=== PATIENT | female | born 1935 | race Caucasian/White ===

== ENCOUNTER 2016-07-18 10:17 | Emergency (ER) | payer MEDICARE, BC ==
--- NOTE | 2016-07-18 10:42 | EDM.PDOC ---
ED HPI ENT - General Chief Complaint: ENT Problem Stated Complaint: NOSE BLEED Time Seen by Provider: 07/18/16 10:41 Source of Information: Reports: Patient - History of Present Illness INITIAL COMMENTS - FREE TEXT/NARRATIVE: Patient is here today with nose bleed. She reports this started about 2 hours ago and she cannot get this to stop. She is on coumadin for atrial fibrillation. She does get frequent epistaxis but typically episodes do not last this long. - Related Data Allergies/ADRs: Allergies Allergy/AdvReac Type Severity Reaction Status Date / Time theophylline anhydrous AdvReac altered Verified 07/18/16 10:22 [From Pan-Dur] heart rate scents Allergy Airway Uncoded 07/18/16 10:22 Tightness Home Meds: Home Meds Indapamide 1 tab PO QAM 12/05/14 [History] Potassium Chloride [Klor-Con M10] 1 tab PO DAILY 12/05/14 [History] Sertraline HCl 1 tab PO DAILY 12/05/14 [History] Verapamil HCl [Verapamil ER] 1 tab PO DAILY 12/05/14 [History] Warfarin [Coumadin] 5 mg PO MOWEFR 02/18/15 [History] Acetaminophen [Tylenol Arthritis] 2 tab PO TID PRN 10/29/15 [History] Albuterol Sulfate [Proair Respiclick] 2 inh INH ASDIRECTED PRN 10/29/15 [History ] Calcium Carbonate [Calcium] 1 tab PO DAILY 10/29/15 [History] Ergocalciferol (Vitamin D2) [Vitamin D] 1 tab PO DAILY 10/29/15 [History] Multivitamin [One Daily Multivitamin] 1 tab PO DAILY 10/29/15 [History] Acetaminophen/oxyCODONE [Percocet 325-5 MG] 1 - 2 tab PO Q4H PRN #60 tablet [Rx] Bisacodyl [Dulcolax] 5 mg PO DAILY PRN #0 tablet 11/01/15 [Rx] Docusate Sodium [Colace] 100 mg PO BID cap 11/01/15 [Rx] Famotidine [Pepcid] 20 mg PO BID tablet 11/01/15 [Rx] Magnesium Hydroxide [Milk of Magnesia] 30 ml PO BID PRN #0 cup 11/01/15 [Rx] Sennosides [Senna] 8.6 mg PO BID PRN #0 tablet 11/01/15 [Rx] diphenhydrAMINE [Benadryl] 25 mg PO Q4H PRN #0 tablet 11/01/15 [Rx] Warfarin [Coumadin] 10 mg PO ASDIRECTED 07/18/16 [History] Past Medical History HEENT History: Reports: Cataract Other HEENT History: wears glasses. 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: Other OB/BYN History: hx of cystocele with mesh repair Musculoskeletal History: Reports: Other (see below) Other Musculoskeletal History: chronic left shoulder pain Neurological History: Reports: Brain injury Other Neuro History: stroke Psychiatric History: Reports: Depression Hematologic History: Reports: Anemia Other Hematologic History: "had bleeding ulcer 11/2014" - Past Surgical History Head Surgeries/Procedures: Reports: None GI Surgical History: Reports: Cholecystectomy Musculoskeletal Surgical History: Reports: Knee replacement Social & Family History - Family History HEENT: Reports: Hearing impairment Cardiac: Reports: Heart failure, Hypertension Respiratory: Reports: Asthma GI: Reports: Cholelithiasis Musculoskeletal: Reports: Osteoarthritis, Osteoporosis Neurological: Reports: Dementia Endocrine/Metabolic: Reports: Diabetes, type I Dermatologic: Reports: Psoriasis Oncologic: Reports: Breast - Tobacco Use Smoking Status *Q: Never Smoker Used Tobacco, but Quit: No Second Hand Smoke Exposure: No - Caffeine Use Caffeine Use: Reports: Coffee - Alcohol Use Days Per Week of Alcohol Use: 0 - Recreational Drug Use Recreational Drug Use: No Drug Use in Last 12 Months: No ED ROS ENT - Review of Systems Review Of Systems: See Below Constitutional: Reports: no symptoms HEENT: Reports: Nosebleed. Denies: Rhinitis Respiratory: Reports: No Symptoms Cardiovascular: Reports: No symptoms ED EXAM, ENT - Physical Exam Exam: See Below Exam Limited By: No limitations General Appearance: alert, WD/WN, no apparent distress Nose: normal inspection, active bleeding, dried blood, other (Blood and clot in left nare. Visible arterial bleed to septum on the left. ) Mouth/Throat: Other (Initial blood in oropharynx. ) Respiratory/Chest: no respiratory distress, lungs clear Cardiovascular: irregularly irregular ED ENT PROCEDURES - Epistaxis Procedure Indication: epistaxis, uncontrolled Recent anticoagulants/antiplatlets: Yes Uncontrolled HTN: No Recent septal/nasal surgery: No Site of bleeding: left nare, anterior Clearing of clots: patient blew nose Chemical cautery: silver nitrate topical Anterior Packing: inflatable nasal tampon Complications: No Course - Vital Signs Last Recorded V/S: Last Vital Signs Temp 98.1 F 07/18/16 10:22 Pulse 90 07/18/16 10:29 Resp 14 07/18/16 10:22 BP 149/90 H 07/18/16 10:29 Pulse Ox 98 07/18/16 10:22 - Re-Assessments/Exams Free Text/Narrative Re-Assessment/Exam: Visible anterior bleed cauterized with silver nitrate but bleeding persisted. Rhino rocket inserted and bleeding was stopped. Patient to FU with PCP on Thursday morning for removal of this. She is on coumadin for atrial fibrillation and does have recurrent epistaxis, she may benefit from compounded estrogen to nares on a daily basis to prevent this. 07/18/16 11:53 Departure - Departure Time of Disposition: 11:34 Disposition: Home, Self-Care 01 Condition: good Clinical Impression: Epistaxis Instructions: Nosebleed, [id number] Referrals: Rhonda Qureshi FISCAL TECHNICIAN [Primary Care Provider] - Forms: ED Department Discharge Additional Instructions: Keep the Rhino Rocket in, see you primary provider on Thursday to have this removed. Return to ER if bleeding should return.
[2016-07-18 12:31] VITALS: BP 150/82
== END 2016-07-18 12:20 | disposition home or self-care (01) ==
LOC: JD.ED 10:17
DX: R04.0 Epistaxis (principal); I48.91 Unspecified atrial fibrillation; I11.9 Hypertensive heart disease without heart failure; I25.2 Old myocardial infarction; K21.9 Gastro-esophageal reflux disease without esophagitis; J45.909 Unspecified asthma, uncomplicated; Z88.8 Allergy status to other drugs, medicaments and biological substances; Z79.899 Other long term (current) drug therapy; Z79.01 Long term (current) use of anticoagulants; Z98.890 Other specified postprocedural states
CPT/HCPCS: 30901; 30903; 99282; 99283-25

== ENCOUNTER 2016-09-21 06:59 | Emergency (ER) | payer MEDICARE, BC ==
--- NOTE | 2016-09-21 07:35 | EDM.PDOC ---
ED HPI GENERAL MEDICAL PROBLEM - General Chief Complaint: Lower Extremity Injury/Pain Stated Complaint: LT KNEE PAIN Time Seen by Provider: 09/21/16 07:11 Source of Information: Reports: Patient, RN Notes Reviewed - History of Present Illness INITIAL COMMENTS - FREE TEXT/NARRATIVE: 81-year-old female comes in with left knee pain. She states that she has had an occasional "clunk of the knee where it seems to catch intermittently for about the past month. There will be some mild discomfort with that but that has always been very brief and then no further difficulties. She is status post left total knee replacement about 11 months ago. She is not aware of any particular injury. However she was very active doing a lot of yard work yesterday. She had onset of the much more severe knee discomfort last evening. The pain is worse with any type of motion and also quite severe with any attempt at weightbearing. She did take hydrocodone at home about 2 hours ago so that is giving some relief but still has a lot of discomfort with motion or weight-bearing. No warmth or redness. She has no leg pain. She has no chest pain or difficulty breathing. Left Knee Pain Score (Numeric/FACES): 8 - Related Data Allergies Allergy/AdvReac Type Severity Reaction Status Date / Time theophylline anhydrous AdvReac altered Verified 09/21/16 07:06 [From Pan-Dur] heart rate scents Allergy Airway Uncoded 07/18/16 10:22 Tightness Home Meds: Home Meds Indapamide 1 tab PO QAM 12/05/14 [History] Potassium Chloride [Klor-Con M10] 1 tab PO DAILY 12/05/14 [History] Sertraline HCl 1 tab PO DAILY 12/05/14 [History] Verapamil HCl [Verapamil ER] 1 tab PO DAILY 12/05/14 [History] Warfarin [Coumadin] 5 mg PO MOWEFR 02/18/15 [History] Acetaminophen [Tylenol Arthritis] 2 tab PO TID PRN 10/29/15 [History] Albuterol Sulfate [Proair Respiclick] 2 inh INH ASDIRECTED PRN 10/29/15 [History ] Calcium Carbonate [Calcium] 1 tab PO DAILY 10/29/15 [History] Ergocalciferol (Vitamin D2) [Vitamin D] 1 tab PO DAILY 10/29/15 [History] Multivitamin [One Daily Multivitamin] 1 tab PO DAILY 10/29/15 [History] Acetaminophen/oxyCODONE [Percocet 325-5 MG] 1 - 2 tab PO Q4H PRN #60 tablet [Rx] Bisacodyl [Dulcolax] 5 mg PO DAILY PRN #0 tablet 11/01/15 [Rx] Docusate Sodium [Colace] 100 mg PO BID cap 11/01/15 [Rx] Famotidine [Pepcid] 20 mg PO BID tablet 11/01/15 [Rx] Magnesium Hydroxide [Milk of Magnesia] 30 ml PO BID PRN #0 cup 11/01/15 [Rx] Sennosides [Senna] 8.6 mg PO BID PRN #0 tablet 11/01/15 [Rx] diphenhydrAMINE [Benadryl] 25 mg PO Q4H PRN #0 tablet 11/01/15 [Rx] Warfarin [Coumadin] 10 mg PO ASDIRECTED 07/18/16 [History] Hydrocodone/Acetaminophen [Sears 5-325] 1 tab PO Q6HR PRN #20 tablet 09/21/16 [ Rx] Past Medical History HEENT History: Reports: Cataract Other HEENT History: wears glasses. 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 OB/BYN History: hx of cystocele with mesh repair Musculoskeletal History: Reports: Other (See Below) Other Musculoskeletal History: chronic left shoulder pain Neurological History: Reports: Brain Injury Other Neuro History: stroke Psychiatric History: Reports: Depression Hematologic History: Reports: Anemia Other Hematologic History: "had bleeding ulcer 11/2014" - Past Surgical History Head Surgeries/Procedures: Reports: None HEENT Surgical History: Reports: Cataract Surgery, Other (See Below) GI Surgical History: Reports: Cholecystectomy Female Surgical History: Reports: Hysterectomy Musculoskeletal Surgical History: Reports: Knee Replacement Social & Family History - Family History HEENT: Reports: Hearing Impairment Cardiac: Reports: Heart Failure, Hypertension Respiratory: Reports: Asthma GI: Reports: Cholelithiasis Musculoskeletal: Reports: Osteoarthritis, Osteoporosis Neurological: Reports: Dementia Endocrine/Metabolic: Reports: Diabetes, Type I Dermatologic: Reports: Psoriasis Oncologic: Reports: Breast - Tobacco Use Smoking Status *Q: Never Smoker Used Tobacco, but Quit: No Second Hand Smoke Exposure: No - Caffeine Use Caffeine Use: Reports: Coffee - Alcohol Use Days Per Week of Alcohol Use: 0 - Recreational Drug Use Recreational Drug Use: No Drug Use in Last 12 Months: No Review of Systems - Review of Systems Review Of Systems: See Below Constitutional: Denies: Chills, Fever Mouth/Throat: Reports: No Symptoms Respiratory: Denies: Shortness of Breath, Pleuritic Chest Pain, Cough Cardiovascular: Denies: Chest Pain GI/Abdominal: Denies: Abdominal Pain, Nausea, Vomiting Musculoskeletal: Reports: Joint Pain (Left knee). Denies: Back Pain, Leg Pain Skin: Reports: No Symptoms Neurological: Denies: Numbness, Tingling, Weakness ED EXAM, GENERAL - Physical Exam Exam: See Below General Appearance: Alert, No Apparent Distress (At rest) Throat/Mouth: Normal Inspection Respiratory/Chest: No Respiratory Distress, Lungs Clear, Normal Breath Sounds Cardiovascular: Regular Rate, Rhythm Extremities: Joint Swelling (She is very mild swelling of the left knee diffusely, she is quite tender anteriorly. Nontender laterally and posteriorly at this time, fairly severe discomfort with active or passive motion.). No: Pedal Edema, Leg Pain, Increased Warmth, Redness Course - Vital Signs Last Recorded V/S: Last Vital Signs Temp 97.9 F 09/21/16 07:06 Pulse 75 09/21/16 07:06 Resp 15 09/21/16 07:06 BP 189/91 H 09/21/16 07:06 Pulse Ox 97 09/21/16 07:06 - Orders/Labs/Meds Orders: Active Orders 24 hr Category Date Time Status Knee Min 4V Lt [CR] Stat Exams 09/21/16 07:25 Taken - Re-Assessments/Exams Free Text/Narrative Re-Assessment/Exam: 09/21/16 08:14. X-rays of the knee do not show apparent abnormality Departure - Departure Time of Disposition: 08:15 Disposition: Home, Self-Care 01 Condition: fair Clinical Impression: Strain of left knee Qualifiers: Encounter type: initial encounter Qualified Code(s): S86.912A - Strain of unspecified muscle(s) and tendon(s) at lower leg level, left leg, initial encounter - Discharge Information Prescriptions: Hydrocodone/Acetaminophen [Sears 5-325] 1 tab PO Q6HR PRN #20 tablet PRN Reason: Pain Forms: ED Department Discharge Additional Instructions: Rest knee, ice packs and elevation as needed for swelling, jovita wrap or rubber sleeve for support and comfort, Tylenol every 6-8 hours as needed for mild to moderate pain or hydrocodone if needed for severe pain, do not take Tylenol and hydrocodone at the same time, see Dr. Villa this week for recheck, call tomorrow morning for appointment - My Orders Last 24 Hours: My Active Orders 09/21/16 07:25 Knee Min 4V Lt [CR] Stat - Assessment/Plan Last 24 Hours: My Active Orders 09/21/16 07:25 Knee Min 4V Lt [CR] Stat
[2016-09-21 09:01] VITALS: BP 162/89
--- NOTE | 2016-09-22 09:06 | CR ---
Left knee: Four views of the left knee were obtained. Comparison: Previous left knee study of 10/29/15. Knee prosthesis is seen. Components are aligned. Joint effusion is present. No acute fracture or other abnormality is seen. Impression: 1. Knee prosthesis and joint effusion. 2. No acute bony abnormality is identified. Diagnostic code #2
== END 2016-09-21 09:01 | disposition home or self-care (01) ==
LOC: JD.ED 06:59
DX: S86.912A Strain of unspecified muscle(s) and tendon(s) at lower leg level, left leg, initial encounter (principal); I25.2 Old myocardial infarction; I10 Essential (primary) hypertension; K21.9 Gastro-esophageal reflux disease without esophagitis; F32.9 Major depressive disorder, single episode, unspecified; Z98.49 Cataract extraction status, unspecified eye; Z90.49 Acquired absence of other specified parts of digestive tract; Z90.710 Acquired absence of both cervix and uterus; Z96.659 Presence of unspecified artificial knee joint; Z79.01 Long term (current) use of anticoagulants; Z79.899 Other long term (current) drug therapy; Z88.8 Allergy status to other drugs, medicaments and biological substances
CPT/HCPCS: 73564-26-LT; 73564-LT; 99283; 99284

== ENCOUNTER 2016-09-25 01:03 | Emergency (ER) | payer MEDICARE, BC ==
[2016-09-25 01:14] VITALS: BP 158/78
[2016-09-25] MEDS ORDERED: Albuterol 0.083% 2.5 MG/3 ML Neb Soln NEB ONE (01:26)
--- NOTE | 2016-09-25 02:23 | EDM.PDOC ---
ED HPI GENERAL MEDICAL PROBLEM - General Chief Complaint: Respiratory Problem Stated Complaint: SOB Time Seen by Provider: 09/25/16 01:15 Source of Information: Reports: Patient, RN Notes Reviewed - History of Present Illness INITIAL COMMENTS - FREE TEXT/NARRATIVE: 81-year-old lady comes in with shortness of breath, cough and wheezing. SHe states this started yesterday and became much worse this past evening. His been coughing up some clear colored phlegm. She states she does have history of asthma but has not had much difficulty with that for a long time. There has been some nasal congestion. She did have some palpitations earlier in the evening. No chest pain. No abdominal pain nausea or vomiting. Chest Pain Score (Numeric/FACES): 3 - Related Data Allergies Allergy/AdvReac Type Severity Reaction Status Date / Time theophylline anhydrous AdvReac altered Verified 09/25/16 01:14 [From Pan-Dur] heart rate scents Allergy Airway Uncoded 09/25/16 01:14 Tightness Home Meds: Home Meds Indapamide 1 tab PO QAM 12/05/14 [History] Potassium Chloride [Klor-Con M10] 1 tab PO DAILY 12/05/14 [History] Sertraline HCl 1 tab PO DAILY 12/05/14 [History] Verapamil HCl [Verapamil ER] 1 tab PO DAILY 12/05/14 [History] Warfarin [Coumadin] 5 mg PO MOWEFR 02/18/15 [History] Acetaminophen [Tylenol Arthritis] 2 tab PO TID PRN 10/29/15 [History] Albuterol Sulfate [Proair Respiclick] 2 inh INH ASDIRECTED PRN 10/29/15 [History ] Calcium Carbonate [Calcium] 1 tab PO DAILY 10/29/15 [History] Ergocalciferol (Vitamin D2) [Vitamin D] 1 tab PO DAILY 10/29/15 [History] Multivitamin [One Daily Multivitamin] 1 tab PO DAILY 10/29/15 [History] Acetaminophen/oxyCODONE [Percocet 325-5 MG] 1 - 2 tab PO Q4H PRN #60 tablet [Rx] Bisacodyl [Dulcolax] 5 mg PO DAILY PRN #0 tablet 11/01/15 [Rx] Docusate Sodium [Colace] 100 mg PO BID cap 11/01/15 [Rx] Famotidine [Pepcid] 20 mg PO BID tablet 11/01/15 [Rx] Magnesium Hydroxide [Milk of Magnesia] 30 ml PO BID PRN #0 cup 11/01/15 [Rx] Sennosides [Senna] 8.6 mg PO BID PRN #0 tablet 11/01/15 [Rx] diphenhydrAMINE [Benadryl] 25 mg PO Q4H PRN #0 tablet 11/01/15 [Rx] Warfarin [Coumadin] 10 mg PO ASDIRECTED 07/18/16 [History] Hydrocodone/Acetaminophen [[place] 5-325] 1 tab PO Q6HR PRN #20 tablet 09/21/16 [ Rx] Past Medical History HEENT History: Reports: Cataract Other HEENT History: wears glasses. 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 OB/BYN History: hx of cystocele with mesh repair Musculoskeletal History: Reports: Other (See Below) Other Musculoskeletal History: chronic left shoulder pain Neurological History: Reports: Brain Injury Other Neuro History: stroke Psychiatric History: Reports: Depression Hematologic History: Reports: Anemia Other Hematologic History: "had bleeding ulcer 11/2014" - Past Surgical History Head Surgeries/Procedures: Reports: None HEENT Surgical History: Reports: Cataract Surgery, Other (See Below) GI Surgical History: Reports: Cholecystectomy Female Surgical History: Reports: Hysterectomy Musculoskeletal Surgical History: Reports: Knee Replacement Social & Family History - Family History HEENT: Reports: Hearing Impairment Cardiac: Reports: Heart Failure, Hypertension Respiratory: Reports: Asthma GI: Reports: Cholelithiasis Musculoskeletal: Reports: Osteoarthritis, Osteoporosis Neurological: Reports: Dementia Endocrine/Metabolic: Reports: Diabetes, Type I Dermatologic: Reports: Psoriasis Oncologic: Reports: Breast - Tobacco Use Smoking Status *Q: Never Smoker Used Tobacco, but Quit: No Second Hand Smoke Exposure: No - Caffeine Use Caffeine Use: Reports: Coffee - Alcohol Use Days Per Week of Alcohol Use: 0 - Recreational Drug Use Recreational Drug Use: No Drug Use in Last 12 Months: No ED ROS GENERAL - Review of Systems Review Of Systems: See Below Constitutional: Denies: Fever, Chills HEENT: Reports: Rhinitis. Denies: Throat Pain, Throat Swelling Respiratory: Reports: Shortness of Breath, Wheezing Cardiovascular: Denies: Chest Pain GI/Abdominal: Denies: Abdominal Pain, Nausea, Vomiting Musculoskeletal: Denies: Shoulder Pain, Arm Pain, Leg Pain Skin: Reports: No Symptoms ED EXAM, GENERAL - Physical Exam Exam: See Below General Appearance: Alert, Mild Distress Eye Exam: Bilateral Eye: PERRL Throat/Mouth: Normal Inspection, Normal Oropharynx Head: No: Facial Swelling Neck: Supple, Full Range of Motion, Other (No JVD) Respiratory/Chest: Respiratory Distress (Mild tachypnea), Wheezing (Mild). No: Rales, Rhonchi Cardiovascular: Irregularly Irregular GI/Abdominal: Soft, Non-Tender Extremities: Pedal Edema (First mild bilateral) Neurological: Alert, Oriented, No Motor/Sensory Deficits Skin Exam: Warm, Dry, Normal Color EKG INTERPRETATION EKG Date: 09/25/16 Rhythm: a-fib [place]: normal QRS: normal ST-T: normal Course - Vital Signs Last Recorded V/S: Last Vital Signs Temp 98.6 F 09/25/16 01:08 Pulse 86 09/25/16 01:08 Resp 26 H 09/25/16 01:08 BP 158/78 H 09/25/16 01:08 Pulse Ox 98 09/25/16 01:37 - Orders/Labs/Meds Orders: Active Orders 24 hr Category Date Time Status EKG 12 Lead [EKG Documentation Completion] [RC] STAT Care 09/25/16 01:26 Active RT Aerosol Therapy [RC] ASDIRECTED Care 09/25/16 01:26 Active Chest 1V Frontal [CR] Stat Exams 09/25/16 01:26 Taken Meds: Medications Discontinued Medications Generic Name Dose Route Start Last Admin Trade Name Freq PRN Reason Stop Dose Admin Albuterol 2.5 mg 09/25/16 01:26 09/25/16 01:34 Proventil Neb Soln NEB 09/25/16 01:27 2.5 mg ONETIME ONE Administration - Re-Assessments/Exams Free Text/Narrative Re-Assessment/Exam: 09/25/16 02:49 Chest x-ray was good, no infiltrate, no evidence for failure. Patient did respond well to an albuterol neb treatment wheezing cleared she was breathing comfortably after the neb treatment. Discharge instructions as documented Departure - Departure Time of Disposition: 02:21 Disposition: Home, Self-Care 01 Condition: fair Clinical Impression: Bronchitis Dyspnea Qualifiers: Dyspnea type: shortness of breath Qualified Code(s): R06.02 - Shortness of breath - Discharge Information Instructions: Acute Bronchitis, [id number] Referrals: Rhonda Qureshi, BEAM DYER [Primary Care Provider] - Forms: ED Department Discharge Additional Instructions: Rest, vaporizer or steam as needed, and he'll are as needed for further wheezing or difficulty breathing, followup clinic as needed, return to ED as needed if symptoms worsening in any way - My Orders Last 24 Hours: My Active Orders 09/25/16 01:26 EKG 12 Lead [EKG Documentation Completion] [RC] STAT RT Aerosol Therapy [RC] ASDIRECTED Chest 1V Frontal [CR] Stat - Assessment/Plan Last 24 Hours: My Active Orders 09/25/16 01:26 EKG 12 Lead [EKG Documentation Completion] [RC] STAT RT Aerosol Therapy [RC] ASDIRECTED Chest 1V Frontal [CR] Stat
--- NOTE | 2016-09-25 09:24 | CR ---
Chest: Frontal view of the chest was obtained. Comparison: Previous chest x-ray of 01/10/15. Heart is enlarged. Upper mediastinum is within normal limits. Lungs are clear with no acute infiltrates. Bony structures are grossly intact. Impression: 1. Cardiomegaly. Nothing acute is appreciated on frontal chest x-ray. Diagnostic code #2
== END 2016-09-25 02:30 | disposition home or self-care (01) ==
LOC: JD.ED 01:03
DX: J40 Bronchitis, not specified as acute or chronic (principal); I10 Essential (primary) hypertension; I25.2 Old myocardial infarction; K21.9 Gastro-esophageal reflux disease without esophagitis; F32.9 Major depressive disorder, single episode, unspecified; Z88.8 Allergy status to other drugs, medicaments and biological substances; Z86.2 Personal history of diseases of the blood and blood-forming organs and certain disorders involving the immune mechanism; Z87.820 Personal history of traumatic brain injury; Z86.718 Personal history of other venous thrombosis and embolism; Z98.49 Cataract extraction status, unspecified eye; Z90.49 Acquired absence of other specified parts of digestive tract; Z90.710 Acquired absence of both cervix and uterus; Z96.659 Presence of unspecified artificial knee joint; Z79.899 Other long term (current) drug therapy
CPT/HCPCS: 71010; 71010-26; 93005; 94664; 99283; 99285-25

== ENCOUNTER 2016-09-27 08:38 | Emergency (ER) | payer MEDICARE, BC ==
[2016-09-27 08:50] VITALS: BP 158/98
[2016-09-27] MEDS ORDERED: Sodium Chloride 0.9% 10 ML Syringe FLUSH PRN (09:12)
[2016-09-27] MEDS ORDERED: Albuterol/Ipratropium 3.0-0.5 MG/3 ML Neb Soln NEB ONE (09:13)
[2016-09-27] MEDS ORDERED: guaiFENesin/Dextromethorphan 100-10 MG/5 ML Soln 5 ML Cup PO ONE (10:16)
--- NOTE | 2016-09-27 11:29 | EDM.PDOC ---
ED HPI GENERAL MEDICAL PROBLEM - General Chief Complaint: Respiratory Problem Stated Complaint: RESPIRATORY ISSUES Time Seen by Provider: 09/27/16 09:05 Source of Information: Reports: Patient, Family History Limitations: Reports: No Limitations - History of Present Illness INITIAL COMMENTS - FREE TEXT/NARRATIVE: The patient has a productive cough for about 1 week. She also has some wheezing. She denies fever and chills. She has asthma and she has been using her inhaler more. She was here a few days ago and she had no pneumonia. She has edema in her left leg but that is chronic for her. She has no chest pain, abdominal pain, nausea or vomiting. Onset: Gradual Duration: Week(s): Improves with: Reports: None Worsens with: Reports: None Associated Symptoms: Reports: Cough, cough w sputum, Fever/Chills, Shortness of Breath. Denies: Chest Pain, Nausea/Vomiting Chest Pain Score (Numeric/FACES): 8 - Related Data Allergies Allergy/AdvReac Type Severity Reaction Status Date / Time theophylline anhydrous AdvReac altered Verified 09/27/16 08:50 [From Pan-Dur] heart rate scents Allergy Airway Uncoded 09/25/16 01:14 Tightness Home Meds: Home Meds Indapamide 1 tab PO QAM 12/05/14 [History] Potassium Chloride [Klor-Con M10] 1 tab PO DAILY 12/05/14 [History] Sertraline HCl 1 tab PO DAILY 12/05/14 [History] Verapamil HCl [Verapamil ER] 1 tab PO DAILY 12/05/14 [History] Warfarin [Coumadin] 5 mg PO MOWEFR 02/18/15 [History] Acetaminophen [Tylenol Arthritis] 2 tab PO TID PRN 10/29/15 [History] Albuterol Sulfate [Proair Respiclick] 2 inh INH ASDIRECTED PRN 10/29/15 [History ] Calcium Carbonate [Calcium] 1 tab PO DAILY 10/29/15 [History] Ergocalciferol (Vitamin D2) [Vitamin D] 1 tab PO DAILY 10/29/15 [History] Multivitamin [One Daily Multivitamin] 1 tab PO DAILY 10/29/15 [History] Acetaminophen/oxyCODONE [Percocet 325-5 MG] 1 - 2 tab PO Q4H PRN #60 tablet [Rx] Bisacodyl [Dulcolax] 5 mg PO DAILY PRN #0 tablet 11/01/15 [Rx] Docusate Sodium [Colace] 100 mg PO BID cap 11/01/15 [Rx] Famotidine [Pepcid] 20 mg PO BID tablet 11/01/15 [Rx] Magnesium Hydroxide [Milk of Magnesia] 30 ml PO BID PRN #0 cup 11/01/15 [Rx] Sennosides [Senna] 8.6 mg PO BID PRN #0 tablet 11/01/15 [Rx] diphenhydrAMINE [Benadryl] 25 mg PO Q4H PRN #0 tablet 11/01/15 [Rx] Warfarin [Coumadin] 10 mg PO ASDIRECTED 07/18/16 [History] Hydrocodone/Acetaminophen [[place] 5-325] 1 tab PO Q6HR PRN #20 tablet 09/21/16 [ Rx] Azithromycin [IJD: Azithromycin] 250 mg PO DAILY #6 tab 09/27/16 [Rx] Past Medical History HEENT History: Reports: Cataract Other HEENT History: wears glasses. 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: hx of cystocele with mesh repair Musculoskeletal History: Reports: Other (See Below) Other Musculoskeletal History: chronic left shoulder pain Neurological History: Reports: Brain Injury Other Neuro History: stroke Psychiatric History: Reports: Depression Hematologic History: Reports: Anemia Other Hematologic History: "had bleeding ulcer 11/2014" - Past Surgical History Head Surgeries/Procedures: Reports: None HEENT Surgical History: Reports: Cataract Surgery, Other (See Below) GI Surgical History: Reports: Cholecystectomy Female Surgical History: Reports: Hysterectomy Musculoskeletal Surgical History: Reports: Knee Replacement Social & Family History - Family History HEENT: Reports: Hearing Impairment Cardiac: Reports: Heart Failure, Hypertension Respiratory: Reports: Asthma GI: Reports: Cholelithiasis Musculoskeletal: Reports: Osteoarthritis, Osteoporosis Neurological: Reports: Dementia Endocrine/Metabolic: Reports: Diabetes, Type I Dermatologic: Reports: Psoriasis Oncologic: Reports: Breast - Tobacco Use Smoking Status *Q: Never Smoker Used Tobacco, but Quit: No Second Hand Smoke Exposure: No - Caffeine Use Caffeine Use: Reports: Coffee - Alcohol Use Days Per Week of Alcohol Use: 0 - Recreational Drug Use Recreational Drug Use: No Drug Use in Last 12 Months: No ED ROS GENERAL - Review of Systems Review Of Systems: See Below Constitutional: Reports: Chills. Denies: Fever HEENT: Reports: No Symptoms Respiratory: Reports: Shortness of Breath, Wheezing, Cough, Sputum Cardiovascular: Reports: No Symptoms Endocrine: Reports: No Symptoms GI/Abdominal: Reports: No Symptoms : Reports: No Symptoms Musculoskeletal: Reports: No Symptoms Skin: Reports: No Symptoms ED EXAM, GENERAL - Physical Exam Exam: See Below Exam Limited By: No Limitations General Appearance: Alert, No Apparent Distress Ears: Normal External Exam Nose: Normal Inspection Head: Atraumatic, Normocephalic Neck: Normal Inspection Respiratory/Chest: No Respiratory Distress, Rhonchi, Wheezing Cardiovascular: Regular Rate, Rhythm, No Edema, No Murmur GI/Abdominal: Soft, Non-Tender, No Organomegaly, No Mass Back Exam: Normal Inspection Extremities: Normal Inspection Neurological: Alert, Oriented, No Motor/Sensory Deficits Course - Vital Signs Last Recorded V/S: Last Vital Signs Temp 98.5 F 09/27/16 08:46 Pulse 85 09/27/16 08:46 Resp 22 H 09/27/16 08:46 BP 158/98 H 09/27/16 08:46 Pulse Ox 96 09/27/16 09:52 - Orders/Labs/Meds Orders: Active Orders 24 hr Category Date Time Status Cardiac Monitoring [RC] . DIRECTED Care 09/27/16 09:12 Active Oxygen Therapy [RC] PRN Care 09/27/16 09:12 Active Peripheral IV Care [RC] . DIRECTED Care 09/27/16 09:13 Active RT Aerosol Therapy [RC] ASDIRECTED Care 09/27/16 09:13 Active Chest 2V [CR] Stat Exams 09/27/16 09:13 Taken Sodium Chloride 0.9% [Saline Flush] Med 09/27/16 09:12 Active 10 ml FLUSH ASDIRECTED PRN Peripheral IV Insertion Adult [OM.PC] Stat Oth 09/27/16 09:12 Ordered Medication Orders Sodium Chloride (Saline Flush) 10 ml FLUSH ASDIRECTED PRN PRN Reason: Keep Vein Open Last Admin: 09/27/16 10:08 Dose: 10 ml Labs: Laboratory Tests 09/27/16 09/27/16 Range/Units 10:25 10:25 WBC 6.59 (3.98-10.04) K/mm3 RBC 4.62 (3.98-5.22) M/mm3 Hgb 14.7 (11.2-15.7) gm/L Hct 44.4 (34.1-44.9) % MCV 96.1 H (79.4-94.8) fl MCH 31.8 (25.6-32.2) pg MCHC 33.1 (32.2-35.5) g/dl RDW Std Deviation 50.9 H (36.4-46.3) fL Plt Count 216 (182-369) K/mm3 MPV 9.9 (9.4-12.3) fl Neut % (Auto) 58.2 (34.0-71.1) % Lymph % (Auto) 25.5 (19.3-51.7) % [place] % (Auto) 13.7 H (4.7-12.5) % Eos % (Auto) 1.8 (0.7-5.8) Baso % (Auto) 0.6 (0.1-1.2) % Neut # (Auto) 3.84 (1.56-6.13) K/mm3 Lymph # (Auto) 1.68 (1.18-3.74) K/mm3 [place] # (Auto) 0.90 H (0.24-0.36) K/mm3 Eos # (Auto) 0.12 (0.04-0.36) K/mm3 Baso # (Auto) 0.04 (0.01-0.08) K/mm3 Sodium 140 (136-145) mEq/L Potassium 3.4 L (3.5-5.1) mEq/L Chloride 103 (98-107) mEq/L Carbon Dioxide 30 (21-32) mEq/L Anion Gap 10.4 (5-15) BUN 16 (7-18) mg/dL Creatinine 0.9 (0.55-1.02) mg/dL Est Cr Clr Drug Dosing TNP Estimated GFR (MDRD) > 60 (>60) mL/min BUN/Creatinine Ratio 17.8 (14-18) Glucose 84 (83-115) mg/dL Calcium 9.0 (8.5-10.1) mg/dL Total Bilirubin 0.5 (0.2-1.0) mg/dL AST 33 (15-37) U/L ALT 32 (14-59) U/L Alkaline Phosphatase 89 (46-116) U/L Total Protein 7.4 (6.4-8.2) g/dl Albumin 3.3 L (3.4-5.0) g/dl Globulin 4.1 gm/dL Albumin/Globulin Ratio 0.8 L (1-2) Meds: Medications Generic Name Dose Route Start Last Admin Trade Name Freq PRN Reason Stop Dose Admin Sodium Chloride 10 ml 09/27/16 09:12 09/27/16 10:08 Saline Flush FLUSH 10 ml ASDIRECTED PRN Administration Keep Vein Open Discontinued Medications Generic Name Dose Route Start Last Admin Trade Name Freq PRN Reason Stop Dose Admin Albuterol/Ipratropium 3 ml 09/27/16 09:13 09/27/16 09:52 Duoneb 3.0-0.5 Mg/3 Ml NEB 09/27/16 09:14 3 ml ONETIME ONE Administration Guaifenesin/Phenylephrine HCl 10 ml 09/27/16 10:16 09/27/16 10:58 Robitussin Dm PO 09/27/16 10:17 10 ml ONETIME ONE Administration - Re-Assessments/Exams Free Text/Narrative Re-Assessment/Exam: 09/27/16 11:27 I ordered a duoneb, CXR and labs. Her CXR shows no pneumonia. Her labs look good. I ordered her some robitussion and her cough is better. I feel she may have the start of pneumonia. I will get her on azithromycin. I was going to give her a neb for at home but she does not want that and did not want any steroids or phenergan with codeine for the cough. Departure - Departure Time of Disposition: 11:30 Disposition: Home, Self-Care 01 Condition: good Clinical Impression: Bronchitis - Discharge Information Prescriptions: Azithromycin [IJD: Azithromycin] 250 mg PO DAILY #6 tab Referrals: Rhonda Qureshi, [employer] [Primary Care Provider] - 1 Week Forms: ED Department Discharge Additional Instructions: Take the zithromax 2 pills on day 1 and 1 pill on day 2 through 5. Use your albuterol inhaler 2 puffs every 4 to 6 hours as needed. Take robitussin or a similar cough medicine for the cough. Please return if you are worse. - My Orders Last 24 Hours: My Active Orders 09/27/16 09:12 Cardiac Monitoring [RC] . DIRECTED Oxygen Therapy [RC] PRN Sodium Chloride 0.9% [Saline Flush] 10 ml FLUSH ASDIRECTED PRN Peripheral IV Insertion Adult [OM.PC] Stat 09/27/16 09:13 Peripheral IV Care [RC] . DIRECTED RT Aerosol Therapy [RC] ASDIRECTED Chest 2V [CR] Stat - Assessment/Plan Last 24 Hours: My Active Orders 09/27/16 09:12 Cardiac Monitoring [RC] . DIRECTED Oxygen Therapy [RC] PRN Sodium Chloride 0.9% [Saline Flush] 10 ml FLUSH ASDIRECTED PRN Peripheral IV Insertion Adult [OM.PC] Stat 09/27/16 09:13 Peripheral IV Care [RC] . DIRECTED RT Aerosol Therapy [RC] ASDIRECTED Chest 2V [CR] Stat
--- NOTE | 2016-09-29 11:14 | CR ---
Chest: Two views of the chest were obtained. Comparison: Previous chest x-ray of 09/25/16. Heart size at the upper limits of normal. Tortuous thoracic aorta is seen. Lung markings mildly increased which appear to be chronic. No acute infiltrates are seen. Lungs are slightly hyperinflated compatible with emphysematous change. Scattered disc space narrowing and endplate osteophytes seen within the spine. Impression: 1. Incidental findings. Nothing acute is appreciated on two-view chest x-ray. Diagnostic code #2
== END 2016-09-27 11:45 | disposition home or self-care (01) ==
LOC: JD.ED 08:38
DX: J40 Bronchitis, not specified as acute or chronic (principal); I25.2 Old myocardial infarction; I10 Essential (primary) hypertension; I48.91 Unspecified atrial fibrillation; K21.9 Gastro-esophageal reflux disease without esophagitis; F32.9 Major depressive disorder, single episode, unspecified; J45.909 Unspecified asthma, uncomplicated; Z98.49 Cataract extraction status, unspecified eye; Z90.49 Acquired absence of other specified parts of digestive tract; Z96.659 Presence of unspecified artificial knee joint; Z90.710 Acquired absence of both cervix and uterus; Z87.440 Personal history of urinary (tract) infections; Z86.2 Personal history of diseases of the blood and blood-forming organs and certain disorders involving the immune mechanism; Z86.718 Personal history of other venous thrombosis and embolism; Z79.01 Long term (current) use of anticoagulants; Z79.899 Other long term (current) drug therapy; Z88.8 Allergy status to other drugs, medicaments and biological substances
CPT/HCPCS: 36415; 71020; 80053; 85025; 94664; 99284; A9270; J7050; 94762

== ENCOUNTER 2016-12-30 06:57 | Inpatient (IN) | payer MEDICARE, BC ==
[2016-12-30] MEDS ORDERED: Sodium Chloride 0.9% 10 ML Syringe FLUSH PRN ×2 (07:13→08:35)
[2016-12-30] MEDS ORDERED: Ondansetron 4 MG/2 ML SDV IVPUSH ONE (07:14)
[2016-12-30] MEDS ORDERED: Pantoprazole 40 MG Vial IVPUSH ONE (07:14)
[2016-12-30] MEDS ORDERED: Sodium Chloride 0.9% 1,000 ML IV SCH ×2 (07:15→12:00)
[2016-12-30] MEDS ORDERED: Pantoprazole 80 MG in Sodium Chloride 0.9% 100 ML IV SCH (07:15)
[2016-12-30] MEDS ORDERED: Sodium Chloride 0.9% 500 ML IV ONE (07:16)
--- NOTE | 2016-12-30 07:22 | EDM.PDOC ---
ED HPI GENERAL MEDICAL PROBLEM - General Chief Complaint: Gastrointestinal Problem Stated Complaint: VOMITING BLOOD Time Seen by Provider: 12/30/16 07:05 Source of Information: Reports: Patient History Limitations: Reports: No Limitations - History of Present Illness INITIAL COMMENTS - FREE TEXT/NARRATIVE: The patient presents with upper abdominal pain and vomiting blood. She noticed some dark stools yesterday and this morning she vomited some dark black emesis with blood. She has some upper abdominal pain. She has a history of ulcers. She is also on coumadin for A-fib. She gets lightheaded and diaphoretic when she stands up. She denies headache, chest pain, shortness of breath, fever, chills, cough, congestion or runny nose. She said the last time she had a GI bleed she got steroids and she has not had steroids since. Onset: Gradual Duration: Day(s): (Yesterday) Location: Reports: Abdomen Quality: Reports: Ache Severity: Mild Improves with: Reports: None Worsens with: Reports: None Associated Symptoms: Reports: Diaphoresis, Nausea/Vomiting. Denies: Chest Pain , Fever/Chills, Headaches, Shortness of Breath - Related Data Allergies Allergy/AdvReac Type Severity Reaction Status Date / Time theophylline anhydrous AdvReac altered Verified 12/30/16 07:10 [From Pan-Dur] heart rate scents Allergy Airway Uncoded 09/25/16 01:14 Tightness Home Meds: Home Meds Indapamide 1 tab PO QAM 12/05/14 [History] Potassium Chloride [Klor-Con M10] 1 tab PO DAILY 12/05/14 [History] Sertraline HCl 1 tab PO DAILY 12/05/14 [History] Verapamil HCl [Verapamil ER] 1 tab PO DAILY 12/05/14 [History] Warfarin [Coumadin] 5 mg PO MOWEFR 02/18/15 [History] Acetaminophen [Tylenol Arthritis] 2 tab PO TID PRN 10/29/15 [History] Albuterol Sulfate [Proair Respiclick] 2 inh INH ASDIRECTED PRN 10/29/15 [History ] Calcium Carbonate [Calcium] 1 tab PO DAILY 10/29/15 [History] Ergocalciferol (Vitamin D2) [Vitamin D] 1 tab PO DAILY 10/29/15 [History] Multivitamin [One Daily Multivitamin] 1 tab PO DAILY 10/29/15 [History] Bisacodyl [Dulcolax] 5 mg PO DAILY PRN #0 tablet 11/01/15 [Rx] Docusate Sodium [Colace] 100 mg PO BID cap 11/01/15 [Rx] Magnesium Hydroxide [Milk of Magnesia] 30 ml PO BID PRN #0 cup 11/01/15 [Rx] Sennosides [Senna] 8.6 mg PO BID PRN #0 tablet 11/01/15 [Rx] Warfarin [Coumadin] 10 mg PO ASDIRECTED 07/18/16 [History] Hydrocodone/Acetaminophen [[place] 5-325] 1 tab PO Q6HR PRN #20 tablet 09/21/16 [ Rx] Past Medical History HEENT History: Reports: Cataract Other HEENT History: wears glasses. 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: hx of cystocele with mesh repair Musculoskeletal History: Reports: Other (See Below) Other Musculoskeletal History: chronic left shoulder pain Neurological History: Reports: Brain Injury Other Neuro History: stroke Psychiatric History: Reports: Depression Hematologic History: Reports: Anemia Other Hematologic History: "had bleeding ulcer 11/2014" - Past Surgical History Head Surgeries/Procedures: Reports: None HEENT Surgical History: Reports: Cataract Surgery, Other (See Below) GI Surgical History: Reports: Cholecystectomy Female Surgical History: Reports: Hysterectomy Musculoskeletal Surgical History: Reports: Knee Replacement Social & Family History - Family History HEENT: Reports: Hearing Impairment Cardiac: Reports: Heart Failure, Hypertension Respiratory: Reports: Asthma GI: Reports: Cholelithiasis Musculoskeletal: Reports: Osteoarthritis, Osteoporosis Neurological: Reports: Dementia Endocrine/Metabolic: Reports: Diabetes, Type I Dermatologic: Reports: Psoriasis Oncologic: Reports: Breast - Tobacco Use Smoking Status *Q: Never Smoker Used Tobacco, but Quit: No Second Hand Smoke Exposure: No - Caffeine Use Caffeine Use: Reports: Coffee - Alcohol Use Days Per Week of Alcohol Use: 0 - Recreational Drug Use Recreational Drug Use: No Drug Use in Last 12 Months: No ED ROS GENERAL - Review of Systems Review Of Systems: See Below Constitutional: Reports: No Symptoms HEENT: Reports: No Symptoms Respiratory: Reports: No Symptoms Cardiovascular: Reports: Lightheadedness. Denies: Chest Pain Endocrine: Reports: Fatigue GI/Abdominal: Reports: Abdominal Pain, Black Stool, Hematemesis, Nausea, Vomiting : Reports: No Symptoms Musculoskeletal: Reports: No Symptoms Skin: Reports: No Symptoms ED EXAM, GI/ABD - Physical Exam Exam: See Below Exam Limited By: No Limitations General Appearance: Alert, No Apparent Distress Ears: Normal External Exam Nose: Normal Inspection Head: Atraumatic, Normocephalic Neck: Normal Inspection Respiratory/Chest: No Respiratory Distress, Lungs Clear, Normal Breath Sounds Cardiovascular: Regular Rate, Rhythm, No Edema, No Murmur GI/Abdominal Exam: Soft, No Organomegaly, Tender (Mild tenderness to the upper abdomen) Rectal (Female) Exam: Black Stool, Heme + Stool Extremities: Normal Inspection Course - Vital Signs Last Recorded V/S: Last Vital Signs Temp 97.4 F 12/30/16 07:03 Pulse 87 12/30/16 07:03 Resp 13 12/30/16 07:03 BP 94/63 12/30/16 07:03 Pulse Ox 96 12/30/16 07:03 - Orders/Labs/Meds Orders: Active Orders 24 hr Category Date Time Status Cardiac Monitoring [RC] . DIRECTED Care 12/30/16 07:13 Active EKG Documentation Completion [RC] STAT Care 12/30/16 07:13 Active Peripheral IV Care [RC] . DIRECTED Care 12/30/16 07:14 Active Pantoprazole [ProTONIX IV] 80 mg Med 12/30/16 07:15 Active Sodium Chloride 0.9% [Normal Saline] 100 ml IV Q10H Sodium Chloride 0.9% [Normal Saline] 1,000 ml Med 12/30/16 07:15 Active IV ASDIRECTED Sodium Chloride 0.9% [Saline Flush] Med 12/30/16 07:13 Active 10 ml FLUSH ASDIRECTED PRN Sodium Chloride 0.9% [Saline Flush] Med 12/30/16 08:35 Active 10 ml FLUSH ONETIME PRN Peripheral IV Insertion Adult [OM.PC] Stat Oth 12/30/16 07:13 Ordered Medication Orders Pantoprazole Sodium 80 mg/ (Sodium Chloride) 100 mls @ 10 mls/hr IV Q10H ETHAN Last Admin: 12/30/16 08:06 Dose: 10 mls/hr Sodium Chloride (Normal Saline) 1,000 mls @ 125 mls/hr IV ASDIRECTED ETHAN Sodium Chloride (Saline Flush) 10 ml FLUSH ASDIRECTED PRN PRN Reason: Keep Vein Open Last Admin: 12/30/16 07:42 Dose: 10 ml Sodium Chloride (Saline Flush) 10 ml FLUSH ONETIME PRN PRN Reason: IV FLUSH Last Admin: 12/30/16 09:01 Dose: 10 ml Labs: Laboratory Tests 12/30/16 12/30/16 12/30/16 Range/Units 07:03 07:03 07:03 WBC 10.55 H (3.98-10.04) K/mm3 RBC 3.79 L (3.98-5.22) M/mm3 Hgb 12.1 (11.2-15.7) gm/L Hct 37.7 (34.1-44.9) % MCV 99.5 H (79.4-94.8) fl MCH 31.9 (25.6-32.2) pg MCHC 32.1 L (32.2-35.5) g/dl RDW Std Deviation 51.2 H (36.4-46.3) fL Plt Count 250 (182-369) K/mm3 MPV 10.7 (9.4-12.3) fl Neut % (Auto) 75.0 H (34.0-71.1) % Lymph % (Auto) 19.4 (19.3-51.7) % [place] % (Auto) 5.0 (4.7-12.5) % Eos % (Auto) 0.1 L (0.7-5.8) Baso % (Auto) 0.3 (0.1-1.2) % Neut # (Auto) 7.91 H (1.56-6.13) K/mm3 Lymph # (Auto) 2.05 (1.18-3.74) K/mm3 [place] # (Auto) 0.53 H (0.24-0.36) K/mm3 Eos # (Auto) 0.01 L (0.04-0.36) K/mm3 Baso # (Auto) 0.03 (0.01-0.08) K/mm3 PT 57.7 H* (8.0-13.0) SECONDS INR 4.79 Sodium 140 (136-145) mEq/L Potassium 4.3 (3.5-5.1) mEq/L Chloride 103 (98-107) mEq/L Carbon Dioxide 28 (21-32) mEq/L Anion Gap 13.3 (5-15) BUN 54 H (7-18) mg/dL Creatinine 1.1 H (0.55-1.02) mg/dL Est Cr Clr Drug Dosing TNP Estimated GFR (MDRD) 48 (>60) mL/min BUN/Creatinine Ratio 49.1 H (14-18) Glucose 174 H (83-115) mg/dL Calcium 8.8 (8.5-10.1) mg/dL Total Bilirubin 0.7 (0.2-1.0) mg/dL AST 25 (15-37) U/L ALT 25 (14-59) U/L Alkaline Phosphatase 63 (46-116) U/L Troponin I 0.019 (0.00-0.056) ng/mL Total Protein 6.6 (6.4-8.2) g/dl Albumin 2.9 L (3.4-5.0) g/dl Globulin 3.7 gm/dL Albumin/Globulin Ratio 0.8 L (1-2) Blood Type Gel Antibody Screen 12/30/16 Range/Units 07:03 WBC (3.98-10.04) K/mm3 RBC (3.98-5.22) M/mm3 Hgb (11.2-15.7) gm/L Hct (34.1-44.9) % MCV (79.4-94.8) fl MCH (25.6-32.2) pg MCHC (32.2-35.5) g/dl RDW Std Deviation (36.4-46.3) fL Plt Count (182-369) K/mm3 MPV (9.4-12.3) fl Neut % (Auto) (34.0-71.1) % Lymph % (Auto) (19.3-51.7) % [place] % (Auto) (4.7-12.5) % Eos % (Auto) (0.7-5.8) Baso % (Auto) (0.1-1.2) % Neut # (Auto) (1.56-6.13) K/mm3 Lymph # (Auto) (1.18-3.74) K/mm3 [place] # (Auto) (0.24-0.36) K/mm3 Eos # (Auto) (0.04-0.36) K/mm3 Baso # (Auto) (0.01-0.08) K/mm3 PT (8.0-13.0) SECONDS INR Sodium (136-145) mEq/L Potassium (3.5-5.1) mEq/L Chloride (98-107) mEq/L Carbon Dioxide (21-32) mEq/L Anion Gap (5-15) BUN (7-18) mg/dL Creatinine (0.55-1.02) mg/dL Est Cr Clr Drug Dosing Estimated GFR (MDRD) (>60) mL/min BUN/Creatinine Ratio (14-18) Glucose (83-115) mg/dL Calcium (8.5-10.1) mg/dL Total Bilirubin (0.2-1.0) mg/dL AST (15-37) U/L ALT (14-59) U/L Alkaline Phosphatase (46-116) U/L Troponin I (0.00-0.056) ng/mL Total Protein (6.4-8.2) g/dl Albumin (3.4-5.0) g/dl Globulin gm/dL Albumin/Globulin Ratio (1-2) Blood Type B POSITIVE Gel Antibody Screen Negative Meds: Medications Generic Name Dose Route Start Last Admin Trade Name Freq PRN Reason Stop Dose Admin Pantoprazole Sodium 80 mg/ 100 mls @ 10 mls/hr 12/30/16 07:15 12/30/16 08:06 Sodium Chloride IV 10 mls/hr Q10H ETHAN Administration Sodium Chloride 1,000 mls @ 125 mls/hr 12/30/16 07:15 Normal Saline IV ASDIRECTED ETHAN Sodium Chloride 10 ml 12/30/16 07:13 12/30/16 07:42 Saline Flush FLUSH 10 ml ASDIRECTED PRN Administration Keep Vein Open Sodium Chloride 10 ml 12/30/16 08:35 12/30/16 09:01 Saline Flush FLUSH 10 ml ONETIME PRN Administration IV FLUSH Discontinued Medications Generic Name Dose Route Start Last Admin Trade Name Sourav PRN Reason Stop Dose Admin Diatrizoate Meglum/Diatrizoate Sod 90 ml 12/30/16 08:35 12/30/16 09:01 Gastrografin 37% PO 12/30/16 08:36 90 ml ONETIME ONE Administration Sodium Chloride 500 mls @ 1,000 mls/hr 12/30/16 07:16 12/30/16 07:30 Normal Saline IV 12/30/16 07:45 1,000 mls/hr .BOLUS ONE Administration Phytonadione 5 mg/ Sodium 50.5 mls @ 100 mls/hr 12/30/16 07:59 12/30/16 08:29 Chloride IV 12/30/16 08:29 100 mls/hr NOW ONE Administration Iopamidol 100 ml 12/30/16 08:35 12/30/16 09:01 Isovue-300 (61%) IVPUSH 12/30/16 08:36 100 ml ONETIME ONE Administration Ondansetron HCl 4 mg 12/30/16 07:14 12/30/16 07:30 Zofran IVPUSH 12/30/16 07:15 4 mg ONETIME ONE Administration Pantoprazole Sodium 80 mg 12/30/16 07:14 12/30/16 07:33 Protonix Iv IVPUSH 12/30/16 07:15 80 mg .BOLUS ONE Administration - Re-Assessments/Exams Free Text/Narrative Re-Assessment/Exam: 12/30/16 07:21 I ordered an IV NS 500mL bolus and then 125mL/hr, zofran 4mg IV, CT, type and cross, protonix bolus and drip. 12/30/16 09:36 Her WBC was elevated at 10.55. Her Hgb was normal at 12.1 along with her platelets at 250. Her INR was elevated at 4.79. I ordered vitamin K 5mg IV. Her BUN was elevated at 54. Her creatinine was slightly elevated at 1.1. Her glucose was elevated at 174. I am waiting for the CT report. 12/30/16 10:[address] shows 2 small cysts measuring 1.9cm and 1.6cm within the left pelvis believed to be within the patient's ovary. These are felt to be incidental. Several cysts within the kidneys as well as a small cortical calcification which is felt to be incidental. Nothing acute is appreciated on CT study of the abdomen and pelvis. The patient had this happen before and she was on pradaxa at that time. Her daughter asked if just aspirin would be a possibility. I feel she needs to be admitted. I called Dr Estevez and he agreed to the admission. Departure - Departure Time of Disposition: 10:45 Disposition: Admitted As Inpatient 66 Condition: Serious Clinical Impression: Elevated international normalized ratio (INR) due to prior anticoagulant medication ingestion, Chronic atrial fibrillation, Upper GI bleed Hypotension Qualifiers: Hypotension type: unspecified hypotension type Qualified Code(s): I95.9 - Hypotension, unspecified - Discharge Information Referrals: Spike Dumont MD [Physician] - Forms: ED Department Discharge - My Orders Last 24 Hours: My Active Orders 12/30/16 07:13 Cardiac Monitoring [RC] . DIRECTED EKG Documentation Completion [RC] STAT Sodium Chloride 0.9% [Saline Flush] 10 ml FLUSH ASDIRECTED PRN Peripheral IV Insertion Adult [OM.PC] Stat 12/30/16 07:14 Peripheral IV Care [RC] . DIRECTED 12/30/16 07:15 Pantoprazole [ProTONIX IV] 80 mg Sodium Chloride 0.9% [Normal Saline] 100 ml IV Q10H Sodium Chloride 0.9% [Normal Saline] 1,000 ml IV ASDIRECTED 12/30/16 08:35 Sodium Chloride 0.9% [Saline Flush] 10 ml FLUSH ONETIME PRN - Assessment/Plan Last 24 Hours: My Active Orders 12/30/16 07:13 Cardiac Monitoring [RC] . DIRECTED EKG Documentation Completion [RC] STAT Sodium Chloride 0.9% [Saline Flush] 10 ml FLUSH ASDIRECTED PRN Peripheral IV Insertion Adult [OM.PC] Stat 12/30/16 07:14 Peripheral IV Care [RC] . DIRECTED 12/30/16 07:15 Pantoprazole [ProTONIX IV] 80 mg Sodium Chloride 0.9% [Normal Saline] 100 ml IV Q10H Sodium Chloride 0.9% [Normal Saline] 1,000 ml IV ASDIRECTED 12/30/16 08:35 Sodium Chloride 0.9% [Saline Flush] 10 ml FLUSH ONETIME PRN
[2016-12-30] MEDS ORDERED: Phytonadione 5 MG in Sodium Chloride 0.9% 50 ML IV ONE (07:59)
[2016-12-30] MEDS ORDERED: Diatrizoate Meglumine/Diatrizoate Sodium 37% 120 ML Bottle PO ONE (08:35)
[2016-12-30] MEDS ORDERED: Iopamidol 612 MG/ML 100 ML Bottle IVPUSH ONE (08:35)
--- NOTE | 2016-12-30 09:52 | CT ---
CT abdomen and pelvis Technique: Multiple axial sections were obtained from above the dome of the diaphragm inferiorly through the pubic symphysis. Intravenous and oral contrast was utilized. Delayed images were also obtained through the abdomen and pelvis. Comparison: Previous CT abdomen and pelvis exam dated 07/23/11. Findings: Visualized lung bases are clear. Liver shows no focal parenchymal abnormality. Spleen size is normal. 2 small cysts are seen within the right kidney and small cyst is noted within the left kidney. Small cortical calcification is seen inferiorly within the left kidney. Delayed images shows contrast excretion from both kidneys with ureters being seen and appear unremarkable. Contrast is seen within the bladder. Pancreas is normal. Adrenal glands show no nodule. Aorta shows mild atherosclerotic change which continues into the iliac vessels. No aneurysm is identified. No retroperitoneal adenopathy is seen. Several small cysts are seen believed to be within the patient's left ovary measuring 1.9 cm and 1.6 cm. No additional pelvic abnormality is seen. Previous cholecystectomy is noted. No free fluid or inflammatory change is seen. Impression: 1. 2 small cysts measuring 1.9 cm 1.6 cm within the left pelvis believed to be within the patient's ovary. These are felt to be incidental. 2. Several cysts within the kidneys as well as a small cortical calcification which is felt to be incidental. 3. Nothing acute is appreciated on CT study of the abdomen and pelvis. Diagnostic code #2
[2016-12-30] MEDS ORDERED: Acetaminophen/HYDROcodone 325-5 MG Tab PO PRN (13:50)
[2016-12-30] MEDS ORDERED: Albuterol/Ipratropium 3.0-0.5 MG/3 ML Neb Soln NEB PRN (13:50)
[2016-12-30] MEDS ORDERED: HYDROmorphone 0.5 MG/0.5 ML Syringe IVPUSH PRN (13:50)
[2016-12-30] MEDS ORDERED: Acetaminophen 325 MG Tab PO PRN (13:50)
[2016-12-30] MEDS ORDERED: Ondansetron 4 MG/2 ML SDV IV PRN (13:50)
[2016-12-30] MEDS ORDERED: LORazepam 2 MG/ML MDV IV PRN (13:50)
[2016-12-30] MEDS ORDERED: Metoprolol Tartrate 5 MG/5 ML SDV IVPUSH PRN (13:54)
[2016-12-30] MEDS ORDERED: hydrALAZINE 20 MG/ML SDV IVPUSH PRN (13:54)
[2016-12-30] MEDS ORDERED: Albuterol 6.7 GM Inhaler INH PRN (13:56)
[2016-12-30] MEDS ORDERED: Magnesium Hydroxide 400 MG/5 ML Susp 30 ML Cup PO PRN (13:56)
[2016-12-30] MEDS: Dextrose 5%-0.9% NaCl 1,000 ML IV SCH (15:09)
[2016-12-30] MEDS: Famotidine 20 MG/2 ML SDV IVPUSH SCH (21:15)
--- NOTE | 2016-12-30 21:44 | PCM.HP ---
H&P History of Present Illness - General Date of Service: 12/30/16 Admit Problem/Dx: Admission Diagnosis/Problem Admission Diagnosis/Problem GI bleed not requiring more than 4 units of blood in 24 hours, ICU, or surgery Source of Information: Patient, Family, Old Records, Provider, RN Notes Reviewed History Limitations: Reports: No Limitations - History of Present Illness Initial Comments - Free Text/Narative: This is an 81 yo pleasant elderly white female with past medical hx/o HTN, Hx/o ID, Asthma, AR, OA/DJD, GERD, Anemia, Hx/o Stroke, Hx/o Bladder Cysts, Hx/o Recurrent UTIs, Hx/o Cystocele with Mesh Repair, Osteoporosis, and Depression who presents to the emergency department with complaints of abdominal pain associated with hematemesis, some dark stools and diarrhea. This morning she experienced some lightheadedness and diaphoresis when she tried to get up. She denies any chest pain or shortness of breath. Patient carries a history of bleeding ulcer in 2014. She also has chronic atrial fibrillation on warfarin for stroke prophylaxis. She denies any history of diverticulosis or hemorrhoids. Her initial workup in emergency department shows a CBC remarkable for WBC of 10.55, RBC of 3.79 MCV of 99.5, MCG of 32.1 and neutrophils of 75%. Her PT is 57.7 with an INR 4.79. Her chemistry is remarkable for BUN of 54, creatinine of 1.1, glucose of 174, and albumin of 2.9. Her UA is suggestive of urinary tract infection. Her abdominal/pelvis CT scan report reads nothing acute is appreciated on CT scan of the abdomen and pelvis. Patient is being admitted for medical evaluation of acute GI bleed. She is full code. - Related Data Allergies/Adverse Reactions: Allergies Allergy/AdvReac Type Severity Reaction Status Date / Time theophylline anhydrous AdvReac altered Verified 12/30/16 13:14 [From Pan-Dur] heart rate scents Allergy Airway Uncoded 09/25/16 01:14 Tightness Home Medications: Home Meds Indapamide 1 tab PO QAM 12/05/14 [History] Potassium Chloride [Klor-Con M10] 1 tab PO DAILY 12/05/14 [History] Sertraline HCl 50 mg PO DAILY 12/05/14 [History] Verapamil HCl [Verapamil ER] 180 mg PO DAILY 12/05/14 [History] Warfarin [Coumadin] 5 mg PO MOWEFR 02/18/15 [History] Acetaminophen [Tylenol Arthritis] 2 tab PO TID PRN 10/29/15 [History] Albuterol Sulfate [Proair Respiclick] 2 inh INH ASDIRECTED PRN 10/29/15 [History ] Calcium Carbonate [Calcium] 1,200 mg PO DAILY 10/29/15 [History] Ergocalciferol (Vitamin D2) [Vitamin D] 1 tab PO DAILY 10/29/15 [History] Multivitamin [One Daily Multivitamin] 1 tab PO DAILY 10/29/15 [History] Bisacodyl [Dulcolax] 5 mg PO DAILY PRN #0 tablet 11/01/15 [Rx] Docusate Sodium [Colace] 100 mg PO BID cap 11/01/15 [Rx] Magnesium Hydroxide [Milk of Magnesia] 30 ml PO BID PRN #0 cup 11/01/15 [Rx] Sennosides [Senna] 8.6 mg PO BID PRN #0 tablet 11/01/15 [Rx] Warfarin [Coumadin] 10 mg PO ASDIRECTED 07/18/16 [History] Hydrocodone/Acetaminophen [Brighton 5-325] 1 tab PO Q6HR PRN #20 tablet 09/21/16 [ Rx] Omeprazole 20 mg PO DAILY PRN 12/30/16 [History] oxyCODONE HCl/Acetaminophen [Endocet 5-325 Tablet] 1 tab PO Q6HR PRN 12/30/16 [ History] Past Medical History HEENT History: Reports: Cataract Other HEENT History: wears glasses. Cardiovascular History: Reports: Afib, Blood Clots/VTE/DVT, Hypertension, ID Other Cardiovascular History: superficial blood clot Respiratory History: Reports: Asthma, Bronchitis, Recurrent Gastrointestinal History: Reports: GERD, GI Bleed Genitourinary History: Reports: UTI, Recurrent, Other (See Below) Other Genitourinary History: cyst on bladder [employer] History: Reports: Other OB/BYN History: hx of cystocele with mesh repair Musculoskeletal History: Reports: Other (See Below) Other Musculoskeletal History: chronic left & right shoulder pain Neurological History: Reports: Brain Injury 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 Psychiatric History: Reports: Depression Endocrine/Metabolic History: Reports: Obesity/BMI 30+ Hematologic History: Reports: Anemia Other Hematologic History: "had bleeding ulcer 11/2014" - Past Surgical History Head Surgeries/Procedures: Reports: None HEENT Surgical History: Reports: Cataract Surgery, Other (See Below) Other HEENT Surgeries/Procedures: bilateral GI Surgical History: Reports: Cholecystectomy Female Surgical History: Reports: Hysterectomy Musculoskeletal Surgical History: Reports: Knee Replacement Other Musculoskeletal Surgeries/Procedures:: bilateral Social & Family History - Family History HEENT: Reports: Hearing Impairment Cardiac: Reports: Heart Failure, Hypertension Respiratory: Reports: Asthma GI: Reports: Cholelithiasis Musculoskeletal: Reports: Osteoarthritis, Osteoporosis Neurological: Reports: Dementia Endocrine/Metabolic: Reports: Diabetes, Type I Dermatologic: Reports: Psoriasis Oncologic: Reports: Breast - Tobacco Use Smoking Status *Q: Never Smoker Used Tobacco, but Quit: No Second Hand Smoke Exposure: No - Caffeine Use Caffeine Use: Reports: Coffee Other Caffeine Use: daily, decaf or caf. - Alcohol Use Days Per Week of Alcohol Use: 0 - Recreational Drug Use Recreational Drug Use: No Drug Use in Last 12 Months: No H&P Review of Systems - Review of Systems: Review Of Systems: See Below General: Denies: Fever, Chills, Malaise HEENT: Reports: No Symptoms Pulmonary: Denies: Shortness of Breath Cardiovascular: Reports: Lightheadedness. Denies: Chest Pain, Palpitations, Dyspnea on Exertion, Syncope, Claudication Gastrointestinal: Reports: Black Stool, Diarrhea, Flatus, Hematemesis, Melena, Nausea, Vomiting. Denies: Anorexia, Bloody Stool, Constipation, Decreased Appetite, Difficulty Swallowing, Distension, Hematochezia, Mucous in Stool Genitourinary: Reports: No Symptoms Musculoskeletal: Reports: Shoulder Pain Skin: Denies: Cyanosis, Jaundice, Mottled, Pallor, Diaphoresis, Pruritis, Rash, Erythema Psychiatric: Denies: Confusion, Depression, Anxiety, Cravings, Hallucinations, Hallucinations (Visual) Neurological: Reports: Gait Disturbance. Denies: Confusion, Pre-Existing Deficit, Difficulty Walking, Weakness Hematologic/Lymphatic: Reports: Anemia, Easy Bleeding, Easy Bruising Immunologic: Reports: No Symptoms Exam - Exam Exam: See Below - Vital Signs Vital Signs: Last Vital Signs Temp 37.0 C 12/30/16 15:59 Pulse 75 12/30/16 15:59 Resp 14 12/30/16 15:59 BP 122/59 L 12/30/16 15:59 Pulse Ox 98 12/30/16 15:59 Weight: 84.822 kg - Exam General: Alert, Oriented, Cooperative. No: Mild Distress HEENT: Conjunctiva Clear, EACs Clear, EOMI, Hearing Intact, Mucosa Moist & [place] , Nares Patent, Normal Nasal Septum, Posterior Pharynx Clear, Pupils Equal, Pupils Reactive Neck: Supple, Trachea Midline, +2 Carotid Pulse wo Bruit Lungs: Clear to Auscultation, Normal Respiratory Effort Cardiovascular: Irregular Rhythm GI/Abdominal Exam: Normal Bowel Sounds, Soft, Non-Tender, No Organomegaly, No Distention, No Abnormal Bruit, No Mass (Female) Exam: Deferred Rectal (Female) Exam: Deferred Back Exam: Normal Inspection, Decreased Range of Motion Extremities: Normal Inspection, Normal Range of Motion, Non-Tender, No Pedal Edema, Normal Capillary Refill Peripheral Pulses: 2+: Posterior Tibial (L), Posterior Tibial (R), Dorsalis Pedis (L), Dorsalis Pedis (R) Skin: Warm, Dry, Intact Neuro Extensive - Mental Status: Oriented x3, Normal Cognition, Memory Intact Neuro Extensive - Motor, Sensory, Reflexes: CN II-XII Intact, Normal Gait Psychiatric: Alert, Normal Affect, Normal Mood - Patient Data Lab Results Last 24 hrs: Laboratory Results - last 24 hr 12/30/16 12/30/16 12/30/16 Range/Units 17:58 17:58 19:26 Hgb 9.8 L (11.2-15.7) gm/L Hct 30.2 L (34.1-44.9) % PT 15.4 H (8.0-13.0) SECONDS INR 1.38 Urine Color Yellow (Yellow) Urine Appearance Slt cloudy H (Clear) Urine pH 6.0 (5.0-8.0) Ur Specific [place] 1.020 (1.005-1.030) Urine Protein Negative (Negative) Urine Glucose (UA) Negative (Negative) Urine Ketones Negative (Negative) Urine Occult Blood 2+ H (Negative) Urine Nitrite Positive H (Negative) Urine Bilirubin Negative (Negative) Urine Urobilinogen 0.2 (0.2-1.0) Ur Leukocyte Esterase 3+ H (Negative) Urine RBC 5-10 H (0-5) /hpf Urine WBC 50-75 H (0-5) /hpf Ur Epithelial Cells 0-5 (0-5) /hpf Urine Bacteria Moderate H (FEW) /hpf Urine Mucus Not seen (FEW) /hpf Result Diagrams: 12/31/16 05:50 12/31/16 05:50 *Q Meaningful Use (ADM) - VTE *Q VTE Criteria *Q: - Stroke *Q Stroke Criteria *Q: - AMI *Q AMI Criteria *Q: Problem List Initiated/Reviewed/Updated: Yes Orders Last 24hrs: Active Orders 24 hr Category Date Time Status Antiembolic Devices [RC] BID Care 12/30/16 13:51 Active Cardiac Monitoring [RC] CONTINUOUS Care 12/30/16 13:51 Active Height and Weight [RC] 04 Care 12/30/16 13:50 Active Notify Provider Consults [RC] ASDIRECTED Care 12/30/16 13:53 Active Orthostatic Vital Signs [RC] ASDIRECTED Care 12/30/16 14:00 Active Oxygen Therapy [RC] PRN Care 12/30/16 13:50 Active RT Aerosol Therapy [RC] ASDIRECTED Care 12/30/16 13:53 Active Up With Assistance [RC] QSHIFT Care 12/30/16 13:50 Active VTE/DVT Education [RC] BID Care 12/30/16 13:50 Active Vital Signs [RC] Q4HR Care 12/30/16 13:50 Active Consult to Case Management [CONS] Routine Cons 12/30/16 13:50 Active Consult to Physician [CONS] Routine Cons 12/30/16 13:50 Active Consult to [place] [employer]older [CONS] Routine Cons 12/30/16 13:50 Active Consult to Spiritual Care [CONS] Routine Cons 12/30/16 13:50 Active OT Evaluation and Treatment [CONS] Routine Cons 12/30/16 13:50 Active PT Evaluation and Treatment [CONS] Routine Cons 12/30/16 13:50 Active Clear Liquid Diet [DIET] Diet 12/30/16 Lunch Active BASIC METABOLIC PANEL,BMP [CHEM] AM Lab 12/31/16 05:11 Ordered CBC WITH AUTO DIFF [HEME] AM Lab 12/31/16 05:11 Ordered CULTURE URINE [RM] Stat Lab 12/30/16 19:26 Received INR,PT,PROTHROMBIN TIME [COAG] AM Lab 12/31/16 05:11 Ordered INR,PT,PROTHROMBIN TIME [COAG] AM Lab 01/01/17 05:11 Ordered MAGNESIUM [CHEM] AM Lab 12/31/16 05:11 Ordered Acetaminophen [Tylenol] Med 12/30/16 13:50 Active 650 mg PO Q4H PRN Acetaminophen/HYDROcodone [Brighton 325-5 MG] Med 12/30/16 13:50 Active 1 tab PO Q4H PRN Albuterol [Proventil HFA] Med 12/30/16 13:56 Active 0 gm INH ASDIRECTED PRN Albuterol/Ipratropium [DuoNeb 3.0-0.5 MG/3 ML] Med 12/30/16 13:50 Active 3 ml NEB Q4H PRN Dextrose 5%-0.9% NaCl [Dextrose 5%-Normal Saline] 1,000 Med 12/30/16 14:00 Active ml IV ASDIRECTED Famotidine [Pepcid] Med 12/30/16 21:00 Active 20 mg IVPUSH BID HYDROmorphone [Dilaudid] Med 12/30/16 13:50 Active 0.25 mg IVPUSH Q3H PRN Indapamide Med 12/31/16 08:00 Active 2.5 mg PO QAM LORazepam [Ativan] Med 12/30/16 13:50 Active 0.5 mg IV Q6H PRN Magnesium Hydroxide [Milk of Magnesia] Med 12/30/16 13:56 Active 30 ml PO BID PRN Magnesium Rep Pharmacy to Dose [Pharmacy to Dose - Med 12/30/16 14:00 Active Magnesium Replacement] 1 dose .XX ASDIRECTED Metoprolol Tartrate [Lopressor] Med 12/30/16 13:54 Active 5 mg IVPUSH Q4H PRN Multivitamins,Therapeutic [Thera] Med 12/31/16 09:00 Active 1 each PO DAILY Ondansetron [Zofran] Med 12/30/16 13:50 Active 4 mg IV Q6H PRN Patient's Own Medication [Ptom] Med 12/31/16 09:00 Active 0 each PO DAILY Potassium Chloride [Klor-Con 10] Med 12/31/16 09:00 Active 10 meq PO DAILY Potassium Rep Pharmacy to Dose [Pharmacy to Dose - Med 12/30/16 14:00 Active Potassium Replacement] 1 dose .XX ASDIRECTED Sertraline [Zoloft] Med 12/31/16 09:00 Active 50 mg PO DAILY Temazepam [Restoril] Med 12/30/16 13:50 Active 7.5 mg PO BEDTIME PRN Verapamil [Calan SR] Med 12/31/16 09:00 Active 180 mg PO DAILY hydrALAZINE [Apresoline] Med 12/30/16 13:54 Active 20 mg IVPUSH Q4H PRN Precautions [COMM] Routine Oth 12/30/16 13:55 Ordered Sequential Compression Device [OM.PC] Per Unit Routine Oth 12/30/16 13:51 Ordered Resuscitation Status Routine Resus Stat 12/30/16 13:50 Ordered Medication Orders Acetaminophen (Tylenol) 650 mg PO Q4H PRN PRN Reason: Pain (Mild 1-3)/fever Last Admin: 12/30/16 21:15 Dose: 650 mg Hydrocodone Bitart/Acetaminophen (Brighton 325-5 Mg) 1 tab PO Q4H PRN PRN Reason: Pain (moderate 4-6) Albuterol (Proventil Hfa) 0 gm INH ASDIRECTED PRN PRN Reason: Wheezing Albuterol/Ipratropium (Duoneb 3.0-0.5 Mg/3 Ml) 3 ml NEB Q4H PRN PRN Reason: Shortness Of Breath/wheezing Famotidine (Pepcid) 20 mg IVPUSH BID [facility] Last Admin: 12/30/16 21:15 Dose: 20 mg Hydralazine HCl (Apresoline) 20 mg IVPUSH Q4H PRN PRN Reason: Hypertension Hydromorphone HCl (Dilaudid) 0.25 mg IVPUSH Q3H PRN PRN Reason: Pain (severe 7-10) Dextrose/Sodium Chloride (Dextrose 5%-Normal Saline) 1,000 mls @ 100 mls/hr IV ASDIRECTED [facility] Last Admin: 12/30/16 15:09 Dose: 100 mls/hr Indapamide (Indapamide) 2.5 mg PO QAM ETHAN Lorazepam (Ativan) 0.5 mg IV Q6H PRN PRN Reason: Anxiety Magnesium Hydroxide (Milk Of Magnesia) 30 ml PO BID PRN PRN Reason: Constipation Magnesium Sulfate (Pharmacy To Dose - Magnesium Replacement) 1 dose .XX ASDIRECTED [facility] Metoprolol Tartrate (Lopressor) 5 mg IVPUSH Q4H PRN PRN Reason: Tachycardia Multivitamins (Thera) 1 each PO DAILY [facility] Ondansetron HCl (Zofran) 4 mg IV Q6H PRN PRN Reason: Nausea/Vomiting Ergocalciferol ( Vitamin D2) [Vitamin D] 1 Tab 0 each PO DAILY [facility] Potassium Chloride (Pharmacy To Dose - Potassium Replacement) 1 dose .XX ASDIRECTED [facility] Potassium Chloride (Klor-Con 10) 10 meq PO DAILY ETHAN Sertraline HCl (Zoloft) 50 mg PO DAILY ETHAN Sodium Chloride (Saline Flush) 10 ml FLUSH ASDIRECTED PRN PRN Reason: Keep Vein Open Last Admin: 12/30/16 07:42 Dose: 10 ml Sodium Chloride (Saline Flush) 10 ml FLUSH ONETIME PRN PRN Reason: IV FLUSH Last Admin: 12/30/16 09:01 Dose: 10 ml Temazepam (Restoril) 7.5 mg PO BEDTIME PRN PRN Reason: Sleep Verapamil HCl (Calan Sr) 180 mg PO DAILY [facility] Assessment/Plan Comment:: Assessment/Plan: Acute: Symptomatic Anemia - Likely from slow GI Bleed - She gets dizzy when she gets up - Hgb is stable at 12.1 but hemoccult positive - Repeat H/H and INR by 1800 Hematemesis - Risk Factor: Hx/o Bleeding Ulcer, GERD and Warfarin Therapy - Admit for not being compliant with PPI - Denies taking OTC NSAIDs for chronic generalized aches or pain - Received Protonix drip in ED - Will continue with H2B IV BID - consult for further eval Melena - Likely from Upper GI Bleed - Denies any hx/o diverticulosis or hemorrhoids - She was scoped by Dr. Felix before - Hold anticoags - GS consult for further eval Supratherapeutic INR - INR 4.79 ---> followup in AM - Received 5 mg of IV Vit K in ED x 1 - Repeat INR at 1800 today - Hold Warfarin dose tonight - SCDs for now for stroke ppx Abdominal/Pelvis CT scan Findings - 2 small cysts measuring 1.9 cm x 1.6 cm within the left pelvis believed to be related to patient's ovary. These are felt to be incidental. Several cysts within the kidneys as well as a small cortical calcification which is felt to be incidental. Nothing acute is appreciated on CT scan of the abdomen and pelvis. Chronic: HTN Atrial Fibrillation, HR controlled on Warfarin Hx/o ID Asthma AR OA/DJD GERD Anemia Hx/o Stroke Hx/o GI Bleed with PUD 2014 Hx/o Bladder Cysts hx/o Recurrent UTIs Hx/o Cystocele with Mesh Repair Osteoporosis Depression Plan: Admit to Med-Surg with Tele Routine AM Labs Clear Liquid Diet Resume Home Meds except warfarin PT/OT consult GS consult for further eval SW/CM for d/c planning Additional orders as above Code status: 1 Provided Plethora info and associated scientific studies related to its use. Her family will let me know in am if they want her to be on it or stay on warfarin after endoscopy.
[2016-12-31] MEDS: Dextrose 5%-0.9% NaCl 1,000 ML IV SCH ×3 (02:06→23:19)
[2016-12-31] MEDS ORDERED: Magnesium Oxide 400 MG Tab PO ONE (08:00)
[2016-12-31] MEDS ORDERED: Potassium Chloride 20 MEQ Tab.ER PO SCH (08:00)
[2016-12-31] MEDS: cefTRIAXone 1 GM in Sodium Chloride 0.9% 100 ML IV SCH (08:43)
[2016-12-31] MEDS: Famotidine 20 MG/2 ML SDV IVPUSH SCH (08:45)
[2016-12-31] MEDS ORDERED: cefTRIAXone 1 GM Vial IM SCH (09:00)
--- NOTE | 2016-12-31 09:37 | PCM.PN ---
- General Info Date of Service: 12/31/16 Admission Dx/Problem (Free Text): Admission Diagnosis/Problem Admission Diagnosis/Problem GI bleed not requiring more than 4 units of blood in 24 hours, ICU, or surgery Subjective Update: Follow Up Functional Status: Reports: Pain Controlled, Tolerating Diet, Urinating. Denies : New Symptoms - Review of Systems General: Denies: Fever, Weakness, Fatigue, Malaise HEENT: Reports: No Symptoms Pulmonary: Denies: Shortness of Breath, Cough Cardiovascular: Reports: Lightheadedness. Denies: Chest Pain, Palpitations, Dyspnea on Exertion, Orthopnea Gastrointestinal: Reports: Abdominal Pain, Flatus, Melena. Denies: Nausea, Vomiting Genitourinary: Reports: No Symptoms Musculoskeletal: Reports: No Symptoms Skin: Denies: Cyanosis, Bruising, Pruritis, Rash Neurological: Reports: Pre-Existing Deficit, Gait Disturbance. Denies: Confusion, Difficulty Walking, Weakness Psychiatric: Denies: Depression, Anxiety, Agitation, Hallucinations Systems Review Comment:: No significant overnight or acute issues. She has an episode of small black stool this am. She still fells dizzy and unsteady when she tries to get up. her Hgb is stable at 9.3. Her BP remains fairly stable. - Patient Data Vitals - Most Recent: Last Vital Signs Temp 37.2 C 12/31/16 08:15 Pulse 56 L 12/31/16 08:59 Resp 18 12/31/16 08:15 BP 126/59 L 12/31/16 08:40 Pulse Ox 96 12/31/16 08:59 Weight - Most Recent: 83.642 kg I&O - Last 24 Hours: Intake & Output 12/30/16 12/31/16 12/31/16 22:59 06:59 14:59 Intake Total 981 1277 Output Total 300 1275 Balance 681 2 Lab Results Last 24 Hours: Laboratory Results - last 24 hr 12/30/16 12/30/16 12/30/16 Range/Units 17:58 17:58 19:26 WBC (3.98-10.04) K/mm3 RBC (3.98-5.22) M/mm3 Hgb 9.8 L (11.2-15.7) gm/L Hct 30.2 L (34.1-44.9) % MCV (79.4-94.8) fl MCH (25.6-32.2) pg MCHC (32.2-35.5) g/dl RDW Std Deviation (36.4-46.3) fL Plt Count (182-369) K/mm3 MPV (9.4-12.3) fl Neut % (Auto) (34.0-71.1) % Lymph % (Auto) (19.3-51.7) % Dare % (Auto) (4.7-12.5) % Eos % (Auto) (0.7-5.8) Baso % (Auto) (0.1-1.2) % Neut # (Auto) (1.56-6.13) K/mm3 Lymph # (Auto) (1.18-3.74) K/mm3 Dare # (Auto) (0.24-0.36) K/mm3 Eos # (Auto) (0.04-0.36) K/mm3 Baso # (Auto) (0.01-0.08) K/mm3 PT 15.4 H (8.0-13.0) SECONDS INR 1.38 Sodium (136-145) mEq/L Potassium (3.5-5.1) mEq/L Chloride (98-107) mEq/L Carbon Dioxide (21-32) mEq/L Anion Gap (5-15) BUN (7-18) mg/dL Creatinine (0.55-1.02) mg/dL Est Cr Clr Drug Dosing mL/min Estimated GFR (MDRD) (>60) mL/min BUN/Creatinine Ratio (14-18) Glucose (83-115) mg/dL Calcium (8.5-10.1) mg/dL Magnesium (1.8-2.4) mg/dl Urine Color Yellow (Yellow) Urine Appearance Slt cloudy H (Clear) Urine pH 6.0 (5.0-8.0) Ur Specific [place] 1.020 (1.005-1.030) Urine Protein Negative (Negative) Urine Glucose (UA) Negative (Negative) Urine Ketones Negative (Negative) Urine Occult Blood 2+ H (Negative) Urine Nitrite Positive H (Negative) Urine Bilirubin Negative (Negative) Urine Urobilinogen 0.2 (0.2-1.0) Ur Leukocyte Esterase 3+ H (Negative) Urine RBC 5-10 H (0-5) /hpf Urine WBC 50-75 H (0-5) /hpf Ur Epithelial Cells 0-5 (0-5) /hpf Urine Bacteria Moderate H (FEW) /hpf Urine Mucus Not seen (FEW) /hpf 12/31/16 12/31/16 12/31/16 Range/Units 05:50 05:50 05:50 WBC 5.94 (3.98-10.04) K/mm3 RBC 2.88 L (3.98-5.22) M/mm3 Hgb 9.3 L (11.2-15.7) gm/L Hct 28.6 L (34.1-44.9) % MCV 99.3 H (79.4-94.8) fl MCH 32.3 H (25.6-32.2) pg MCHC 32.5 (32.2-35.5) g/dl RDW Std Deviation 49.3 H (36.4-46.3) fL Plt Count 202 (182-369) K/mm3 MPV 10.8 (9.4-12.3) fl Neut % (Auto) 45.6 (34.0-71.1) % Lymph % (Auto) 38.0 (19.3-51.7) % Dare % (Auto) 13.6 H (4.7-12.5) % Eos % (Auto) 2.0 (0.7-5.8) Baso % (Auto) 0.5 (0.1-1.2) % Neut # (Auto) 2.70 (1.56-6.13) K/mm3 Lymph # (Auto) 2.26 (1.18-3.74) K/mm3 Dare # (Auto) 0.81 H (0.24-0.36) K/mm3 Eos # (Auto) 0.12 (0.04-0.36) K/mm3 Baso # (Auto) 0.03 (0.01-0.08) K/mm3 PT 13.8 H (8.0-13.0) SECONDS INR 1.25 Sodium 147 H (136-145) mEq/L Potassium 3.1 L (3.5-5.1) mEq/L Chloride 111 H (98-107) mEq/L Carbon Dioxide 28 (21-32) mEq/L Anion Gap 11.1 (5-15) BUN 26 H (7-18) mg/dL Creatinine 0.8 (0.55-1.02) mg/dL Est Cr Clr Drug Dosing 47.62 mL/min Estimated GFR (MDRD) > 60 (>60) mL/min BUN/Creatinine Ratio 32.5 H (14-18) Glucose 97 (83-115) mg/dL Calcium 8.0 L (8.5-10.1) mg/dL Magnesium 1.7 L (1.8-2.4) mg/dl Urine Color (Yellow) Urine Appearance (Clear) Urine pH (5.0-8.0) Ur Specific [place] (1.005-1.030) Urine Protein (Negative) Urine Glucose (UA) (Negative) Urine Ketones (Negative) Urine Occult Blood (Negative) Urine Nitrite (Negative) Urine Bilirubin (Negative) Urine Urobilinogen (0.2-1.0) Ur Leukocyte Esterase (Negative) Urine RBC (0-5) /hpf Urine WBC (0-5) /hpf Ur Epithelial Cells (0-5) /hpf Urine Bacteria (FEW) /hpf Urine Mucus (FEW) /hpf Gm Results Last 24 Hours: Microbiology 12/30/16 19:26 Urine Culture - Preliminary Urine, Clean Catch Gram Negative Rods Med Orders - Current: Current Medications Acetaminophen (Tylenol) 650 mg PO Q4H PRN PRN Reason: Pain (Mild 1-3)/fever Last Admin: 12/30/16 21:15 Dose: 650 mg Hydrocodone Bitart/Acetaminophen ([place] 325-5 Mg) 1 tab PO Q4H PRN PRN Reason: Pain (moderate 4-6) Albuterol (Proventil Hfa) 0 gm INH ASDIRECTED PRN PRN Reason: Wheezing Albuterol/Ipratropium (Duoneb 3.0-0.5 Mg/3 Ml) 3 ml NEB Q4H PRN PRN Reason: Shortness Of Breath/wheezing Famotidine (Pepcid) 20 mg IVPUSH BID ETHAN Last Admin: 12/31/16 08:45 Dose: 20 mg Hydralazine HCl (Apresoline) 20 mg IVPUSH Q4H PRN PRN Reason: Hypertension Hydromorphone HCl (Dilaudid) 0.25 mg IVPUSH Q3H PRN PRN Reason: Pain (severe 7-10) Dextrose/Sodium Chloride (Dextrose 5%-Normal Saline) 1,000 mls @ 100 mls/hr IV ASDIRECTED ETHAN Last Admin: 12/31/16 02:06 Dose: 100 mls/hr Ceftriaxone Sodium 1 gm/ (Sodium Chloride) 100 mls @ 200 mls/hr IV Q24H ETHAN Last Admin: 12/31/16 08:43 Dose: 200 mls/hr Indapamide (Indapamide) 2.5 mg PO QAM ETHAN Lorazepam (Ativan) 0.5 mg IV Q6H PRN PRN Reason: Anxiety Magnesium Hydroxide (Milk Of Magnesia) 30 ml PO BID PRN PRN Reason: Constipation Magnesium Sulfate (Pharmacy To Dose - Magnesium Replacement) 1 dose .XX ASDIRECTED [facility] Metoprolol Tartrate (Lopressor) 5 mg IVPUSH Q4H PRN PRN Reason: Tachycardia Multivitamins (Thera) 1 each PO DAILY [facility] Ondansetron HCl (Zofran) 4 mg IV Q6H PRN PRN Reason: Nausea/Vomiting Ergocalciferol ( Vitamin D2) [Vitamin D] 1 Tab 0 each PO DAILY [facility] Potassium Chloride (Pharmacy To Dose - Potassium Replacement) 1 dose .XX ASDIRECTED [facility] Potassium Chloride (Klor-Con 10) 10 meq PO DAILY [facility] Potassium Chloride (Klor-Con M20) 40 meq PO Q4H [facility] Stop: 12/31/16 16:01 Sertraline HCl (Zoloft) 50 mg PO DAILY [facility] Sodium Chloride (Saline Flush) 10 ml FLUSH ASDIRECTED PRN PRN Reason: Keep Vein Open Last Admin: 12/30/16 07:42 Dose: 10 ml Sodium Chloride (Saline Flush) 10 ml FLUSH ONETIME PRN PRN Reason: IV FLUSH Last Admin: 12/30/16 09:01 Dose: 10 ml Temazepam (Restoril) 7.5 mg PO BEDTIME PRN PRN Reason: Sleep Verapamil HCl (Calan Sr) 180 mg PO DAILY [facility] Discontinued Medications Ceftriaxone Sodium (Rocephin) 1 gm IM Q24H [facility] Diatrizoate Meglum/Diatrizoate Sod (Gastrografin 37%) 90 ml PO ONETIME ONE Stop: 12/30/16 08:36 Last Admin: 12/30/16 09:01 Dose: 90 ml Pantoprazole Sodium 80 mg/ (Sodium Chloride) 100 mls @ 10 mls/hr IV Q10H [facility] Last Admin: 12/30/16 08:06 Dose: 10 mls/hr Sodium Chloride (Normal Saline) 1,000 mls @ 125 mls/hr IV ASDIRECTED ETHAN Sodium Chloride (Normal Saline) 500 mls @ 1,000 mls/hr IV .BOLUS ONE Stop: 12/30/16 07:45 Last Admin: 12/30/16 07:30 Dose: 1,000 mls/hr Phytonadione 5 mg/ Sodium (Chloride) 50.5 mls @ 100 mls/hr IV NOW ONE Stop: 12/30/16 08:29 Last Admin: 12/30/16 08:29 Dose: 100 mls/hr Sodium Chloride (Normal Saline) 1,000 mls @ 125 mls/hr IV ASDIRECTED [facility] Last Admin: 12/30/16 11:57 Dose: 125 mls/hr Iopamidol (Isovue-300 (61%)) 100 ml IVPUSH ONETIME ONE Stop: 12/30/16 08:36 Last Admin: 12/30/16 09:01 Dose: 100 ml Magnesium Oxide (Magnesium Oxide) 800 mg PO ONETIME ONE Stop: 12/31/16 08:01 Ondansetron HCl (Zofran) 4 mg IVPUSH ONETIME ONE Stop: 12/30/16 07:15 Last Admin: 12/30/16 07:30 Dose: 4 mg Pantoprazole Sodium (Protonix Iv) 80 mg IVPUSH .BOLUS ONE Stop: 12/30/16 07:15 Last Admin: 12/30/16 07:33 Dose: 80 mg - Exam Quality Assessment: No: Supplemental Oxygen General: Alert, Oriented, Cooperative, No Acute Distress HEENT: Pupils Equal, Pupils Reactive, EOMI, Mucous Membr. Moist/Spur. No: Scleral Icterus Neck: Supple, Trachea Midline, No Thyromegaly Lungs: Clear to Auscultation, Normal Respiratory Effort Cardiovascular: Irregular Rhythm GI/Abdominal Exam: Normal Bowel Sounds, Soft, No Organomegaly, No Distention, Tender (at mid-abdomen) (Female) Exam: Deferred Back Exam: Normal Inspection, Decreased Range of Motion Extremities: Normal Inspection, Normal Range of Motion, Non-Tender, No Pedal Edema, Normal Capillary Refill Peripheral Pulses: 2+: Dorsalis Pedis (L), Dorsalis Pedis (R) Skin: Warm, Dry, Intact Neurological: No New Focal Deficit Psy/Mental Status: Alert, Normal Affect, Normal Mood - Problem List Review Problem List Initiated/Reviewed/Updated: Yes - My Orders Last 24 Hours: My Active Orders 12/30/16 13:50 Height and Weight [RC] 04 Oxygen Therapy [RC] PRN Up With Assistance [RC] QSHIFT VTE/DVT Education [RC] BID Vital Signs [RC] Q4HR Consult to Case Management [CONS] Routine Consult to Physician [CONS] Routine Consult to Financial Dealers [CONS] Routine Consult to Spiritual Care [CONS] Routine OT Evaluation and Treatment [CONS] Routine PT Evaluation and Treatment [CONS] Routine Acetaminophen [Tylenol] 650 mg PO Q4H PRN Acetaminophen/HYDROcodone [[place] 325-5 MG] 1 tab PO Q4H PRN Albuterol/Ipratropium [DuoNeb 3.0-0.5 MG/3 ML] 3 ml NEB Q4H PRN HYDROmorphone [Dilaudid] 0.25 mg IVPUSH Q3H PRN LORazepam [Ativan] 0.5 mg IV Q6H PRN Ondansetron [Zofran] 4 mg IV Q6H PRN Temazepam [Restoril] 7.5 mg PO BEDTIME PRN Resuscitation Status Routine 12/30/16 13:51 Antiembolic Devices [RC] BID Cardiac Monitoring [RC] CONTINUOUS Sequential Compression Device [OM.PC] Per Unit Routine 12/30/16 13:53 Notify Provider Consults [RC] ASDIRECTED RT Aerosol Therapy [RC] ASDIRECTED 12/30/16 13:54 Metoprolol Tartrate [Lopressor] 5 mg IVPUSH Q4H PRN hydrALAZINE [Apresoline] 20 mg IVPUSH Q4H PRN 12/30/16 13:55 Precautions [COMM] Routine 12/30/16 13:56 Albuterol [Proventil HFA] 0 gm INH ASDIRECTED PRN Magnesium Hydroxide [Milk of Magnesia] 30 ml PO BID PRN 12/30/16 14:00 Orthostatic Vital Signs [RC] ASDIRECTED Dextrose 5%-0.9% NaCl [Dextrose 5%-Normal Saline] 1,000 ml IV ASDIRECTED Magnesium Rep Pharmacy to Dose [Pharmacy to Dose - Magnesium Replacement] 1 dose .XX ASDIRECTED Potassium Rep Pharmacy to Dose [Pharmacy to Dose - Potassium Replacement] 1 dose .XX ASDIRECTED 12/30/16 19:26 CULTURE URINE [RM] Stat 12/30/16 21:00 Famotidine [Pepcid] 20 mg IVPUSH BID 12/30/16 Lunch Clear Liquid Diet [DIET] 12/31/16 08:00 Indapamide 2.5 mg PO QAM Potassium Chloride [Klor-Con M20] 40 meq PO Q4H 12/31/16 09:00 Multivitamins,Therapeutic [Thera] 1 each PO DAILY Patient's Own Medication [Ptom] 0 each PO DAILY Potassium Chloride [Klor-Con 10] 10 meq PO DAILY Sertraline [Zoloft] 50 mg PO DAILY Verapamil [Calan SR] 180 mg PO DAILY 01/01/17 05:11 INR,PT,PROTHROMBIN TIME [COAG] AM - Plan Plan:: Assessment/Plan: Acute: Symptomatic Anemia - Likely from slow GI Bleed - She still gets dizzy when she gets up - Hgb remains table at 9.3 (9.8 yesterday) - Awaiting GS consult Melena - Likely UGI Bleed - Denies any hx/o diverticulosis or hemorrhoids - She was scoped by Dr. Felix before - Hold anticoags - GS consult for further eval Subtherapeutic INR - INR 4.79 ---> now 1.2 - Received 5 mg of IV Vit K in ED x 1 - Hold Warfarin dose tonight - SCDs for now for stroke ppx Abdominal/Pelvis CT scan Findings - 2 small cysts measuring 1.9 cm x 1.6 cm within the left pelvis believed to be related to patient's ovary. These are felt to be incidental. Several cysts within the kidneys as well as a small cortical calcification which is felt to be incidental. Nothing acute is appreciated on CT scan of the abdomen and pelvis. Resolved: Hematemesis - Risk Factor: Hx/o Bleeding Ulcer, GERD and Warfarin Therapy - Admit for not being compliant with PPI - Denies taking OTC NSAIDs for chronic generalized aches or pain - Received Protnix drip in ED - Will continue with H2B IV BID - GS consult for further eval Supratherapeutic INR Chronic: HTN Atrial Fibrillation, HR controlled on Warfarin Hx/o AK Asthma AR OA/DJD GERD Anemia Hx/o Stroke Hx/o GI Bleed with PUD 2014 Hx/o Bladder Cysts hx/o Recurrent UTIs Hx/o Cystocele with Mesh Repair Osteoporosis Depression Plan: She is essentially the same as yesterday w/o worsening of her presenting symptoms Routine AM Labs Clear Liquid Diet Continue PT/OT consult Consulted Dr. Felix per family's request SW/CM for d/c planning Family okayed with eliquis, will start first dose tonight Continue to monitor H/H Additional orders pending endoscopy result Code status: 1
[2016-12-31] MEDS ORDERED: Magnesium Sulfate/Water 2 GM in Premix Bag 1 BAG IV ONE (10:20)
[2016-12-31] MEDS: Potassium Chloride 10 MEQ in Premix Bag 1 BAG IV SCH ×6 (10:44→23:16)
[2016-12-31] MEDS: Indapamide 2.5 MG Tab PO SCH (12:21)
[2016-12-31] MEDS: Verapamil 180 MG Tab.ER PO SCH (12:21)
[2016-12-31] MEDS: Multivitamins,Therapeutic Tab PO SCH (12:22)
[2016-12-31] MEDS: ERGOCALCIFEROL PO SCH (12:22)
[2016-12-31] MEDS: Potassium Chloride 10 MEQ Tab.ER PO SCH (12:22)
[2016-12-31] MEDS: Sertraline 50 MG Tab PO SCH (12:22)
--- NOTE | 2016-12-31 13:27 | PCM.CONS ---
H&P History of Present Illness - General Date of Service: 12/31/16 Admit Problem/Dx: Admission Diagnosis/Problem Admission Diagnosis/Problem GI bleed not requiring more than 4 units of blood in 24 hours, ICU, or surgery Source of Information: Patient, Family, Provider - History of Present Illness Initial Comments - Free Text/Narative: 81 year-old female presented to the emergency room with a history of hematemesis. This was also associated with melenic stools. She has a known history of peptic ulcer disease. In addition she is on Coumadin for atrial fibrillation. An INR obtained in the emergency room was 5.1. She was given vitamin K IV for emergent correction and admitted for observation to the hospitalist service. Overnight she's been hemodynamically stable and denied symptomatology. I was asked to see her in consultation for diagnostic possible therapeutic upper endoscopy. - Related Data Allergies/Adverse Reactions: Allergies Allergy/AdvReac Type Severity Reaction Status Date / Time theophylline anhydrous AdvReac altered Verified 12/30/16 13:14 [From Pan-Dur] heart rate scents Allergy Airway Uncoded 09/25/16 01:14 Tightness Home Medications: Home Meds Indapamide 1 tab PO QAM 12/05/14 [History] Potassium Chloride [Klor-Con M10] 1 tab PO DAILY 12/05/14 [History] Sertraline HCl 50 mg PO DAILY 12/05/14 [History] Verapamil HCl [Verapamil ER] 180 mg PO DAILY 12/05/14 [History] Warfarin [Coumadin] 5 mg PO MOWEFR 02/18/15 [History] Acetaminophen [Tylenol Arthritis] 2 tab PO TID PRN 10/29/15 [History] Albuterol Sulfate [Proair Respiclick] 2 inh INH ASDIRECTED PRN 10/29/15 [History ] Calcium Carbonate [Calcium] 1,200 mg PO DAILY 10/29/15 [History] Ergocalciferol (Vitamin D2) [Vitamin D] 1 tab PO DAILY 10/29/15 [History] Multivitamin [One Daily Multivitamin] 1 tab PO DAILY 10/29/15 [History] Bisacodyl [Dulcolax] 5 mg PO DAILY PRN #0 tablet 11/01/15 [Rx] Docusate Sodium [Colace] 100 mg PO BID cap 11/01/15 [Rx] Magnesium Hydroxide [Milk of Magnesia] 30 ml PO BID PRN #0 cup 11/01/15 [Rx] Sennosides [Senna] 8.6 mg PO BID PRN #0 tablet 11/01/15 [Rx] Warfarin [Coumadin] 10 mg PO ASDIRECTED 07/18/16 [History] Hydrocodone/Acetaminophen [[place] 5-325] 1 tab PO Q6HR PRN #20 tablet 09/21/16 [ Rx] Omeprazole 20 mg PO DAILY PRN 12/30/16 [History] oxyCODONE HCl/Acetaminophen [Endocet 5-325 Tablet] 1 tab PO Q6HR PRN 12/30/16 [ History] Past Medical History HEENT History: Reports: Cataract Other HEENT History: wears glasses. 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 OB/BYN History: hx of cystocele with mesh repair Musculoskeletal History: Reports: Other (See Below) Other Musculoskeletal History: chronic left & right shoulder pain Neurological History: Reports: Brain Injury 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 Psychiatric History: Reports: Depression Endocrine/Metabolic History: Reports: Obesity/BMI 30+ Hematologic History: Reports: Anemia Other Hematologic History: "had bleeding ulcer 11/2014" - Past Surgical History Head Surgeries/Procedures: Reports: None HEENT Surgical History: Reports: Cataract Surgery, Other (See Below) Other HEENT Surgeries/Procedures: bilateral GI Surgical History: Reports: Cholecystectomy Female Surgical History: Reports: Hysterectomy Musculoskeletal Surgical History: Reports: Knee Replacement Other Musculoskeletal Surgeries/Procedures:: bilateral Social & Family History - Family History HEENT: Reports: Hearing Impairment Cardiac: Reports: Heart Failure, Hypertension Respiratory: Reports: Asthma GI: Reports: Cholelithiasis Musculoskeletal: Reports: Osteoarthritis, Osteoporosis Neurological: Reports: Dementia Endocrine/Metabolic: Reports: Diabetes, Type I Dermatologic: Reports: Psoriasis Oncologic: Reports: Breast - Tobacco Use Smoking Status *Q: Never Smoker Used Tobacco, but Quit: No Second Hand Smoke Exposure: No - Caffeine Use Caffeine Use: Reports: Coffee Other Caffeine Use: daily, decaf or caf. - Alcohol Use Days Per Week of Alcohol Use: 0 - Recreational Drug Use Recreational Drug Use: No Drug Use in Last 12 Months: No H&P Review of Systems - Review of Systems: Review Of Systems: See Below Exam - Exam Exam: See Below - Vital Signs Vital Signs: Last Vital Signs Temp 36.5 C 12/31/16 12:41 Pulse 73 12/31/16 12:41 Resp 14 12/31/16 12:41 BP 128/94 H 12/31/16 12:41 Pulse Ox 88 L 12/31/16 12:41 Orthostatic Blood Pressure [ 99/61 Standing] Orthostatic Blood Pressure [ 121/52 Sitting] Orthostatic Blood Pressure [ 140/89 Supine] Weight: 83.642 kg - Exam Quality Assessment: Supplemental Oxygen General: Alert, Oriented, Cooperative Neck: Supple, Trachea Midline Lungs: Normal Respiratory Effort Cardiovascular: Regular Rate, Regular Rhythm GI/Abdominal Exam: Soft, Non-Tender (Female) Exam: Deferred Rectal (Female) Exam: Deferred Back Exam: Full Range of Motion Skin: Warm Neuro Extensive - Mental Status: Alert, Oriented x3, Normal Mood/Affect, Normal Cognition Psychiatric: Alert, Normal Affect, Normal Mood - Patient Data Lab Results Last 24 hrs: Laboratory Results - last 24 hr 12/30/16 12/30/16 12/30/16 Range/Units 17:58 17:58 19:26 WBC (3.98-10.04) K/mm3 RBC (3.98-5.22) M/mm3 Hgb 9.8 L (11.2-15.7) gm/L Hct 30.2 L (34.1-44.9) % MCV (79.4-94.8) fl MCH (25.6-32.2) pg MCHC (32.2-35.5) g/dl RDW Std Deviation (36.4-46.3) fL Plt Count (182-369) K/mm3 MPV (9.4-12.3) fl Neut % (Auto) (34.0-71.1) % Lymph % (Auto) (19.3-51.7) % [place] % (Auto) (4.7-12.5) % Eos % (Auto) (0.7-5.8) Baso % (Auto) (0.1-1.2) % Neut # (Auto) (1.56-6.13) K/mm3 Lymph # (Auto) (1.18-3.74) K/mm3 [place] # (Auto) (0.24-0.36) K/mm3 Eos # (Auto) (0.04-0.36) K/mm3 Baso # (Auto) (0.01-0.08) K/mm3 PT 15.4 H (8.0-13.0) SECONDS INR 1.38 Sodium (136-145) mEq/L Potassium (3.5-5.1) mEq/L Chloride (98-107) mEq/L Carbon Dioxide (21-32) mEq/L Anion Gap (5-15) BUN (7-18) mg/dL Creatinine (0.55-1.02) mg/dL Est Cr Clr Drug Dosing mL/min Estimated GFR (MDRD) (>60) mL/min BUN/Creatinine Ratio (14-18) Glucose (83-115) mg/dL Calcium (8.5-10.1) mg/dL Magnesium (1.8-2.4) mg/dl Urine Color Yellow (Yellow) Urine Appearance Slt cloudy H (Clear) Urine pH 6.0 (5.0-8.0) Ur Specific [place] 1.020 (1.005-1.030) Urine Protein Negative (Negative) Urine Glucose (UA) Negative (Negative) Urine Ketones Negative (Negative) Urine Occult Blood 2+ H (Negative) Urine Nitrite Positive H (Negative) Urine Bilirubin Negative (Negative) Urine Urobilinogen 0.2 (0.2-1.0) Ur Leukocyte Esterase 3+ H (Negative) Urine RBC 5-10 H (0-5) /hpf Urine WBC 50-75 H (0-5) /hpf Ur Epithelial Cells 0-5 (0-5) /hpf Urine Bacteria Moderate H (FEW) /hpf Urine Mucus Not seen (FEW) /hpf 12/31/16 12/31/16 12/31/16 Range/Units 05:50 05:50 05:50 WBC 5.94 (3.98-10.04) K/mm3 RBC 2.88 L (3.98-5.22) M/mm3 Hgb 9.3 L (11.2-15.7) gm/L Hct 28.6 L (34.1-44.9) % MCV 99.3 H (79.4-94.8) fl MCH 32.3 H (25.6-32.2) pg MCHC 32.5 (32.2-35.5) g/dl RDW Std Deviation 49.3 H (36.4-46.3) fL Plt Count 202 (182-369) K/mm3 MPV 10.8 (9.4-12.3) fl Neut % (Auto) 45.6 (34.0-71.1) % Lymph % (Auto) 38.0 (19.3-51.7) % [place] % (Auto) 13.6 H (4.7-12.5) % Eos % (Auto) 2.0 (0.7-5.8) Baso % (Auto) 0.5 (0.1-1.2) % Neut # (Auto) 2.70 (1.56-6.13) K/mm3 Lymph # (Auto) 2.26 (1.18-3.74) K/mm3 [place] # (Auto) 0.81 H (0.24-0.36) K/mm3 Eos # (Auto) 0.12 (0.04-0.36) K/mm3 Baso # (Auto) 0.03 (0.01-0.08) K/mm3 PT 13.8 H (8.0-13.0) SECONDS INR 1.25 Sodium 147 H (136-145) mEq/L Potassium 3.1 L (3.5-5.1) mEq/L Chloride 111 H (98-107) mEq/L Carbon Dioxide 28 (21-32) mEq/L Anion Gap 11.1 (5-15) BUN 26 H (7-18) mg/dL Creatinine 0.8 (0.55-1.02) mg/dL Est Cr Clr Drug Dosing 47.62 mL/min Estimated GFR (MDRD) > 60 (>60) mL/min BUN/Creatinine Ratio 32.5 H (14-18) Glucose 97 (83-115) mg/dL Calcium 8.0 L (8.5-10.1) mg/dL Magnesium 1.7 L (1.8-2.4) mg/dl Urine Color (Yellow) Urine Appearance (Clear) Urine pH (5.0-8.0) Ur Specific [place] (1.005-1.030) Urine Protein (Negative) Urine Glucose (UA) (Negative) Urine Ketones (Negative) Urine Occult Blood (Negative) Urine Nitrite (Negative) Urine Bilirubin (Negative) Urine Urobilinogen (0.2-1.0) Ur Leukocyte Esterase (Negative) Urine RBC (0-5) /hpf Urine WBC (0-5) /hpf Ur Epithelial Cells (0-5) /hpf Urine Bacteria (FEW) /hpf Urine Mucus (FEW) /hpf Result Diagrams: 12/31/16 05:50 12/31/16 05:50 Gm Results Last 24 hrs: Microbiology 12/30/16 19:26 Urine Culture - Preliminary Urine, Clean Catch Gram Negative Rods Consult PN Assessment/Plan Procedures: Procedures 3D RENDER W/INTRP POSTPROCES (11/27/14) ASSAY OF BLOOD/URIC ACID (11/27/14) ASSAY OF LIPASE (11/30/14) ASSAY OF TROPONIN QUANT (11/27/14) ASSAY THYROID STIM HORMONE (07/01/16) BLOOD TRANSFUSION SERVICE (12/05/14) BLOOD TYPING SEROLOGIC ABO (12/05/14) BLOOD TYPING SEROLOGIC RH(D) (12/05/14) BODY FLUID CELL COUNT (11/29/14) C-REACTIVE PROTEIN (11/30/14) CARDIOVASCULAR STRESS TEST (09/18/14) CHEST X-RAY 1 VIEW FRONTAL (09/25/16) CHEST X-RAY 2VW FRONTAL&LATL (09/27/16) COMP SCREEN MAMMOGRAM ADD-ON (08/22/15) COMPATIBILITY TEST ANTIGLOB (12/05/14) COMPLETE CBC AUTOMATED (07/01/16) COMPLETE CBC W/AUTO DIFF WBC (09/27/16) COMPREHEN METABOLIC PANEL (09/27/16) CONTROL OF NOSEBLEED (07/18/16) CT UPPER EXTREMITY W/O DYE (11/27/14) CULTR BACTERIA EXCEPT BLOOD (11/29/14) EGD BIOPSY SINGLE/MULTIPLE (01/24/15) ELECTROCARDIOGRAM TRACING (09/25/16) EMERGENCY DEPT VISIT (09/27/16) EMERGENCY DEPT VISIT (09/25/16) EMERGENCY DEPT VISIT (09/21/16) EMERGENCY DEPT VISIT (07/18/16) EMERGENCY DEPT VISIT (11/30/14) EMERGENCY DEPT VISIT (11/27/14) EVALUATE PT USE OF INHALER (09/27/16) EXAM SYNOVIAL FLUID CRYSTALS (11/29/14) GAIT TRAINING THERAPY (10/29/15) GLUCOSE BLOOD TEST (11/30/14) HELICOBACTER PYLORI ANTIBODY (11/19/14) HEMATOCRIT (11/30/14) HEMOGLOBIN (11/30/14) HT MUSCLE IMAGE SPECT MULT (09/18/14) MEASURE BLOOD OXYGEN LEVEL (10/29/15) MEASURE BLOOD OXYGEN LEVEL (11/30/14) METABOLIC PANEL TOTAL CA (11/27/14) MICROBE SUSCEPTIBLE GM (04/25/16) MR-STAPH DNA AMP PROBE (10/19/15) MRI JNT OF LWR EXTRE W/O DYE (11/23/13) OFFICE/OUTPATIENT VISIT EST (07/02/16) OT EVALUATION (10/29/15) PROTHROMBIN TIME (12/12/16) PT EVALUATION (10/29/15) RBC ANTIBODY SCREEN (12/05/14) RBC SED RATE AUTOMATED (11/30/14) ROUTINE VENIPUNCTURE (12/12/16) SELF CARE MNGMENT TRAINING (10/29/15) SMEAR GRAM STAIN (11/29/14) TDAP VACCINE 7 YRS/> IM (10/29/15) THER/PROPH/DIAG INJ IV PUSH (11/27/14) THER/PROPH/DIAG INJ SC/IM (02/17/15) THER/PROPH/DIAG IV INF ADDON (11/30/14) THER/PROPH/DIAG IV INF INIT (11/30/14) THERAPEUTIC ACTIVITIES (10/29/15) THERAPEUTIC EXERCISES (10/29/15) THROMBOPLASTIN TIME PARTIAL (10/29/15) TISSUE EXAM BY PATHOLOGIST (07/02/16) TX/PRO/DX INJ NEW DRUG ADDON (11/30/14) TX/PRO/DX INJ SAME DRUG COUNTERSINKER BALANCE SCREW HOLE (10/12/15) URINALYSIS AUTO W/SCOPE (04/25/16) URINE BACTERIA CULTURE (04/25/16) URINE CULTURE/COLONY COUNT (04/25/16) X-RAY EXAM KNEE 4 OR MORE (09/21/16) X-RAY EXAM OF KNEE 1 OR 2 (10/29/15) (1) Upper GI bleed SNOMED Code(s): 62274095 Code(s): K92.2 - GASTROINTESTINAL HEMORRHAGE, UNSPECIFIED Priority: High Current Visit: Yes Problem List Initiated/Reviewed/Updated: Yes My Orders Last 24 Hours: imp: Upper GI bleed of unknown etiology but most likely related to peptic change given this patient's history of peptic ulcer disease. This bleeding was no doubt exacerbated by her prolonged INR greater than 5. It is now 1.5 and falling and we can proceed with a diagnostic upper endoscopy which I recommended. plan: Esophagogastroduodenoscopy. The patient is familiar with the procedure and wants to proceed today. She has not had anything by mouth since last night.
--- NOTE | 2016-12-31 13:37 | PCM.PREANE ---
Preanesthetic Assessment - Procedure Proposed Procedure: EGD - Anesthesia/Transfusion/Family Hx Anesthesia History: Prior Anesthesia Without Reaction Family History of Anesthesia Reaction: No Transfusion History: Prior Transfusion Without Reaction Intubation History: Unknown - Review of Systems General: No Symptoms Pulmonary: No Symptoms (Asthma), Cough, Sputum Cardiovascular: No Symptoms (HTN; history of [place].), Palpitations Gastrointestinal: No Symptoms (GERD) Neurological: No Symptoms Other: Reports: None - Physical Assessment NPO Status Date: 12/31/16 (No solids for two days; last clear liquid today) NPO Status Time: 08:00 Pulse: 73 O2 Sat by Pulse Oximetry: 88 Respiratory Rate: 14 Blood Pressure: 128/94 Temperature: 36.5 C Vital Signs: Last Vital Signs Temp 36.5 C 12/31/16 12:41 Pulse 73 12/31/16 12:41 Resp 14 12/31/16 12:41 BP 128/94 H 12/31/16 12:41 Pulse Ox 88 L 12/31/16 12:41 Orthostatic Blood Pressure [ 99/61 Standing] Orthostatic Blood Pressure [ 121/52 Sitting] Orthostatic Blood Pressure [ 140/89 Supine] Height: 1.63 m Weight: 83.642 kg ASA Class: 2 Mental Status: Alert & Oriented x3 Airway Class: Mallampati = 1 Dentition: Reports: Normal Dentition, Caries Thyro-Mental Finger Breadths: 3 Mouth Opening Finger Breadths: 3 ROM/Head Extension: Limited/Partial (Limited extension and movement side to side due to arthritis) Lungs: Decreased Breath Sounds Cardiovascular: Regular Rate, Regular Rhythm - Lab Values: Laboratory Last Values WBC 5.94 K/mm3 (3.98-10.04) 12/31/16 05:50 RBC 2.88 M/mm3 (3.98-5.22) L 12/31/16 05:50 Hgb 9.3 gm/L (11.2-15.7) L 12/31/16 05:50 Hct 28.6 % (34.1-44.9) L 12/31/16 05:50 MCV 99.3 fl (79.4-94.8) H 12/31/16 05:50 MCH 32.3 pg (25.6-32.2) H 12/31/16 05:50 MCHC 32.5 g/dl (32.2-35.5) 12/31/16 05:50 RDW Std Deviation 49.3 fL (36.4-46.3) H 12/31/16 05:50 Plt Count 202 K/mm3 (182-369) 12/31/16 05:50 MPV 10.8 fl (9.4-12.3) 12/31/16 05:50 Neut % (Auto) 45.6 % (34.0-71.1) 12/31/16 05:50 Lymph % (Auto) 38.0 % (19.3-51.7) 12/31/16 05:50 [place] % (Auto) 13.6 % (4.7-12.5) H 12/31/16 05:50 Eos % (Auto) 2.0 (0.7-5.8) 12/31/16 05:50 Baso % (Auto) 0.5 % (0.1-1.2) 12/31/16 05:50 Neut # (Auto) 2.70 K/mm3 (1.56-6.13) 12/31/16 05:50 Lymph # (Auto) 2.26 K/mm3 (1.18-3.74) 12/31/16 05:50 [place] # (Auto) 0.81 K/mm3 (0.24-0.36) H 12/31/16 05:50 Eos # (Auto) 0.12 K/mm3 (0.04-0.36) 12/31/16 05:50 Baso # (Auto) 0.03 K/mm3 (0.01-0.08) 12/31/16 05:50 PT 13.8 SECONDS (8.0-13.0) H 12/31/16 05:50 INR 1.25 12/31/16 05:50 Sodium 147 mEq/L (136-145) H 12/31/16 05:50 Potassium 3.1 mEq/L (3.5-5.1) L 12/31/16 05:50 Chloride 111 mEq/L (98-107) H 12/31/16 05:50 Carbon Dioxide 28 mEq/L (21-32) 12/31/16 05:50 Anion Gap 11.1 (5-15) 12/31/16 05:50 BUN 26 mg/dL (7-18) H 12/31/16 05:50 Creatinine 0.8 mg/dL (0.55-1.02) 12/31/16 05:50 Est Cr Clr Drug Dosing 47.62 mL/min 12/31/16 05:50 Estimated GFR (MDRD) > 60 mL/min (>60) 12/31/16 05:50 BUN/Creatinine Ratio 32.5 (14-18) H 12/31/16 05:50 Glucose 97 mg/dL (83-115) 12/31/16 05:50 Calcium 8.0 mg/dL (8.5-10.1) L 12/31/16 05:50 Magnesium 1.7 mg/dl (1.8-2.4) L 12/31/16 05:50 Total Bilirubin 0.7 mg/dL (0.2-1.0) 12/30/16 07:03 AST 25 U/L (15-37) 12/30/16 07:03 ALT 25 U/L (14-59) 12/30/16 07:03 Alkaline Phosphatase 63 U/L (46-116) 12/30/16 07:03 Troponin I 0.019 ng/mL (0.00-0.056) 12/30/16 07:03 Total Protein 6.6 g/dl (6.4-8.2) 12/30/16 07:03 Albumin 2.9 g/dl (3.4-5.0) L 12/30/16 07:03 Globulin 3.7 gm/dL 12/30/16 07:03 Albumin/Globulin Ratio 0.8 (1-2) L 12/30/16 07:03 Urine Color Yellow (Yellow) 12/30/16 19:26 Urine Appearance Slt cloudy (Clear) H 12/30/16 19:26 Urine pH 6.0 (5.0-8.0) 12/30/16 19:26 Ur Specific [place] 1.020 (1.005-1.030) 12/30/16 19:26 Urine Protein Negative (Negative) 12/30/16 19:26 Urine Glucose (UA) Negative (Negative) 12/30/16 19:26 Urine Ketones Negative (Negative) 12/30/16 19:26 Urine Occult Blood 2+ (Negative) H 12/30/16 19:26 Urine Nitrite Positive (Negative) H 12/30/16 19:26 Urine Bilirubin Negative (Negative) 12/30/16 19:26 Urine Urobilinogen 0.2 (0.2-1.0) 12/30/16 19:26 Ur Leukocyte Esterase 3+ (Negative) H 12/30/16 19:26 Urine RBC 5-10 /hpf (0-5) H 12/30/16 19:26 Urine WBC 50-75 /hpf (0-5) H 12/30/16 19:26 Ur Epithelial Cells 0-5 /hpf (0-5) 12/30/16 19:26 Urine Bacteria Moderate /hpf (FEW) H 12/30/16 19:26 Urine Mucus Not seen /hpf (FEW) 12/30/16 19:26 Blood Type B POSITIVE 12/30/16 07:03 Gel Antibody Screen Negative 12/30/16 07:03 - Allergies Allergies/Adverse Reactions: Allergies Allergy/AdvReac Type Severity Reaction Status Date / Time theophylline anhydrous AdvReac altered Verified 12/30/16 13:14 [From Pan-Dur] heart rate scents Allergy Airway Uncoded 09/25/16 01:14 Tightness - Anesthesia Plan Pre-Op Medication Ordered: None - Acknowledgements Anesthesia Type Planned: MAC Pt an Appropriate Candidate for the Planned Anesthesia: Yes Alternatives and Risks of Anesthesia Discussed w Pt/Guardian: Yes Pt/Guardian Understands and Agrees with Anesthesia Plan: Yes PreAnesthesia Questionnaire HEENT History: Reports: Cataract Other HEENT History: wears glasses. 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 OB/BYN History: hx of cystocele with mesh repair Musculoskeletal History: Reports: Other (See Below) Other Musculoskeletal History: chronic left & right shoulder pain Neurological History: Reports: Brain Injury 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 Psychiatric History: Reports: Depression Endocrine/Metabolic History: Reports: Obesity/BMI 30+ Hematologic History: Reports: Anemia Other Hematologic History: "had bleeding ulcer 11/2014" - Past Surgical History Head Surgeries/Procedures: Reports: None HEENT Surgical History: Reports: Cataract Surgery, Other (See Below) Other HEENT Surgeries/Procedures: bilateral GI Surgical History: Reports: Cholecystectomy Female Surgical History: Reports: Hysterectomy Musculoskeletal Surgical History: Reports: Knee Replacement Other Musculoskeletal Surgeries/Procedures:: bilateral - SUBSTANCE USE Smoking Status *Q: Never Smoker Tobacco Use Within Last Twelve Months: No Second Hand Smoke Exposure: No Days Per Week of Alcohol Use: 0 Recreational Drug Use History: No - HOME MEDS Home Medications: Home Meds Indapamide 1 tab PO QAM 12/05/14 [History] Potassium Chloride [Klor-Con M10] 1 tab PO DAILY 12/05/14 [History] Sertraline HCl 50 mg PO DAILY 12/05/14 [History] Verapamil HCl [Verapamil ER] 180 mg PO DAILY 12/05/14 [History] Warfarin [Coumadin] 5 mg PO MOWEFR 02/18/15 [History] Acetaminophen [Tylenol Arthritis] 2 tab PO TID PRN 10/29/15 [History] Albuterol Sulfate [Proair Respiclick] 2 inh INH ASDIRECTED PRN 10/29/15 [History ] Calcium Carbonate [Calcium] 1,200 mg PO DAILY 10/29/15 [History] Ergocalciferol (Vitamin D2) [Vitamin D] 1 tab PO DAILY 10/29/15 [History] Multivitamin [One Daily Multivitamin] 1 tab PO DAILY 10/29/15 [History] Bisacodyl [Dulcolax] 5 mg PO DAILY PRN #0 tablet 11/01/15 [Rx] Docusate Sodium [Colace] 100 mg PO BID cap 11/01/15 [Rx] Magnesium Hydroxide [Milk of Magnesia] 30 ml PO BID PRN #0 cup 11/01/15 [Rx] Sennosides [Senna] 8.6 mg PO BID PRN #0 tablet 11/01/15 [Rx] Warfarin [Coumadin] 10 mg PO ASDIRECTED 07/18/16 [History] Hydrocodone/Acetaminophen [[place] 5-325] 1 tab PO Q6HR PRN #20 tablet 09/21/16 [ Rx] Omeprazole 20 mg PO DAILY PRN 12/30/16 [History] oxyCODONE HCl/Acetaminophen [Endocet 5-325 Tablet] 1 tab PO Q6HR PRN 12/30/16 [ History] - CURRENT (IN HOUSE) MEDS Current Meds: Current Medications Acetaminophen (Tylenol) 650 mg PO Q4H PRN PRN Reason: Pain (Mild 1-3)/fever Last Admin: 12/30/16 21:15 Dose: 650 mg Hydrocodone Bitart/Acetaminophen ([place] 325-5 Mg) 1 tab PO Q4H PRN PRN Reason: Pain (moderate 4-6) Albuterol (Proventil Hfa) 0 gm INH ASDIRECTED PRN PRN Reason: Wheezing Albuterol/Ipratropium (Duoneb 3.0-0.5 Mg/3 Ml) 3 ml NEB Q4H PRN PRN Reason: Shortness Of Breath/wheezing Famotidine (Pepcid) 20 mg IVPUSH BID [facility] Last Admin: 12/31/16 08:45 Dose: 20 mg Hydralazine HCl (Apresoline) 20 mg IVPUSH Q4H PRN PRN Reason: Hypertension Hydromorphone HCl (Dilaudid) 0.25 mg IVPUSH Q3H PRN PRN Reason: Pain (severe 7-10) Dextrose/Sodium Chloride (Dextrose 5%-Normal Saline) 1,000 mls @ 100 mls/hr IV ASDIRECTED [facility] Last Admin: 12/31/16 11:48 Dose: 100 mls/hr Ceftriaxone Sodium 1 gm/ (Sodium Chloride) 100 mls @ 200 mls/hr IV Q24H [facility] Last Admin: 12/31/16 08:43 Dose: 200 mls/hr Potassium Chloride 10 meq/ (Premix) 100 mls @ 100 mls/hr IV Q1H [facility] Stop: 12/31/16 14:39 Last Admin: 12/31/16 12:52 Dose: 100 mls/hr Indapamide (Indapamide) 2.5 mg PO QAM [facility] Last Admin: 12/31/16 12:21 Dose: Not Given Lorazepam (Ativan) 0.5 mg IV Q6H PRN PRN Reason: Anxiety Magnesium Hydroxide (Milk Of Magnesia) 30 ml PO BID PRN PRN Reason: Constipation Magnesium Sulfate (Pharmacy To Dose - Magnesium Replacement) 1 dose .XX ASDIRECTED [facility] Metoprolol Tartrate (Lopressor) 5 mg IVPUSH Q4H PRN PRN Reason: Tachycardia Multivitamins (Thera) 1 each PO DAILY [facility] Last Admin: 12/31/16 12:22 Dose: Not Given Ondansetron HCl (Zofran) 4 mg IV Q6H PRN PRN Reason: Nausea/Vomiting Ergocalciferol ( Vitamin D2) [Vitamin D] 1 Tab 0 each PO DAILY [facility] Last Admin: 12/31/16 12:22 Dose: Not Given Potassium Chloride (Pharmacy To Dose - Potassium Replacement) 1 dose .XX ASDIRECTED [facility] Potassium Chloride (Klor-Con 10) 10 meq PO DAILY [facility] Last Admin: 12/31/16 12:22 Dose: Not Given Potassium Chloride (Klor-Con M20) 40 meq PO Q4H [facility] Stop: 12/31/16 16:01 Last Admin: 12/31/16 10:31 Dose: Not Given Sertraline HCl (Zoloft) 50 mg PO DAILY [facility] Last Admin: 12/31/16 12:22 Dose: Not Given Sodium Chloride (Saline Flush) 10 ml FLUSH ASDIRECTED PRN PRN Reason: Keep Vein Open Last Admin: 12/30/16 07:42 Dose: 10 ml Sodium Chloride (Saline Flush) 10 ml FLUSH ONETIME PRN PRN Reason: IV FLUSH Last Admin: 12/30/16 09:01 Dose: 10 ml Temazepam (Restoril) 7.5 mg PO BEDTIME PRN PRN Reason: Sleep Verapamil HCl (Calan Sr) 180 mg PO DAILY [facility] Last Admin: 12/31/16 12:21 Dose: Not Given Discontinued Medications Ceftriaxone Sodium (Rocephin) 1 gm IM Q24H [facility] Diatrizoate Meglum/Diatrizoate Sod (Gastrografin 37%) 90 ml PO ONETIME ONE Stop: 12/30/16 08:36 Last Admin: 12/30/16 09:01 Dose: 90 ml Pantoprazole Sodium 80 mg/ (Sodium Chloride) 100 mls @ 10 mls/hr IV Q10H [facility] Last Admin: 12/30/16 08:06 Dose: 10 mls/hr Sodium Chloride (Normal Saline) 1,000 mls @ 125 mls/hr IV ASDIRECTED [facility] Sodium Chloride (Normal Saline) 500 mls @ 1,000 mls/hr IV .BOLUS ONE Stop: 12/30/16 07:45 Last Admin: 12/30/16 07:30 Dose: 1,000 mls/hr Phytonadione 5 mg/ Sodium (Chloride) 50.5 mls @ 100 mls/hr IV NOW ONE Stop: 12/30/16 08:29 Last Admin: 12/30/16 08:29 Dose: 100 mls/hr Sodium Chloride (Normal Saline) 1,000 mls @ 125 mls/hr IV ASDIRECTED [facility] Last Admin: 12/30/16 11:57 Dose: 125 mls/hr Magnesium Sulfate 2 gm/ Premix 50 mls @ 25 mls/hr IV ONETIME ONE Stop: 12/31/16 12:19 Last Admin: 12/31/16 10:44 Dose: 25 mls/hr Lidocaine HCl (Xylocaine-Mpf 1%) Confirm Administered Dose 4 mls @ as directed .ROUTE .STK-MED ONE Stop: 12/31/16 13:48 Iopamidol (Isovue-300 (61%)) 100 ml IVPUSH ONETIME ONE Stop: 12/30/16 08:36 Last Admin: 12/30/16 09:01 Dose: 100 ml Magnesium Oxide (Magnesium Oxide) 800 mg PO ONETIME ONE Stop: 12/31/16 08:01 Ondansetron HCl (Zofran) 4 mg IVPUSH ONETIME ONE Stop: 12/30/16 07:15 Last Admin: 12/30/16 07:30 Dose: 4 mg Pantoprazole Sodium (Protonix Iv) 80 mg IVPUSH .BOLUS ONE Stop: 12/30/16 07:15 Last Admin: 12/30/16 07:33 Dose: 80 mg Propofol (Diprivan 20 Ml) Confirm Administered Dose 200 mg .ROUTE .STK-MED ONE Stop: 12/31/16 13:48
[2016-12-31] MEDS ORDERED: Propofol 200 MG/20 ML SDV ONE (13:47)
[2016-12-31] MEDS ORDERED: Lidocaine 1% 4 ML ONE (13:47)
[2016-12-31] MEDS ORDERED: Lactated Ringers 1,000 ML ONE (14:07)
--- NOTE | 2016-12-31 14:30 | PCM.OPNOTE ---
- General Post-Op/Procedure Note Date of Surgery/Procedure: 12/31/16 Operative Procedure(s): Diagnostic esophagogastroduodenoscopy Findings: Multiple prepyloric erosions with antritis. Small type I hiatal hernia. No luminal blood within the esophagus, stomach, or duodenum. No esophageal varices , and no Samantha-Dawn tears. No fundic or body of the stomach abnormalities noted except for a few glandular polyps. No duodenal ulcer. Pre Op Diagnosis: Upper GI bleed in the setting of an INR of 5.1 Post-Op Diagnosis: 1. Prepyloric antritis and erosions. 2. Multiple small glandular type stomach polyps. 3. Small type I hiatal hernia Anesthesia Technique: MAC, Moderate Sedation Primary Surgeon: Hossein Felix Pathology: None EBL in mLs: 0 Complications: None Condition: Good Free Text/Narrative:: Intake & Output 12/30/16 12/31/16 12/31/16 22:59 06:59 14:59 Intake Total 981 1277 Output Total 300 1275 Balance 681 2 After adequate IV sedation and analgesia was obtained the patient was placed on her left side. Through a bite-block a lubricated upper endoscope was easily inserted into the esophagus and advanced under direct vision to the stomach. A few small glandular polyps were seen. Additional air was given here. The scope was then advanced towards the prepyloric area where multiple erosions and redundant mucosal folds were present. I introduced the scope into the duodenum to its second part. The second and first parts were endoscopically normal with no mass lesions or inflammatory changes seen. On reinspection the prepyloric area had mild antritis and some erosions with some larger than the other. No ahmet ulcer craters were seen. The incisura was normal. In the retroflexed view the fundus and body of the stomach were remarkable for the glandular polyps as mentioned above. There was no other pathology seen. The GE junction was sharp. There was no endoscopic esophagitis. The body of the esophagus was within normal limits. The vocal cords were briefly visualized on extubation. These structures were grossly normal. Photographs were taken for the patient and for the record. There were no complications.
--- NOTE | 2016-12-31 14:30 | PCM48HPAN ---
Post Anesthesia Note - EVALUATION WITHIN 48HRS OF ANESTHETIC Vital Signs in Normal Range: Yes Patient Participated in Evaluation: Yes Respiratory Function Stable: Yes Airway Patent: Yes Cardiovascular Function Stable: Yes Hydration Status Stable: Yes Pain Control Satisfactory: Yes Nausea and Vomiting Control Satisfactory: Yes Mental Status Recovered: Yes
[2016-12-31] MEDS: Sucralfate 1 GM Tab PO SCH ×3 (15:35→21:20)
[2016-12-31] MEDS: Apixaban 5 MG Tab PO SCH (21:20)
[2016-12-31] MEDS: Pantoprazole 40 MG Tab.CR PO SCH (21:20)
[2016-12-31] MEDS: Temazepam 7.5 MG Cap PO PRN (23:25)
[2017-01-01] MEDS: Potassium Chloride 10 MEQ in Premix Bag 1 BAG IV SCH ×2 (01:25→02:49)
[2017-01-01] MEDS: Sucralfate 1 GM Tab PO SCH ×5 (06:24→21:50)
[2017-01-01] MEDS: cefTRIAXone 1 GM in Sodium Chloride 0.9% 100 ML IV SCH (08:26)
[2017-01-01] MEDS: Potassium Chloride 10 MEQ Tab.ER PO SCH (08:30)
[2017-01-01] MEDS: Indapamide 2.5 MG Tab PO SCH (08:30)
[2017-01-01] MEDS: Sertraline 50 MG Tab PO SCH (08:30)
[2017-01-01] MEDS: Pantoprazole 40 MG Tab.CR PO SCH ×2 (08:30→21:50)
[2017-01-01] MEDS: Verapamil 180 MG Tab.ER PO SCH (08:30)
[2017-01-01] MEDS: Multivitamins,Therapeutic Tab PO SCH (08:30)
[2017-01-01] MEDS: Apixaban 5 MG Tab PO SCH (08:30)
[2017-01-01] MEDS: ERGOCALCIFEROL PO SCH (08:33)
[2017-01-01] MEDS ORDERED: Iron Polysaccharides Complex 150 MG Cap PO ONE ×2 (10:00→21:00)
[2017-01-01] MEDS ORDERED: Ascorbic Acid 500 MG Tab PO ONE ×2 (10:01→21:00)
--- NOTE | 2017-01-01 12:03 | PCM.PN ---
- General Info Date of Service: 01/01/17 Admission Dx/Problem (Free Text): Admission Diagnosis/Problem Admission Diagnosis/Problem GI bleed not requiring more than 4 units of blood in 24 hours, ICU, or surgery Subjective Update: Follow Up Functional Status: Reports: Pain Controlled, Tolerating Diet, Ambulating, Urinating, New Symptoms (generalized weakness) - Review of Systems General: Reports: Weakness. Denies: Fever, Fatigue, Malaise, Chills HEENT: Reports: No Symptoms Pulmonary: Denies: Shortness of Breath Cardiovascular: Denies: Chest Pain, Palpitations, Dyspnea on Exertion, Lightheadedness Gastrointestinal: Reports: Flatus. Denies: Abdominal Pain, Hematochezia, Melena , Nausea, Vomiting Genitourinary: Reports: No Symptoms Skin: Reports: Dryness Neurological: Reports: Gait Disturbance. Denies: Confusion, Difficulty Walking , Weakness Psychiatric: Denies: Depression, Anxiety, Agitation, Hallucinations - Patient Data Vitals - Most Recent: Last Vital Signs Temp 36.7 C 01/01/17 07:43 Pulse 73 01/01/17 07:43 Resp 13 01/01/17 07:43 BP 144/58 H 01/01/17 07:43 Pulse Ox 98 01/01/17 07:43 Orthostatic Blood Pressure [ 99/61 Standing] Orthostatic Blood Pressure [ 121/52 Sitting] Orthostatic Blood Pressure [ 140/89 Supine] Weight - Most Recent: 83.96 kg I&O - Last 24 Hours: Intake & Output 12/31/16 01/01/17 01/01/17 22:59 06:59 14:59 Intake Total 3435 2252 120 Output Total 800 800 Balance 2635 1452 120 Lab Results Last 24 Hours: Laboratory Results - last 24 hr 12/31/16 12/31/16 01/01/17 Range/Units 18:05 18:05 06:00 WBC (3.98-10.04) K/mm3 RBC (3.98-5.22) M/mm3 Hgb 9.2 L (11.2-15.7) gm/L Hct 29.1 L (34.1-44.9) % MCV (79.4-94.8) fl MCH (25.6-32.2) pg MCHC (32.2-35.5) g/dl RDW Std Deviation (36.4-46.3) fL Plt Count (182-369) K/mm3 MPV (9.4-12.3) fl Neut % (Auto) (34.0-71.1) % Lymph % (Auto) (19.3-51.7) % Mcpherson % (Auto) (4.7-12.5) % Eos % (Auto) (0.7-5.8) Baso % (Auto) (0.1-1.2) % Neut # (Auto) (1.56-6.13) K/mm3 Lymph # (Auto) (1.18-3.74) K/mm3 Mcpherson # (Auto) (0.24-0.36) K/mm3 Eos # (Auto) (0.04-0.36) K/mm3 Baso # (Auto) (0.01-0.08) K/mm3 PT 12.4 (8.0-13.0) SECONDS INR 1.13 Sodium (136-145) mEq/L Potassium 3.3 L (3.5-5.1) mEq/L Chloride (98-107) mEq/L Carbon Dioxide (21-32) mEq/L Anion Gap (5-15) BUN (7-18) mg/dL Creatinine (0.55-1.02) mg/dL Est Cr Clr Drug Dosing mL/min Estimated GFR (MDRD) (>60) mL/min BUN/Creatinine Ratio (14-18) Glucose (83-115) mg/dL Calcium (8.5-10.1) mg/dL Magnesium 2.0 (1.8-2.4) mg/dl 01/01/17 01/01/17 Range/Units 06:00 06:00 WBC 5.83 (3.98-10.04) K/mm3 RBC 2.77 L (3.98-5.22) M/mm3 Hgb 8.8 L (11.2-15.7) gm/L Hct 27.7 L (34.1-44.9) % MCV 100.0 H (79.4-94.8) fl MCH 31.8 (25.6-32.2) pg MCHC 31.8 L (32.2-35.5) g/dl RDW Std Deviation 50.7 H (36.4-46.3) fL Plt Count 200 (182-369) K/mm3 MPV 10.7 (9.4-12.3) fl Neut % (Auto) 53.2 (34.0-71.1) % Lymph % (Auto) 31.6 (19.3-51.7) % Mcpherson % (Auto) 9.3 (4.7-12.5) % Eos % (Auto) 5.0 (0.7-5.8) Baso % (Auto) 0.7 (0.1-1.2) % Neut # (Auto) 3.11 (1.56-6.13) K/mm3 Lymph # (Auto) 1.84 (1.18-3.74) K/mm3 Mcpherson # (Auto) 0.54 H (0.24-0.36) K/mm3 Eos # (Auto) 0.29 (0.04-0.36) K/mm3 Baso # (Auto) 0.04 (0.01-0.08) K/mm3 PT (8.0-13.0) SECONDS INR Sodium 144 (136-145) mEq/L Potassium 3.9 (3.5-5.1) mEq/L Chloride 110 H (98-107) mEq/L Carbon Dioxide 29 (21-32) mEq/L Anion Gap 8.9 (5-15) BUN 12 (7-18) mg/dL Creatinine 0.7 (0.55-1.02) mg/dL Est Cr Clr Drug Dosing 54.43 mL/min Estimated GFR (MDRD) > 60 (>60) mL/min BUN/Creatinine Ratio 17.1 (14-18) Glucose 102 (83-115) mg/dL Calcium 8.2 L (8.5-10.1) mg/dL Magnesium 1.9 (1.8-2.4) mg/dl Gm Results Last 24 Hours: Microbiology 12/30/16 19:26 Urine Culture - Preliminary Urine, Clean Catch Escherichia Coli Gram Negative Rods Med Orders - Current: Current Medications Acetaminophen (Tylenol) 650 mg PO Q4H PRN PRN Reason: Pain (Mild 1-3)/fever Last Admin: 12/30/16 21:15 Dose: 650 mg Hydrocodone Bitart/Acetaminophen (Donnellson 325-5 Mg) 1 tab PO Q4H PRN PRN Reason: Pain (moderate 4-6) Albuterol (Proventil Hfa) 0 gm INH ASDIRECTED PRN PRN Reason: Wheezing Albuterol/Ipratropium (Duoneb 3.0-0.5 Mg/3 Ml) 3 ml NEB Q4H PRN PRN Reason: Shortness Of Breath/wheezing Apixaban (Eliquis) 5 mg PO BID [facility] Last Admin: 01/01/17 08:30 Dose: 5 mg Hydralazine HCl (Apresoline) 20 mg IVPUSH Q4H PRN PRN Reason: Hypertension Hydromorphone HCl (Dilaudid) 0.25 mg IVPUSH Q3H PRN PRN Reason: Pain (severe 7-10) Ceftriaxone Sodium 1 gm/ (Sodium Chloride) 100 mls @ 200 mls/hr IV Q24H [facility] Last Admin: 01/01/17 08:26 Dose: 200 mls/hr Indapamide (Indapamide) 2.5 mg PO QAM [facility] Last Admin: 01/01/17 08:30 Dose: 2.5 mg Lorazepam (Ativan) 0.5 mg IV Q6H PRN PRN Reason: Anxiety Magnesium Hydroxide (Milk Of Magnesia) 30 ml PO BID PRN PRN Reason: Constipation Magnesium Sulfate (Pharmacy To Dose - Magnesium Replacement) 1 dose .XX ASDIRECTED [facility] Metoprolol Tartrate (Lopressor) 5 mg IVPUSH Q4H PRN PRN Reason: Tachycardia Multivitamins (Thera) 1 each PO DAILY [facility] Last Admin: 01/01/17 08:30 Dose: 1 each Ondansetron HCl (Zofran) 4 mg IV Q6H PRN PRN Reason: Nausea/Vomiting Pantoprazole Sodium (Protonix) 40 mg PO BID [facility] Last Admin: 01/01/17 08:30 Dose: 40 mg Ergocalciferol ( Vitamin D2) [Vitamin D] 1 Tab 0 each PO DAILY [facility] Last Admin: 01/01/17 08:33 Dose: Not Given Potassium Chloride (Pharmacy To Dose - Potassium Replacement) 1 dose .XX ASDIRECTED [facility] Potassium Chloride (Klor-Con 10) 10 meq PO DAILY [facility] Last Admin: 01/01/17 08:30 Dose: 10 meq Sertraline HCl (Zoloft) 50 mg PO DAILY [facility] Last Admin: 01/01/17 08:30 Dose: 50 mg Sodium Chloride (Saline Flush) 10 ml FLUSH ASDIRECTED PRN PRN Reason: Keep Vein Open Last Admin: 12/30/16 07:42 Dose: 10 ml Sodium Chloride (Saline Flush) 10 ml FLUSH ONETIME PRN PRN Reason: IV FLUSH Last Admin: 12/30/16 09:01 Dose: 10 ml Sucralfate (Carafate) 1 gm PO QIDACANDBED [facility] Last Admin: 01/01/17 10:47 Dose: 1 gm Temazepam (Restoril) 7.5 mg PO BEDTIME PRN PRN Reason: Sleep Last Admin: 12/31/16 23:25 Dose: 7.5 mg Verapamil HCl (Calan Sr) 180 mg PO DAILY [facility] Last Admin: 01/01/17 08:30 Dose: 180 mg Discontinued Medications Ascorbic Acid (Vitamin C) 500 mg PO ONETIME ONE Stop: 01/01/17 10:02 Last Admin: 01/01/17 10:47 Dose: 500 mg Ceftriaxone Sodium (Rocephin) 1 gm IM Q24H [facility] Diatrizoate Meglum/Diatrizoate Sod (Gastrografin 37%) 90 ml PO ONETIME ONE Stop: 12/30/16 08:36 Last Admin: 12/30/16 09:01 Dose: 90 ml Famotidine (Pepcid) 20 mg IVPUSH BID [facility] Last Admin: 12/31/16 08:45 Dose: 20 mg Pantoprazole Sodium 80 mg/ (Sodium Chloride) 100 mls @ 10 mls/hr IV Q10H [facility] Last Admin: 12/30/16 08:06 Dose: 10 mls/hr Sodium Chloride (Normal Saline) 1,000 mls @ 125 mls/hr IV ASDIRECTED [facility] Sodium Chloride (Normal Saline) 500 mls @ 1,000 mls/hr IV .BOLUS ONE Stop: 12/30/16 07:45 Last Admin: 12/30/16 07:30 Dose: 1,000 mls/hr Phytonadione 5 mg/ Sodium (Chloride) 50.5 mls @ 100 mls/hr IV NOW ONE Stop: 12/30/16 08:29 Last Admin: 12/30/16 08:29 Dose: 100 mls/hr Sodium Chloride (Normal Saline) 1,000 mls @ 125 mls/hr IV ASDIRECTED [facility] Last Admin: 12/30/16 11:57 Dose: 125 mls/hr Dextrose/Sodium Chloride (Dextrose 5%-Normal Saline) 1,000 mls @ 100 mls/hr IV ASDIRECTED [facility] Last Admin: 12/31/16 23:19 Dose: 100 mls/hr Magnesium Sulfate 2 gm/ Premix 50 mls @ 25 mls/hr IV ONETIME ONE Stop: 12/31/16 12:19 Last Admin: 12/31/16 10:44 Dose: 25 mls/hr Potassium Chloride 10 meq/ (Premix) 100 mls @ 100 mls/hr IV Q1H [facility] Stop: 12/31/16 14:39 Last Admin: 12/31/16 15:29 Dose: 100 mls/hr Lidocaine HCl (Xylocaine-Mpf 1%) Confirm Administered Dose 4 mls @ as directed .ROUTE .STK-MED ONE Stop: 12/31/16 13:48 Lactated Ringer's (Ringers, Lactated) Confirm Administered Dose 1,000 mls @ as directed .ROUTE .STK-MED ONE Stop: 12/31/16 14:08 Potassium Chloride 10 meq/ (Premix) 100 mls @ 100 mls/hr IV Q1H [facility] Stop: 12/31/16 23:14 Last Admin: 01/01/17 02:49 Dose: 100 mls/hr Iopamidol (Isovue-300 (61%)) 100 ml IVPUSH ONETIME ONE Stop: 12/30/16 08:36 Last Admin: 12/30/16 09:01 Dose: 100 ml Magnesium Oxide (Magnesium Oxide) 800 mg PO ONETIME ONE Stop: 12/31/16 08:01 Last Admin: 12/31/16 15:20 Dose: Not Given Ondansetron HCl (Zofran) 4 mg IVPUSH ONETIME ONE Stop: 12/30/16 07:15 Last Admin: 12/30/16 07:30 Dose: 4 mg Pantoprazole Sodium (Protonix Iv) 80 mg IVPUSH .BOLUS ONE Stop: 12/30/16 07:15 Last Admin: 12/30/16 07:33 Dose: 80 mg Polysaccharide Iron Complex (Ferrex 150) 300 mg PO ONETIME ONE Stop: 01/01/17 10:01 Last Admin: 01/01/17 10:48 Dose: 300 mg Potassium Chloride (Klor-Con M20) 40 meq PO Q4H [facility] Stop: 12/31/16 16:01 Last Admin: 12/31/16 10:31 Dose: Not Given Propofol (Diprivan 20 Ml) Confirm Administered Dose 200 mg .ROUTE .STK-MED ONE Stop: 12/31/16 13:48 - Exam General: Alert, Oriented, Cooperative, No Acute Distress HEENT: Pupils Equal, Pupils Reactive, EOMI, Mucous Membr. Moist/[place] Neck: Supple, Trachea Midline, No JVD, No Thyromegaly Lungs: Clear to Auscultation, Normal Respiratory Effort, Decreased Breath Sounds Cardiovascular: Irregular Rhythm GI/Abdominal Exam: Normal Bowel Sounds, Soft, Non-Tender, No Organomegaly, No Distention, No Abnormal Bruit (Female) Exam: Deferred Back Exam: Normal Inspection, Decreased Range of Motion Extremities: Normal Inspection, Normal Range of Motion, Non-Tender, No Pedal Edema, Normal Capillary Refill Peripheral Pulses: 2+: Dorsalis Pedis (L), Dorsalis Pedis (R) Skin: Warm, Dry, Intact Neurological: No New Focal Deficit Psy/Mental Status: Alert, Normal Affect, Normal Mood - Problem List Review Problem List Initiated/Reviewed/Updated: Yes - My Orders Last 24 Hours: My Active Orders 12/31/16 15:30 Sucralfate [Carafate] 1 gm PO QIDACANDBED 12/31/16 21:00 Apixaban [Eliquis] 5 mg PO BID Pantoprazole [ProTONIX] 40 mg PO BID 01/01/17 16:00 HEMOGLOBIN/HEMATOCRIT,HH [HEME] Routine IRON,FE [CHEM] Routine - Plan Plan:: Assessment/Plan: Acute: Acute Anemia 2/2 GI Bleed - S/p Upper Endoscopy with the following findings: prepyloric antritis, gastric polyps and small hiatal hernia - No episode of melena - On PPI and Carafate - Hgb level is slowly trending down: 9.2--> 8.8--> will repeat level this afternoon - Still does not meet criteria for transfusion - Will do an iron challenge - Spoke to daughter Shannan, informed her to get with her other sisters and decide if they all wants their mom to be on eliquis or note Anticoagulation Therapy - Her [id number] Score is 4: moderate high risk of stroke/TIA/systemic embolism w/o anticoagulation - She has fall risks but has NOT had frequent falls - Therefore I recommend for patient to be on anticoags - Her family will let me know in AM about their decision Abdominal/Pelvis CT scan Findings - 2 small cysts measuring 1.9 cm x 1.6 cm within the left pelvis believed to be related to patient's ovary. These are felt to be incidental. Several cysts within the kidneys as well as a small cortical calcification which is felt to be incidental. Nothing acute is appreciated on CT scan of the abdomen and pelvis. Resolved: Hematemesis - Risk Factor: Hx/o Bleeding Ulcer, GERD and Warfarin Therapy - Admit for not being compliant with PPI - Denies taking OTC NSAIDs for chronic generalized aches or pain - Received Protnix drip in ED - Will continue with H2B IV BID - GS consult for further eval Symptomatic Anemia - Likely from slow GI Bleed - She still gets dizzy when she gets up - Hgb remains table at 9.3 (9.8 yesterday) - Awaiting GS consult Melena - Likely UGI Bleed - Denies any hx/o diverticulosis or hemorrhoids - She was scoped by Dr. Felix before - Hold anticoags - GS consult for further eval Subtherapeutic INR - INR 4.79 ---> now 1.2 - Received 5 mg of IV Vit K in ED x 1 - Hold Warfarin dose tonight - SCDs for now for stroke ppx Supratherapeutic INR Chronic: HTN Atrial Fibrillation, HR controlled on Warfarin Hx/o MT Asthma AR OA/DJD GERD Anemia Hx/o Stroke Hx/o GI Bleed with PUD 2014 Hx/o Bladder Cysts hx/o Recurrent UTIs Hx/o Cystocele with Mesh Repair Osteoporosis Depression Plan: She is much better clinically this morning then yesterday Routine AM Labs Hold eliquis dose tonight and switched her to SCDs Iron level in am Dr. Felix following SW/CM for d/c planning Continue to monitor H/H Code status: 1 Possible d/c in am
[2017-01-01] MEDS: Temazepam 7.5 MG Cap PO PRN (21:51)
[2017-01-02] MEDS: Sucralfate 1 GM Tab PO SCH ×2 (06:20→11:39)
[2017-01-02] MEDS: Potassium Chloride 10 MEQ Tab.ER PO SCH (08:08)
[2017-01-02] MEDS: Multivitamins,Therapeutic Tab PO SCH (08:08)
[2017-01-02] MEDS: Verapamil 180 MG Tab.ER PO SCH (08:08)
[2017-01-02] MEDS: Pantoprazole 40 MG Tab.CR PO SCH (08:09)
[2017-01-02] MEDS: Indapamide 2.5 MG Tab PO SCH (08:09)
[2017-01-02] MEDS: Sertraline 50 MG Tab PO SCH (08:09)
[2017-01-02] MEDS: cefTRIAXone 1 GM in Sodium Chloride 0.9% 100 ML IV SCH (08:09)
[2017-01-02] MEDS: ERGOCALCIFEROL PO SCH (08:10)
--- NOTE | 2017-01-02 11:32 | PCM.SN ---
- Free Text/Narrative Note: Reached out to Dr. Felix about patient's current Hgb status. He offered eval from Hematology and possibly additional GI work i.e. pill cam vs double balloon enteroscopy. He agreed with continuing of her anti-coags given her moderately high [id number] score. Additionally, I spoke to her daughter Shannan, she is okay for mom to go home today. However she wants to hold off on patient's eliquis and do CBC in AM. If patient's Hgb is better, she will follow up with Dr. Riddle. If not, Shannan or any of her family members will plan on taking her to [place] for further eval. I did however strongly suggest that patient be continued on eliquis given her high stroke risk.
--- NOTE | 2017-01-02 12:02 | PCM.DCSUM1 ---
Discharge Summary - Hospital Course Brief History: This is an 81 yo pleasant elderly white female with past medical hx/o HTN, Hx/o OR, Asthma, AR, OA/DJD, GERD, Anemia, Hx/o Stroke, Hx/o Bladder Cysts, Hx/o Recurrent UTIs, Hx/o Cystocele with Mesh Repair, Osteoporosis, and Depression who presents to the emergency department with complaints of abdominal pain associated with hematemesis, some dark stools and diarrhea. She was admitted for medical management of GI Bleed. - Discharge Data Discharge Date: 01/02/17 Discharge Disposition: Home, Self-Care 01 Condition: Good - Discharge Diagnosis/Problem(s) (1) Anemia SNOMED Code(s): 381155491 ICD Code: D64.9 - ANEMIA, UNSPECIFIED Status: Acute Qualifiers: Anemia type: iron deficiency Iron deficiency anemia type: chronic blood loss Qualified Code(s): D50.0 - Iron deficiency anemia secondary to blood loss (chronic) (2) Supratherapeutic INR SNOMED Code(s): 709716391, 255068435 ICD Code: R79.1 - ABNORMAL COAGULATION PROFILE Status: Resolved (3) Anticoagulant causing adverse effect in therapeutic use SNOMED Code(s): 016088679, 779222994 ICD Code: T45.515A - ADVERSE EFFECT OF ANTICOAGULANTS, INITIAL ENCOUNTER Status: Resolved (4) Upper GI bleed SNOMED Code(s): 56744565 ICD Code: K92.2 - GASTROINTESTINAL HEMORRHAGE, UNSPECIFIED Status: Resolved Priority: High - Patient Summary/Data Operative Procedure(s) Performed: Diagnostic esophagogastroduodenoscopy Complications: None Consults: Consultations 12/30/16 13:50 Consult to Case Management [CONS] Routine Consult to Rubber Insulator [CONS] Routine Consult to Spiritual Care [CONS] Routine OT Evaluation and Treatment [CONS] Routine PT Evaluation and Treatment [CONS] Routine 12/31/16 10:58 Consult to Physician [CONS] Routine Labs Pending at D/C: None Recommended Follow-up Testing/Procedures: CBC in AM, if lower than her most recent level or if she develops recurrent GI bleed, family will take her to [place] for further eval. Hospital Course: The patient was primarily admitted for medical workup of melena which we felt related to upper GI bleed. She carried a history of bleeding ulcer in the past while on anticoagulation. She was at some point was on Pradaxa for stroke prophylaxis but intolerant to its side effects. Patient has been switched to warfarin however she had experience hematemesis along with black tarry stools. Patient was therefore admitted for medical workup. She received no blood transfusions but appropriate fluids to improve her volume status. General surgery was consulted for further evaluation and she underwent upper endoscopy. The patient tolerated the procedure well without any complications. She was found to have prepyloric antritis, gastric polyps and small type 1 hiatal hernia. The patient was put on PPI and Carafate for medical management. However despite being off on anticoagulation. Her hemoglobin continued to slowly trend down. Her hospital course was uncomplicated but the rest of her chronic medical illness remained stable during this admission. Her family elected for her to go on eliquis instead of warfarin. Her [id number] score was moderately high but her daughter Shannan preferred she starts tomorrow after she her repeat blood work. After talking to Dr. Felix for further input regarding her possible chronic slow GI bleed. He recommended patient be continued on anticoagulation and to see hematology along with GI specialist for further workup in [facility]. This plan was relayed to patient's daughter, Shannan who works in our OR. Shannan was in agreeable to discharge her home with repeat CBC in am. Patient is now stable for discharge. Again, the plan is for family to take her to [place] if repeat hemoglobin level in am is lower than her level today or if she experiences recurrent GI symptoms. If stable and or better, patient is to continue her eliquis along with her iron pills and follow up with Dr. Riddle in 1 week. - Patient Instructions Diet: Heart Healthy Diet, Usual Diet as Tolerated Activity: As Tolerated Driving: Do Not Drive Showering/Bathing: May Shower Notify Provider of: Fever, Increased Pain, Swelling and Redness, Nausea and/or Vomiting Other/Special Instructions: - Please take all medications as directed. - CBC with auto diff in AM x 1 for Anemia. - You are high risk for stroke due to your underlying Chronic Atrial Fibrillation. - Call or follow up with your family doctor for any questions or concerns after discharge. - Come back of seek immediately care should your symtoms persist or get worse. - Discharge Plan Prescriptions/Med Rec: Apixaban [Eliquis] 5 mg PO BID #60 tablet Ascorbic Acid 250 mg PO BID #30 tablet Famotidine 40 mg PO BID #60 tablet Iron Polysaccharide Complex [Iferex 150] 150 mg PO BID #30 capsule Sucralfate [Carafate] 1 gm PO QIDACANDBED #60 tablet Home Medications: Home Meds Indapamide 1 tab PO QAM 12/05/14 [History] Potassium Chloride [Klor-Con M10] 1 tab PO DAILY 12/05/14 [History] Sertraline HCl 50 mg PO DAILY 12/05/14 [History] Verapamil HCl [Verapamil ER] 180 mg PO DAILY 12/05/14 [History] Acetaminophen [Tylenol Arthritis] 2 tab PO TID PRN 10/29/15 [History] Albuterol Sulfate [Proair Respiclick] 2 inh INH ASDIRECTED PRN 10/29/15 [History ] Calcium Carbonate [Calcium] 1,200 mg PO DAILY 10/29/15 [History] Ergocalciferol (Vitamin D2) [Vitamin D] 1 tab PO DAILY 10/29/15 [History] Multivitamin [One Daily Multivitamin] 1 tab PO DAILY 10/29/15 [History] Bisacodyl [Dulcolax] 5 mg PO DAILY PRN #0 tablet 11/01/15 [Rx] Docusate Sodium [Colace] 100 mg PO BID cap 11/01/15 [Rx] Magnesium Hydroxide [Milk of Magnesia] 30 ml PO BID PRN #0 cup 11/01/15 [Rx] Sennosides [Senna] 8.6 mg PO BID PRN #0 tablet 11/01/15 [Rx] Hydrocodone/Acetaminophen [[place] 5-325] 1 tab PO Q6HR PRN #20 tablet 09/21/16 [ Rx] Omeprazole 20 mg PO DAILY PRN 12/30/16 [History] oxyCODONE HCl/Acetaminophen [Endocet 5-325 Tablet] 1 tab PO Q6HR PRN 12/30/16 [ History] Apixaban [Eliquis] 5 mg PO BID #60 tablet 01/02/17 [Rx] Ascorbic Acid 250 mg PO BID #30 tablet 01/02/17 [Rx] Famotidine 40 mg PO BID #60 tablet 01/02/17 [Rx] Iron Polysaccharide Complex [Iferex 150] 150 mg PO BID #30 capsule 01/02/17 [Rx] Sucralfate [Carafate] 1 gm PO QIDACANDBED #60 tablet 01/02/17 [Rx] Patient Handouts: Urinary Tract Infection, Adult, [id number], Gastrointestinal Bleeding, [id number] - Discharge Summary/Plan Comment DC Time >30 min.: Yes (45 mins) Discharge Summary/Plan Comment: Discharge to Home - General Info Date of Service: 01/02/17 Admission Dx/Problem (Free Text: Admission Diagnosis/Problem Admission Diagnosis/Problem GI bleed not requiring more than 4 units of blood in 24 hours, ICU, or surgery Subjective Update: Follow Up Functional Status: Reports: Pain Controlled, Tolerating Diet, Ambulating, Urinating. Denies: New Symptoms - Review of Systems General: Denies: Fever, Weakness, Fatigue, Malaise, Chills HEENT: Denies: No Symptoms Pulmonary: Denies: Shortness of Breath Cardiovascular: Denies: Chest Pain, Palpitations, Dyspnea on Exertion, Lightheadedness Gastrointestinal: Reports: Flatus. Denies: Abdominal Pain, Constipation, Difficulty Swallowing, Hematochezia, Melena, Nausea, Vomiting Genitourinary: Reports: No Symptoms Musculoskeletal: Reports: No Symptoms Skin: Denies: Cyanosis, Jaundice, Mottled, Pallor, Diaphoresis, Bruising, Rash Neurological: Denies: Confusion, Difficulty Walking, Weakness, Gait Disturbance Psychiatric: Denies: Confusion, Depression, Anxiety, Agitation, Hallucinations Systems Review Comment: No overnight or acute issues. She is relatively well. She has feel good and has no complaints. Her Hb is slightly dropped to 8.6 - Patient Data Vitals - Most Recent: Last Vital Signs Temp 36.6 C 01/02/17 07:50 Pulse 70 01/02/17 07:50 Resp 16 01/02/17 07:50 BP 149/64 H 01/02/17 07:50 Pulse Ox 94 L 01/02/17 07:50 Orthostatic Blood Pressure [ 99/61 Standing] Orthostatic Blood Pressure [ 121/52 Sitting] Orthostatic Blood Pressure [ 140/89 Supine] Weight - Most Recent: 86.092 kg I&O - Last 24 hours: Intake & Output 01/01/17 01/02/17 01/02/17 22:59 06:59 14:59 Intake Total 1380 400 300 Output Total 500 2050 Balance 880 -1650 300 Lab Results - Last 24 hrs: Laboratory Results - last 24 hr 01/01/17 01/01/17 01/02/17 Range/Units 16:16 16:16 05:45 WBC 5.22 (3.98-10.04) K/mm3 RBC 2.65 L (3.98-5.22) M/mm3 Hgb 8.7 L 8.6 L (11.2-15.7) gm/L Hct 27.4 L 26.5 L (34.1-44.9) % MCV 100.0 H (79.4-94.8) fl MCH 32.5 H (25.6-32.2) pg MCHC 32.5 (32.2-35.5) g/dl RDW Std Deviation 49.3 H (36.4-46.3) fL Plt Count 186 (182-369) K/mm3 MPV 10.4 (9.4-12.3) fl Neut % (Auto) 56.8 (34.0-71.1) % Lymph % (Auto) 25.7 (19.3-51.7) % Reynolds % (Auto) 11.7 (4.7-12.5) % Eos % (Auto) 4.8 (0.7-5.8) Baso % (Auto) 0.8 (0.1-1.2) % Neut # (Auto) 2.97 (1.56-6.13) K/mm3 Lymph # (Auto) 1.34 (1.18-3.74) K/mm3 Reynolds # (Auto) 0.61 H (0.24-0.36) K/mm3 Eos # (Auto) 0.25 (0.04-0.36) K/mm3 Baso # (Auto) 0.04 (0.01-0.08) K/mm3 Iron 38 L (50-170) ug/dL 01/02/17 Range/Units 05:45 WBC (3.98-10.04) K/mm3 RBC (3.98-5.22) M/mm3 Hgb (11.2-15.7) gm/L Hct (34.1-44.9) % MCV (79.4-94.8) fl MCH (25.6-32.2) pg MCHC (32.2-35.5) g/dl RDW Std Deviation (36.4-46.3) fL Plt Count (182-369) K/mm3 MPV (9.4-12.3) fl Neut % (Auto) (34.0-71.1) % Lymph % (Auto) (19.3-51.7) % Reynolds % (Auto) (4.7-12.5) % Eos % (Auto) (0.7-5.8) Baso % (Auto) (0.1-1.2) % Neut # (Auto) (1.56-6.13) K/mm3 Lymph # (Auto) (1.18-3.74) K/mm3 Reynolds # (Auto) (0.24-0.36) K/mm3 Eos # (Auto) (0.04-0.36) K/mm3 Baso # (Auto) (0.01-0.08) K/mm3 Iron 61 (50-170) ug/dL NORIS Results - Last 24 hrs: Microbiology 12/30/16 19:26 Urine Culture - Final Urine, Clean Catch Escherichia Coli Escherichia Coli#2 Med Orders - Current: Current Medications Acetaminophen (Tylenol) 650 mg PO Q4H PRN PRN Reason: Pain (Mild 1-3)/fever Last Admin: 12/30/16 21:15 Dose: 650 mg Hydrocodone Bitart/Acetaminophen ([place] 325-5 Mg) 1 tab PO Q4H PRN PRN Reason: Pain (moderate 4-6) Albuterol (Proventil Hfa) 0 gm INH ASDIRECTED PRN PRN Reason: Wheezing Albuterol/Ipratropium (Duoneb 3.0-0.5 Mg/3 Ml) 3 ml NEB Q4H PRN PRN Reason: Shortness Of Breath/wheezing Apixaban (Eliquis) 5 mg PO BID [facility] Last Admin: 01/01/17 08:30 Dose: 5 mg Hydralazine HCl (Apresoline) 20 mg IVPUSH Q4H PRN PRN Reason: Hypertension Hydromorphone HCl (Dilaudid) 0.25 mg IVPUSH Q3H PRN PRN Reason: Pain (severe 7-10) Ceftriaxone Sodium 1 gm/ (Sodium Chloride) 100 mls @ 200 mls/hr IV Q24H [facility] Last Admin: 01/02/17 08:09 Dose: 200 mls/hr Indapamide (Indapamide) 2.5 mg PO QAM [facility] Last Admin: 01/02/17 08:09 Dose: 2.5 mg Lorazepam (Ativan) 0.5 mg IV Q6H PRN PRN Reason: Anxiety Magnesium Hydroxide (Milk Of Magnesia) 30 ml PO BID PRN PRN Reason: Constipation Magnesium Sulfate (Pharmacy To Dose - Magnesium Replacement) 1 dose .XX ASDIRECTED [facility] Metoprolol Tartrate (Lopressor) 5 mg IVPUSH Q4H PRN PRN Reason: Tachycardia Multivitamins (Thera) 1 each PO DAILY [facility] Last Admin: 01/02/17 08:08 Dose: 1 each Ondansetron HCl (Zofran) 4 mg IV Q6H PRN PRN Reason: Nausea/Vomiting Pantoprazole Sodium (Protonix) 40 mg PO BID [facility] Last Admin: 01/02/17 08:09 Dose: 40 mg Ergocalciferol ( Vitamin D2) [Vitamin D] 1 Tab 0 each PO DAILY [facility] Last Admin: 01/02/17 08:10 Dose: Not Given Potassium Chloride (Pharmacy To Dose - Potassium Replacement) 1 dose .XX ASDIRECTED [facility] Potassium Chloride (Klor-Con 10) 10 meq PO DAILY [facility] Last Admin: 01/02/17 08:08 Dose: 10 meq Sertraline HCl (Zoloft) 50 mg PO DAILY [facility] Last Admin: 01/02/17 08:09 Dose: 50 mg Sodium Chloride (Saline Flush) 10 ml FLUSH ASDIRECTED PRN PRN Reason: Keep Vein Open Last Admin: 12/30/16 07:42 Dose: 10 ml Sodium Chloride (Saline Flush) 10 ml FLUSH ONETIME PRN PRN Reason: IV FLUSH Last Admin: 12/30/16 09:01 Dose: 10 ml Sucralfate (Carafate) 1 gm PO QIDACANDBED [facility] Last Admin: 01/02/17 11:39 Dose: 1 gm Temazepam (Restoril) 7.5 mg PO BEDTIME PRN PRN Reason: Sleep Last Admin: 01/01/17 21:51 Dose: 7.5 mg Verapamil HCl (Calan Sr) 180 mg PO DAILY [facility] Last Admin: 01/02/17 08:08 Dose: 180 mg Discontinued Medications Ascorbic Acid (Vitamin C) 500 mg PO ONETIME ONE Stop: 01/01/17 10:02 Last Admin: 01/01/17 10:47 Dose: 500 mg Ascorbic Acid (Vitamin C) 500 mg PO ONETIME ONE Stop: 01/01/17 21:01 Last Admin: 01/01/17 21:50 Dose: 500 mg Ceftriaxone Sodium (Rocephin) 1 gm IM Q24H [facility] Diatrizoate Meglum/Diatrizoate Sod (Gastrografin 37%) 90 ml PO ONETIME ONE Stop: 12/30/16 08:36 Last Admin: 12/30/16 09:01 Dose: 90 ml Famotidine (Pepcid) 20 mg IVPUSH BID [facility] Last Admin: 12/31/16 08:45 Dose: 20 mg Pantoprazole Sodium 80 mg/ (Sodium Chloride) 100 mls @ 10 mls/hr IV Q10H [facility] Last Admin: 12/30/16 08:06 Dose: 10 mls/hr Sodium Chloride (Normal Saline) 1,000 mls @ 125 mls/hr IV ASDIRECTED [facility] Sodium Chloride (Normal Saline) 500 mls @ 1,000 mls/hr IV .BOLUS ONE Stop: 12/30/16 07:45 Last Admin: 12/30/16 07:30 Dose: 1,000 mls/hr Phytonadione 5 mg/ Sodium (Chloride) 50.5 mls @ 100 mls/hr IV NOW ONE Stop: 12/30/16 08:29 Last Admin: 12/30/16 08:29 Dose: 100 mls/hr Sodium Chloride (Normal Saline) 1,000 mls @ 125 mls/hr IV ASDIRECTED [facility] Last Admin: 12/30/16 11:57 Dose: 125 mls/hr Dextrose/Sodium Chloride (Dextrose 5%-Normal Saline) 1,000 mls @ 100 mls/hr IV ASDIRECTED [facility] Last Admin: 12/31/16 23:19 Dose: 100 mls/hr Magnesium Sulfate 2 gm/ Premix 50 mls @ 25 mls/hr IV ONETIME ONE Stop: 12/31/16 12:19 Last Admin: 12/31/16 10:44 Dose: 25 mls/hr Potassium Chloride 10 meq/ (Premix) 100 mls @ 100 mls/hr IV Q1H [facility] Stop: 12/31/16 14:39 Last Admin: 12/31/16 15:29 Dose: 100 mls/hr Lidocaine HCl (Xylocaine-Mpf 1%) Confirm Administered Dose 4 mls @ as directed .ROUTE .STK-MED ONE Stop: 12/31/16 13:48 Lactated Ringer's (Ringers, Lactated) Confirm Administered Dose 1,000 mls @ as directed .ROUTE .STK-MED ONE Stop: 12/31/16 14:08 Potassium Chloride 10 meq/ (Premix) 100 mls @ 100 mls/hr IV Q1H [facility] Stop: 12/31/16 23:14 Last Admin: 01/01/17 02:49 Dose: 100 mls/hr Iopamidol (Isovue-300 (61%)) 100 ml IVPUSH ONETIME ONE Stop: 12/30/16 08:36 Last Admin: 12/30/16 09:01 Dose: 100 ml Magnesium Oxide (Magnesium Oxide) 800 mg PO ONETIME ONE Stop: 12/31/16 08:01 Last Admin: 12/31/16 15:20 Dose: Not Given Ondansetron HCl (Zofran) 4 mg IVPUSH ONETIME ONE Stop: 12/30/16 07:15 Last Admin: 12/30/16 07:30 Dose: 4 mg Pantoprazole Sodium (Protonix Iv) 80 mg IVPUSH .BOLUS ONE Stop: 12/30/16 07:15 Last Admin: 12/30/16 07:33 Dose: 80 mg Polysaccharide Iron Complex (Ferrex 150) 300 mg PO ONETIME ONE Stop: 01/01/17 10:01 Last Admin: 01/01/17 10:48 Dose: 300 mg Polysaccharide Iron Complex (Ferrex 150) 300 mg PO ONETIME ONE Stop: 01/01/17 21:01 Last Admin: 01/01/17 21:50 Dose: 300 mg Potassium Chloride (Klor-Con M20) 40 meq PO Q4H [facility] Stop: 12/31/16 16:01 Last Admin: 12/31/16 10:31 Dose: Not Given Propofol (Diprivan 20 Ml) Confirm Administered Dose 200 mg .ROUTE .STK-MED ONE Stop: 12/31/16 13:48 - Exam General: Reports: Alert, Oriented, Cooperative, No Acute Distress HEENT: Reports: Pupils Equal, Pupils Reactive, EOMI, Mucous Membr. Moist/[place] Neck: Reports: Supple, Trachea Midline, No JVD, No Thyromegaly Lungs: Reports: Normal Respiratory Effort, Decreased Breath Sounds Cardiovascular: Reports: Irregular Rhythm GI/Abdominal Exam: Normal Bowel Sounds, Soft, Non-Tender, No Organomegaly, No Distention, No Abnormal Bruit, No Mass (Female) Exam: Deferred Rectal (Female) Exam: Deferred Back Exam: Reports: Normal Inspection, Decreased Range of Motion Extremities: Normal Inspection, Normal Range of Motion, Non-Tender, No Pedal Edema, Normal Capillary Refill Skin: Reports: Warm, Dry, Intact Neurological: Reports: No New Focal Deficit Psy/Mental Status: Reports: Alert, Normal Affect, Normal Mood *Q Meaningful Use (DIS) - VTE *Q VTE Criteria *Q: - Stroke *Q Stroke Criteria *Q: - AMI *Q AMI Criteria *Q:
[2017-01-02 12:14] VITALS: BP 100/71
--- NOTE | 2017-01-03 10:38 | PCM.SN ---
- Free Text/Narrative Note: Follow up lab Hgb this am is 9.6. Called daughter and informed her about patient 's Hgb level. Advised to start her eliquis dose and follow up with her PCP.
== END 2017-01-02 15:30 | disposition home or self-care (01) | DRG 812 ==
LOC: JD.ED 06:57 → JD.MS 12:11 → UNDOADMIN 12:11 → JD.MS 12:28
PROVIDERS: ADMIT Internal Medicine Cardiovascular Disease; ATTEND Internal Medicine
PROC: 0DJ08ZZ Inspection of Upper Intestinal Tract, Via Natural or Artificial Opening Endoscopic (ICD-10-PCS; principal; 2016-12-31)
DX: D50.0 Iron deficiency anemia secondary to blood loss (chronic) (principal); I95.9 Hypotension, unspecified; K92.0 Hematemesis; K92.1 Melena; N39.0 Urinary tract infection, site not specified; R79.1 Abnormal coagulation profile; T45.515A Adverse effect of anticoagulants, initial encounter; E10.9 Type 1 diabetes mellitus without complications; B96.20 Unspecified Escherichia coli [E. coli] as the cause of diseases classified elsewhere; J32.0 Chronic maxillary sinusitis; K31.7 Polyp of stomach and duodenum; K21.9 Gastro-esophageal reflux disease without esophagitis; K44.9 Diaphragmatic hernia without obstruction or gangrene; I48.2 Chronic atrial fibrillation; Z79.01 Long term (current) use of anticoagulants; I11.0 Hypertensive heart disease with heart failure; I50.9 Heart failure, unspecified; E10.8 Type 1 diabetes mellitus with unspecified complications; F32.9 Major depressive disorder, single episode, unspecified; Z86.73 Personal history of transient ischemic attack (TIA), and cerebral infarction without residual deficits; J45.909 Unspecified asthma, uncomplicated; M19.90 Unspecified osteoarthritis, unspecified site; M81.0 Age-related osteoporosis without current pathological fracture; H91.90 Unspecified hearing loss, unspecified ear; L40.9 Psoriasis, unspecified; Z88.8 Allergy status to other drugs, medicaments and biological substances; Z91.09 Other allergy status, other than to drugs and biological substances; Z79.899 Other long term (current) drug therapy
CPT/HCPCS: 36415; 74177; 80053; 84484; 85025; 85610; 86850; 86900; 86901; 93005; 96361; 96365; 96366; 96368; 96375; 96376; 99285; C9113 ×2; J2405; J3430; J7030; J7040 ×2; J7050 ×3; Q9963; Q9967; 00740; 80048; 81001; 83540; 83735; 84132; 85014; 85018; 87086; 87088; 87186; 97110-GP; 97116-GP; 97162-GP; 97530-GP; 97535-GO; A9270-GY; J0696; J2704; J3475; J3480; J7042; J7120

== ENCOUNTER 2017-07-07 04:08 | Emergency (ER) | payer MEDICARE, BC ==
[2017-07-07] MEDS ORDERED: Aspirin 81 MG Tab.Chew PO ONE (04:22)
[2017-07-07] MEDS ORDERED: Nitroglycerin/D5W 25 MG/250 ML BOTTLE IV SCH (04:30)
[2017-07-07] MEDS ORDERED: Morphine 4 MG/ML Syringe IVPUSH PRN (04:30)
[2017-07-07] MEDS ORDERED: Heparin Sodium 5,000 Units/ML Vial IVPUSH ONE (04:31)
[2017-07-07] MEDS ORDERED: Aspirin 81 MG Tab.Chew ONE (04:32)
[2017-07-07] MEDS: Nitroglycerin 0.4 MG Tab.SL SL PRN ×2 (04:32→04:39)
[2017-07-07] MEDS ORDERED: Nitroglycerin 0.4 MG Tab.SL ONE (04:37)
[2017-07-07] MEDS ORDERED: Heparin Sodium/D5W 25,000 UNITS/500 ML BAG IV SCH (04:45)
[2017-07-07 04:50] VITALS: BP 115/68
--- NOTE | 2017-07-07 05:04 | EDM.PDOC ---
ED HPI GENERAL MEDICAL PROBLEM - General Chief Complaint: Chest Pain Stated Complaint: chest pain and back pain Time Seen by Provider: 07/07/17 04:20 Source of Information: Reports: Patient History Limitations: Reports: No Limitations - History of Present Illness INITIAL COMMENTS - FREE TEXT/NARRATIVE: 81 y/o F with hx a-fib and HTN presents by private vehicle with sudden onset chest pain. Started around 3:30. She'd woken up to go to the bathroom when she noticed severe substernal CP radiating to her back. +associated SOB. No hx similar symptoms previously. CP has been constant since then. No clear exacerbating or relieving factors. Recent bronchitis/cough but improved. No pleuritic pain. No nausea/vomiting. No abd pain. No lower extremity pain/ swelling. Middle Chest Pain Score (Numeric/FACES): 8 - Related Data Allergies Allergy/AdvReac Type Severity Reaction Status Date / Time theophylline anhydrous AdvReac altered Verified 07/07/17 04:18 [From Pan-Dur] heart rate scents Allergy Airway Uncoded 07/07/17 04:18 Tightness Home Meds: Home Meds Indapamide 1 tab PO QAM 12/05/14 [History] Potassium Chloride [Klor-Con M10] 1 tab PO BID 12/05/14 [History] Sertraline HCl 50 mg PO DAILY 12/05/14 [History] Verapamil HCl [Verapamil ER] 180 mg PO DAILY 12/05/14 [History] Acetaminophen [Tylenol Arthritis] 2 tab PO TID PRN 10/29/15 [History] Albuterol Sulfate [Proair Respiclick] 2 inh INH ASDIRECTED PRN 10/29/15 [History ] Calcium Carbonate [Calcium] 1,200 mg PO DAILY 10/29/15 [History] Ergocalciferol (Vitamin D2) [Vitamin D] 1 tab PO DAILY 10/29/15 [History] Bisacodyl [Dulcolax] 5 mg PO DAILY PRN #0 tablet 11/01/15 [Rx] Docusate Sodium [Colace] 100 mg PO BID cap 11/01/15 [Rx] Ascorbic Acid 250 mg PO BID #30 tablet 01/02/17 [Rx] Iron Polysaccharide Complex [Iferex 150] 150 mg PO BID #30 capsule 01/02/17 [Rx] Sucralfate [Carafate] 1 gm PO QIDACANDBED #60 tablet 01/02/17 [Rx] Aspirin 325 mg PO DAILY 07/07/17 [History] Past Medical History HEENT History: Reports: Cataract Other HEENT History: wears glasses. Cardiovascular History: Reports: Afib, Blood Clots/VTE/DVT, Hypertension, GA Other Cardiovascular History: superficial blood clot Respiratory History: Reports: Asthma, Bronchitis, Recurrent Gastrointestinal History: Reports: GERD, GI Bleed Genitourinary History: Reports: UTI, Recurrent, Other (See Below) Other Genitourinary History: cyst on bladder [employer] History: Reports: Other OB/BYN History: hx of cystocele with mesh repair Musculoskeletal History: Reports: Other (See Below) Other Musculoskeletal History: chronic left & right shoulder pain Neurological History: Reports: Brain Injury 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 Psychiatric History: Reports: Depression Endocrine/Metabolic History: Reports: Obesity/BMI 30+ Hematologic History: Reports: Anemia Other Hematologic History: "had bleeding ulcer 11/2014" - Past Surgical History Head Surgeries/Procedures: Reports: None HEENT Surgical History: Reports: Cataract Surgery, Other (See Below) Other HEENT Surgeries/Procedures: bilateral GI Surgical History: Reports: Cholecystectomy Female Surgical History: Reports: Hysterectomy Musculoskeletal Surgical History: Reports: Knee Replacement Other Musculoskeletal Surgeries/Procedures:: bilateral Social & Family History - Family History HEENT: Reports: Hearing Impairment Cardiac: Reports: Heart Failure, Hypertension Respiratory: Reports: Asthma GI: Reports: Cholelithiasis Musculoskeletal: Reports: Osteoarthritis, Osteoporosis Neurological: Reports: Dementia Endocrine/Metabolic: Reports: Diabetes, Type I Dermatologic: Reports: Psoriasis Oncologic: Reports: Breast - Tobacco Use Smoking Status *Q: Never Smoker Used Tobacco, but Quit: No Second Hand Smoke Exposure: No - Caffeine Use Caffeine Use: Reports: Coffee Other Caffeine Use: daily, decaf or caf. - Alcohol Use Days Per Week of Alcohol Use: 0 - Recreational Drug Use Recreational Drug Use: No Drug Use in Last 12 Months: No ED ROS GENERAL - Review of Systems Review Of Systems: See Below Constitutional: Denies: Fever HEENT: Reports: No Symptoms Respiratory: Reports: Shortness of Breath Cardiovascular: Reports: Chest Pain Endocrine: Reports: No Symptoms GI/Abdominal: Reports: No Symptoms : Reports: No Symptoms Musculoskeletal: Reports: No Symptoms Skin: Reports: No Symptoms Neurological: Reports: No Symptoms Psychiatric: Reports: No Symptoms ED EXAM, GENERAL - Physical Exam Exam: See Below Exam Limited By: No Limitations General Appearance: Alert, WD/WN, Mild Distress Eye Exam: Bilateral Eye: Normal Inspection Ears: Normal External Exam Nose: Normal Inspection Throat/Mouth: Normal Inspection, Normal Oropharynx, Normal Voice Head: Atraumatic, Normocephalic Neck: Normal Inspection, Supple, Non-Tender, Full Range of Motion Respiratory/Chest: No Respiratory Distress, Lungs Clear, Normal Breath Sounds, No Accessory Muscle Use, Chest Non-Tender Cardiovascular: Normal Peripheral Pulses, No Edema, No Murmur, Irregularly Irregular, Other (rate in the 60's ) Peripheral Pulses: 2+: Radial (R) GI/Abdominal: Soft, Non-Tender, No Distention. No: Rebound Back Exam: Normal Inspection Extremities: Normal Inspection Neurological: Alert, Oriented, Normal Cognition, No Motor/Sensory Deficits Psychiatric: Normal Affect, Normal Mood Skin Exam: Warm, Dry, Intact, Normal Color, No Rash Course - Vital Signs Last Recorded V/S: Last Vital Signs Temp 35.6 C 07/07/17 04:13 Pulse 72 07/07/17 04:13 Resp 21 H 07/07/17 04:13 BP 115/68 07/07/17 04:49 Pulse Ox 98 07/07/17 04:13 - Orders/Labs/Meds Labs: Laboratory Tests 07/07/17 07/07/17 07/07/17 Range/Units 04:19 04:19 04:19 WBC 6.98 (3.98-10.04) K/mm3 RBC 4.05 (3.98-5.22) M/mm3 Hgb 11.9 (11.2-15.7) gm/L Hct 37.9 (34.1-44.9) % MCV 93.6 (79.4-94.8) fl MCH 29.4 (25.6-32.2) pg MCHC 31.4 L (32.2-35.5) g/dl RDW Std Deviation 49.7 H (36.4-46.3) fL Plt Count 283 (182-369) K/mm3 MPV 10.0 (9.4-12.3) fl Neut % (Auto) 41.5 (34.0-71.1) % Lymph % (Auto) 36.1 (19.3-51.7) % [place] % (Auto) 15.8 H (4.7-12.5) % Eos % (Auto) 5.9 H (0.7-5.8) Baso % (Auto) 0.6 (0.1-1.2) % Neut # (Auto) 2.90 (1.56-6.13) K/mm3 Lymph # (Auto) 2.52 (1.18-3.74) K/mm3 [place] # (Auto) 1.10 H (0.24-0.36) K/mm3 Eos # (Auto) 0.41 H (0.04-0.36) K/mm3 Baso # (Auto) 0.04 (0.01-0.08) K/mm3 Manual Slide Review Normal smear PT 10.4 (8.0-13.0) SECONDS INR 0.97 APTT (22-36) SECONDS Sodium 141 (136-145) mEq/L Potassium 3.4 L (3.5-5.1) mEq/L Chloride 101 (98-107) mEq/L Carbon Dioxide 31 (21-32) mEq/L Anion Gap 12.4 (5-15) BUN 18 (7-18) mg/dL Creatinine 1.1 H (0.55-1.02) mg/dL Est Cr Clr Drug Dosing 34.64 mL/min Estimated GFR (MDRD) 48 (>60) mL/min BUN/Creatinine Ratio 16.4 (14-18) Glucose 104 (83-115) mg/dL Calcium 9.2 (8.5-10.1) mg/dL Total Bilirubin 0.3 (0.2-1.0) mg/dL AST 25 (15-37) U/L ALT 23 (14-59) U/L Alkaline Phosphatase 100 (46-116) U/L Troponin I < 0.017 (0.00-0.056) ng/mL Total Protein 7.3 (6.4-8.2) g/dl Albumin 3.3 L (3.4-5.0) g/dl Globulin 4.0 gm/dL Albumin/Globulin Ratio 0.8 L (1-2) 18 Range/Units 04:19 WBC (3.98-10.04) K/mm3 RBC (3.98-5.22) M/mm3 Hgb (11.2-15.7) gm/L Hct (34.1-44.9) % MCV (79.4-94.8) fl MCH (25.6-32.2) pg MCHC (32.2-35.5) g/dl RDW Std Deviation (36.4-46.3) fL Plt Count (182-369) K/mm3 MPV (9.4-12.3) fl Neut % (Auto) (34.0-71.1) % Lymph % (Auto) (19.3-51.7) % [place] % (Auto) (4.7-12.5) % Eos % (Auto) (0.7-5.8) Baso % (Auto) (0.1-1.2) % Neut # (Auto) (1.56-6.13) K/mm3 Lymph # (Auto) (1.18-3.74) K/mm3 [place] # (Auto) (0.24-0.36) K/mm3 Eos # (Auto) (0.04-0.36) K/mm3 Baso # (Auto) (0.01-0.08) K/mm3 Manual Slide Review PT (8.0-13.0) SECONDS INR APTT 26 (22-36) SECONDS Sodium (136-145) mEq/L Potassium (3.5-5.1) mEq/L Chloride (98-107) mEq/L Carbon Dioxide (21-32) mEq/L Anion Gap (5-15) BUN (7-18) mg/dL Creatinine (0.55-1.02) mg/dL Est Cr Clr Drug Dosing mL/min Estimated GFR (MDRD) (>60) mL/min BUN/Creatinine Ratio (14-18) Glucose (83-115) mg/dL Calcium (8.5-10.1) mg/dL Total Bilirubin (0.2-1.0) mg/dL AST (15-37) U/L ALT (14-59) U/L Alkaline Phosphatase (46-116) U/L Troponin I (0.00-0.056) ng/mL Total Protein (6.4-8.2) g/dl Albumin (3.4-5.0) g/dl Globulin gm/dL Albumin/Globulin Ratio (1-2) Meds: Medications Discontinued Medications Generic Name Dose Route Start Last Admin Trade Name Freq PRN Reason Stop Dose Admin Aspirin 324 mg 07/07/17 04:22 07/07/17 04:33 Aspirin PO 07/07/17 04:23 324 mg ONETIME ONE Administration Aspirin Confirm 07/07/17 04:32 07/07/17 04:49 Aspirin Administered 07/07/17 04:33 Not Given Dose 324 mg .ROUTE .STK-MED ONE Fentanyl 25 mcg 07/07/17 05:07 07/07/17 05:12 Sublimaze IVPUSH 07/07/17 05:08 25 mcg ONETIME ONE Administration Heparin Sodium (Porcine) 5,000 units 07/07/17 04:31 07/07/17 04:40 Heparin Sodium IVPUSH 07/07/17 04:32 5,000 units ONETIME ONE Administration Nitroglycerin/Dextrose 25 mg in 250 mls @ 3 mls/hr 07/07/17 04:30 07/07/17 04 :35 Nitroglycerin 25 Mg/D5w 250 Ml IV 5 mcg/min TITRATE ETHAN 3 mls/hr Protocol Administration 5 MCG/MIN Heparin Sodium/Dextrose 25,000 units in 500 mls @ 19.051 mls/hr 07/07/17 04: 45 07/07/17 04:40 Heparin 25,000 Units In D5w 500 Ml IV 19.051 mls/hr TITRATE ETHAN Administration Protocol 12 UNITS/KG/HR Morphine Sulfate 4 mg 07/07/17 04:30 07/07/17 04:34 Morphine IVPUSH 4 mg Q2H PRN Administration Pain Nitroglycerin Confirm 07/07/17 04:37 07/07/17 04:49 Nitrostat Administered 07/07/17 04:38 Not Given Dose 0.4 mg .ROUTE .STK-MED ONE Nitroglycerin 0.4 mg 07/07/17 04:33 07/07/17 04:39 Nitrostat SL 0.4 mg Q5M PRN Administration Chest Pain - Re-Assessments/Exams Free Text/Narrative Re-Assessment/Exam: 07/07/17 04:57 No prior hx of CAD. Review of EKG shows a-fib, rate in 60's, + approx [address] elevation in leads II/II/aVF, new T wave inversion in lead avL, and ST depression of the precordial leads (approx 1 mm) concerning for acute STEMI. Patient was given nitro x 2 with improvement of pain and reduction in SBP from 170's to 130's. No further nitro given due to concern for possible posterior GA. Heparin bolus/gtt ordered. She was also given 324mg aspirin. Given acute coronary syndrome in otherwise reasonably healthy 81 y/o who lives independently and has normal cognition, I think she would benefit from primary PCI. Discussed with Dr. Zuñiga at [facility] in [place] (ED) who accepts the patient for transfer. Helicopter en route to the ED for transfer. She had a recent GI bleed due to bleeding ulcer approx 1 month ago (at that time her elaquis was discontinued). Given active ulcer/recent bleeding will not give TPA. CXR shows normal cardiac silhouette, no PTX, no infiltrate, normal mediastinum and aortic knob, no acute abnormality. 07/07/17 05:07 Helicopter crew is at the bedside. Current vitals are BP 137/76, HR 59, RR 15, SpO2 99. First troponin negative. Repeat EKG is similar with slightly greater ST elevation in inferior leads. Continues to have pain. Will give fentayl 25 mcg. 07/07/17 05:11 Departure - Departure Time of Disposition: 05:08 Disposition: DC/Tfer to Acute Hospital 02 Reason for Transfer *Q: Primary PCI Indicated Clinical Impression: Acute coronary syndrome Acute myocardial infarction Qualifiers: Myocardial infarction type: ST elevation myocardial infarction Involved coronary artery: right coronary artery Qualified Code(s): I21.11 - ST elevation (STEMI) myocardial infarction involving right coronary artery Referrals: Rhonda Qureshi NP [Primary Care Provider] - Forms: ED Department Discharge Critical Care Note - Critical Care Note Total Time (mins): 40
[2017-07-07] MEDS ORDERED: fentaNYL 100 MCG/2 ML SDV IVPUSH ONE (05:07)
--- NOTE | 2017-07-07 06:19 | CR ---
Chest: Portable view of the chest was obtained. Comparison: Prior chest x-ray of 02/11/17. Heart size is somewhat prominent but accentuated due to portable technique. Lung markings are mildly increased also felt to be accentuated from portable technique. Lungs are hyperinflated compatible with emphysematous change. Bony structures are osteopenic. Impression: 1. Findings as noted above felt to be accentuated from portable technique. 2. Emphysematous change. 3. Nothing acute is definitely appreciated. Diagnostic code #2
== END 2017-07-07 05:40 ==
LOC: JD.ED 04:08
DX: I21.11 ST elevation (STEMI) myocardial infarction involving right coronary artery (principal); I24.9 Acute ischemic heart disease, unspecified; Z88.8 Allergy status to other drugs, medicaments and biological substances; Z79.899 Other long term (current) drug therapy; Z79.82 Long term (current) use of aspirin
CPT/HCPCS: 36415; 71045; 80053; 84484; 85025; 85610; 85730; 96365; 96374; 96375; 99285; A9270; J1644; J2270; J3010; 93010; 99291

== ENCOUNTER 2017-07-23 10:21 | Emergency (ER) | payer MEDICARE, BC ==
[2017-07-23] MEDS ORDERED: Sodium Chloride 0.9% 10 ML Syringe FLUSH PRN (10:48)
[2017-07-23] MEDS ORDERED: Sodium Chloride 0.9% 1,000 ML IV SCH (11:00)
[2017-07-23 11:01] VITALS: BP 164/102
--- NOTE | 2017-07-23 12:04 | CT ---
Head CT Technique: Multiple axial sections through the brain were obtained. Intravenous contrast was not utilized. Comparison: No prior head CT exam, previous MRI brain dated 04/06/12. Findings: Ventricles along with basal cisterns and sulci over the convexities are mildly prominent. Old infarct is noted within the posterior right cerebellum. Mild diminished density is noted within portions of the periventricular and subcortical white matter as well as within portions of the luca which is felt compatible with small vessel ischemic demyelination. Several old lacunar infarcts are noted within the left basal ganglia. No other abnormal parenchymal densities are seen. No evidence of intracranial hemorrhage. No midline shift or mass effect is seen. Mild mucosal thickening seen within the sphenoid sinus. No acute calvarial abnormality is seen. Impression: 1. Old right cerebellar infarct. 2. Small vessel ischemic demyelination change as noted above. 3. Several old lacunar infarcts within left basal ganglia. 4. Nothing acute is definitely appreciated. Diagnostic code #3 MTDD
--- NOTE | 2017-07-23 18:08 | EDM.PDOC ---
ED HPI GENERAL MEDICAL PROBLEM - General Chief Complaint: Neuro Symptoms/Deficits Stated Complaint: [facility] Time Seen by Provider: 07/23/17 10:33 Source of Information: Reports: EMS, Family, RN Notes Reviewed - History of Present Illness INITIAL COMMENTS - FREE TEXT/NARRATIVE: 81-year-old female has been brought in by EMS with acute signs and symptoms of stroke. A son found her on the kitchen floor with severe speech deficit, left- sided paralysis very short time ago. Upon EMS arrival she was lying on the kitchen floor her walker nearby in the process what appeared to be making breakfast. The son had come home from work 3 AM and at that point in time her walker was not in the kitchen. Therefore it is felt that this likely happened around 2-1/2 hours ago but last definitely known time of wellness was last evening around 14-1/2 hours ago. Upon EMS arrival she continued to show very severe speech deficit. According to their report she had no strength or movement of the left upper or lower extremities. This was called as a stroke alert upon patient arrival. We did send her immediately to CT to get CT of head and then back to the trauma bay for full evaluation. No further history available at time of dictation arrival. A short time later a a daughter arrived to is a nurse at this hospital. She relays that her mother does have history of chronic atrial fibrillation. He had been on eliquis for that, had a major GI bleed about 6 weeks ago, blood thinner therapy downsized to a baby aspirin daily. She then did suffer an IA about 10 days ago treated at [facility]. She did have angiogram but they were unable to do any stenting, decision made to treat medically. Daughter states that she was finally getting her full strength and energy back the last couple of days and "had a very good day yesterday". - Related Data Allergies Allergy/AdvReac Type Severity Reaction Status Date / Time theophylline anhydrous AdvReac altered Verified 07/23/17 10:53 [From Pan-Joann] heart rate scents Allergy Airway Uncoded 07/07/17 04:18 Tightness Home Meds: Home Meds Potassium Chloride [Klor-Con M10] 1 tab PO BID 12/05/14 [History] Sertraline HCl 50 mg PO DAILY 12/05/14 [History] Acetaminophen [Tylenol Arthritis] 2 tab PO TID PRN 10/29/15 [History] Albuterol Sulfate [Proair Respiclick] 2 inh INH ASDIRECTED PRN 10/29/15 [History ] Calcium Carbonate [Calcium] 1,200 mg PO DAILY 10/29/15 [History] Ergocalciferol (Vitamin D2) [Vitamin D] 1 tab PO DAILY 10/29/15 [History] Bisacodyl [Dulcolax] 5 mg PO DAILY PRN #0 tablet 11/01/15 [Rx] Docusate Sodium [Colace] 100 mg PO BID cap 11/01/15 [Rx] Ascorbic Acid 250 mg PO BID #30 tablet 01/02/17 [Rx] Sucralfate [Carafate] 1 gm PO QIDACANDBED #60 tablet 01/02/17 [Rx] Aspirin 325 mg PO DAILY 07/07/17 [History] Furosemide [Lasix] 40 mg PO DAILY 07/23/17 [History] Past Medical History HEENT History: Reports: Cataract Other HEENT History: wears glasses. 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: Reports: Other OB/BYN History: hx of cystocele with mesh repair Musculoskeletal History: Reports: Other (See Below) Other Musculoskeletal History: chronic left & right shoulder pain Neurological History: Reports: Brain Injury 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 Psychiatric History: Reports: Depression Endocrine/Metabolic History: Reports: Obesity/BMI 30+ Hematologic History: Reports: Anemia Other Hematologic History: "had bleeding ulcer 11/2014" - Past Surgical History Head Surgeries/Procedures: Reports: None HEENT Surgical History: Reports: Cataract Surgery, Other (See Below) Other HEENT Surgeries/Procedures: bilateral GI Surgical History: Reports: Cholecystectomy Female Surgical History: Reports: Hysterectomy Musculoskeletal Surgical History: Reports: Knee Replacement Other Musculoskeletal Surgeries/Procedures:: bilateral Social & Family History - Family History HEENT: Reports: Hearing Impairment Cardiac: Reports: Heart Failure, Hypertension Respiratory: Reports: Asthma GI: Reports: Cholelithiasis Musculoskeletal: Reports: Osteoarthritis, Osteoporosis Neurological: Reports: Dementia Endocrine/Metabolic: Reports: Diabetes, Type I Dermatologic: Reports: Psoriasis Oncologic: Reports: Breast - Tobacco Use Smoking Status *Q: Never Smoker Used Tobacco, but Quit: No Second Hand Smoke Exposure: No - Caffeine Use Caffeine Use: Reports: Coffee Other Caffeine Use: daily, decaf or caf. - Alcohol Use Days Per Week of Alcohol Use: 0 - Recreational Drug Use Recreational Drug Use: No Drug Use in Last 12 Months: No ED ROS GENERAL - Review of Systems Review Of Systems: Unable To Obtain ED EXAM, NEURO - Physical Exam Exam: See Below General Appearance: Anxious, Other (Patient is awake on arrival, eyes open, unable to verbalize) Eye Exam: Right Eye: PERRL (Pupils are equal, reactive deviating to the right) Ears: Normal External Exam Nose: Normal Inspection Throat/Mouth: Normal Inspection, Normal Oropharynx, Other (No blood, no intraoral injury) Head Exam: Atraumatic. No: Facial Swelling Neck: Supple Respiratory/Chest: No Respiratory Distress, Lungs Clear, Normal Breath Sounds Cardiovascular: Irregularly Irregular GI/Abdominal: Soft, Non-Tender Neurological: Other (Patient is awake, she does attempt to follow commands, no after CT she does have slight grasp on the left and does have slight lifting ability of the left hand and arm off the cot but unable to hold it off the cot, likewise she has slight flexion ability of the left knee but unable to raise left leg off the cot, when asked questions she does attempt to reply but her speech is unintelligible gibberish, no facial droop visible at time of initial exam) Back Exam: No: CVA Tenderness (L), CVA Tenderness (R) Extremities: Normal Inspection. No: Leg Pain, Increased Warmth, Redness Skin Exam: Warm, Dry, Normal Color Course - Vital Signs Last Recorded V/S: Last Vital Signs Temp 98.7 F 07/23/17 10:59 Pulse 86 07/23/17 10:59 Resp 16 07/23/17 10:59 BP 164/102 H 07/23/17 10:59 Pulse Ox 97 07/23/17 10:59 - Orders/Labs/Meds Orders: Active Orders 24 hr Category Date Time Status EKG 12 Lead [EKG Documentation Completion] [RC] STAT Care 07/23/17 10:47 Active [place]ley Catheter Insertion [Insert Urinary Catheter] [OM. Care 07/23/17 12:00 Ordered PC] Q24H Peripheral IV Care [RC] . DIRECTED Care 07/23/17 10:48 Active Urinary Catheter Assessment [RC] ASDIRECTED Care 07/23/17 11:50 Active Peripheral IV Insertion Adult [OM.PC] Stat Oth 07/23/17 10:48 Ordered Labs: Laboratory Tests 07/23/17 07/23/17 07/23/17 Range/Units 10:35 10:35 10:35 WBC 5.90 (3.98-10.04) K/mm3 RBC 4.28 (3.98-5.22) M/mm3 Hgb 12.5 (11.2-15.7) gm/L Hct 40.1 (34.1-44.9) % MCV 93.7 (79.4-94.8) fl MCH 29.2 (25.6-32.2) pg MCHC 31.2 L (32.2-35.5) g/dl RDW Std Deviation 50.7 H (36.4-46.3) fL Plt Count 296 (182-369) K/mm3 MPV 10.4 (9.4-12.3) fl Neut % (Auto) 62.9 (34.0-71.1) % Lymph % (Auto) 21.0 (19.3-51.7) % [place] % (Auto) 10.7 (4.7-12.5) % Eos % (Auto) 4.6 (0.7-5.8) Baso % (Auto) 0.8 (0.1-1.2) % Neut # (Auto) 3.71 (1.56-6.13) K/mm3 Lymph # (Auto) 1.24 (1.18-3.74) K/mm3 [place] # (Auto) 0.63 H (0.24-0.36) K/mm3 Eos # (Auto) 0.27 (0.04-0.36) K/mm3 Baso # (Auto) 0.05 (0.01-0.08) K/mm3 PT 10.9 (8.0-13.0) SECONDS INR 1.02 APTT 29 (22-36) SECONDS Sodium 146 H (136-145) mEq/L Potassium 4.3 (3.5-5.1) mEq/L Chloride 105 (98-107) mEq/L Carbon Dioxide 31 (21-32) mEq/L Anion Gap 14.3 (5-15) BUN 21 H (7-18) mg/dL Creatinine 0.9 (0.55-1.02) mg/dL Est Cr Clr Drug Dosing TNP Estimated GFR (MDRD) > 60 (>60) mL/min BUN/Creatinine Ratio 23.3 H (14-18) Glucose 106 (83-115) mg/dL Calcium 9.7 (8.5-10.1) mg/dL Total Bilirubin 0.5 (0.2-1.0) mg/dL AST 31 (15-37) U/L ALT 22 (14-59) U/L Alkaline Phosphatase 105 (46-116) U/L Troponin I 0.053 (0.00-0.056) ng/mL Total Protein 7.9 (6.4-8.2) g/dl Albumin 3.5 (3.4-5.0) g/dl Globulin 4.4 gm/dL Albumin/Globulin Ratio 0.8 L (1-2) Meds: Medications Discontinued Medications Generic Name Dose Route Start Last Admin Trade Name Freq PRN Reason Stop Dose Admin Sodium Chloride 1,000 mls @ 75 mls/hr 07/23/17 11:00 Normal Saline IV ASDIRECTED ETHAN Sodium Chloride 10 ml 07/23/17 10:48 Saline Flush FLUSH ASDIRECTED PRN Keep Vein Open - Re-Assessments/Exams Free Text/Narrative Re-Assessment/Exam: 07/23/17 18:12 As noted this was called as a stroke alert upon patient arrival. Get the CT immediately and then proceeded with complete evaluation. Appropriate labs were obtained and returned as documented. T of head did not show bleed. Therefore we knew that we would be transferring her out. Family agrees to have her transferred to [facility] who does have the ability to offer the highest level of stroke treatment available in the state. I have discussed this with Dr Loaiza, Neurologist vocational rehabilitation supervisor who does not recomend Thrombolytics based on over at least 2 1/2 hr time window of likely onset and 14 1/2 hr time of last known wellness. Also the hx of serious GI bleed 6 weeks ago is very concerning. We are sending her to [facility] [place] [facility]. 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 from time of arrival. Critical Care time 70 minutes including but not limited to time to evaluate patient, moniter cardiac rythm, vitals, evaluate labs, CT, EKG, discuss transfer options with family, arrange for transfer, obtain hx from family, frequent reevaluation of patient and documentation of all of the above. Departure - Departure Time of Disposition: 11:05 Disposition: DC/Tfer to [facility] 02 Condition: Serious Clinical Impression: CVA (cerebral vascular accident) Qualifiers: CVA mechanism: embolism Precerebral and cerebral artery: middle cerebral artery Laterality of affected vessel: right Qualified Code(s): I63.411 - Cerebral infarction due to embolism of right middle cerebral artery - Discharge Information Referrals: Rhonda Qureshi, COMMERCIAL OCEAN CLAMMER [Primary Care Provider] - - My Orders Last 24 Hours: My Active Orders 07/23/17 10:47 EKG 12 Lead [EKG Documentation Completion] [RC] STAT 07/23/17 10:48 Peripheral IV Care [RC] . DIRECTED Peripheral IV Insertion Adult [OM.PC] Stat 07/23/17 11:50 Urinary Catheter Assessment [RC] ASDIRECTED 07/23/17 12:00 Hadley Catheter Insertion [Insert Urinary Catheter] [OM.PC] Q24H - Assessment/Plan Last 24 Hours: My Active Orders 07/23/17 10:47 EKG 12 Lead [EKG Documentation Completion] [RC] STAT 07/23/17 10:48 Peripheral IV Care [RC] . DIRECTED Peripheral IV Insertion Adult [OM.PC] Stat 07/23/17 11:50 Urinary Catheter Assessment [RC] ASDIRECTED 07/23/17 12:00 Hadley Catheter Insertion [Insert Urinary Catheter] [OM.PC] Q24H
== END 2017-07-23 11:20 ==
LOC: JD.ED 10:21
DX: I63.411 Cerebral infarction due to embolism of right middle cerebral artery (principal); I10 Essential (primary) hypertension; I25.2 Old myocardial infarction; Z88.8 Allergy status to other drugs, medicaments and biological substances; Z79.899 Other long term (current) drug therapy; Z79.82 Long term (current) use of aspirin
CPT/HCPCS: 36415; 51702; 70450; 70450-26; 80053; 84484; 85025; 85610; 85730; 93005; 93010; 99285; 99291

== ENCOUNTER 2017-09-28 09:02 | Emergency (ER) | payer MEDICARE, BC ==
[2017-09-28] MEDS ORDERED: Sodium Chloride 0.9% 10 ML Syringe FLUSH PRN (09:39)
[2017-09-28] MEDS ORDERED: Sodium Chloride 0.9% 500 ML IV ONE (10:43)
--- NOTE | 2017-09-28 11:10 | EDM.PDOC ---
ED HPI GENERAL MEDICAL PROBLEM - General Chief Complaint: General Stated Complaint: LOW HEART RATE Time Seen by Provider: 09/28/17 09:14 Source of Information: Reports: Patient, Family (son), RN Notes Reviewed - History of Present Illness INITIAL COMMENTS - FREE TEXT/NARRATIVE: 82-year-old female has been brought in by son for evaluation of nonspecific dizziness. This has been going on for about a week. She just feels very lightheaded, dizzy mostly when standing or walking. States "I feel okay when I lay down". She has had some occasional mild chest heaviness. No nausea vomiting or difficulty breathing. No vertigo. She is on medication for hypertension, coronary artery disease. She did have a quite major stroke about 2 months ago from which she has had a very good recovery. She is on half dose eliquis for her chronic atrial fib. She does have history of prior GI bleed as well. - Related Data Allergies Allergy/AdvReac Type Severity Reaction Status Date / Time theophylline anhydrous AdvReac altered Verified 09/28/17 09:16 [From Pan-Dur] heart rate scents Allergy Airway Uncoded 09/18/17 11:07 Tightness Home Meds: Home Meds Potassium Chloride [Klor-Con M10] 99 mcg PO DAILY 12/05/14 [History] Sertraline HCl 25 mg PO DAILY 12/05/14 [History] Acetaminophen [Tylenol Arthritis] 2 tab PO TID PRN 10/29/15 [History] Albuterol Sulfate [Proair Respiclick] 2 inh INH ASDIRECTED PRN 10/29/15 [History ] Calcium Carbonate [Calcium] 1,200 mg PO DAILY 10/29/15 [History] Ergocalciferol (Vitamin D2) [Vitamin D] 1 tab PO DAILY 10/29/15 [History] Ascorbic Acid 250 mg PO BID #30 tablet 01/02/17 [Rx] Furosemide [Lasix] 40 mg PO DAILY 07/23/17 [History] Apixaban [Eliquis] 2.5 mg PO DAILY 09/18/17 [History] Estrogens, Conjugated [Premarin Vaginal Crm] 1 applic VAG DAILY 09/18/17 [ History] Famotidine [Pepcid AC] 20 mg PO DAILY 09/18/17 [History] Lisinopril 5 mg PO DAILY 09/18/17 [History] Loratadine [Claritin] 10 mg PO DAILY 09/18/17 [History] Multivitamin [Multivitamins] 1 each PO DAILY 09/18/17 [History] atorvaSTATin [Lipitor] 10 mg PO BEDTIME 09/18/17 [History] traMADol HCl [Tramadol HCl] 1 - 2 tab PO Q6HR PRN 09/18/17 [History] Past Medical History HEENT History: Reports: Cataract Other HEENT History: wears glasses. 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 OB/BYN History: hx of cystocele with mesh repair Musculoskeletal History: Reports: Other (See Below) Other Musculoskeletal History: chronic left & right shoulder pain Neurological History: Reports: Brain Injury, CVA 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 Psychiatric History: Reports: Depression Endocrine/Metabolic History: Reports: Obesity/BMI 30+ Hematologic History: Reports: Anemia Other Hematologic History: "had bleeding ulcer 11/2014" - Past Surgical History Head Surgeries/Procedures: Reports: None HEENT Surgical History: Reports: Cataract Surgery, Other (See Below) Other HEENT Surgeries/Procedures: bilateral GI Surgical History: Reports: Cholecystectomy Female Surgical History: Reports: Hysterectomy Musculoskeletal Surgical History: Reports: Knee Replacement Other Musculoskeletal Surgeries/Procedures:: bilateral Social & Family History - Family History HEENT: Reports: Hearing Impairment Cardiac: Reports: Heart Failure, Hypertension Respiratory: Reports: Asthma GI: Reports: Cholelithiasis Musculoskeletal: Reports: Osteoarthritis, Osteoporosis Neurological: Reports: Dementia Endocrine/Metabolic: Reports: Diabetes, Type I Dermatologic: Reports: Psoriasis Oncologic: Reports: Breast - Tobacco Use Smoking Status *Q: Never Smoker - Caffeine Use Caffeine Use: Reports: None Other Caffeine Use: daily, decaf or caf. - Recreational Drug Use Recreational Drug Use: No ED ROS GENERAL - Review of Systems Review Of Systems: See Below Constitutional: Denies: Fever, Chills, Diaphoresis HEENT: Denies: Throat Pain, Vertigo, Vision Change Respiratory: Denies: Shortness of Breath, Pleuritic Chest Pain Cardiovascular: Denies: Chest Pain GI/Abdominal: Denies: Abdominal Pain, Diarrhea, Hematochezia, Nausea, Vomiting Musculoskeletal: Reports: No Symptoms Skin: Reports: No Symptoms Neurological: Reports: Dizziness, Weakness (generalized). Denies: Numbness, Syncope, Tingling, Trouble Speaking, Difficulty Walking ED EXAM, GENERAL - Physical Exam Exam: See Below General Appearance: Alert, No Apparent Distress Eye Exam: Bilateral Eye: PERRL Throat/Mouth: Normal Inspection, Normal Oropharynx Head: Atraumatic. No: Facial Swelling Neck: Supple, Full Range of Motion Respiratory/Chest: No Respiratory Distress, Lungs Clear, Normal Breath Sounds Cardiovascular: Regular Rate, Rhythm GI/Abdominal: Soft, Non-Tender. No: Guarding Back Exam: No: CVA Tenderness (L), CVA Tenderness (R) Extremities: Normal Inspection, Pedal Edema (mild L lower leg, chronic) Neurological: Alert, Oriented, No Motor/Sensory Deficits Skin Exam: Warm, Dry, Normal Color EKG INTERPRETATION Rhythm: A-Fib Rate (Beats/Min): 67 [place]: Normal ST-T: Other (t wave inv. inf. leads) Course - Vital Signs Last Recorded V/S: Last Vital Signs Temp 97.4 F 09/28/17 09:12 Pulse 73 09/28/17 09:12 Resp 13 09/28/17 09:12 BP 119/75 09/28/17 09:12 Pulse Ox 96 09/28/17 09:12 Orthostatic Blood Pressure [ 122/67 Standing] Orthostatic Blood Pressure [ 135/78 Sitting] Orthostatic Blood Pressure [ 133/69 Supine] - Orders/Labs/Meds Orders: Active Orders 24 hr Category Date Time Status EKG Documentation Completion [RC] ASDIRECTED Care 09/28/17 09:21 Active Orthostatic Vital Signs [RC] ASDIRECTED Care 09/28/17 09:27 Active Peripheral IV Care [RC] . DIRECTED Care 09/28/17 09:40 Active Chest 1V Frontal [CR] Stat Exams 09/28/17 09:40 Taken Sodium Chloride 0.9% [Saline Flush] Med 09/28/17 09:39 Active 10 ml FLUSH ASDIRECTED PRN Peripheral IV Insertion Adult [OM.PC] Stat Oth 09/28/17 09:40 Ordered EKG 12 Lead [EK] Stat Ther 09/28/17 09:21 Ordered Medication Orders Sodium Chloride (Saline Flush) 10 ml FLUSH ASDIRECTED PRN PRN Reason: Keep Vein Open Last Admin: 09/28/17 09:53 Dose: 10 ml Labs: Laboratory Tests 09/28/17 09/28/17 09/28/17 Range/Units 09:45 09:45 09:45 WBC 5.26 (3.98-10.04) K/mm3 RBC 4.93 (3.98-5.22) M/mm3 Hgb 14.3 (11.2-15.7) gm/L Hct 43.9 (34.1-44.9) % MCV 89.0 (79.4-94.8) fl MCH 29.0 (25.6-32.2) pg MCHC 32.6 (32.2-35.5) g/dl RDW Std Deviation 55.3 H (36.4-46.3) fL Plt Count 231 (182-369) K/mm3 MPV 10.8 (9.4-12.3) fl Neut % (Auto) 63.8 (34.0-71.1) % Lymph % (Auto) 23.2 (19.3-51.7) % [place] % (Auto) 9.9 (4.7-12.5) % Eos % (Auto) 2.3 (0.7-5.8) Baso % (Auto) 0.6 (0.1-1.2) % Neut # (Auto) 3.36 (1.56-6.13) K/mm3 Lymph # (Auto) 1.22 (1.18-3.74) K/mm3 [place] # (Auto) 0.52 H (0.24-0.36) K/mm3 Eos # (Auto) 0.12 (0.04-0.36) K/mm3 Baso # (Auto) 0.03 (0.01-0.08) K/mm3 Sodium 143 (136-145) mEq/L Potassium 3.7 (3.5-5.1) mEq/L Chloride 106 (98-107) mEq/L Carbon Dioxide 28 (21-32) mEq/L Anion Gap 12.7 (5-15) BUN 21 H (7-18) mg/dL Creatinine 1.1 H (0.55-1.02) mg/dL Est Cr Clr Drug Dosing 34.05 mL/min Estimated GFR (MDRD) 48 (>60) mL/min BUN/Creatinine Ratio 19.1 H (14-18) Glucose 173 H (83-115) mg/dL Calcium 9.0 (8.5-10.1) mg/dL Total Bilirubin 0.5 (0.2-1.0) mg/dL AST 28 (15-37) U/L ALT 25 (14-59) U/L Alkaline Phosphatase 99 (46-116) U/L Troponin I < 0.017 (0.00-0.056) ng/mL NT-Pro-B Natriuret Pep 1349 H (0-450) pg/mL Total Protein 7.7 (6.4-8.2) g/dl Albumin 3.3 L (3.4-5.0) g/dl Globulin 4.4 gm/dL Albumin/Globulin Ratio 0.8 L (1-2) Meds: Medications Generic Name Dose Route Start Last Admin Trade Name Freq PRN Reason Stop Dose Admin Sodium Chloride 10 ml 09/28/17 09:39 09/28/17 09:53 Saline Flush FLUSH 10 ml ASDIRECTED PRN Administration Keep Vein Open Discontinued Medications Generic Name Dose Route Start Last Admin Trade Name Freq PRN Reason Stop Dose Admin Sodium Chloride 500 mls @ 999 mls/hr 09/28/17 10:43 09/28/17 10:54 Normal Saline IV 09/28/17 11:13 999 mls/hr .BOLUS ONE Administration - Re-Assessments/Exams Free Text/Narrative Re-Assessment/Exam: 09/28/17 12:17. We have given a 500 mL bolus normal saline. Standing blood pressure increased to 122 systolic from the 98 systolic we had about an hour ago before the IV fluid. She feels better. At this time we are going to need to reduce her medication. Her daughters are wondering if the lisinopril could just be stopped. At this point that does seem quite reasonable we'll have her stop the lisinopril for now, check blood pressures once or twice daily to monitor how she does with that. Discharge instructions as documented. Departure - Departure Time of Disposition: 11:58 Disposition: Home, Self-Care 01 Condition: Fair Clinical Impression: Orthostatic hypotension - Discharge Information Instructions: Orthostatic Hypotension Referrals: Rhonda Qureshi, SUPERVISOR [employer] [Primary Care Provider] - Forms: ED Department Discharge Additional Instructions: Your heart and lungs checked out well today, your hemoglobin today was 14.3, you 're not anemic. Your chemistries all looked good. However your blood pressure dropped to about 98 systolic standing. That is why you are weak, dizzy when standing and walking with no energy. Let's stop the lisinopril for now. Check your blood pressure once or twice daily and keep a record of that. If your blood pressure does start going to high than that may need to be restarted at a lower dose. Continue furosemide 40 mg daily for now and other meds as previously prescribed. Follow up clinic as needed, return to ED as needed. - My Orders Last 24 Hours: My Active Orders 09/28/17 09:21 EKG Documentation Completion [RC] ASDIRECTED EKG 12 Lead [EK] Stat 09/28/17 09:27 Orthostatic Vital Signs [RC] ASDIRECTED 09/28/17 09:39 Sodium Chloride 0.9% [Saline Flush] 10 ml FLUSH ASDIRECTED PRN 09/28/17 09:40 Peripheral IV Care [RC] . DIRECTED Chest 1V Frontal [CR] Stat Peripheral IV Insertion Adult [OM.PC] Stat - Assessment/Plan Last 24 Hours: My Active Orders 09/28/17 09:21 EKG Documentation Completion [RC] ASDIRECTED EKG 12 Lead [EK] Stat 09/28/17 09:27 Orthostatic Vital Signs [RC] ASDIRECTED 09/28/17 09:39 Sodium Chloride 0.9% [Saline Flush] 10 ml FLUSH ASDIRECTED PRN 09/28/17 09:40 Peripheral IV Care [RC] . DIRECTED Chest 1V Frontal [CR] Stat Peripheral IV Insertion Adult [OM.PC] Stat
[2017-09-28 12:17] VITALS: BP 112/56
--- NOTE | 2017-09-28 14:51 | CR ---
Chest: Portable view of the chest was obtained. Comparison: Prior chest x-ray of 07/13/17. Heart is enlarged. Upper mediastinum is within normal limits. Lungs are clear with no acute parenchymal densities. Lungs are hyperinflated compatible with emphysematous change. Bony structures are grossly intact. Impression: 1. Cardiomegaly. Emphysematous change. 2. Nothing acute is appreciated. Diagnostic code #2
== END 2017-09-28 12:14 | disposition home or self-care (01) ==
LOC: JD.ED 09:02
DX: I95.1 Orthostatic hypotension (principal); I48.91 Unspecified atrial fibrillation; J45.909 Unspecified asthma, uncomplicated; Z88.8 Allergy status to other drugs, medicaments and biological substances; Z79.899 Other long term (current) drug therapy
CPT/HCPCS: 36415; 71045; 80053; 83880; 84484; 85025; 93005; 96360; 99285; J7040; J7050; 93010; 99284-25

== ENCOUNTER 2018-08-09 10:42 | Emergency (ER) | payer MEDICARE, BC ==
[2018-08-09 11:09] VITALS: BP 195/112
--- NOTE | 2018-08-09 11:30 | EDM.PDOC ---
ED HPI GENERAL MEDICAL PROBLEM - General Chief Complaint: ENT Problem Stated Complaint: NOSEBLEED Time Seen by Provider: 08/09/18 11:10 Source of Information: Reports: Patient History Limitations: Reports: No Limitations - History of Present Illness INITIAL COMMENTS - FREE TEXT/NARRATIVE: 83-year-old female presents the ED with an acute right-sided nasal hemorrhage with blood coming out both sides were naris as well as swelling a good deal of blood and producing clots. She platelets are about is 0845 hrs. this morning. She is on Eliquis because of chronic atrial fibrillation. No nasal trauma. Her pressure is elevated at the initial assessment. Onset: Today Onset Date: 08/09/18 Onset Time: 08:30 Duration: Hour(s): Location: Reports: Face (Nasal hemorrhage. Bleeding from both sides.) Quality: Reports: Other Severity: Moderate (No pain) Improves with: Reports: None Worsens with: Reports: None Context: Denies: Activity, Exercise, Lifting, Sick Contact, Trauma, Other Associated Symptoms: Reports: No Other Symptoms, Confusion, Chest Pain, Cough, Malaise. 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: Other (see below) - Related Data Allergies Allergy/AdvReac Type Severity Reaction Status Date / Time theophylline anhydrous AdvReac altered Verified 08/09/18 11:17 [From Pan-Dur] heart rate scents Allergy Airway Uncoded 08/09/18 11:17 Tightness Home Meds: Home Meds Sertraline HCl 25 mg PO DAILY 12/05/14 [History] Acetaminophen [Tylenol Arthritis] 650 mg PO TID PRN 10/29/15 [History] Albuterol Sulfate [Proair Respiclick] 2 inh INH Q4H PRN 10/29/15 [History] Furosemide [Lasix] 40 mg PO DAILY 07/23/17 [History] Apixaban [Eliquis] 2.5 mg PO BID 09/18/17 [History] atorvaSTATin [Lipitor] 10 mg PO BEDTIME 09/18/17 [History] Pantoprazole [ProTONIX] 40 mg PO BID 03/20/18 [History] Acetaminophen/HYDROcodone [[place] 325-5 MG] 1 tab PO Q4H #20 tablet 12/04/18 [Rx] Bisacodyl [Dulcolax] 10 mg RC BID PRN #2 supp 03/23/18 [Rx] Polyethylene Glycol 3350 [Miralax] 17 gm PO BID PRN #4 powd.pack 03/23/18 [Rx] Sennosides/Docusate Sodium [Senokot-S Tablet] 1 each PO BID #60 tablet 03/23/18 [Rx] fentaNYL [Duragesic] 12 mcg TD Q72H #5 patch 03/23/18 [Rx] Gabapentin [Neurontin] 300 mg PO BID 04/05/18 [History] Lutein/Minerals/Vit A,C & E [Ocuvite] 1 tab PO DAILY 04/05/18 [History] tiZANidine HCl [Zanaflex] 2 mg PO DAILY PRN 04/05/18 [History] tiZANidine HCl [Zanaflex] 2 mg PO TID PRN 04/05/18 [History] Bacitracin/Polymyxin B Sulfate [Polysporin Ointment] 28.3 gm TP ASDIRECTED #1 tube 08/09/18 [Rx] Past Medical History HEENT History: Reports: Cataract, Epistaxis Other HEENT History: wears glasses, epistaxis everyday for 3 weeks Cardiovascular History: Reports: Afib, Blood Clots/VTE/DVT, Hypertension, [place] Other Cardiovascular History: superficial blood clot Respiratory History: Reports: Asthma, Bronchitis, Recurrent, Other (See Below) Other Respiratory History: "sinus problems" Gastrointestinal History: Reports: GERD, GI Bleed Genitourinary History: Reports: UTI, Recurrent, Other (See Below) Other Genitourinary History: cyst on bladder, dribbles 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 Psychiatric History: Reports: Depression Endocrine/Metabolic History: Reports: Obesity/BMI 30+ Hematologic History: Reports: Anemia Other Hematologic History: "had bleeding ulcer 11/2014" Immunologic History: Reports: None Oncologic (Cancer) History: Reports: None Dermatologic History: Reports: None - Infectious Disease History Infectious Disease History: Reports: Measles - Past Surgical History Head Surgeries/Procedures: Reports: None Cardiovascular Surgical History: Reports: None Other Cardiovascular Surgeries/Procedures: hx of vein stripping Respiratory Surgical History: Reports: None Female Surgical History: Reports: Hysterectomy, Other (See Below) Other Female Surgeries/Procedures: hernia mesh r/t prolapsed bladder Neurological Surgical History: Reports: None Oncologic Surgical History: Reports: None Dermatological Surgical History: Reports: None Social & Family History - Family History Family Medical History: Noncontributory HEENT: Reports: Hearing Impairment Cardiac: Reports: Heart Failure, Hypertension Respiratory: Reports: Asthma GI: Reports: Cholelithiasis Musculoskeletal: Reports: Osteoarthritis, Osteoporosis Neurological: Reports: Dementia Endocrine/Metabolic: Reports: Diabetes, Type I Dermatologic: Reports: Psoriasis Oncologic: Reports: Breast - Tobacco Use Smoking Status *Q: Never Smoker Second Hand Smoke Exposure: No - Caffeine Use Caffeine Use: Reports: Coffee Other Caffeine Use: daily, decaf or caf. - Recreational Drug Use Recreational Drug Use: No - Living Situation & Occupation Living situation: Reports: Occupation: Retired ED ROS ENT - Review of Systems Review Of Systems: See Below Constitutional: Reports: Malaise, Weakness, Fatigue, Decreased Appetite. Denies : Fever, Chills, Weight Loss HEENT: Reports: Glasses, Hearing Loss, Nosebleed Respiratory: Reports: Shortness of Breath (Start on the right side but his blood is coming from both sides of the naris.), Cough. Denies: Wheezing, Pleuritic Chest Pain Cardiovascular: Reports: Blood Pressure Problem. Denies: Chest Pain, Claudication, Edema, Lightheadedness, Orthopnea, Palpitations Endocrine: Reports: Fatigue GI/Abdominal: Reports: Nausea : Reports: Frequency, Incontinence (Full stress and urge components) Musculoskeletal: Reports: No Symptoms Skin: Reports: No Symptoms Neurological: Reports: No Symptoms Psychiatric: Reports: No Symptoms Hematologic/Lymphatic: Reports: No Symptoms Immunologic: Reports: No Symptoms ED EXAM, ENT - Physical Exam Exam: See Below Exam Limited By: No Limitations General Appearance: Alert, WD/WN, No Apparent Distress Eye Exam: Bilateral Eye: Normal Inspection Nose: Active Bleeding (Active bleeding primarily from the right naris. There is blood filling the left naris but it does not show me any active signs of bleeding.) Mouth/Throat: Other Head: Atraumatic, Normocephalic (Clots were expectorated from behind the soft palate.) Neck: Normal Inspection, Supple, Non-Tender, Full Range of Motion. No: Lymphadenopathy (L), Lymphadenopathy (R) Respiratory/Chest: No Respiratory Distress, Lungs Clear, Normal Breath Sounds, No Accessory Muscle Use ED ENT PROCEDURES - Epistaxis Procedure Indication: Epistaxis, Uncontrolled Recent anticoagulants/antiplatlets: Yes (Is on aliquots chronically) Uncontrolled HTN: No Recent septal/nasal surgery: No Site of bleeding: Right Nare, Anterior Clearing of clots: Patient Blew Nose Ice pack to area: No Chemical cautery: Silver Nitrate Topical (On 3 different occasions.) Course - Vital Signs Last Recorded V/S: Last Vital Signs Temp 36.2 C 08/09/18 11:06 Pulse 73 08/09/18 11:06 Resp 16 08/09/18 11:06 BP 195/112 H 08/09/18 11:06 Pulse Ox 95 08/09/18 11:06 - Radiology Interpretation Free Text/Narrative:: 83-year-old female presents to the ED with a nosebleed. She states it seemed to start in the right side but is coming out of both nares. It's also expectorated good deal of large blood clots. Of note the patient is on Eliquis because of manic atrial fibrillation. On inspection I can see bleeding from the anterior right nasal septum. This area was cauterized with silver nitrate. On the left side could see no active bleeding. I cleansed the naris with Q-tips it appears that the blood in the left nares is coming from the right posterior naris. - Re-Assessments/Exams Free Text/Narrative Re-Assessment/Exam: 08/09/18 11:45: On recheck there is been no active bleeding from the nose. She still bring up some clots. Again on reinspection can see no bleeding from the left naris. There is still some very minimal pinpoint bleeding from the right anterior nasal septum. These areas were once again cauterized with silver nitrate. 08/09/18 12:04 on recheck she is still bleeding mildly from the right side from 3 or 4 areas of pinpoint hemorrhage. These areas were recauterized with silver nitrate. Again I do not see any bleeding from the left side. She is still bring up some clots from the posterior oropharynx. 08/09/18 12:35: Once again on recheck there 2 areas of pinpoint hemorrhage that underwent cauterization with silver nitrate. Pressure silver nitrate. 08/09/18 13:20: On recheck there is no further bleeding. She will therefore be discharged to home. Advise Polysporin ointment each side of the naris applied by Q-tip at nighttime for the next week. Return to the ED if any further bleeding occurs. Departure - Departure Time of Disposition: 12:32 Disposition: Home, Self-Care 01 Condition: Fair Clinical Impression: Epistaxis - Discharge Information *PRESCRIPTION DRUG MONITORING PROGRAM REVIEWED*: Not Applicable *COPY OF PRESCRIPTION DRUG MONITORING REPORT IN PATIENT SERGEY: Not Applicable Prescriptions: Bacitracin/Polymyxin B Sulfate [Polysporin Ointment] 28.3 gm TP ASDIRECTED #1 tube Instructions: Nosebleed, [id number] Referrals: Rhonda Qureshi, SUPPLY CHAIN BUYER [Primary Care Provider] - Forms: ED Department Discharge Additional Instructions: Evaluation in the emergency room today in regards to sudden onset of bleeding from the right side of your nose this morning about 845. Bleeding persisted most likely because of being on aliquots of blood thinner. The area was cauterized with silver nitrate on 3 separate occasions to bring the bleeding under control and the anterior nasal septum. Hemoglobin was blood coming out of the left naris no signs of bleeding from that side was identified. Was to rest and not blow the nose or Or irritate the area for the next 2-3 days. Suggest use of Polysporin ointment up into each side of the nares with aid of a Q-tip at bedtime for the next week. Of course return to the ED if any furtherbleeding occurs.
== END 2018-08-09 12:30 | disposition home or self-care (01) ==
LOC: JD.ED 10:42
DX: R04.0 Epistaxis (principal); I48.91 Unspecified atrial fibrillation; I10 Essential (primary) hypertension; I25.2 Old myocardial infarction; F32.9 Major depressive disorder, single episode, unspecified; Z79.01 Long term (current) use of anticoagulants; Z88.8 Allergy status to other drugs, medicaments and biological substances
CPT/HCPCS: 30901; 99283

== ENCOUNTER 2019-01-07 13:12 | Emergency (ER) | payer MEDICARE, BC ==
[2019-01-07 13:21] VITALS: BP 152/88; PULSE 73
[2019-01-07] MEDS ORDERED: Albuterol/Ipratropium 3.0-0.5 MG/3 ML Neb Soln NEB ONE (14:05)
[2019-01-07] MEDS ORDERED: Levalbuterol HCl 1.25 MG/3 ML Neb NEB ONE (14:23)
--- NOTE | 2019-01-07 15:40 | EDM.PDOC ---
ED HPI GENERAL MEDICAL PROBLEM - General Chief Complaint: Respiratory Problem Stated Complaint: BAD COLD Time Seen by Provider: 01/07/19 13:55 Source of Information: Reports: Patient History Limitations: Reports: No Limitations - History of Present Illness INITIAL COMMENTS - FREE TEXT/NARRATIVE: 83-year-old female presents for evaluation and treatment of cold symptoms. Patient reports that she has been ill with cold symptoms for last 5 days. Current symptoms include a productive cough, wheezing, headache and ear pain. Reports that she has been coughing up some sputum, she has appreciated some blood-streak in the sputum. She has some throat pain but attributes this to coughing. She denies any fevers, chills, vomiting or any chest pain. Primary care provider is Rhonda Qureshi. She is on Elquis for A.fib - Related Data Allergies Allergy/AdvReac Type Severity Reaction Status Date / Time theophylline anhydrous AdvReac altered Verified 01/07/19 13:21 [From Pan-Dur] heart rate scents Allergy Airway Uncoded 08/09/18 11:17 Tightness Home Meds: Home Meds Sertraline HCl 25 mg PO DAILY 12/05/14 [History] Albuterol Sulfate [Proair Respiclick] 2 inh INH Q4H PRN 10/29/15 [History] Furosemide [Lasix] 40 mg PO DAILY 07/23/17 [History] Apixaban [Eliquis] 2.5 mg PO BID 09/18/17 [History] atorvaSTATin [Lipitor] 10 mg PO BEDTIME 09/18/17 [History] Pantoprazole [ProTONIX] 40 mg PO DAILY 03/20/18 [History] Acetaminophen/HYDROcodone [[place] 325-5 MG] 1 tab PO Q4H #20 tablet 03/23/18 [Rx] Bisacodyl [Dulcolax] 10 mg RC BID PRN #2 supp 03/23/18 [Rx] Polyethylene Glycol 3350 [Miralax] 17 gm PO BID PRN #4 powd.pack 03/23/18 [Rx] Sennosides/Docusate Sodium [Senokot-S Tablet] 1 each PO BID #60 tablet 03/23/18 [Rx] fentaNYL [Duragesic] 12 mcg TD Q72H #5 patch 03/23/18 [Rx] Gabapentin [Neurontin] 300 mg PO BID 04/05/18 [History] Lutein/Minerals/Vit A,C & E [Ocuvite] 1 tab PO DAILY 04/05/18 [History] tiZANidine HCl [Zanaflex] 2 mg PO TID PRN 04/05/18 [History] Bacitracin/Polymyxin B Sulfate [Polysporin Ointment] 28.3 gm TP ASDIRECTED #1 tube 08/09/18 [Rx] Benzonatate [Tessalon Perle] 100 mg PO TID PRN #15 capsule 01/07/19 [Rx] Past Medical History HEENT History: Reports: Cataract, Epistaxis Other HEENT History: wears glasses, epistaxis everyday for 3 weeks Cardiovascular History: Reports: Afib, Blood Clots/VTE/DVT, Hypertension, [place] Other Cardiovascular History: superficial blood clot Respiratory History: Reports: Asthma, Bronchitis, Recurrent, Other (See Below) Other Respiratory History: "sinus problems" Gastrointestinal History: Reports: GERD, GI Bleed Genitourinary History: Reports: UTI, Recurrent, Other (See Below) Other Genitourinary History: cyst on bladder, dribbles 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 Psychiatric History: Reports: Depression Endocrine/Metabolic History: Reports: Obesity/BMI 30+ Hematologic History: Reports: Anemia Other Hematologic History: "had bleeding ulcer 11/2014" Immunologic History: Reports: None Oncologic (Cancer) History: Reports: None Dermatologic History: Reports: None - Infectious Disease History Infectious Disease History: Reports: Measles - Past Surgical History Head Surgeries/Procedures: Reports: None Cardiovascular Surgical History: Reports: None Other Cardiovascular Surgeries/Procedures: hx of vein stripping Respiratory Surgical History: Reports: None Female Surgical History: Reports: Hysterectomy, Other (See Below) Other Female Surgeries/Procedures: hernia mesh r/t prolapsed bladder Neurological Surgical History: Reports: None Oncologic Surgical History: Reports: None Dermatological Surgical History: Reports: None Social & Family History - Family History Family Medical History: Noncontributory HEENT: Reports: Hearing Impairment Cardiac: Reports: Heart Failure, Hypertension Respiratory: Reports: Asthma GI: Reports: Cholelithiasis Musculoskeletal: Reports: Osteoarthritis, Osteoporosis Neurological: Reports: Dementia Endocrine/Metabolic: Reports: Diabetes, Type I Dermatologic: Reports: Psoriasis Oncologic: Reports: Breast - Tobacco Use Smoking Status *Q: Never Smoker Second Hand Smoke Exposure: No - Caffeine Use Caffeine Use: Reports: Coffee Other Caffeine Use: daily, decaf or caf. - Recreational Drug Use Recreational Drug Use: No - Living Situation & Occupation Living situation: Reports: Occupation: Retired ED ROS GENERAL - Review of Systems Review Of Systems: See Below Constitutional: Denies: Fever, Chills HEENT: Reports: Ear Pain, Throat Pain Respiratory: Reports: Wheezing, Cough, Sputum, Hemoptysis Cardiovascular: Denies: Chest Pain GI/Abdominal: Denies: Vomiting Neurological: Reports: Headache ED EXAM, GENERAL - Physical Exam Exam: See Below Exam Limited By: No Limitations General Appearance: Alert, WD/WN, No Apparent Distress Eye Exam: Bilateral Eye: Normal Inspection Ears: Normal External Exam, Normal Canal, Hearing Grossly Normal, Normal TMs Nose: Normal Inspection Throat/Mouth: Normal Inspection, Normal Lips, Normal Oropharynx, Normal Voice, No Airway Compromise Neck: Normal Inspection Respiratory/Chest: No Respiratory Distress, Lungs Clear, Wheezing. No: Rhonchi Cardiovascular: Normal Peripheral Pulses, Regular Rate, Rhythm, No Murmur GI/Abdominal: Normal Bowel Sounds, Soft, Non-Tender Neurological: Alert, Oriented, Normal Cognition Psychiatric: Normal Affect, Normal Mood Skin Exam: Warm, Dry, Normal Color Course - Vital Signs Last Recorded V/S: Last Vital Signs Temp 98.5 F 01/07/19 13:20 Pulse 73 01/07/19 13:20 Resp 20 01/07/19 13:20 BP 152/88 H 01/07/19 13:20 Pulse Ox 96 01/07/19 14:24 - Orders/Labs/Meds Labs: Laboratory Tests 01/07/19 01/07/19 Range/Units 13:30 13:30 WBC 6.97 (3.98-10.04) K/mm3 RBC 4.57 (3.98-5.22) M/mm3 Hgb 14.0 (11.2-15.7) gm/dl Hct 43.5 (34.1-44.9) % MCV 95.2 H (79.4-94.8) fl MCH 30.6 (25.6-32.2) pg MCHC 32.2 (32.2-35.5) g/dl RDW Std Deviation 49.2 H (36.4-46.3) fL Plt Count 192 D (182-369) K/mm3 MPV 10.9 (9.4-12.3) fl Neutrophils % (Manual) 75 H (40-60) % Band Neutrophils % 0 (0-10) % Lymphocytes % (Manual) 20 (20-40) % Atypical Lymphs % 0 % Monocytes % (Manual) 4 (2-10) % Eosinophils % (Manual) 1 (0.7-5.8) % Basophils % (Manual) 0 L (0.1-1.2) Platelet Estimate Adequate RBC Morph Comment Normal Sodium 141 (136-145) mEq/L Potassium 4.4 (3.5-5.1) mEq/L Chloride 103 (98-107) mEq/L Carbon Dioxide 31 (21-32) mEq/L Anion Gap 11.4 (5-15) BUN 15 (7-18) mg/dL Creatinine 0.9 (0.55-1.02) mg/dL Est Cr Clr Drug Dosing 40.90 mL/min Estimated GFR (MDRD) 60 (>60) mL/min BUN/Creatinine Ratio 16.7 (14-18) Glucose 83 (83-115) mg/dL Calcium 9.3 (8.5-10.1) mg/dL Total Bilirubin 0.8 (0.2-1.0) mg/dL AST 23 (15-37) U/L ALT 21 (14-59) U/L Alkaline Phosphatase 112 (46-116) U/L C-Reactive Protein 3.8 H* (<1.0) mg/dL Total Protein 7.4 (6.4-8.2) g/dl Albumin 3.1 L (3.4-5.0) g/dl Globulin 4.3 gm/dL Albumin/Globulin Ratio 0.7 L (1-2) Mycoplasma pneumon IgM Negative (NEGATIVE) Meds: Medications Discontinued Medications Generic Name Dose Route Start Last Admin Trade Name Freq PRN Reason Stop Dose Admin Albuterol/Ipratropium 3 ml 01/07/19 14:05 01/07/19 14:30 Duoneb 3.0-0.5 Mg/3 Ml NEB 01/07/19 14:06 Not Given ONETIME ONE Levalbuterol HCl 1.25 mg 01/07/19 14:23 01/07/19 14:30 Xopenex NEB 01/07/19 14:24 1.25 mg ONETIME ONE Administration - Radiology Interpretation Free Text/Narrative:: Chest x-ray shows no acute thoracic process. Formal radiology read pending. - Re-Assessments/Exams Free Text/Narrative Re-Assessment/Exam: 01/07/19 15:36 I reviewed the labs and chest xray with the patient. Wheezing improved after neb treatment. Recommend symptomatic care for viral URI. Follow-up in clinic for a recheck. Discharge instructions as documented. Departure - Departure Time of Disposition: 15:50 Disposition: Home, Self-Care 01 Condition: Good Clinical Impression: Viral URI - Discharge Information *PRESCRIPTION DRUG MONITORING PROGRAM REVIEWED*: No *COPY OF PRESCRIPTION DRUG MONITORING REPORT IN PATIENT SERGEY: No Prescriptions: Benzonatate [Tessalon Perle] 100 mg PO TID PRN #15 capsule PRN Reason: Cough Referrals: Rhonda Qureshi, ASSISTANT COUNSEL [Primary Care Provider] - Forms: ED Department Discharge Additional Instructions: Use your albuterol inhaler every 4-6 1-2 puffs every 4-6 hours. take the tessalon perles 1-2 caps PO tid as needed for cough. recommend a decongestant, these are availebl OTC. Ask your pharmacist for assistance with selecting a decongestant. make sure you are drinking plenty of fluids. Follow-up with your PCP next week for a recheck of your symptoms. Please return to the ER should your symptoms change or worsen.
--- NOTE | 2019-01-10 06:46 | CR ---
Chest: Two views of the chest are obtained. Comparison: Prior chest x-ray of 02/08/18. Heart is enlarged. Lung markings are mildly increased which appear chronic. No acute parenchymal change is seen. Lungs are hyperinflated compatible with emphysematous change. Compression deformities are noted within the mid to lower thoracic spine which show evidence of vertebroplasty. Impression: 1. Cardiomegaly and emphysematous change. 2. Nothing acute is otherwise seen. Other findings believed to be incidental. Diagnostic code #2
== END 2019-01-07 15:48 | disposition home or self-care (01) ==
LOC: JD.ED 13:12
DX: J06.9 Acute upper respiratory infection, unspecified (principal); I10 Essential (primary) hypertension; I25.2 Old myocardial infarction; E66.9 Obesity, unspecified; K21.9 Gastro-esophageal reflux disease without esophagitis; Z86.73 Personal history of transient ischemic attack (TIA), and cerebral infarction without residual deficits; Z90.710 Acquired absence of both cervix and uterus; Z68.30 Body mass index [BMI] 30.0-30.9, adult; Z79.899 Other long term (current) drug therapy
CPT/HCPCS: 36415; 71046; 80053; 85007; 85027; 86140; 86738; 87804; 94640; 99284; J7612

== ENCOUNTER 2019-04-21 17:11 | Emergency (ER) | payer MEDICARE, BC ==
[2019-04-21 17:24] VITALS: BP 158/91; PULSE 72
[2019-04-21] MEDS ORDERED: Albuterol/Ipratropium 3.0-0.5 MG/3 ML Neb Soln NEB ONE ×2 (17:36→18:45)
--- NOTE | 2019-04-21 18:17 | EDM.PDOC ---
ED HPI GENERAL MEDICAL PROBLEM - General Chief Complaint: Respiratory Problem Stated Complaint: SOB Time Seen by Provider: 04/21/19 17:29 Source of Information: Reports: Patient History Limitations: Reports: No Limitations - History of Present Illness INITIAL COMMENTS - FREE TEXT/NARRATIVE: Is an 83-year-old female who presents with complaints of shortness of breath, productive paroxysmal cough, and wheezing for the last couple days. She states she developed an upper respiratory infection around [place]. Symptoms started in her sinuses progressively moved down into her lungs. She states this is typical course for her. She does have a history of chronic bronchitis as well as asthma. She denies any fever or chills, nausea, or vomiting. She does have an albuterol inhaler at home which she states she has been using quite frequently. This does provide her brief symptomatic relief, however the symptoms rapidly returned. She states symptoms are worse at night. - Related Data Allergies Allergy/AdvReac Type Severity Reaction Status Date / Time theophylline anhydrous AdvReac altered Verified 04/21/19 17:25 [From Pan-Dur] heart rate scents Allergy Airway Uncoded 04/21/19 17:25 Tightness Home Meds: Home Meds Sertraline HCl 25 mg PO DAILY 12/05/14 [History] Albuterol Sulfate [Proair Respiclick] 2 inh INH Q4H PRN 10/29/15 [History] Furosemide [Lasix] 40 mg PO DAILY 07/23/17 [History] Apixaban [Eliquis] 2.5 mg PO BID 09/18/17 [History] atorvaSTATin [Lipitor] 10 mg PO BEDTIME 09/18/17 [History] Pantoprazole [ProTONIX] 40 mg PO DAILY 03/20/18 [History] Acetaminophen/HYDROcodone [Springer 325-5 MG] 1 tab PO Q4H #20 tablet 03/23/18 [Rx] Polyethylene Glycol 3350 [Miralax] 17 gm PO BID PRN #4 powd.pack 03/23/18 [Rx] Sennosides/Docusate Sodium [Senokot-S Tablet] 1 each PO BID #60 tablet 03/23/18 [Rx] bisacodyL [Dulcolax] 10 mg RC BID PRN #2 supp 03/23/18 [Rx] fentaNYL [Duragesic] 12 mcg TD Q72H #5 patch 03/23/18 [Rx] Gabapentin [Neurontin] 300 mg PO BID 04/05/18 [History] Lutein/Minerals/Vit A,C & E [Ocuvite] 1 tab PO DAILY 04/05/18 [History] tiZANidine HCl [Zanaflex] 2 mg PO TID PRN 04/05/18 [History] Bacitracin/Polymyxin B Sulfate [Polysporin Ointment] 28.3 gm TP ASDIRECTED #1 tube 08/09/18 [Rx] Benzonatate [Tessalon Perle] 100 mg PO TID PRN #15 capsule 01/07/19 [Rx] Albuterol/Ipratropium [DuoNeb 3.0-0.5 MG/3 ML] 3 ml .XX Q4H PRN #30 neb [Rx] Fluticasone Propionate [Flovent] 100 mcg IH DAILY #1 disk.w.dev 04/21/19 [Rx] levoFLOXacin [Levaquin] 500 mg PO DAILY 7 Days #6 tab 04/21/19 [Rx] Past Medical History HEENT History: Reports: Cataract, Epistaxis Other HEENT History: wears glasses, epistaxis everyday for 3 weeks Cardiovascular History: Reports: Afib, Blood Clots/VTE/DVT, Hypertension, ID Other Cardiovascular History: superficial blood clot Respiratory History: Reports: Asthma, Bronchitis, Recurrent, Other (See Below) Other Respiratory History: "sinus problems", Pneumonia once in the past Gastrointestinal History: Reports: GERD, GI Bleed Genitourinary History: Reports: UTI, Recurrent, Other (See Below) Other Genitourinary History: cyst on bladder, dribbles PRESSURE TESTER History: Reports: Other PRESSURE TESTER History: hx of cystocele with mesh repair Musculoskeletal History: Reports: Arthritis, Fracture, Other (See Below) Other Musculoskeletal History: chronic left & right shoulder pain. 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 Psychiatric History: Reports: Depression Endocrine/Metabolic History: Reports: Obesity/BMI 30+ Hematologic History: Reports: Anemia Other Hematologic History: "had bleeding ulcer 11/2014" Immunologic History: Reports: None Oncologic (Cancer) History: Reports: None Dermatologic History: Reports: None - Infectious Disease History Infectious Disease History: Reports: Measles - Past Surgical History Head Surgeries/Procedures: Reports: None Cardiovascular Surgical History: Reports: None Other Cardiovascular Surgeries/Procedures: hx of vein stripping Respiratory Surgical History: Reports: None Female Surgical History: Reports: Hysterectomy, Other (See Below) Other Female Surgeries/Procedures: hernia mesh r/t prolapsed bladder Neurological Surgical History: Reports: None Oncologic Surgical History: Reports: None Dermatological Surgical History: Reports: None Social & Family History - Family History Family Medical History: Noncontributory HEENT: Reports: Hearing Impairment Cardiac: Reports: Heart Failure, Hypertension Respiratory: Reports: Asthma GI: Reports: Cholelithiasis Musculoskeletal: Reports: Osteoarthritis, Osteoporosis Neurological: Reports: Dementia Endocrine/Metabolic: Reports: Diabetes, Type I Dermatologic: Reports: Psoriasis Oncologic: Reports: Breast - Tobacco Use Smoking Status *Q: Never Smoker - Caffeine Use Caffeine Use: Reports: Coffee Other Caffeine Use: daily, decaf or caf. - Recreational Drug Use Recreational Drug Use: No - Living Situation & Occupation Living situation: Reports: Occupation: Retired ED ROS GENERAL - Review of Systems Review Of Systems: See Below Constitutional: Reports: No Symptoms. Denies: Fever, Chills HEENT: Reports: No Symptoms Respiratory: Reports: Shortness of Breath, Wheezing, Cough, Sputum Cardiovascular: Reports: No Symptoms Endocrine: Reports: No Symptoms GI/Abdominal: Reports: No Symptoms : Reports: No Symptoms Musculoskeletal: Reports: Hand Pain Skin: Reports: No Symptoms Neurological: Reports: No Symptoms Psychiatric: Reports: No Symptoms Hematologic/Lymphatic: Reports: No Symptoms Immunologic: Reports: No Symptoms ED EXAM, GENERAL - Physical Exam Exam: See Below Exam Limited By: No Limitations General Appearance: Alert, WD/WN, No Apparent Distress Throat/Mouth: Normal Inspection, Normal Oropharynx, Normal Voice, No Airway Compromise Head: Atraumatic, Normocephalic Respiratory/Chest: No Respiratory Distress, Chest Non-Tender, Rhonchi ( scattered throughout), Wheezing (expiratory throughout) Cardiovascular: Normal Peripheral Pulses, Regular Rate, Rhythm, No Murmur Neurological: Alert, Oriented, Normal Cognition, No Motor/Sensory Deficits Psychiatric: Normal Affect, Normal Mood Skin Exam: Warm, Dry, Intact, Normal Color, No Rash Course - Vital Signs Last Recorded V/S: Last Vital Signs Temp 97.6 F 04/21/19 17:19 Pulse 72 04/21/19 17:19 Resp 20 04/21/19 17:19 BP 158/91 H 04/21/19 17:19 Pulse Ox 94 L 04/21/19 17:37 - Orders/Labs/Meds Orders: Active Orders 24 hr Category Date Time Status RT Aerosol Therapy [RC] ASDIRECTED Care 04/21/19 17:37 Active RT Aerosol Therapy [RC] ASDIRECTED Care 04/21/19 18:45 Active Chest 2V [CR] Stat Exams 04/21/19 17:37 Taken Labs: Laboratory Tests 04/21/19 04/21/19 Range/Units 17:45 17:45 WBC 6.01 (3.98-10.04) K/mm3 RBC 4.55 (3.98-5.22) M/mm3 Hgb 13.9 (11.2-15.7) gm/dl Hct 43.2 (34.1-44.9) % MCV 94.9 H (79.4-94.8) fl MCH 30.5 (25.6-32.2) pg MCHC 32.2 (32.2-35.5) g/dl RDW Std Deviation 47.0 H (36.4-46.3) fL Plt Count 197 (182-369) K/mm3 MPV 10.2 (9.4-12.3) fl Neut % (Auto) 62.0 (34.0-71.1) % Lymph % (Auto) 21.3 (19.3-51.7) % Stewart % (Auto) 13.5 H (4.7-12.5) % Eos % (Auto) 2.7 (0.7-5.8) Baso % (Auto) 0.3 (0.1-1.2) % Neut # (Auto) 3.73 (1.56-6.13) K/mm3 Lymph # (Auto) 1.28 (1.18-3.74) K/mm3 Stewart # (Auto) 0.81 H (0.24-0.36) K/mm3 Eos # (Auto) 0.16 (0.04-0.36) K/mm3 Baso # (Auto) 0.02 (0.01-0.08) K/mm3 Sodium 140 (136-145) mEq/L Potassium 3.6 (3.5-5.1) mEq/L Chloride 104 (98-107) mEq/L Carbon Dioxide 29 (21-32) mEq/L Anion Gap 10.6 (5-15) BUN 16 (7-18) mg/dL Creatinine 0.8 (0.55-1.02) mg/dL Est Cr Clr Drug Dosing 46.01 mL/min Estimated GFR (MDRD) > 60 (>60) mL/min BUN/Creatinine Ratio 20.0 H (14-18) Glucose 131 H (83-115) mg/dL Calcium 8.8 (8.5-10.1) mg/dL Total Bilirubin 0.5 (0.2-1.0) mg/dL AST 25 (15-37) U/L ALT 27 (14-59) U/L Alkaline Phosphatase 109 (46-116) U/L Total Protein 7.1 (6.4-8.2) g/dl Albumin 3.1 L (3.4-5.0) g/dl Globulin 4.0 gm/dL Albumin/Globulin Ratio 0.8 L (1-2) Meds: Medications Discontinued Medications Generic Name Dose Route Start Last Admin Trade Name Freq PRN Reason Stop Dose Admin Albuterol/Ipratropium 3 ml 04/21/19 17:36 04/21/19 18:20 Duoneb 3.0-0.5 Mg/3 Ml NEB 04/21/19 17:37 3 ml ONETIME ONE Administration Albuterol/Ipratropium 6 ml 04/21/19 18:45 Duoneb 3.0-0.5 Mg/3 Ml NEB 04/21/19 18:46 ONETIME ONE Levofloxacin 500 mg 04/21/19 18:44 04/21/19 18:53 Levaquin PO 04/21/19 18:45 500 mg ONETIME ONE Administration - Re-Assessments/Exams Free Text/Narrative Re-Assessment/Exam: ordered a CBC, CMP, 2 view chest x-ray to rule out pneumonia as well as a DuoNeb breathing treatment. 04/21/19 1845 Patient's hematology was grossly unremarkable. Chest x-ray was negative for any infiltrates. She did have some improvement after the DuoNeb treatment. We will treat her for acute bronchitis. With her history of chronic bronchitis I feel it would be beneficial for her to be treated with an antibiotic. She is unable to take oral steroids due to her history of GI bleeds and being on blood thinners. They state that she she has alternatively used in inhaled steroid in the past. They would also like her to have DuoNeb treatments at home. I will start her on Levaquin 500 mg daily 7 days, DuoNeb every 4 hours as needed, and inhaled fluticasone daily until symptoms resolve. We will send to DuoNeb treatments home with her as well as a nebulizer machine. Discharge instructions as noted. Departure - Departure Time of Disposition: 18:39 Disposition: Home, Self-Care 01 Condition: Fair Clinical Impression: Bronchitis - Discharge Information *PRESCRIPTION DRUG MONITORING PROGRAM REVIEWED*: No *COPY OF PRESCRIPTION DRUG MONITORING REPORT IN PATIENT SERGEY: No Prescriptions: Albuterol/Ipratropium [DuoNeb 3.0-0.5 MG/3 ML] 3 ml .XX Q4H PRN #30 neb PRN Reason: Shortness Of Breath Fluticasone Propionate [Flovent] 100 mcg IH DAILY #1 disk.w.dev levoFLOXacin [Levaquin] 500 mg PO DAILY 7 Days #6 tab Instructions: Acute Bronchitis, Adult Referrals: Rhonda Qureshi, WELFARE SUPERVISOR [Primary Care Provider] - Forms: ED Department Discharge Additional Instructions: You were seen in the emergency department tonight for complaints of cough and shortness of breath. Your chest x-ray did not show any signs of pneumonia. We are going to treat you for acute bronchitis. A [facility] has been [facility] to [facility] for Levaquin which is an antibiotic, DuoNeb treatments for the nebulizer machine, as well as fluticasone inhaler. Use his medications as prescribed. If you experience any new or worsening symptoms, please not hesitate to return to the emergency department. I do recommend that you call to schedule an appointment sometime next week for a follow-up with your primary care provider. Sepsis Event Note - Evaluation Sepsis Screening Result: No Definite Risk - Focused Exam Vital Signs: Vital Signs Temp Pulse Resp BP Pulse Ox Pulse Ox 04/21/19 17:37 94 L 04/21/19 17:19 97.6 F 72 20 158/91 H 94 L Date Exam was Performed: 04/21/19 Time Exam was Performed: 19:00 - My Orders Last 24 Hours: My Active Orders 01/02/20 17:37 RT Aerosol Therapy [RC] ASDIRECTED Chest 2V [CR] Stat 04/21/19 18:45 RT Aerosol Therapy [RC] ASDIRECTED - Assessment/Plan Last 24 Hours: My Active Orders 04/21/19 17:37 RT Aerosol Therapy [RC] ASDIRECTED Chest 2V [CR] Stat 04/21/19 18:45 RT Aerosol Therapy [RC] ASDIRECTED
[2019-04-21] MEDS ORDERED: Levofloxacin 500 MG Tab PO ONE (18:44)
--- NOTE | 2019-04-22 07:15 | CR ---
Chest: Two views of the chest were obtained. Comparison: Prior chest x-ray of 01/07/19. Heart is enlarged. Lungs are clear with no acute parenchymal change. Compression deformity is seen within the thoracic spine which show evidence of vertebroplasty cement. Scattered disc space narrowing and endplate spurring is noted within the spine. Impression: 1. Findings as noted above. Nothing acute is seen. Diagnostic code #2 This report was dictated in [place] Standard Time
== END 2019-04-21 19:00 | disposition home or self-care (01) ==
LOC: JD.ED 17:11
DX: J40 Bronchitis, not specified as acute or chronic (principal); I10 Essential (primary) hypertension; I25.2 Old myocardial infarction; Z79.899 Other long term (current) drug therapy; Z88.8 Allergy status to other drugs, medicaments and biological substances
CPT/HCPCS: 36415; 71046; 80053; 85025; 94640; 99285; A9270; 99283; J7620-GY

== ENCOUNTER 2019-08-23 14:19 | Emergency (ER) | payer MEDICARE, BC ==
[2019-08-23] MEDS ORDERED: Sodium Chloride 0.9% 10 ML Syringe FLUSH PRN (14:23)
--- NOTE | 2019-08-23 14:55 | CT ---
Head CT Technique: Multiple axial sections through the brain were obtained. Intravenous contrast was not utilized. Comparison: Prior head CT study of 07/23/17. Findings: Old infarct is noted within the right posterior cerebellar hemisphere. Old infarct noted within the right posterior frontal and parietal regions. This represents an interval change from previous study. Diminished density is noted within the periventricular and subcortical white matter compatible with small vessel ischemic demyelination change. No evidence of intracranial hemorrhage. No midline shift or mass-effect is seen. Bone window settings were reviewed. No acute calvarial finding is seen. Mucosal thickening is seen within a portion of the left mastoid sinus. Other mastoid sinuses are clear. No acute paranasal sinus findings are seen. Mild atherosclerotic calcification within the carotid siphon. Impression: 1. Old appearing infarcts within the right frontal and parietal regions as well as within the posterior right cerebellar hemisphere. 2. Other senescent change as noted above. 3. Mucosal thickening within the left mastoid sinus. This is an interval change from prior CT exam, please rule out any symptoms of mastoiditis. Diagnostic code #3 This report was dictated in MDT
--- NOTE | 2019-08-23 15:23 | EDM.PDOC ---
ED HPI GENERAL MEDICAL PROBLEM - General Chief Complaint: Neuro Symptoms/Deficits Stated Complaint: SLURRED SPEECH Time Seen by Provider: 08/23/19 14:23 Source of Information: Reports: Patient, Family History Limitations: Reports: No Limitations - History of Present Illness INITIAL COMMENTS - FREE TEXT/NARRATIVE: The patient was brought in by her daughter for right sided facial droop and trouble speaking. The last time know well is not clear. Yesterday at 5pm her son came to visit and he noticed she had some trouble speaking. She is not sure when before that she had trouble. She did not want to go to the hospital. She has no numbness or weakness in her arms or legs. She has no fever, chills , cough, congestion, runny nose, chest pain, headache, shortness of breath, abdominal pain, nausea or vomiting. 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 She is on eliquis. Onset: Gradual Duration: Day(s): Severity: Mild Improves with: Reports: None Worsens with: Reports: None Associated Symptoms: Reports: No Other Symptoms - Related Data Allergies Allergy/AdvReac Type Severity Reaction Status Date / Time theophylline anhydrous AdvReac Severe altered Verified 08/23/19 14:54 [From Pan-Dur] heart rate scents Allergy Severe Airway Uncoded 08/23/19 14:54 Tightness Home Meds: Home Meds Sertraline HCl 25 mg PO DAILY 12/05/14 [History] Albuterol Sulfate [Proair Respiclick] 2 inh INH Q4H PRN 10/29/15 [History] Furosemide [Lasix] 40 mg PO DAILY 07/23/17 [History] Apixaban [Eliquis] 2.5 mg PO BID 09/18/17 [History] atorvaSTATin [Lipitor] 10 mg PO BEDTIME 09/18/17 [History] Pantoprazole [ProTONIX] 40 mg PO DAILY 03/20/18 [History] Acetaminophen/HYDROcodone [Buckeye 325-5 MG] 1 tab PO Q4H #20 tablet 03/23/18 [Rx] Sennosides/Docusate Sodium [Senokot-S Tablet] 1 each PO BID #60 tablet 03/23/18 [Rx] bisacodyL [Dulcolax] 10 mg RC BID PRN #2 supp 03/23/18 [Rx] polyethylene glycoL 3350 [Miralax] 17 gm PO BID PRN #4 powd.pack 03/23/18 [Rx] Gabapentin [Neurontin] 300 mg PO BID 04/05/18 [History] Lutein/Minerals/Vit A,C & E [Ocuvite] 1 tab PO DAILY 04/05/18 [History] Bacitracin Zinc/Polymyxin B [Polysporin Ointment] 28.3 gm TP ASDIRECTED #1 tube 08/09/18 [Rx] Benzonatate [Tessalon Perle] 100 mg PO TID PRN #15 capsule 01/07/19 [Rx] Albuterol/Ipratropium [DuoNeb 3.0-0.5 MG/3 ML] 3 ml .XX Q4H PRN #30 neb [Rx] Fluticasone Propionate [Flovent] 100 mcg IH DAILY #1 disk.w.dev 04/21/19 [Rx] levoFLOXacin [Levaquin] 500 mg PO DAILY 7 Days #6 tab 04/21/19 [Rx] traMADol [Ultram] 50 mg PO Q6HR PRN 04/21/19 [History] Past Medical History HEENT History: Reports: Cataract, Epistaxis Other HEENT History: wears glasses, epistaxis everyday for 3 weeks Cardiovascular History: Reports: Afib, Blood Clots/VTE/DVT, Hypertension, [place] Other Cardiovascular History: superficial blood clot Respiratory History: Reports: Asthma, Bronchitis, Recurrent, Other (See Below) Other Respiratory History: "sinus problems", Pneumonia once in the past Gastrointestinal History: Reports: GERD, GI Bleed Genitourinary History: Reports: UTI, Recurrent, Other (See Below) Other Genitourinary History: cyst on bladder, dribbles WELDING ENGINEER History: Reports: Other WELDING ENGINEER History: hx of cystocele with mesh repair Musculoskeletal History: Reports: Arthritis, Fracture, Other (See Below) Other Musculoskeletal History: chronic left & right shoulder pain. 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 Psychiatric History: Reports: Depression Endocrine/Metabolic History: Reports: Obesity/BMI 30+ Hematologic History: Reports: Anemia Other Hematologic History: "had bleeding ulcer 11/2014" Immunologic History: Reports: None Oncologic (Cancer) History: Reports: None Dermatologic History: Reports: None - Infectious Disease History Infectious Disease History: Reports: Measles - Past Surgical History Head Surgeries/Procedures: Reports: None Cardiovascular Surgical History: Reports: None Other Cardiovascular Surgeries/Procedures: hx of vein stripping Respiratory Surgical History: Reports: None Female Surgical History: Reports: Hysterectomy, Other (See Below) Other Female Surgeries/Procedures: hernia mesh r/t prolapsed bladder Neurological Surgical History: Reports: None Oncologic Surgical History: Reports: None Dermatological Surgical History: Reports: None Social & Family History - Family History Family Medical History: Noncontributory HEENT: Reports: Hearing Impairment Cardiac: Reports: Heart Failure, Hypertension Respiratory: Reports: Asthma GI: Reports: Cholelithiasis Musculoskeletal: Reports: Osteoarthritis, Osteoporosis Neurological: Reports: Dementia Endocrine/Metabolic: Reports: Diabetes, Type I Dermatologic: Reports: Psoriasis Oncologic: Reports: Breast - Caffeine Use Caffeine Use: Reports: Coffee Other Caffeine Use: daily, decaf or caf. - Living Situation & Occupation Living situation: Reports: Occupation: Retired ED ROS GENERAL - Review of Systems Review Of Systems: See Below Constitutional: Reports: No Symptoms HEENT: Reports: No Symptoms Respiratory: Reports: No Symptoms Cardiovascular: Reports: No Symptoms Endocrine: Reports: No Symptoms GI/Abdominal: Reports: No Symptoms : Reports: No Symptoms Musculoskeletal: Reports: No Symptoms Neurological: Reports: Other (facial droop and trouble speaking) ED EXAM, NEURO - Physical Exam Exam: See Below Exam Limited By: No Limitations General Appearance: Alert, No Apparent Distress Ears: Normal External Exam Nose: Normal Inspection Head Exam: Atraumatic, Normocephalic Neck: Normal Inspection Respiratory/Chest: No Respiratory Distress, Lungs Clear, Normal Breath Sounds Cardiovascular: Regular Rate, Rhythm, No Edema, No Murmur GI/Abdominal: Soft, Non-Tender, No Organomegaly, No Mass Neurological: Alert, Other (Mild right sided facial droop and some slurred speech. Very mild weakness with finger to nose to the right hand.) EKG INTERPRETATION EKG Date: 08/23/19 Time: 14:49 Rhythm: A-Fib Rate (Beats/Min): 65 [place]: Normal QRS: Normal ST-T: Normal QT: Normal Course - Vital Signs Last Recorded V/S: Last Vital Signs Temp 97.2 F 08/23/19 14:20 Pulse 63 08/23/19 14:20 Resp 16 08/23/19 14:20 BP 173/95 H 08/23/19 14:20 Pulse Ox 98 08/23/19 14:20 - Orders/Labs/Meds Orders: Active Orders 24 hr Category Date Time Status Cardiac Monitoring [RC] . DIRECTED Care 08/23/19 14:24 Active EKG Documentation Completion [RC] STAT Care 08/23/19 14:24 Active Peripheral IV Care [RC] . DIRECTED Care 08/23/19 14:24 Active Brain wo Cont [MR] Stat Exams 08/23/19 15:24 Taken Sodium Chloride 0.9% [Saline Flush] Med 08/23/19 14:23 Active 10 ml FLUSH ASDIRECTED PRN Peripheral IV Insertion Adult [OM.PC] Stat Oth 08/23/19 14:23 Ordered Medication Orders Sodium Chloride (Saline Flush) 10 ml FLUSH ASDIRECTED PRN PRN Reason: Keep Vein Open Last Admin: 08/23/19 14:43 Dose: 10 ml Labs: Laboratory Tests 08/23/19 08/23/19 08/23/19 Range/Units 14:43 14:43 14:43 WBC 6.53 (3.98-10.04) K/mm3 RBC 4.97 (3.98-5.22) M/mm3 Hgb 15.6 D (11.2-15.7) gm/dl Hct 48.5 H (34.1-44.9) % MCV 97.6 H (79.4-94.8) fl MCH 31.4 (25.6-32.2) pg MCHC 32.2 (32.2-35.5) g/dl RDW Std Deviation 49.3 H (36.4-46.3) fL Plt Count 230 (182-369) K/mm3 MPV 10.8 (9.4-12.3) fl Neut % (Auto) 63.7 (34.0-71.1) % Lymph % (Auto) 20.2 (19.3-51.7) % [place] % (Auto) 13.9 H (4.7-12.5) % Eos % (Auto) 1.4 (0.7-5.8) Baso % (Auto) 0.8 (0.1-1.2) % Neut # (Auto) 4.16 (1.56-6.13) K/mm3 Lymph # (Auto) 1.32 (1.18-3.74) K/mm3 [place] # (Auto) 0.91 H (0.24-0.36) K/mm3 Eos # (Auto) 0.09 (0.04-0.36) K/mm3 Baso # (Auto) 0.05 (0.01-0.08) K/mm3 PT 11.1 (9.7-12.0) SECONDS INR 1.02 APTT 28 (22-31) SECONDS Sodium 141 (136-145) mEq/L Potassium 4.3 (3.5-5.1) mEq/L Chloride 103 (98-107) mEq/L Carbon Dioxide 31 (21-32) mEq/L Anion Gap 11.3 (5-15) BUN 18 (7-18) mg/dL Creatinine 1.0 (0.55-1.02) mg/dL Est Cr Clr Drug Dosing TNP Estimated GFR (MDRD) 53 (>60) mL/min BUN/Creatinine Ratio 18.0 (14-18) Glucose 82 L (83-115) mg/dL POC Glucose (83-110) mg/dL Calcium 9.3 (8.5-10.1) mg/dL Total Bilirubin 0.8 (0.2-1.0) mg/dL AST 24 (15-37) U/L ALT 25 (14-59) U/L Alkaline Phosphatase 93 (46-116) U/L Troponin I < 0.017 (0.00-0.056) ng/mL Total Protein 7.5 (6.4-8.2) g/dl Albumin 3.5 (3.4-5.0) g/dl Globulin 4.0 gm/dL Albumin/Globulin Ratio 0.9 L (1-2) 08/23/19 Range/Units 14:44 WBC (3.98-10.04) K/mm3 RBC (3.98-5.22) M/mm3 Hgb (11.2-15.7) gm/dl Hct (34.1-44.9) % MCV (79.4-94.8) fl MCH (25.6-32.2) pg MCHC (32.2-35.5) g/dl RDW Std Deviation (36.4-46.3) fL Plt Count (182-369) K/mm3 MPV (9.4-12.3) fl Neut % (Auto) (34.0-71.1) % Lymph % (Auto) (19.3-51.7) % [place] % (Auto) (4.7-12.5) % Eos % (Auto) (0.7-5.8) Baso % (Auto) (0.1-1.2) % Neut # (Auto) (1.56-6.13) K/mm3 Lymph # (Auto) (1.18-3.74) K/mm3 [place] # (Auto) (0.24-0.36) K/mm3 Eos # (Auto) (0.04-0.36) K/mm3 Baso # (Auto) (0.01-0.08) K/mm3 PT (9.7-12.0) SECONDS INR APTT (22-31) SECONDS Sodium (136-145) mEq/L Potassium (3.5-5.1) mEq/L Chloride (98-107) mEq/L Carbon Dioxide (21-32) mEq/L Anion Gap (5-15) BUN (7-18) mg/dL Creatinine (0.55-1.02) mg/dL Est Cr Clr Drug Dosing Estimated GFR (MDRD) (>60) mL/min BUN/Creatinine Ratio (14-18) Glucose (83-115) mg/dL POC Glucose 80 L (83-110) mg/dL Calcium (8.5-10.1) mg/dL Total Bilirubin (0.2-1.0) mg/dL AST (15-37) U/L ALT (14-59) U/L Alkaline Phosphatase (46-116) U/L Troponin I (0.00-0.056) ng/mL Total Protein (6.4-8.2) g/dl Albumin (3.4-5.0) g/dl Globulin gm/dL Albumin/Globulin Ratio (1-2) Meds: Medications Generic Name Dose Route Start Last Admin Trade Name Freq PRN Reason Stop Dose Admin Sodium Chloride 10 ml 08/23/19 14:23 08/23/19 14:43 Saline Flush FLUSH 10 ml ASDIRECTED PRN Administration Keep Vein Open - Re-Assessments/Exams Free Text/Narrative Re-Assessment/Exam: 08/23/19 15:26 A stroke alert was called. Last time known well was not known. Her sone visited her last night at 5pm and noticed she was slurring her words. I ordered a CT of her head, EKG and labs. Her EKG shows atrial fibrillation with no acute changes. Her CT shows old appearing infarcts within the right frontal and parietal regions as well as within the posterior right cerebellar hemisphere. Other senescent change as noted above. Mucosal thickening within the left mastoid sinus. This is an interval change from prior CT exam, please rule out any symptoms of mastoiditis. MRI had a slot available. I put an order for an MRI of her brain. 08/23/19 16:32 Her CBC looks good. Her PT and PTT look good. Her CMP is normal. Her troponin is negative. 08/23/19 16:54 Her MRI shows several left frontal/frontal temporal acute lacunar infarcts. These by themselves do not cause much problems but they are acute and in the right spot. I let her know and her daughter the results. The patient did not want to go to [place] or [place] and she did not want to be admitted here. She is on blood thinners already. I will discharge her home. Departure - Departure Time of Disposition: 17:00 Disposition: Home, Self-Care 01 Condition: Good Clinical Impression: CVA (cerebral vascular accident) Qualifiers: CVA mechanism: embolism Precerebral and cerebral artery: middle cerebral artery Laterality of affected vessel: right Qualified Code(s): I63.411 - Cerebral infarction due to embolism of right middle cerebral artery - Discharge Information *PRESCRIPTION DRUG MONITORING PROGRAM REVIEWED*: Not Applicable *COPY OF PRESCRIPTION DRUG MONITORING REPORT IN PATIENT SERGEY: Not Applicable Referrals: Rhonda Qureshi, RELATIONSHIP SPECIALIST [Primary Care Provider] - 1 Week Forms: ED Department Discharge Additional Instructions: Continue taking your medications. Follow up with your doctor within a week. Follow up with PT/OT. Please return if you are worse. Sepsis Event Note - Evaluation Sepsis Screening Result: No Definite Risk - Focused Exam Vital Signs: Vital Signs Temp Pulse Resp BP Pulse Ox 08/23/19 14:20 97.2 F 63 16 173/95 H 98 Date Exam was Performed: 08/23/19 Time Exam was Performed: 16:54 - My Orders Last 24 Hours: My Active Orders 08/23/19 14:23 Sodium Chloride 0.9% [Saline Flush] 10 ml FLUSH ASDIRECTED PRN Peripheral IV Insertion Adult [OM.PC] Stat 08/23/19 14:24 Cardiac Monitoring [RC] . DIRECTED EKG Documentation Completion [RC] STAT Peripheral IV Care [RC] . DIRECTED 08/23/19 15:24 Brain wo Cont [MR] Stat - Assessment/Plan Last 24 Hours: My Active Orders 08/23/19 14:23 Sodium Chloride 0.9% [Saline Flush] 10 ml FLUSH ASDIRECTED PRN Peripheral IV Insertion Adult [OM.PC] Stat 08/23/19 14:24 Cardiac Monitoring [RC] . DIRECTED EKG Documentation Completion [RC] STAT Peripheral IV Care [RC] . DIRECTED 08/23/19 15:24 Brain wo Cont [MR] Stat
[2019-08-23 17:40] VITALS: BP 184/106; PULSE 76
--- NOTE | 2019-08-24 08:30 | MR ---
MRI brain Technique: T1 sagittal; T2, T2 FLAIR, T1 and diffusion axial; T1 FLAIR coronal images were obtained. Comparison: Prior head CT study performed earlier on the same day (2:26 PM). Findings: Old infarct is noted within the posterior right cerebellar hemisphere. Old infarct is noted within the posterior right frontal region as well as small old infarct within the right parietal region. Multiple old lacunar infarcts are noted within the basal ganglia. Diffuse increased signal is noted within the periventricular white matter compatible with small vessel ischemic demyelination change. Similar findings are seen within the luca. 3 small acute diffusion abnormalities are noted within the left parietal region and subcortical region. No midline shift or mass-effect is seen. Mucosal thickening seen with left mastoid sinus. Visualized paranasal sinuses are clear. Ventricles along with basal cisterns and sulci over the convexities are stable. Normal signal void is seen within the major cerebral arteries within the skull base. Impression: 1. Old infarcts and other senescent change which is stable. 2. 3 small acute infarcts within the left parietal cortex and subcortical regions. 3. Mucosal thickening within the left mastoid sinus. Diagnostic code #3 This report was dictated in MDT I agree with preliminary report from [facility], finalized on 08/23/19, 5:36 PM Central Daylight Time
== END 2019-08-23 17:15 | disposition home or self-care (01) ==
LOC: JD.ED 14:19
DX: I63.411 Cerebral infarction due to embolism of right middle cerebral artery (principal); I48.91 Unspecified atrial fibrillation; I10 Essential (primary) hypertension; I25.2 Old myocardial infarction; J45.909 Unspecified asthma, uncomplicated; K21.9 Gastro-esophageal reflux disease without esophagitis; M19.90 Unspecified osteoarthritis, unspecified site; F32.9 Major depressive disorder, single episode, unspecified; E66.9 Obesity, unspecified; Z91.048 Other nonmedicinal substance allergy status; Z88.8 Allergy status to other drugs, medicaments and biological substances; Z79.01 Long term (current) use of anticoagulants; Z79.899 Other long term (current) drug therapy
CPT/HCPCS: 36415; 70450; 70450-26; 70551; 70551-26; 80053; 82962; 84484; 85025; 85610; 85730; 93005; 93010; 99284; 99284-25

== ENCOUNTER 2020-12-13 09:42 | Inpatient (IN) | payer MEDICARE, OTHER ==
[2020-12-13] MEDS ORDERED: Pantoprazole 40 MG Vial IVPUSH ONE (10:14)
--- NOTE | 2020-12-13 10:14 | EDM.PDOC ---
ED HPI GENERAL MEDICAL PROBLEM - General Chief Complaint: Gastrointestinal Problem Stated Complaint: [facility] Time Seen by Provider: 12/13/20 10:05 Source of Information: Reports: Patient History Limitations: Reports: No Limitations - History of Present Illness INITIAL COMMENTS - FREE TEXT/NARRATIVE: 85-year-old female presents to the ED per [facility]. Her daughter is also with her. She was with her at the time that she passed out at home this morning. Patient complained of nausea this morning. Developed diaphoresis and decreased level of consciousness after getting off the toilet. Her daughter appreciated the stool was dark black in color and tarry. No bright red blood was appreciated. After she attempted to get up from the stool she got very lightheaded and actually passed out for a good 4 to 5 minutes. Her daughter eased her down to the floor and therefore she did not fall or become injured. Her daughter raised both of her feet it was and within 45 minutes she stared to regain consciousness. She was a then able to get her out of the bathroom and into the hallway. Patient has had a previous GI bleed approximately 4 years ago while being on Eliquis for atrial fibrillation. She was taken off Eliquis for a period of time and unfortunately suffered a major CVA. It is unclear how long it was before [facility] was [facility]. She last took a tablet of Eliquis about 2100 hrs. last evening. She no longer feels nauseated. She denies chest pain or shortness of breath at rest. Daughter reports that blood pressure when she checked her was down as low as 63 systolic. Of note patient has been taking Pepto-Bismol and had Clotilde soup night before last which was confusing to her as to whether her stools were dark in color due to the above or from upper GI bleeding. Onset: Today, Sudden Onset Date: 12/13/20 Onset Time: 09:00 Duration: Minutes:, Improving Location: Reports: Other (Syncopal event after passing dark black tarry stool while seated on the toilet. Unresponsive for about 4 to 5 minutes.) Quality: Reports: Other (Loss of consciousness) Severity: Severe Improves with: Reports: Other (Improved with raising her feet and she started to come around about 45 minutes after passing out.) Worsens with: Reports: Other Context: Reports: Other (Suspect upper GI bleed with dark black tarry stools). Denies: Activity (She is considered to be very orthostatic.), Exercise, Lifting, Sick Contact, Trauma Associated Symptoms: Reports: Malaise, Nausea/Vomiting (Nausea this morning without vomiting), Shortness of Breath (On minimal exertion.), Syncope (Syncopal event lasting 45 minutes as witnessed by her daughter whom is a nurse.), Weakness (Neurolysed weakness). 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 (see below) (She did not take any Eliquis this morning.) - Related Data Allergies Allergy/AdvReac Type Severity Reaction Status Date / Time perfume Allergy Severe Airway Verified 12/13/20 10:40 Tightness theophylline anhydrous AdvReac Intermediate altered Verified 12/13/20 10:40 [From Pan-Dur] heart rate Home Meds: Home Meds Sertraline HCl 25 mg PO DAILY 12/05/14 [History] Albuterol Sulfate [Proair Respiclick] 2 inh INH Q4H PRN 10/29/15 [History] Furosemide [Lasix] 40 mg PO DAILY 07/23/17 [History] Apixaban [Eliquis] 2.5 mg PO BID 09/18/17 [History] atorvaSTATin [Lipitor] 10 mg PO BEDTIME 09/18/17 [History] Pantoprazole [ProTONIX] 40 mg PO DAILY 03/20/18 [History] Sennosides/Docusate Sodium [Senokot-S Tablet] 1 each PO BID #60 tablet 03/23/18 [Rx] bisacodyL [Dulcolax] 10 mg RC BID PRN #2 supp 03/23/18 [Rx] polyethylene glycoL 3350 [Miralax] 17 gm PO BID PRN #4 powd.pack 03/23/18 [Rx] Lutein/Minerals/Vit A,C & E [Ocuvite] 1 tab PO DAILY 04/05/18 [History] traMADol [Ultram] 50 mg PO Q6HR PRN 04/21/19 [History] Past Medical History HEENT History: Reports: Cataract, Epistaxis Other HEENT History: wears glasses, epistaxis everyday month Cardiovascular History: Reports: Afib, Blood Clots/VTE/DVT, Hypertension, [place] Other Cardiovascular History: superficial blood clot Respiratory History: Reports: Asthma, Bronchitis, Recurrent, Other (See Below) Other Respiratory History: "sinus problems", Pneumonia once in the past Gastrointestinal History: Reports: GERD, GI Bleed Genitourinary History: Reports: UTI, Recurrent, Other (See Below) Other Genitourinary History: cyst on bladder, dribbles 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 Psychiatric History: Reports: Depression Endocrine/Metabolic History: Reports: Obesity/BMI 30+ Hematologic History: Reports: Anemia Other Hematologic History: "had bleeding ulcer 11/2014" Immunologic History: Reports: None Oncologic (Cancer) History: Reports: None Dermatologic History: Reports: None - Infectious Disease History Infectious Disease History: Reports: Measles - Past Surgical History Head Surgeries/Procedures: Reports: None HEENT Surgical History: Reports: Cataract Surgery, Other (See Below) Other HEENT Surgeries/Procedures: bilateral Cardiovascular Surgical History: Reports: None Other Cardiovascular Surgeries/Procedures: hx of vein stripping Respiratory Surgical History: Reports: None GI Surgical History: Reports: Cholecystectomy Female Surgical History: Reports: Hysterectomy, Other (See Below) Other Female Surgeries/Procedures: hernia mesh r/t prolapsed bladder Endocrine Surgical History: Reports: None Neurological Surgical History: Reports: None Musculoskeletal Surgical History: Reports: Knee Replacement Other Musculoskeletal Surgeries/Procedures:: bilateral Oncologic Surgical History: Reports: None Dermatological Surgical History: Reports: None Social & Family History - Family History Family Medical History: No Pertinent Family History HEENT: Reports: Hearing Impairment Cardiac: Reports: Heart Failure, Hypertension Respiratory: Reports: Asthma GI: Reports: Cholelithiasis Musculoskeletal: Reports: Osteoarthritis, Osteoporosis Neurological: Reports: Dementia Endocrine/Metabolic: Reports: Diabetes, Type I Dermatologic: Reports: Psoriasis Oncologic: Reports: Breast - Caffeine Use Caffeine Use: Reports: Coffee Other Caffeine Use: daily, decaf or caf. - Recreational Drug Use Recreational Drug Use: No - Living Situation & Occupation Living situation: Reports: Occupation: Retired ED ROS GENERAL - Review of Systems Review Of Systems: See Below Constitutional: Reports: Malaise, Weakness, Fatigue, Decreased Appetite. Denies: Fever, Chills HEENT: Reports: Glasses (Previous cataract extraction and intraocular lens implants.) Respiratory: Reports: Shortness of Breath, Wheezing, Cough. Denies: Pleuritic Chest Pain (Occasional wheezing), Sputum (Occasional nonproductive cough), Hemoptysis Cardiovascular: Reports: Blood Pressure Problem, Dyspnea on Exertion, Edema (Beer this morning chronic mild edema left lower extremity), Lightheadedness, Palpitations (Sometimes aware of palpitations due to atrial fibrillation.). Denies: Chest Pain, Claudication (Hypertension.), Orthopnea Endocrine: Reports: Fatigue GI/Abdominal: Reports: Constipation (History mainly of constipation.), Melena (Black tarry stool identified this morning.). Denies: Abdominal Pain : Reports: Frequency, Incontinence, Urgency Musculoskeletal: Reports: Neck Pain, Shoulder Pain, Back Pain, Joint Pain (Both hips at times.), Other (Bilateral total knee replacements. 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 Denies: Confusion, Headache, Numbness, Tingling Psychiatric: Reports: No Symptoms Hematologic/Lymphatic: Reports: Easy Bleeding Immunologic: Reports: No Symptoms ED EXAM, GI/ABD - Physical Exam Exam: See Below Exam Limited By: No Limitations General Appearance: Alert, WD/WN, No Apparent Distress, Other (Temperature is 35.7 degrees and she feels slightly cool and clammy to touch. Heart rate was 70. Respiratory is 18 with O2 sats of 95% room air. BP 148/51.) Eyes: Bilateral: Normal Appearance (Mild blepharal pallor. No scleral icterus.), Pale Conjunctiva (Mild bilaterally.) Throat/Mouth: Normal Inspection, Normal Oropharynx, Other. No: Normal Teeth (Tongue is mildly dry and coated.) Head: Atraumatic, Normocephalic Neck: Normal Inspection, Limited Range of Motion (Loss of 10 degrees lateral flexion and extension and flexion.). No: Carotid Bruit, Lymphadenopathy (L), Lymphadenopathy (R) Respiratory/Chest: No Respiratory Distress, Decreased Breath Sounds (Decreased air entry to), Wheezing (Mild wheezing lung bases on forced expiration.). No: L ungs Clear, Normal Breath Sounds, Rales (Both posterior lung sanches by about 25%.), Rhonchi Cardiovascular: No Gallop, No Murmur, No Rub, Irregularly Irregular (Monitor shows atrial fibrillation controlled rate between 68 and 98/min.), Other. No: Normal Peripheral Pulses, Regular Rate, Rhythm, No Edema GI/Abdominal Exam: Tender (Bowel sounds are hyperactive in all 4 quadrants.), Abnormal Bowel Sounds, Other (Surgical scars from total abdominal hysterectomy right oophorectomy and cholecystectomy.). No: Guarding, Rigid, Rebound Rectal (Female) Exam: Black Stool (Vamshi melena stool on the anus.), Heme + Stool Back Exam: Other. No: CVA Tenderness (L) (Increased lordotic curvature lumbar spine.), CVA Tenderness (R) Extremities: Other (Scarring anterior aspect of distal right tib-fib. Mild edema left leg. Has had bilateral total knee replacements.) Neurological: Alert, Oriented, CN II-XII Intact, Normal Cognition. No: Normal Gait (Not assessed due to being orthostatic.) Psychiatric: Normal Affect, Normal Mood Skin Exam: Warm, Dry, Intact, No Rash, Pallor (Slight pallor.) #1 Interpretation EKG Date: 12/13/20 Time: 10:57 Rhythm: A-Fib (With rate of 68 to 98 bpm) Rate (Beats/Min): 85 [place]: Normal P-Wave: Absent QRS: Other (New Q waves in V1 and V2 consider old anteroseptal myocardial infarction. There are miniature Q waves in leads II, III and aVF with T wave inversion noted in leads III and aVF consider old inferior wall myocardial infarction borderline criteria for left ventricular hypertrophy pattern.) ST-T: Other (T wave noted to be inverted in V6. There is a diffuse repolarization abnormality) QT: Normal EKG Interpretation Comments: Abnormal ECG Course - Vital Signs Last Recorded V/S: Last Vital Signs Temp 35.7 C L 12/13/20 09:44 Pulse 69 12/13/20 09:44 Resp 18 12/13/20 09:44 BP 148/51 H 12/13/20 09:44 Pulse Ox 95 12/13/20 09:44 - Orders/Labs/Meds Orders: Active Orders 24 hr Category Date Time Status Admission Status [Patient Status] [ADT] Routine ADT 12/13/20 13:06 Active Antiembolic Devices [RC] PER UNIT ROUTINE Care 12/13/20 13:10 Active Cardiac Monitoring [RC] . DIRECTED Care 12/13/20 13:06 Active Height and Weight [RC] DAILY Care 12/13/20 13:08 Active Intake and Output [RC] DAILY Care 12/13/20 13:08 Active Notify Provider Consults [RC] ASDIRECTED Care 12/13/20 13:11 Active Oxygen Therapy [RC] ASDIRECTED Care 12/13/20 13:08 Active Pulse Oximetry [RC] PRN Care 12/13/20 13:08 Active RT Aerosol Therapy [RC] ASDIRECTED Care 12/13/20 13:11 Active Up With Assistance [RC] ASDIRECTED Care 12/13/20 13:08 Active Vital Signs [RC] Q6H Care 12/13/20 13:08 Active Consult to Physician [CONS] Routine Cons 12/13/20 13:08 Active Consult to Spiritual Care [CONS] Routine Cons 12/13/20 13:08 Active OT Evaluation and Treatment [CONS] Routine Cons 12/13/20 13:11 Active PT Evaluation and Treatment [CONS] Routine Cons 12/13/20 13:11 Active Nothing per Oral Now Diet [DIET] Diet 12/13/20 Lunch Active C-REACTIVE PROTEIN [CHEM] Stat Lab 12/13/20 10:00 Received CBC WITH AUTO DIFF [HEME] AM Lab 12/14/20 05:11 Ordered CBC WITH AUTO DIFF [HEME] AM Lab 12/15/20 05:11 Ordered CBC WITH AUTO DIFF [HEME] AM Lab 12/16/20 05:11 Ordered CBC WITH AUTO DIFF [HEME] AM Lab 12/17/20 05:11 Ordered COMPREHENSIVE METABOLIC PN,CMP [CHEM] AM Lab 12/14/20 05:11 Ordered COMPREHENSIVE METABOLIC PN,CMP [CHEM] AM Lab 12/15/20 05:11 Ordered COMPREHENSIVE METABOLIC PN,CMP [CHEM] AM Lab 12/16/20 05:11 Ordered COMPREHENSIVE METABOLIC PN,CMP [CHEM] AM Lab 12/17/20 05:11 Ordered LIPASE [CHEM] Stat Lab 12/13/20 10:00 Received MAGNESIUM [CHEM] Stat Lab 12/13/20 10:00 Received PRO B-TYPE NATRIUR PEPT,BNPPRO [CHEM] Stat Lab 12/13/20 10:00 Received URINALYSIS W/MICROSCOPIC [UA W/MICROSCOPIC] [URIN] Stat Lab 12/13/20 13:11 Received Acetaminophen [TylenoL] Med 12/13/20 13:08 Active 650 mg PO Q4H PRN Albuterol/Ipratropium [DuoNeb 3.0-0.5 MG/3 ML] Med 12/13/20 13:08 Active 3 ml NEB QIDRT PRN Ondansetron [Zofran] Med 12/13/20 13:08 Active 4 mg IV Q6H PRN Pantoprazole [ProTONIX IV] 80 mg Med 12/13/20 10:15 Active Sodium Chloride 0.9% [Normal Saline] 100 ml IV Q10H Sodium Chloride 0.9% [Normal Saline] 1,000 ml Med 12/13/20 10:15 Active IV ASDIRECTED Sequential Compression Device [OM.PC] Per Unit Routine Oth 12/13/20 13:09 Ordered VTE Pharmacological Contraindications [AST] Per Unit Oth 12/13/20 13:08 Ordered Routine Code Status [Resuscitation Status] Stat Resus Stat 12/13/20 13:08 Ordered EKG 12 Lead [EK] Stat Ther 12/13/20 09:52 Ordered Medication Orders Acetaminophen (Acetaminophen 325 Mg Tab) 650 mg PO Q4H PRN PRN Reason: Pain (Mild 1-3)/fever Albuterol/Ipratropium (Albuterol/Ipratropium 3.0-0.5 Mg/3 Ml Neb Soln) 3 ml NEB QIDRT PRN PRN Reason: Shortness Of Breath/wheezing Sodium Chloride (Normal Saline) 1,000 mls @ 500 mls/hr IV ASDIRECTED ETHAN Last Admin: 12/13/20 10:41 Dose: 500 mls/hr Documented by: YAKELIN Pantoprazole Sodium 80 mg/ (Sodium Chloride) 100 mls @ 10 mls/hr IV Q10H [facility] Last Admin: 12/13/20 10:55 Dose: 10 mls/hr Documented by: YAKELIN Ondansetron HCl (Ondansetron 4 Mg/2 Ml Sdv) 4 mg IV Q6H PRN PRN Reason: Nausea/Vomiting Labs: Laboratory Tests 12/13/20 12/13/20 12/13/20 Range/Units 09:52 10:00 10:00 WBC 6.55 (3.98-10.04) K/mm3 RBC 3.84 L (3.98-5.22) M/mm3 Hgb 12.2 D (11.2-15.7) gm/dl Hct 38.6 (34.1-44.9) % MCV 100.5 H (79.4-94.8) fl MCH 31.8 (25.6-32.2) pg MCHC 31.6 L (32.2-35.5) g/dl RDW Std Deviation 53.9 H (36.4-46.3) fL Plt Count 202 (182-369) K/mm3 MPV 10.4 (9.4-12.3) fl Neut % (Auto) 75.9 H (34.0-71.1) % Lymph % (Auto) 12.5 L (19.3-51.7) % [place] % (Auto) 10.4 (4.7-12.5) % Eos % (Auto) 0.5 L (0.7-5.8) Baso % (Auto) 0.5 (0.1-1.2) % Neut # (Auto) 4.98 (1.56-6.13) K/mm3 Lymph # (Auto) 0.82 L (1.18-3.74) K/mm3 [place] # (Auto) 0.68 H (0.24-0.36) K/mm3 Eos # (Auto) 0.03 L (0.04-0.36) K/mm3 Baso # (Auto) 0.03 (0.01-0.08) K/mm3 Sodium 145 (136-145) mEq/L Potassium 4.3 (3.5-5.1) mEq/L Chloride 109 H (98-107) mEq/L Carbon Dioxide 30 (21-32) mEq/L Anion Gap 10.3 (5-15) BUN 51 H D (7-18) mg/dL Creatinine 0.8 (0.55-1.02) mg/dL Est Cr Clr Drug Dosing 1.93 mL/min Estimated GFR (MDRD) > 60 (>60) mL/min BUN/Creatinine Ratio 63.8 H (14-18) Glucose 109 H (70-99) mg/dL Calcium 7.9 L (8.5-10.1) mg/dL Total Bilirubin 0.9 (0.2-1.0) mg/dL AST 22 (15-37) U/L ALT 20 (14-59) U/L Alkaline Phosphatase 68 (46-116) U/L Total Protein 5.9 L (6.4-8.2) g/dl Albumin 2.7 L (3.4-5.0) g/dl Globulin 3.2 gm/dL Albumin/Globulin Ratio 0.8 L (1-2) SARS-CoV-2 RNA (KARLI) (NEGATIVE) Blood Type B POSITIVE Gel Antibody Screen Negative 12/13/20 Range/Units 10:27 WBC (3.98-10.04) K/mm3 RBC (3.98-5.22) M/mm3 Hgb (11.2-15.7) gm/dl Hct (34.1-44.9) % MCV (79.4-94.8) fl MCH (25.6-32.2) pg MCHC (32.2-35.5) g/dl RDW Std Deviation (36.4-46.3) fL Plt Count (182-369) K/mm3 MPV (9.4-12.3) fl Neut % (Auto) (34.0-71.1) % Lymph % (Auto) (19.3-51.7) % [place] % (Auto) (4.7-12.5) % Eos % (Auto) (0.7-5.8) Baso % (Auto) (0.1-1.2) % Neut # (Auto) (1.56-6.13) K/mm3 Lymph # (Auto) (1.18-3.74) K/mm3 [place] # (Auto) (0.24-0.36) K/mm3 Eos # (Auto) (0.04-0.36) K/mm3 Baso # (Auto) (0.01-0.08) K/mm3 Sodium (136-145) mEq/L Potassium (3.5-5.1) mEq/L Chloride (98-107) mEq/L Carbon Dioxide (21-32) mEq/L Anion Gap (5-15) BUN (7-18) mg/dL Creatinine (0.55-1.02) mg/dL Est Cr Clr Drug Dosing mL/min Estimated GFR (MDRD) (>60) mL/min BUN/Creatinine Ratio (14-18) Glucose (70-99) mg/dL Calcium (8.5-10.1) mg/dL Total Bilirubin (0.2-1.0) mg/dL AST (15-37) U/L ALT (14-59) U/L Alkaline Phosphatase (46-116) U/L Total Protein (6.4-8.2) g/dl Albumin (3.4-5.0) g/dl Globulin gm/dL Albumin/Globulin Ratio (1-2) SARS-CoV-2 RNA (KARLI) Negative (NEGATIVE) Blood Type Gel Antibody Screen Meds: Medications Generic Name Dose Route Start Last Admin Trade Name Freq PRN Reason Stop Dose Admin Acetaminophen 650 mg 12/13/20 13:08 Acetaminophen 325 Mg Tab PO Q4H PRN Pain (Mild 1-3)/fever Albuterol/Ipratropium 3 ml 12/13/20 13:08 Albuterol/Ipratropium 3.0-0.5 Mg/3 Ml Neb Soln NEB QIDRT PRN Shortness Of Breath/wheezing Sodium Chloride 1,000 mls @ 500 mls/hr 12/13/20 10:15 12/13/20 10:41 Normal Saline IV 500 mls/hr ASDIRECTED ETHAN Administration Pantoprazole Sodium 80 mg/ 100 mls @ 10 mls/hr 12/13/20 10:15 12/13/20 10:55 Sodium Chloride IV 10 mls/hr Q10H ETHAN Administration Ondansetron HCl 4 mg 12/13/20 13:08 Ondansetron 4 Mg/2 Ml Sdv IV Q6H PRN Nausea/Vomiting Discontinued Medications Generic Name Dose Route Start Last Admin Trade Name Freq PRN Reason Stop Dose Admin Pantoprazole Sodium 40 mg 12/13/20 10:14 12/13/20 10:41 Pantoprazole 40 Mg Vial IVPUSH 12/13/20 10:15 40 mg ONETIME ONE Administration Pantoprazole Sodium Confirm 12/13/20 10:35 12/13/20 10:55 Pantoprazole 40 Mg Vial Administered 12/13/20 10:36 Not Given Dose 80 mg .ROUTE .[facility] - Radiology Interpretation Free Text/Narrative:: 85-year-old female presents to the ED per [facility] in the company of her daughter who is a nurse. She was with her with this morning when she was complaining of nausea and feeling unwell. She had had a bowel movement which was dark black in color and required assistance off of the toilet. It was after this that attempt to standing caused her to have a syncopal event and daughter eased her to the floor. She was unresponsive for a good 4 to 5 minutes. She was treated by leg lifting which seemed to restore her blood pressure. Her daughter did check her blood pressure and was as low as 63 systolic. Patient was deemed to be severely orthostatic. She is on Eliquis 2.5 mg twice daily due to chronic atrial fibrillation. She has had a CVA while off of the Eliquis involving her brain stem from which she recovered from about 4 years ago. She did require several units of blood after her last upper GI bleed 4 years ago. Plan she will have IV crystalloid normal saline at 500 mils an hour since she does have a history of heart failure. She will be given Protonix 40 mg IV bolus and then started a drip at 10 mils per hour. If she has further active bleeding she is willing to accept a blood transfusion. Routine labs to be collected including type and screen. Her vital signs are stable at this time and she will now for not receive Tranexamic acid. - Re-Assessments/Exams Free Text/Narrative Re-Assessment/Exam: 12/13/20 11:43 chest x-ray done portable reveals moderate cardiomegaly. Lungs are clear with no acute parenchymal changes. Prior vertebral plasties are seen within the thoracic spine. Scattered degenerative spurring is also noted within the thoracic spine. 12/13/20 11:45 Labs reveal a white count of 6.55. The auto differential shows 76% neutrophils. Hemoglobin is 12.2 with hematocrit of 38.6. MCV is 100.5. Platelet count 202,000. Sodium 145 with a potassium of 4.3. Chloride is 109 with a bicarb of 30. Anion gap is 10.3. BUN is elevated at 51 compatible with upper GI bleed. Creatinine is 0.8 with a GFR greater than 60. Glucose is 109 calcium is 7.9. Total bilirubin is 0.9 liver function otherwise normal total protein low at 5.9 with an albumin fraction of 2.7. 12/13/20 12:28: I have discussed the lab results with the patient and her daughter. She has been up to the commode with no further bleeding per rectum but notes that melena stool is present at the rectum. COVID-19 screen returned as negative. Patient will be admitted to the hospital tentatively to the [facility] floor. I have spoke with Dr. Davian Kennedy on-call hospitalist in this regard. It is my suggestion that she likely should have a H. pylori breath test since she seems to be very prone to developing peptic ulcer disease with upper GI bleeding worsened by of course being on Eliquis. She has chronic atrial f ibrillation. Departure - Departure Time of Disposition: 13:30 Disposition: Admitted As Inpatient 66 Condition: Fair Clinical Impression: Upper gastrointestinal bleed, Chronic atrial fibrillation, Osteoarthritis involving multiple joints on both sides of body - Discharge Information Sepsis Event Note (ED) - Focused Exam Vital Signs: Vital Signs Temp Pulse Resp BP Pulse Ox 12/13/20 09:44 35.7 C L 69 18 148/51 H 95 - My Orders Last 24 Hours: My Active Orders 12/13/20 09:52 EKG 12 Lead [EK] Stat 12/13/20 10:00 C-REACTIVE PROTEIN [CHEM] Stat LIPASE [CHEM] Stat MAGNESIUM [CHEM] Stat PRO B-TYPE NATRIUR PEPT,BNPPRO [CHEM] Stat 12/13/20 10:15 Pantoprazole [ProTONIX IV] 80 mg Sodium Chloride 0.9% [Normal Saline] 100 ml IV Q10H Sodium Chloride 0.9% [Normal Saline] 1,000 ml IV ASDIRECTED 12/13/20 13:11 URINALYSIS W/MICROSCOPIC [UA W/MICROSCOPIC] [URIN] Stat - Assessment/Plan Last 24 Hours: My Active Orders 12/13/20 09:52 EKG 12 Lead [EK] Stat 12/13/20 10:00 C-REACTIVE PROTEIN [CHEM] Stat LIPASE [CHEM] Stat MAGNESIUM [CHEM] Stat PRO B-TYPE NATRIUR PEPT,BNPPRO [CHEM] Stat 12/13/20 10:15 Pantoprazole [ProTONIX IV] 80 mg Sodium Chloride 0.9% [Normal Saline] 100 ml IV Q10H Sodium Chloride 0.9% [Normal Saline] 1,000 ml IV ASDIRECTED 12/13/20 13:11 URINALYSIS W/MICROSCOPIC [UA W/MICROSCOPIC] [URIN] Stat
[2020-12-13] MEDS ORDERED: Sodium Chloride 0.9% 1,000 ML IV SCH (10:15)
[2020-12-13] MEDS ORDERED: Pantoprazole 40 MG Vial ONE (10:35)
[2020-12-13] MEDS: Pantoprazole 80 MG in Sodium Chloride 0.9% 100 ML IV SCH ×2 (10:55→20:30)
--- NOTE | 2020-12-13 11:20 | CR ---
Chest: Portable view of the chest was obtained. Comparison: Prior chest x-ray of 04/21/19. Heart is enlarged. Lungs are clear with no acute parenchymal change. Prior vertebroplasties are seen within the thoracic spine. Scattered degenerative spurring is also noted within the spine. Impression: 1. Cardiomegaly and other findings as noted above. 2. Nothing acute is seen when compared to prior chest x-ray. Diagnostic code #2
--- NOTE | 2020-12-13 12:18 | PCM.HP.2 ---
<Aniceto Covarrubias - Last Filed: 12/13/20 14:36> H&P History of Present Illness - General Date of Service: 12/13/20 Admit Problem/Dx: Upper GI bleed Source of Information: Patient, Old Records, Provider, RN, RN Notes Reviewed History Limitations: Reports: No Limitations - History of Present Illness Initial Comments - Free Text/Narative: This is an 85-year-old female who presents to ED on 12/13/2020 via [facility] after a syncopal episode. Her daughter is with who is an RN. Patient reportedly was complaining of nausea and went to utilize the bathroom. When she sat on the toilet she was noted to have diaphoresis and a decreased level of consciousness. While getting up she had a syncopal episode and was lowered to the ground by her daughter. She reportedly was unconscious for 4 to 5 minutes. Her daughter did raise her legs up and she regained consciousness slowly. Stool was noted to be very melanic and tarry. Patient reportedly had a prior GI bleed approximately 4 years ago. She has been on warfarin and Eliquis in the past. 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 She was restarted on low-dose Eliquis. Last dose of Eliquis was around 2100 yesterday evening. She does have chronic A. fib. She denies any nausea at this time. Denies any shortness of breath or chest pain. Of note she was taking Pepto-Bismol and ate some borscht soup (beets) recently as well. Per the daughter during syncopal episode blood pressure was checked and was as low as 63 systolic. In the ED twelve-lead EKG is obtained showing A. fib with a rate of 60 to 98 bpm. There are new Q waves noted in V1 and V2 and small Q waves in inferior leads. T wave inversion is noted in leads III and aVF. There is borderline LVH pattern. Diffuse repolarization abnormalities also noted. Temp is 35.6 Celsius. Pulse 69. Respirations 18. Blood pressure 148/51. Labs are obtained with a WBC of 6.55. Hemoglobin 12.2. Hematocrit 38.6. She is macrocytic. Platelet 202,000. Neutrophils are elevated 75.9%. Sodium 145. Potassium 4.3. Chloride 109. Carbon dioxide 30. Anion gap 10.3. BUN is 51. Creatinine 0.8. GFR greater than 60. Glucose is 109. Calcium 7.9. Total bilirubin 0.9. AST is 22, ALT 20, alkaline phosphatase 68. Protein is 5.9. Albumin 2.7. Type and screen is performed and she is B+. CRP, magnesium, and proBNP are all pending. Chest x-ray is obtained showing cardiomegaly and other chronic findings but nothing acute. She is given IV push Protonix and started on saline. Blood transfusion was discussed and patient is in agreement if warranted. She carries a history of A. fib, VTE, hypertension, OH, asthma, recurrent bronchitis, constipation, GERD, GI bleed, recurrent UTI, CVA, depression, obesity, anemia. She is not a smoker. She is subsequently admitted to the medical floor for management and monitoring of her GI bleed. Her PCP is Rhonda Qureshi NP and she also sees Dr. Herndon. She is DNR/DNI. - Related Data Allergies/Adverse Reactions: Allergies Allergy/AdvReac Type Severity Reaction Status Date / Time perfume Allergy Severe Airway Verified 12/13/20 15:01 Tightness theophylline anhydrous AdvReac Intermediate altered Verified 12/13/20 15:01 [From Pan-Dur] heart rate Home Medications: Home Meds Sertraline HCl 25 mg PO DAILY 12/05/14 [History] Albuterol Sulfate [Proair Respiclick] 2 inh INH Q4H PRN 10/29/15 [History] Furosemide [Lasix] 40 mg PO DAILY 07/23/17 [History] Apixaban [Eliquis] 2.5 mg PO BID 09/18/17 [History] atorvaSTATin [Lipitor] 10 mg PO BEDTIME 09/18/17 [History] Pantoprazole [ProTONIX] 40 mg PO DAILY 03/20/18 [History] bisacodyL [Dulcolax] 10 mg RC BID PRN #2 supp 03/23/18 [Rx] polyethylene glycoL 3350 [Miralax] 17 gm PO BID PRN #4 powd.pack 03/23/18 [Rx] Lutein/Minerals/Vit A,C & E [Ocuvite] 1 tab PO DAILY 04/05/18 [History] traMADol [Ultram] 50 mg PO Q6HR PRN 04/21/19 [History] Calcium Carbonate [Calcium] 1 tab PO DAILY 12/13/20 [History] Past Medical History HEENT History: Reports: Cataract, Epistaxis Other HEENT History: wears glasses, epistaxis everyday month Cardiovascular History: Reports: Afib, Blood Clots/VTE/DVT, Hypertension, OH Other Cardiovascular History: superficial blood clot Respiratory History: Reports: Asthma, Bronchitis, Recurrent, Other (See Below) Other Respiratory History: "sinus problems", Pneumonia once in the past Gastrointestinal History: Reports: GERD, GI Bleed Genitourinary History: Reports: UTI, Recurrent, Other (See Below) Other Genitourinary History: cyst on bladder, dribbles FAMILY PSYCHOLOGIST History: Reports: Other OB/BYN History: hx of cystocele with mesh repair Musculoskeletal History: Reports: Arthritis, Fracture, Other (See Below) Other Musculoskeletal History: chronic left & right shoulder pain. 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 Psychiatric History: Reports: Depression Endocrine/Metabolic History: Reports: Obesity/BMI 30+ Hematologic History: Reports: Anemia Other Hematologic History: "had bleeding ulcer 11/2014" Immunologic History: Reports: None Oncologic (Cancer) History: Reports: None Dermatologic History: Reports: None - Infectious Disease History Infectious Disease History: Reports: Measles - Past Surgical History Head Surgeries/Procedures: Reports: None HEENT Surgical History: Reports: Cataract Surgery, Other (See Below) Other HEENT Surgeries/Procedures: bilateral Cardiovascular Surgical History: Reports: None Other Cardiovascular Surgeries/Procedures: hx of vein stripping Respiratory Surgical History: Reports: None GI Surgical History: Reports: Cholecystectomy Female Surgical History: Reports: Hysterectomy, Other (See Below) Other Female Surgeries/Procedures: hernia mesh r/t prolapsed bladder Endocrine Surgical History: Reports: None Neurological Surgical History: Reports: None Musculoskeletal Surgical History: Reports: Knee Replacement Other Musculoskeletal Surgeries/Procedures:: bilateral Oncologic Surgical History: Reports: None Dermatological Surgical History: Reports: None Social & Family History - Family History Family Medical History: No Pertinent Family History HEENT: Reports: Hearing Impairment Cardiac: Reports: Heart Failure, Hypertension Respiratory: Reports: Asthma GI: Reports: Cholelithiasis Musculoskeletal: Reports: Osteoarthritis, Osteoporosis Neurological: Reports: Dementia Endocrine/Metabolic: Reports: Diabetes, Type I Dermatologic: Reports: Psoriasis Oncologic: Reports: Breast - Caffeine Use Caffeine Use: Reports: Coffee Other Caffeine Use: daily, decaf or caf. - Recreational Drug Use Recreational Drug Use: No - Living Situation & Occupation Living situation: Reports: Occupation: Retired H&P Review of Systems - Review of Systems: Review Of Systems: See Below General: Reports: Malaise, Weakness, Fatigue, Decreased Appetite. Denies: Fever, Chills HEENT: Reports: Post Nasal Drip (chronic), Sinus Congestion (chronic ). Denies: Headaches Pulmonary: Reports: Wheezing (upper airway ), Cough. Denies: Shortness of Breath, Pleuritic Chest Pain, Sputum, Hemoptysis Cardiovascular: Reports: Edema (chronic L>R), Blood Pressure Problem. Denies: Chest Pain, Palpitations, Dyspnea on Exertion, Orthopnea Gastrointestinal: Reports: Abdominal Pain (LUQ), Melena. Denies: Constipation (does report a history of constipation), Diarrhea, Hematemesis, Hematochezia, Nausea, Vomiting Genitourinary: Reports: Frequency, Urgency, Incontinence. Denies: Dysuria, Burning, Pain Musculoskeletal: Reports: Neck Pain (chronic ), Shoulder Pain (chornic ), Back Pain (chronic ), Joint Pain (bilateral hips ) Skin: Reports: No Symptoms. Denies: Cyanosis Psychiatric: Reports: No Symptoms. Denies: Confusion Neurological: Reports: Syncope (this AM ), Difficulty Walking, Gait Disturbance. Denies: Confusion, Dizziness, Numbness, Paresthesia, Pre-Existing Deficit, Seizure, Tingling, Tremors, Trouble Speaking, Change in Speech Hematologic/Lymphatic: Reports: Easy Bleeding, Easy Bruising. Denies: Anemia Immunologic: Reports: No Symptoms Exam - Exam Exam: See Below - Vital Signs Vital Signs: Last Vital Signs Temp 96.2 F L 12/13/20 09:44 Pulse 69 12/13/20 09:44 Resp 18 12/13/20 09:44 BP 148/51 H 12/13/20 09:44 Pulse Ox 95 12/13/20 09:44 Weight: 2.381 kg - Exam Quality Assessment: DVT Prophylaxis (SCDs). No: Supplemental Oxygen, Urinary Catheter General: Alert, Oriented, Cooperative. No: Mild Distress HEENT: Conjunctiva Clear, EACs Clear, Posterior Pharynx Clear. No: Mucosa Moist & [place] (mildly dry) Neck: Supple, Trachea Midline Lungs: Normal Respiratory Effort, Decreased Breath Sounds, Wheezing (mild upper airway ) Cardiovascular: Regular Rate, Irregular Rhythm (A-fib) GI/Abdominal Exam: Soft, No Distention, Tender (Pinpoint tenderness in LUQ), Abnormal Bowel Sounds (hyperactive ). No: Guarding, Rigid, Rebound (Female) Exam: Deferred Rectal (Female) Exam: Deferred, Heme + Stool (noted in ED ) Back Exam: Normal Inspection, Full Range of Motion Extremities: Normal Inspection, Normal Range of Motion, Non-Tender, Normal Capillary Refill, Pedal Edema (L>>R) Skin: Dry, Intact, Cool (somewhat cool and pale ) Neurological: Cranial Nerves Intact (Grossly ) Neuro Extensive - Mental Status: Alert, Oriented x3, Normal Mood/Affect - Patient Data Lab Results Last 24 hrs: Laboratory Results - last 24 hr 12/13/20 12/13/20 12/13/20 Range/Units 09:52 10:00 10:00 WBC 6.55 (3.98-10.04) K/mm3 RBC 3.84 L (3.98-5.22) M/mm3 Hgb 12.2 D (11.2-15.7) gm/dl Hct 38.6 (34.1-44.9) % MCV 100.5 H (79.4-94.8) fl MCH 31.8 (25.6-32.2) pg MCHC 31.6 L (32.2-35.5) g/dl RDW Std Deviation 53.9 H (36.4-46.3) fL Plt Count 202 (182-369) K/mm3 MPV 10.4 (9.4-12.3) fl Neut % (Auto) 75.9 H (34.0-71.1) % Lymph % (Auto) 12.5 L (19.3-51.7) % Hodgeman % (Auto) 10.4 (4.7-12.5) % Eos % (Auto) 0.5 L (0.7-5.8) Baso % (Auto) 0.5 (0.1-1.2) % Neut # (Auto) 4.98 (1.56-6.13) K/mm3 Lymph # (Auto) 0.82 L (1.18-3.74) K/mm3 Hodgeman # (Auto) 0.68 H (0.24-0.36) K/mm3 Eos # (Auto) 0.03 L (0.04-0.36) K/mm3 Baso # (Auto) 0.03 (0.01-0.08) K/mm3 Sodium 145 (136-145) mEq/L Potassium 4.3 (3.5-5.1) mEq/L Chloride 109 H (98-107) mEq/L Carbon Dioxide 30 (21-32) mEq/L Anion Gap 10.3 (5-15) BUN 51 H D (7-18) mg/dL Creatinine 0.8 (0.55-1.02) mg/dL Est Cr Clr Drug Dosing 1.93 mL/min Estimated GFR (MDRD) > 60 (>60) mL/min BUN/Creatinine Ratio 63.8 H (14-18) Glucose 109 H (70-99) mg/dL Calcium 7.9 L (8.5-10.1) mg/dL Total Bilirubin 0.9 (0.2-1.0) mg/dL AST 22 (15-37) U/L ALT 20 (14-59) U/L Alkaline Phosphatase 68 (46-116) U/L Total Protein 5.9 L (6.4-8.2) g/dl Albumin 2.7 L (3.4-5.0) g/dl Globulin 3.2 gm/dL Albumin/Globulin Ratio 0.8 L (1-2) SARS-CoV-2 RNA (KARLI) (NEGATIVE) Blood Type B POSITIVE Gel Antibody Screen Negative 12/13/20 Range/Units 10:27 WBC (3.98-10.04) K/mm3 RBC (3.98-5.22) M/mm3 Hgb (11.2-15.7) gm/dl Hct (34.1-44.9) % MCV (79.4-94.8) fl MCH (25.6-32.2) pg MCHC (32.2-35.5) g/dl RDW Std Deviation (36.4-46.3) fL Plt Count (182-369) K/mm3 MPV (9.4-12.3) fl Neut % (Auto) (34.0-71.1) % Lymph % (Auto) (19.3-51.7) % Hodgeman % (Auto) (4.7-12.5) % Eos % (Auto) (0.7-5.8) Baso % (Auto) (0.1-1.2) % Neut # (Auto) (1.56-6.13) K/mm3 Lymph # (Auto) (1.18-3.74) K/mm3 Hodgeman # (Auto) (0.24-0.36) K/mm3 Eos # (Auto) (0.04-0.36) K/mm3 Baso # (Auto) (0.01-0.08) K/mm3 Sodium (136-145) mEq/L Potassium (3.5-5.1) mEq/L Chloride (98-107) mEq/L Carbon Dioxide (21-32) mEq/L Anion Gap (5-15) BUN (7-18) mg/dL Creatinine (0.55-1.02) mg/dL Est Cr Clr Drug Dosing mL/min Estimated GFR (MDRD) (>60) mL/min BUN/Creatinine Ratio (14-18) Glucose (70-99) mg/dL Calcium (8.5-10.1) mg/dL Total Bilirubin (0.2-1.0) mg/dL AST (15-37) U/L ALT (14-59) U/L Alkaline Phosphatase (46-116) U/L Total Protein (6.4-8.2) g/dl Albumin (3.4-5.0) g/dl Globulin gm/dL Albumin/Globulin Ratio (1-2) SARS-CoV-2 RNA (KARLI) Negative (NEGATIVE) Blood Type Gel Antibody Screen Result Diagrams: 12/13/20 09:52 12/13/20 10:00 Sepsis Event Note - Focused Exam Vital Signs: Vital Signs Temp Pulse Resp BP Pulse Ox 12/13/20 09:44 96.2 F L 69 18 148/51 H 95 - Problem List (1) Chronic anticoagulation SNOMED Code(s): 119192336 ICD Code: Z79.01 - MCC (CURRENT) USE OF ANTICOAGULANTS Status: Chronic Priority: High Current Visit: Yes (2) History of GI bleed SNOMED Code(s): 596979328 ICD Code: Z87.19 - PERSONAL HISTORY OF OTHER DISEASES OF THE DIGESTIVE SYSTEM Status: Chronic Priority: High Current Visit: Yes (3) History of venous thromboembolism SNOMED Code(s): 673930806 ICD Code: Z86.718 - PERSONAL HISTORY OF OTHER VENOUS THROMBOSIS AND EMBOLISM Status: Chronic Priority: High Current Visit: Yes (4) History of CVA (cerebrovascular accident) SNOMED Code(s): 166734077 ICD Code: Z86.73 - PRSNL HX OF TIA (TIA), AND CEREB INFRC W/O RESID DEFICITS Status: Chronic Priority: Medium Current Visit: Yes (5) History of OH (myocardial infarction) SNOMED Code(s): 981871224 ICD Code: I25.2 - OLD MYOCARDIAL INFARCTION Status: Chronic Priority: Medium Current Visit: Yes (6) HTN (hypertension) SNOMED Code(s): 26048315 ICD Code: I10 - ESSENTIAL (PRIMARY) HYPERTENSION Status: Chronic Priority: Medium Current Visit: Yes Qualifiers: Hypertension type: unspecified Qualified Code(s): I10 - Essential (primary) hypertension (7) Asthma SNOMED Code(s): 562093806 ICD Code: J45.909 - UNSPECIFIED ASTHMA, UNCOMPLICATED Status: Chronic Priority: Medium Current Visit: Yes Qualifiers: Asthma severity: unspecified severity Asthma persistence: unspecified Asthma complication type: uncomplicated Qualified Code(s): J45.909 - Unspecified asthma, uncomplicated (8) GERD (gastroesophageal reflux disease) SNOMED Code(s): 563007471 ICD Code: K21.9 - GASTRO-ESOPHAGEAL REFLUX DISEASE WITHOUT ESOPHAGITIS Status: Chronic Priority: Medium Current Visit: No Qualifiers: Esophagitis presence: esophagitis presence not specified Qualified Code(s): K21.9 - Gastro-esophageal reflux disease without esophagitis (9) Recurrent UTI SNOMED Code(s): 239806276 ICD Code: N39.0 - URINARY TRACT INFECTION, SITE NOT SPECIFIED Status: Chronic Priority: Low Current Visit: No (10) Arthritis SNOMED Code(s): 1442385 ICD Code: M19.90 - UNSPECIFIED OSTEOARTHRITIS, UNSPECIFIED SITE Status: Chronic Priority: Low Current Visit: No (11) Depression SNOMED Code(s): 08091608 ICD Code: F32.9 - MAJOR DEPRESSIVE DISORDER, SINGLE EPISODE, UNSPECIFIED S tatus: Chronic Priority: Low Current Visit: No Qualifiers: Depression Type: other depression Qualified Code(s): F32.89 - Other specified depressive episodes (12) Obesity SNOMED Code(s): 570115067, 595739759 ICD Code: E66.9 - OBESITY, UNSPECIFIED Status: Chronic Priority: Low Current Visit: No Qualifiers: Obesity type: unspecified obesity type Obesity classification: unspecified obesity classification Serious obesity comorbidity presence: without serious comorbidity Qualified Code(s): E66.9 - Obesity, unspecified (13) History of anemia SNOMED Code(s): 066493210 ICD Code: Z86.2 - PRSNL HISTORY OF DIS OF THE BLD/BLD-FORM ORG/IMMUN MECHNSM Status: Chronic Priority: Medium Current Visit: Yes (14) History of bleeding peptic ulcer SNOMED Code(s): 703536489, 032885660 ICD Code: Z87.11 - PERSONAL HISTORY OF PEPTIC ULCER DISEASE Status: Chronic Priority: High Current Visit: Yes (15) Chronic atrial fibrillation SNOMED Code(s): 320122897 ICD Code: I48.2 - CHRONIC ATRIAL FIBRILLATION * DO NOT USE * Status: Chr onic Priority: High Current Visit: Yes (16) Gastrointestinal bleeding SNOMED Code(s): 39149932 ICD Code: K92.2 - GASTROINTESTINAL HEMORRHAGE, UNSPECIFIED Status: Acute Priority: High Current Visit: Yes Qualifiers: GI bleed type/associated pathology: melena Qualified Code(s): K92.1 - Melena (17) Chronic constipation SNOMED Code(s): 538328824 ICD Code: K59.09 - OTHER CONSTIPATION Status: Chronic Priority: Medium Current Visit: No Problem List Initiated/Reviewed/Updated: Yes Orders Last 24hrs: Active Orders 24 hr Category Date Time Status C-REACTIVE PROTEIN [CHEM] Stat Lab 12/13/20 10:00 Received LIPASE [CHEM] Stat Lab 12/13/20 10:00 Received MAGNESIUM [CHEM] Stat Lab 12/13/20 10:00 Received PRO B-TYPE NATRIUR PEPT,BNPPRO [CHEM] Stat Lab 12/13/20 10:00 Received URINALYSIS W/MICROSCOPIC [UA W/MICROSCOPIC] [URIN] Stat Lab 12/13/20 10:16 Ordered Pantoprazole [ProTONIX IV] 80 mg Med 12/13/20 10:15 Active Sodium Chloride 0.9% [Normal Saline] 100 ml IV Q10H Sodium Chloride 0.9% [Normal Saline] 1,000 ml Med 12/13/20 10:15 Active IV ASDIRECTED EKG 12 Lead [EK] Stat Ther 12/13/20 09:52 Ordered Medication Orders Sodium Chloride (Normal Saline) 1,000 mls @ 500 mls/hr IV ASDIRECTED [facility] Last Admin: 12/13/20 10:41 Dose: 500 mls/hr Documented by: [id number] Pantoprazole Sodium 80 mg/ (Sodium Chloride) 100 mls @ 10 mls/hr IV Q10H [facility] Last Admin: 12/13/20 10:55 Dose: 10 mls/hr Documented by: [id number] Assessment/Plan Comment:: Assessment - day of admission 12/13/2020 * 85-year-old female who presents to ED via [facility] after a syncopal episode * History of A. fib, VTE, hypertension, OH, asthma, recurrent bronchitis, con stipation, GERD, GI bleed, recurrent UTI, CVA, depression, obesity, anemia * Reportedly was complaining of nausea and went to utilize the bathroom * Sat on the toilet she was noted to have diaphoresis and a decreased level of consciousness * While getting up she had a syncopal episode and was lowered to the ground by her daughter * Unconscious for 4 to 5 minutes. Her daughter did raise her legs up and she regained consciousness slowly. * Stool was noted to be very melanic and tarry. * Patient reportedly had a prior GI bleed approximately 4 years ago * Has been on warfarin and Eliquis in the past. 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 * Restarted on low-dose Eliquis. Last dose of Eliquis was around 2100 yesterday evening. * Denies any nausea at this time. Denies any shortness of breath or chest pain. * Of note she was taking Pepto-Bismol and borscht soup (beets). * Per the daughter during syncopal episode blood pressure was checked and was as low as 63 systolic. * In the ED twelve-lead EKG is obtained showing A. fib with a rate of 60 to 98 bpm. There are new Q waves noted in V1 and V2 and small Q waves in inferior leads. T wave inversion is noted in leads III and aVF. There is borderline LVH pattern. Diffuse repolarization abnormalities also noted. * Labs are obtained: * WBC of 6.55. * Hemoglobin 12.2. * Hematocrit 38.6. * She is macrocytic. * Platelet 202,000. * Neutrophils are elevated 75.9%. * Sodium 145. * Potassium 4.3. * Chloride 109. * Carbon dioxide 30. * Anion gap 10.3. * BUN is 51. Creatinine 0.8. GFR greater than 60. * Glucose is 109. * Calcium 7.9. * Total bilirubin 0.9. * AST is 22, ALT 20, alkaline phosphatase 68. * Protein is 5.9. * Albumin 2.7. * Type and screen is performed and she is B+. * CRP, magnesium, and proBNP are all pending. * Chest x-ray is obtained showing cardiomegaly and other chronic findings but nothing acute. * She is given IV push Protonix and started on saline. * Blood transfusion was discussed and patient is in agreement if warranted. PLAN Gastrointestinal bleeding Chronic anticoagulation History of anemia History of bleeding peptic ulcer Chronic atrial fibrillation History of GI bleed History of venous thromboembolism History of CVA (cerebrovascular accident) History of OH (myocardial infarction) GERD (gastroesophageal reflux disease) Chronic constipation * NPO for now * IV fluids as ordered * Re-check H/H every 6 hrs * Monitor stools * Check H. Pylori * Daily labs * Consult general surgery - Dr. Mckeon * Hold home eliquis * SCDs for VTE prophylaxis as pharmacological intervention is contraindicated due to bleeding * Continue Protonix drip for now then switch to 40mg BID Protonix * Hold home stool softeners/laxatives HTN (hypertension) * No acute concerns * Monitor vital signs * Home medications as ordered Asthma * No acute concerns * Continue home respiratory meds * PRN duonebs Recurrent UTI * Patient reports incontinence, urgency and increased frequency * Check UA Arthritis * No acute concerns * Pain medications as ordered * PT/OT Depression * Continue home sertraline * No acute concerns Obesity * No acute concerns Code status: DNR/DNI PCP: Rhonda Qureshi NP/Dr. Herndon DVT prophylaxis: SCDs (pharmacological intervention contraindicated due to bleeding) Social: Patient resides in her own home but has frequent visits from multiple family members. Disposition: Patient admitted to the medical floor on telemetry for management and further monitoring of her GI bleed. Anticipate length of stay 2 to 3 days. - Mortality Measure Prognosis:: Good <Davian Kennedy - Last Filed: 12/13/20 17:11> H&P History of Present Illness - General Admit Problem/Dx: Admission Diagnosis/Problem Admission Diagnosis/Problem GI bleed not requiring more than 4 units of blood in 24 hours, ICU, or surgery Exam - Vital Signs Vital Signs: Last Vital Signs Temp 36.5 C 12/13/20 14:44 Pulse 78 12/13/20 14:44 Resp 24 H 12/13/20 16:00 BP 147/67 H 12/13/20 14:44 Pulse Ox 98 12/13/20 14:44 - Patient Data Lab Results Last 24 hrs: Laboratory Results - last 24 hr 12/13/20 12/13/20 12/13/20 Range/Units 09:52 10:00 10:00 WBC 6.55 (3.98-10.04) K/mm3 RBC 3.84 L (3.98-5.22) M/mm3 Hgb 12.2 D (11.2-15.7) gm/dl Hct 38.6 (34.1-44.9) % MCV 100.5 H (79.4-94.8) fl MCH 31.8 (25.6-32.2) pg MCHC 31.6 L (32.2-35.5) g/dl RDW Std Deviation 53.9 H (36.4-46.3) fL Plt Count 202 (182-369) K/mm3 MPV 10.4 (9.4-12.3) fl Neut % (Auto) 75.9 H (34.0-71.1) % Lymph % (Auto) 12.5 L (19.3-51.7) % Hodgeman % (Auto) 10.4 (4.7-12.5) % Eos % (Auto) 0.5 L (0.7-5.8) Baso % (Auto) 0.5 (0.1-1.2) % Neut # (Auto) 4.98 (1.56-6.13) K/mm3 Lymph # (Auto) 0.82 L (1.18-3.74) K/mm3 Hodgeman # (Auto) 0.68 H (0.24-0.36) K/mm3 Eos # (Auto) 0.03 L (0.04-0.36) K/mm3 Baso # (Auto) 0.03 (0.01-0.08) K/mm3 Sodium 145 (136-145) mEq/L Potassium 4.3 (3.5-5.1) mEq/L Chloride 109 H (98-107) mEq/L Carbon Dioxide 30 (21-32) mEq/L Anion Gap 10.3 (5-15) BUN 51 H D (7-18) mg/dL Creatinine 0.8 (0.55-1.02) mg/dL Est Cr Clr Drug Dosing 1.93 mL/min Estimated GFR (MDRD) > 60 (>60) mL/min BUN/Creatinine Ratio 63.8 H (14-18) Glucose 109 H (70-99) mg/dL Calcium 7.9 L (8.5-10.1) mg/dL Magnesium 2.0 (1.8-2.4) mg/dL Total Bilirubin 0.9 (0.2-1.0) mg/dL AST 22 (15-37) U/L ALT 20 (14-59) U/L Alkaline Phosphatase 68 (46-116) U/L C-Reactive Protein <0.2 (<1.0) mg/dL Total Protein 5.9 L (6.4-8.2) g/dl Albumin 2.7 L (3.4-5.0) g/dl Globulin 3.2 gm/dL Albumin/Globulin Ratio 0.8 L (1-2) Lipase 125 (73-393) U/L Urine Color (Yellow) Urine Appearance (Clear) Urine pH (5.0-8.0) Ur Specific Wesley (1.005-1.030) Urine Protein (Negative) Urine Glucose (UA) (Negative) Urine Ketones (Negative) Urine Occult Blood (Negative) Urine Nitrite (Negative) Urine Bilirubin (Negative) Urine Urobilinogen (0.2-1.0) Ur Leukocyte Esterase (Negative) Urine RBC (0-5) /hpf Urine WBC (0-5) /hpf Ur Squamous Epith Cells (0-5) /hpf Urine Bacteria (FEW) /hpf Urine Mucus (FEW) /hpf SARS-CoV-2 RNA (KARLI) (NEGATIVE) Blood Type Gel Antibody Screen 12/13/20 12/13/20 12/13/20 Range/Units 10:00 10:27 13:11 WBC (3.98-10.04) K/mm3 RBC (3.98-5.22) M/mm3 Hgb (11.2-15.7) gm/dl Hct (34.1-44.9) % MCV (79.4-94.8) fl MCH (25.6-32.2) pg MCHC (32.2-35.5) g/dl RDW Std Deviation (36.4-46.3) fL Plt Count (182-369) K/mm3 MPV (9.4-12.3) fl Neut % (Auto) (34.0-71.1) % Lymph % (Auto) (19.3-51.7) % Hodgeman % (Auto) (4.7-12.5) % Eos % (Auto) (0.7-5.8) Baso % (Auto) (0.1-1.2) % Neut # (Auto) (1.56-6.13) K/mm3 Lymph # (Auto) (1.18-3.74) K/mm3 Hodgeman # (Auto) (0.24-0.36) K/mm3 Eos # (Auto) (0.04-0.36) K/mm3 Baso # (Auto) (0.01-0.08) K/mm3 Sodium (136-145) mEq/L Potassium (3.5-5.1) mEq/L Chloride (98-107) mEq/L Carbon Dioxide (21-32) mEq/L Anion Gap (5-15) BUN (7-18) mg/dL Creatinine (0.55-1.02) mg/dL Est Cr Clr Drug Dosing mL/min Estimated GFR (MDRD) (>60) mL/min BUN/Creatinine Ratio (14-18) Glucose (70-99) mg/dL Calcium (8.5-10.1) mg/dL Magnesium (1.8-2.4) mg/dL Total Bilirubin (0.2-1.0) mg/dL AST (15-37) U/L ALT (14-59) U/L Alkaline Phosphatase (46-116) U/L C-Reactive Protein (<1.0) mg/dL Total Protein (6.4-8.2) g/dl Albumin (3.4-5.0) g/dl Globulin gm/dL Albumin/Globulin Ratio (1-2) Lipase (73-393) U/L Urine Color Yellow (Yellow) Urine Appearance Clear (Clear) Urine pH 6.0 (5.0-8.0) Ur Specific [place] 1.020 (1.005-1.030) Urine Protein Negative (Negative) Urine Glucose (UA) Negative (Negative) Urine Ketones 1+ H (Negative) Urine Occult Blood 1+ H (Negative) Urine Nitrite Negative (Negative) Urine Bilirubin Negative (Negative) Urine Urobilinogen 0.2 (0.2-1.0) Ur Leukocyte Esterase Negative (Negative) Urine RBC 0-5 (0-5) /hpf Urine WBC 0-5 (0-5) /hpf Ur Squamous Epith Cells 0-5 (0-5) /hpf Urine Bacteria Moderate H (FEW) /hpf Urine Mucus Few (FEW) /hpf SARS-CoV-2 RNA (KARLI) Negative (NEGATIVE) Blood Type B POSITIVE Gel Antibody Screen Negative 12/13/20 Range/Units 15:34 WBC (3.98-10.04) K/mm3 RBC (3.98-5.22) M/mm3 Hgb 11.2 (11.2-15.7) gm/dl Hct 35.7 (34.1-44.9) % MCV (79.4-94.8) fl MCH (25.6-32.2) pg MCHC (32.2-35.5) g/dl RDW Std Deviation (36.4-46.3) fL Plt Count (182-369) K/mm3 MPV (9.4-12.3) fl Neut % (Auto) (34.0-71.1) % Lymph % (Auto) (19.3-51.7) % [place] % (Auto) (4.7-12.5) % Eos % (Auto) (0.7-5.8) Baso % (Auto) (0.1-1.2) % Neut # (Auto) (1.56-6.13) K/mm3 Lymph # (Auto) (1.18-3.74) K/mm3 [place] # (Auto) (0.24-0.36) K/mm3 Eos # (Auto) (0.04-0.36) K/mm3 Baso # (Auto) (0.01-0.08) K/mm3 Sodium (136-145) mEq/L Potassium (3.5-5.1) mEq/L Chloride (98-107) mEq/L Carbon Dioxide (21-32) mEq/L Anion Gap (5-15) BUN (7-18) mg/dL Creatinine (0.55-1.02) mg/dL Est Cr Clr Drug Dosing mL/min Estimated GFR (MDRD) (>60) mL/min BUN/Creatinine Ratio (14-18) Glucose (70-99) mg/dL Calcium (8.5-10.1) mg/dL Magnesium (1.8-2.4) mg/dL Total Bilirubin (0.2-1.0) mg/dL AST (15-37) U/L ALT (14-59) U/L Alkaline Phosphatase (46-116) U/L C-Reactive Protein (<1.0) mg/dL Total Protein (6.4-8.2) g/dl Albumin (3.4-5.0) g/dl Globulin gm/dL Albumin/Globulin Ratio (1-2) Lipase (73-393) U/L Urine Color (Yellow) Urine Appearance (Clear) Urine pH (5.0-8.0) Ur Specific [place] (1.005-1.030) Urine Protein (Negative) Urine Glucose (UA) (Negative) Urine Ketones (Negative) Urine Occult Blood (Negative) Urine Nitrite (Negative) Urine Bilirubin (Negative) Urine Urobilinogen (0.2-1.0) Ur Leukocyte Esterase (Negative) Urine RBC (0-5) /hpf Urine WBC (0-5) /hpf Ur Squamous Epith Cells (0-5) /hpf Urine Bacteria (FEW) /hpf Urine Mucus (FEW) /hpf SARS-CoV-2 RNA (KARLI) (NEGATIVE) Blood Type Gel Antibody Screen Result Diagrams: 12/13/20 15:34 12/13/20 10:00 Sepsis Event Note - Focused Exam Vital Signs: Vital Signs Temp Temp Pulse Pulse Resp BP BP 12/13/20 16:00 24 H 12/13/20 15:49 19 12/13/20 14:44 36.5 C 78 20 147/67 H 12/13/20 09:44 35.7 C L 69 18 148/51 H Pulse Ox 12/13/20 16:00 12/13/20 15:49 12/13/20 14:44 98 12/13/20 09:44 95 Orders Last 24hrs: Active Orders 24 hr Category Date Time Status Admission Status [Patient Status] [ADT] Routine ADT 12/13/20 13:06 Active Antiembolic Devices [RC] PER UNIT ROUTINE Care 12/13/20 13:10 Active Cardiac Monitoring [RC] . DIRECTED Care 12/13/20 13:06 Active Height and Weight [RC] 06 Care 12/13/20 13:08 Active Intake and Output [RC] 04,16 Care 12/13/20 13:08 Active Notify Provider Consults [RC] ASDIRECTED Care 12/13/20 13:11 Active Oxygen Therapy [RC] ASDIRECTED Care 12/13/20 13:08 Active Pulse Oximetry [RC] PRN Care 12/13/20 13:08 Active RT Aerosol Therapy [RC] ASDIRECTED Care 12/13/20 13:11 Active Up With Assistance [RC] ASDIRECTED Care 12/13/20 13:08 Active Vital Signs [RC] 03,09,15,21 Care 12/13/20 13:08 Active Consult to Case Management/Manager Salt [CONS] Cons 12/13/20 13:58 Active Routine Consult to Physician [CONS] Routine Cons 12/13/20 13:08 Active Consult to Spiritual Care [CONS] Routine Cons 12/13/20 13:08 Active OT Evaluation and Treatment [CONS] Routine Cons 12/13/20 13:11 Active PT Evaluation and Treatment [CONS] Routine Cons 12/13/20 13:11 Active Nothing per Oral Now Diet [DIET] Diet 12/13/20 Lunch Active CBC WITH AUTO DIFF [HEME] AM Lab 12/14/20 05:11 Ordered CBC WITH AUTO DIFF [HEME] AM Lab 12/15/20 05:11 Ordered CBC WITH AUTO DIFF [HEME] AM Lab 12/16/20 05:11 Ordered CBC WITH AUTO DIFF [HEME] AM Lab 12/17/20 05:11 Ordered COMPREHENSIVE METABOLIC PN,CMP [CHEM] AM Lab 12/14/20 05:11 Ordered COMPREHENSIVE METABOLIC PN,CMP [CHEM] AM Lab 12/15/20 05:11 Ordered COMPREHENSIVE METABOLIC PN,CMP [CHEM] AM Lab 12/16/20 05:11 Ordered COMPREHENSIVE METABOLIC PN,CMP [CHEM] AM Lab 12/17/20 05:11 Ordered H PYLORI STOOL ANTIGEN [MREF] Stat Lab 12/13/20 13:14 Ordered HEMOGLOBIN/HEMATOCRIT,HH [HEME] Q6H Lab 12/13/20 20:00 Ordered HEMOGLOBIN/HEMATOCRIT,HH [HEME] Q6H Lab 12/14/20 02:00 Ordered PRO B-TYPE NATRIUR PEPT,BNPPRO [CHEM] Stat Lab 12/13/20 10:00 Received Acetaminophen [TylenoL] Med 12/13/20 13:08 Active 650 mg PO Q4H PRN Albuterol [Proventil HFA] Med 12/13/20 14:07 Active 0 gm INH Q4H PRN Albuterol/Ipratropium [DuoNeb 3.0-0.5 MG/3 ML] Med 12/13/20 13:08 Active 3 ml NEB QIDRT PRN Furosemide [Lasix] Med 12/14/20 09:00 Active 40 mg PO DAILY Ondansetron [Zofran] Med 12/13/20 13:08 Active 4 mg IV Q6H PRN Pantoprazole [ProTONIX IV] Med 12/14/20 09:00 Active 40 mg IV Q12HR Pantoprazole [ProTONIX IV] 80 mg Med 12/13/20 10:15 Active Sodium Chloride 0.9% [Normal Saline] 100 ml IV Q10H Sertraline [Zoloft] Med 12/14/20 09:00 Active 25 mg PO DAILY Sodium Chloride 0.9% [Normal Saline] 1,000 ml Med 12/13/20 10:15 Active IV ASDIRECTED traMADol [Ultram] Med 12/13/20 14:01 Active 50 mg PO Q6H PRN Sequential Compression Device [OM.PC] Per Unit Routine Oth 12/13/20 13:09 Or dered VTE Pharmacological Contraindications [AST] Per Unit Oth 12/13/20 13:08 Ordered Routine Code Status [Resuscitation Status] Stat Resus Stat 12/13/20 13:08 Ordered EKG 12 Lead [EK] Stat Ther 12/13/20 09:52 Ordered Medication Orders Acetaminophen (Acetaminophen 325 Mg Tab) 650 mg PO Q4H PRN PRN Reason: Pain (Mild 1-3)/fever Albuterol (Albuterol 6.7 Gm Inhaler) 0 gm INH Q4H PRN PRN Reason: Wheezing Albuterol/Ipratropium (Albuterol/Ipratropium 3.0-0.5 Mg/3 Ml Neb Soln) 3 ml NEB QIDRT PRN PRN Reason: Shortness Of Breath/wheezing Furosemide (Furosemide 40 Mg Tab) 40 mg PO DAILY ETHAN Sodium Chloride (Normal Saline) 1,000 mls @ 500 mls/hr IV ASDIRECTED ETHAN Last Admin: 12/13/20 10:41 Dose: 500 mls/hr Documented by: [id number] Pantoprazole Sodium 80 mg/ (Sodium Chloride) 100 mls @ 10 mls/hr IV Q10H ETHAN Stop: 12/13/20 21:00 Last Admin: 12/13/20 10:55 Dose: 10 mls/hr Documented by: [id number] Ondansetron HCl (Ondansetron 4 Mg/2 Ml Sdv) 4 mg IV Q6H PRN PRN Reason: Nausea/Vomiting Pantoprazole Sodium (Pantoprazole 40 Mg Vial) 40 mg IV Q12HR ETHAN Sertraline HCl (Sertraline 25 Mg Tab) 25 mg PO DAILY ETHAN Tramadol HCl (Tramadol 50 Mg Tab) 50 mg PO Q6H PRN PRN Reason: Pain Assessment/Plan Comment:: I have seen and examined the patient independently of Aniceto Covarrubias PA-C and have discussed the case with him. I have reviewed and agree with the orders and plan of care outlined by him. Please see orders.
[2020-12-13] MEDS ORDERED: Albuterol/Ipratropium 3.0-0.5 MG/3 ML Neb Soln NEB PRN (13:08)
[2020-12-13] MEDS ORDERED: Acetaminophen 325 MG Tab PO PRN (13:08)
[2020-12-13] MEDS ORDERED: Ondansetron 4 MG/2 ML SDV IV PRN (13:08)
[2020-12-13] MEDS ORDERED: traMADol 50 MG Tab PO PRN (14:01)
[2020-12-13] MEDS ORDERED: Albuterol 6.7 GM Inhaler INH PRN (14:07)
--- NOTE | 2020-12-13 20:00 | PCM.CONS ---
H&P History of Present Illness - General Date of Service: 12/13/20 Admit Problem/Dx: Admission Diagnosis/Problem Admission Diagnosis/Problem GI bleed not requiring more than 4 units of blood in 24 hours, ICU, or surgery Source of Information: Patient History Limitations: Reports: No Limitations - History of Present Illness Initial Comments - Free Text/Narative: Patient is on Eliquis for Afib. She started passing bloody stools today. At some point she became lightheaded and lost consciousness. Her daughter who is an RN helped her and she regained consciousness. Brought to the ER. Hgb was 12 but recheck it was 11. I was asked to see the patient. She had an episode of bleeding in the past, about 4 yrs ago. Eliquis was stopped but the patient sustained a CVA and ELiquis was restated. No cardiopulmonary issues. Has mild lower abdominal pain. Onset of Symptoms: Reports: Sudden Duration of Symptoms: Reports: Day(s): (1) Location: Reports: Abdomen Severity: Mild Improves with: Reports: None Worsens with: Reports: None - Related Data Allergies/Adverse Reactions: Allergies Allergy/AdvReac Type Severity Reaction Status Date / Time perfume Allergy Severe Airway Verified 12/13/20 15:01 Tightness theophylline anhydrous AdvReac Intermediate altered Verified 12/13/20 15:01 [From Pan-Dur] heart rate Home Medications: Home Meds Sertraline HCl 25 mg PO DAILY 12/05/14 [History] Albuterol Sulfate [Proair Respiclick] 2 inh INH Q4H PRN 10/29/15 [History] Furosemide [Lasix] 40 mg PO DAILY 07/23/17 [History] Apixaban [Eliquis] 2.5 mg PO BID 09/18/17 [History] atorvaSTATin [Lipitor] 10 mg PO BEDTIME 09/18/17 [History] Pantoprazole [ProTONIX] 40 mg PO DAILY 03/20/18 [History] bisacodyL [Dulcolax] 10 mg RC BID PRN #2 supp 03/23/18 [Rx] polyethylene glycoL 3350 [Miralax] 17 gm PO BID PRN #4 powd.pack 03/23/18 [Rx] Lutein/Minerals/Vit A,C & E [Ocuvite] 1 tab PO DAILY 04/05/18 [History] traMADol [Ultram] 50 mg PO Q6HR PRN 04/21/19 [History] Calcium Carbonate [Calcium] 1 tab PO DAILY 12/13/20 [History] Past Medical History HEENT History: Reports: Cataract, Epistaxis, Hard of Hearing, Other (See Below) Other HEENT History: wears glasses; macular puckering Cardiovascular History: Reports: Afib, Blood Clots/VTE/DVT, High Cholesterol, Hypertension, VA, Other (See Below) Other Cardiovascular History: superficial blood clot Respiratory History: Reports: Asthma, Bronchitis, Recurrent, Other (See Below) Other Respiratory History: "sinus problems", Pneumonia once in the past Gastrointestinal History: Reports: GERD, GI Bleed Genitourinary History: Reports: UTI, Recurrent, Other (See Below) Other Genitourinary History: cyst on bladder, dribbles [employer]PER[employer] History: Reports: Other OB/BYN History: hx of cystocele with mesh repair Musculoskeletal History: Reports: Arthritis, Fracture, Other (See Below) Other Musculoskeletal History: chronic left & right shoulder pain. 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 Psychiatric History: Reports: Depression Endocrine/Metabolic History: Reports: Obesity/BMI 30+ Hematologic History: Reports: Anemia Other Hematologic History: "had bleeding ulcer 11/2014" Immunologic History: Reports: None Oncologic (Cancer) History: Reports: None Dermatologic History: Reports: None - Infectious Disease History Infectious Disease History: Reports: Measles - Past Surgical History Head Surgeries/Procedures: Reports: None HEENT Surgical History: Reports: Cataract Surgery, Other (See Below) Other HEENT Surgeries/Procedures: bilateral cataract surgery Cardiovascular Surgical History: Reports: Other (See Below) Other Cardiovascular Surgeries/Procedures: hx of vein stripping Respiratory Surgical History: Reports: None GI Surgical History: Reports: Cholecystectomy Female Surgical History: Reports: Hysterectomy, Other (See Below) Other Female Surgeries/Procedures: hernia mesh r/t prolapsed bladder Endocrine Surgical History: Reports: None Neurological Surgical History: Reports: None Musculoskeletal Surgical History: Reports: Knee Replacement Other Musculoskeletal Surgeries/Procedures:: bilateral Oncologic Surgical History: Reports: None Dermatological Surgical History: Reports: None Social & Family History - Family History Family Medical History: No Pertinent Family History HEENT: Reports: Hearing Impairment Cardiac: Reports: Heart Failure, Hypertension Respiratory: Reports: Asthma GI: Reports: Cholelithiasis Musculoskeletal: Reports: Osteoarthritis, Osteoporosis Neurological: Reports: Dementia Endocrine/Metabolic: Reports: Diabetes, Type I Dermatologic: Reports: Psoriasis Oncologic: Reports: Breast - Tobacco Use Tobacco Use Status *Q: Never Tobacco User - Caffeine Use Caffeine Use: Reports: Coffee Other Caffeine Use: daily, decaf or caf. Caffeine Use Comment: occasional coffee when visiting with friends - Recreational Drug Use Recreational Drug Use: No - Living Situation & Occupation Living situation: Reports: Occupation: Retired H&P Review of Systems - Review of Systems: Review Of Systems: See Below General: Reports: No Symptoms HEENT: Reports: No Symptoms Pulmonary: Reports: No Symptoms Cardiovascular: Reports: No Symptoms Gastrointestinal: Reports: Melena Genitourinary: Reports: No Symptoms Musculoskeletal: Reports: No Symptoms Skin: Reports: No Symptoms Psychiatric: Reports: No Symptoms Exam - Exam Exam: See Below - Vital Signs Vital Signs: Last Vital Signs Temp 97.7 F 12/13/20 14:44 Pulse 78 12/13/20 14:44 Resp 24 H 12/13/20 16:00 BP 147/67 H 12/13/20 14:44 Pulse Ox 98 12/13/20 14:44 Weight: 81.284 kg - Exam General: Alert, Oriented Lungs: Clear to Auscultation, Normal Respiratory Effort Cardiovascular: Normal S1, Normal S2, Irregular Rhythm GI/Abdominal Exam: Soft, Non-Tender, No Organomegaly, No Distention - Patient Data Lab Results Last 24 hrs: Laboratory Results - last 24 hr 12/13/20 12/13/20 12/13/20 Range/Units 09:52 10:00 10:00 WBC 6.55 (3.98-10.04) K/mm3 RBC 3.84 L (3.98-5.22) M/mm3 Hgb 12.2 D (11.2-15.7) gm/dl Hct 38.6 (34.1-44.9) % MCV 100.5 H (79.4-94.8) fl MCH 31.8 (25.6-32.2) pg MCHC 31.6 L (32.2-35.5) g/dl RDW Std Deviation 53.9 H (36.4-46.3) fL Plt Count 202 (182-369) K/mm3 MPV 10.4 (9.4-12.3) fl Neut % (Auto) 75.9 H (34.0-71.1) % Lymph % (Auto) 12.5 L (19.3-51.7) % [place] % (Auto) 10.4 (4.7-12.5) % Eos % (Auto) 0.5 L (0.7-5.8) Baso % (Auto) 0.5 (0.1-1.2) % Neut # (Auto) 4.98 (1.56-6.13) K/mm3 Lymph # (Auto) 0.82 L (1.18-3.74) K/mm3 [place] # (Auto) 0.68 H (0.24-0.36) K/mm3 Eos # (Auto) 0.03 L (0.04-0.36) K/mm3 Baso # (Auto) 0.03 (0.01-0.08) K/mm3 Sodium 145 (136-145) mEq/L Potassium 4.3 (3.5-5.1) mEq/L Chloride 109 H (98-107) mEq/L Carbon Dioxide 30 (21-32) mEq/L Anion Gap 10.3 (5-15) BUN 51 H D (7-18) mg/dL Creatinine 0.8 (0.55-1.02) mg/dL Est Cr Clr Drug Dosing 1.93 mL/min Estimated GFR (MDRD) > 60 (>60) mL/min BUN/Creatinine Ratio 63.8 H (14-18) Glucose 109 H (70-99) mg/dL Calcium 7.9 L (8.5-10.1) mg/dL Magnesium 2.0 (1.8-2.4) mg/dL Total Bilirubin 0.9 (0.2-1.0) mg/dL AST 22 (15-37) U/L ALT 20 (14-59) U/L Alkaline Phosphatase 68 (46-116) U/L C-Reactive Protein <0.2 (<1.0) mg/dL Total Protein 5.9 L (6.4-8.2) g/dl Albumin 2.7 L (3.4-5.0) g/dl Globulin 3.2 gm/dL Albumin/Globulin Ratio 0.8 L (1-2) Lipase 125 (73-393) U/L Urine Color (Yellow) Urine Appearance (Clear) Urine pH (5.0-8.0) Ur Specific [place] (1.005-1.030) Urine Protein (Negative) Urine Glucose (UA) (Negative) Urine Ketones (Negative) Urine Occult Blood (Negative) Urine Nitrite (Negative) Urine Bilirubin (Negative) Urine Urobilinogen (0.2-1.0) Ur Leukocyte Esterase (Negative) Urine RBC (0-5) /hpf Urine WBC (0-5) /hpf Ur Squamous Epith Cells (0-5) /hpf Urine Bacteria (FEW) /hpf Urine Mucus (FEW) /hpf SARS-CoV-2 RNA (KARLI) (NEGATIVE) Blood Type Gel Antibody Screen 12/13/20 12/13/20 12/13/20 Range/Units 10:00 10:27 13:11 WBC (3.98-10.04) K/mm3 RBC (3.98-5.22) M/mm3 Hgb (11.2-15.7) gm/dl Hct (34.1-44.9) % MCV (79.4-94.8) fl MCH (25.6-32.2) pg MCHC (32.2-35.5) g/dl RDW Std Deviation (36.4-46.3) fL Plt Count (182-369) K/mm3 MPV (9.4-12.3) fl Neut % (Auto) (34.0-71.1) % Lymph % (Auto) (19.3-51.7) % [place] % (Auto) (4.7-12.5) % Eos % (Auto) (0.7-5.8) Baso % (Auto) (0.1-1.2) % Neut # (Auto) (1.56-6.13) K/mm3 Lymph # (Auto) (1.18-3.74) K/mm3 [place] # (Auto) (0.24-0.36) K/mm3 Eos # (Auto) (0.04-0.36) K/mm3 Baso # (Auto) (0.01-0.08) K/mm3 Sodium (136-145) mEq/L Potassium (3.5-5.1) mEq/L Chloride (98-107) mEq/L Carbon Dioxide (21-32) mEq/L Anion Gap (5-15) BUN (7-18) mg/dL Creatinine (0.55-1.02) mg/dL Est Cr Clr Drug Dosing mL/min Estimated GFR (MDRD) (>60) mL/min BUN/Creatinine Ratio (14-18) Glucose (70-99) mg/dL Calcium (8.5-10.1) mg/dL Magnesium (1.8-2.4) mg/dL Total Bilirubin (0.2-1.0) mg/dL AST (15-37) U/L ALT (14-59) U/L Alkaline Phosphatase (46-116) U/L C-Reactive Protein (<1.0) mg/dL Total Protein (6.4-8.2) g/dl Albumin (3.4-5.0) g/dl Globulin gm/dL Albumin/Globulin Ratio (1-2) Lipase (73-393) U/L Urine Color Yellow (Yellow) Urine Appearance Clear (Clear) Urine pH 6.0 (5.0-8.0) Ur Specific [place] 1.020 (1.005-1.030) Urine Protein Negative (Negative) Urine Glucose (UA) Negative (Negative) Urine Ketones 1+ H (Negative) Urine Occult Blood 1+ H (Negative) Urine Nitrite Negative (Negative) Urine Bilirubin Negative (Negative) Urine Urobilinogen 0.2 (0.2-1.0) Ur Leukocyte Esterase Negative (Negative) Urine RBC 0-5 (0-5) /hpf Urine WBC 0-5 (0-5) /hpf Ur Squamous Epith Cells 0-5 (0-5) /hpf Urine Bacteria Moderate H (FEW) /hpf Urine Mucus Few (FEW) /hpf SARS-CoV-2 RNA (KARLI) Negative (NEGATIVE) Blood Type B POSITIVE Gel Antibody Screen Negative 12/13/20 Range/Units 15:34 WBC (3.98-10.04) K/mm3 RBC (3.98-5.22) M/mm3 Hgb 11.2 (11.2-15.7) gm/dl Hct 35.7 (34.1-44.9) % MCV (79.4-94.8) fl MCH (25.6-32.2) pg MCHC (32.2-35.5) g/dl RDW Std Deviation (36.4-46.3) fL Plt Count (182-369) K/mm3 MPV (9.4-12.3) fl Neut % (Auto) (34.0-71.1) % Lymph % (Auto) (19.3-51.7) % [place] % (Auto) (4.7-12.5) % Eos % (Auto) (0.7-5.8) Baso % (Auto) (0.1-1.2) % Neut # (Auto) (1.56-6.13) K/mm3 Lymph # (Auto) (1.18-3.74) K/mm3 [place] # (Auto) (0.24-0.36) K/mm3 Eos # (Auto) (0.04-0.36) K/mm3 Baso # (Auto) (0.01-0.08) K/mm3 Sodium (136-145) mEq/L Potassium (3.5-5.1) mEq/L Chloride (98-107) mEq/L Carbon Dioxide (21-32) mEq/L Anion Gap (5-15) BUN (7-18) mg/dL Creatinine (0.55-1.02) mg/dL Est Cr Clr Drug Dosing mL/min Estimated GFR (MDRD) (>60) mL/min BUN/Creatinine Ratio (14-18) Glucose (70-99) mg/dL Calcium (8.5-10.1) mg/dL Magnesium (1.8-2.4) mg/dL Total Bilirubin (0.2-1.0) mg/dL AST (15-37) U/L ALT (14-59) U/L Alkaline Phosphatase (46-116) U/L C-Reactive Protein (<1.0) mg/dL Total Protein (6.4-8.2) g/dl Albumin (3.4-5.0) g/dl Globulin gm/dL Albumin/Globulin Ratio (1-2) Lipase (73-393) U/L Urine Color (Yellow) Urine Appearance (Clear) Urine pH (5.0-8.0) Ur Specific [place] (1.005-1.030) Urine Protein (Negative) Urine Glucose (UA) (Negative) Urine Ketones (Negative) Urine Occult Blood (Negative) Urine Nitrite (Negative) Urine Bilirubin (Negative) Urine Urobilinogen (0.2-1.0) Ur Leukocyte Esterase (Negative) Urine RBC (0-5) /hpf Urine WBC (0-5) /hpf Ur Squamous Epith Cells (0-5) /hpf Urine Bacteria (FEW) /hpf Urine Mucus (FEW) /hpf SARS-CoV-2 RNA (KARLI) (NEGATIVE) Blood Type Gel Antibody Screen Result Diagrams: 12/13/20 15:34 12/13/20 10:00 Sepsis Event Note - Focused Exam Vital Signs: Vital Signs Temp Temp Pulse Pulse Resp BP BP 12/13/20 16:00 24 H 12/13/20 15:49 19 12/13/20 14:44 97.7 F 78 20 147/67 H 12/13/20 09:44 96.2 F L 69 18 148/51 H Pulse Ox 12/13/20 16:00 12/13/20 15:49 12/13/20 14:44 98 12/13/20 09:44 95 *Q Meaningful Use (ADM) - VTE *Q VTE Pharmacological Contraindications *Q: Active Hemorrhage Consult PN Assessment/Plan Procedures: Procedures 3D RENDER W/INTRP POSTPROCES (11/27/14) AIRWAY INHALATION TREATMENT (04/21/19) ASSAY OF BLOOD/URIC ACID (11/27/14) ASSAY OF IRON (02/11/17) ASSAY OF LIPASE (11/30/14) ASSAY OF MAGNESIUM (03/20/18) ASSAY OF NATRIURETIC PEPTIDE (09/28/17) ASSAY OF SERUM POTASSIUM (12/30/16) ASSAY OF TROPONIN QUANT (08/23/19) ASSAY THYROID STIM HORMONE (04/21/17) BL SMEAR W/DIFF WBC COUNT (01/07/19) BLOOD TRANSFUSION SERVICE (12/05/14) BLOOD TYPING SEROLOGIC ABO (12/30/16) BLOOD TYPING SEROLOGIC RH(D) (12/30/16) BODY FLUID CELL COUNT (11/29/14) BREAST TOMOSYNTHESIS BI (01/21/18) C-REACTIVE PROTEIN (01/07/19) CARDIAC REHAB/MONITOR (11/09/17) CARDIOVASCULAR STRESS TEST (09/18/14) CHEST X-RAY 1 VIEW FRONTAL (09/25/16) CHEST X-RAY 2VW FRONTAL&LATL (02/11/17) COMP SCREEN MAMMOGRAM ADD-ON (08/22/15) COMPATIBILITY TEST ANTIGLOB (12/05/14) COMPLETE CBC AUTOMATED (01/07/19) COMPLETE CBC W/AUTO DIFF WBC (08/23/19) COMPREHEN METABOLIC PANEL (08/23/19) CONTROL OF NOSEBLEED (08/09/18) CONTROL OF NOSEBLEED (03/20/18) CONTROL OF NOSEBLEED (07/18/16) CRITICAL CARE FIRST HOUR (07/23/17) CT ABD & PELV W/CONTRAST (12/30/16) CT HEAD/BRAIN W/O DYE (08/23/19) CT THORAX DX C- (07/15/17) CT UPPER EXTREMITY W/O DYE (11/27/14) CULTR BACTERIA EXCEPT BLOOD (11/29/14) DRAIN/INJ JOINT/BURSA W/O US (09/18/20) EGD BIOPSY SINGLE/MULTIPLE (01/24/15) ELECTROCARDIOGRAM TRACING (08/23/19) EMERGENCY DEPT VISIT (08/23/19) EMERGENCY DEPT VISIT (04/21/19) EMERGENCY DEPT VISIT (01/07/19) EMERGENCY DEPT VISIT (08/09/18) EMERGENCY DEPT VISIT (03/20/18) EMERGENCY DEPT VISIT (02/10/18) EMERGENCY DEPT VISIT (09/28/17) EMERGENCY DEPT VISIT (09/27/16) EMERGENCY DEPT VISIT (09/25/16) EMERGENCY DEPT VISIT (09/21/16) EMERGENCY DEPT VISIT (07/18/16) EMERGENCY DEPT VISIT (11/30/14) EMERGENCY DEPT VISIT (11/27/14) EVALUATE PT USE OF INHALER (09/27/16) EXAM SYNOVIAL FLUID CRYSTALS (11/29/14) GAIT TRAINING THERAPY (03/20/18) GLUCOSE BLOOD TEST (08/23/19) HELICOBACTER PYLORI ANTIBODY (11/19/14) HEMATOCRIT (12/30/16) HEMOGLOBIN (12/30/16) HT MUSCLE IMAGE SPECT MULT (09/18/14) HYDRATE IV INFUSION ADD-ON (12/30/16) HYDRATION IV INFUSION INIT (09/28/17) IIV NO PRSV INCREASED AG IM (02/12/18) INFLUENZA ASSAY W/OPTIC (01/07/19) INSERT TEMP BLADDER CATH (07/23/17) LIPID PANEL (04/21/17) MEASURE BLOOD OXYGEN LEVEL (04/06/18) MEASURE BLOOD OXYGEN LEVEL (03/20/18) MEASURE BLOOD OXYGEN LEVEL (03/20/18) MEASURE BLOOD OXYGEN LEVEL (10/29/15) MEASURE BLOOD OXYGEN LEVEL (11/30/14) METABOLIC PANEL TOTAL CA (03/20/18) MICROBE SUSCEPTIBLE NORIS (12/30/16) MOTION FLUOROSCOPY/SWALLOW (02/17/18) MR-STAPH DNA AMP PROBE (04/01/18) MRI BRAIN STEM W/O DYE (08/23/19) MRI CHEST SPINE W/O DYE (03/20/18) MRI JNT OF LWR EXTRE W/O DYE (11/23/13) MRI LUMBAR SPINE W/O DYE (03/20/18) MYCOPLASMA ANTIBODY (01/07/19) NEUROMUSCULAR REEDUCATION (09/09/17) OFFICE O/P EST LOW 20-29 MIN (04/02/18) OFFICE O/P EST MOD 30-39 MIN (02/12/18) OT EVAL LOW COMPLEX 30 MIN (03/20/18) OT EVALUATION (10/29/15) PERQ VERTEBRAL AUGMENTATION (04/06/18) PERQ VERTEBRAL AUGMENTATION (04/06/18) POLYSOM 6/>YRS CPAP 4/> PARM (11/03/17) PROTHROMBIN TIME (08/23/19) PT EVAL MOD COMPLEX 30 MIN (03/20/18) PT EVALUATION (10/29/15) RBC ANTIBODY SCREEN (12/30/16) RBC SED RATE AUTOMATED (11/30/14) ROUTINE VENIPUNCTURE (08/23/19) SCR MAMMO BI INCL CAD (01/21/18) SELF CARE MNGMENT TRAINING (03/20/18) SMEAR GRAM STAIN (11/29/14) TDAP VACCINE 7 YRS/> IM (10/29/15) THER/DIAG CONCURRENT INF (12/30/16) THER/PROPH/DIAG INJ IV PUSH (03/20/18) THER/PROPH/DIAG INJ SC/IM (02/17/15) THER/PROPH/DIAG IV INF ADDON (12/30/16) THER/PROPH/DIAG IV INF INIT (07/07/17) THERAPEUTIC ACTIVITIES (03/20/18) THERAPEUTIC EXERCISES (09/09/17) THROMBOPLASTIN TIME PARTIAL (08/23/19) TISSUE EXAM BY PATHOLOGIST (04/06/18) TTE W/DOPPLER COMPLETE (02/13/17) TX/PRO/DX INJ NEW DRUG ADDON (07/07/17) TX/PRO/DX INJ SAME DRUG STITCH BONDING MACHINE OPERATOR (12/30/16) URINALYSIS AUTO W/SCOPE (08/25/17) URINE BACTERIA CULTURE (12/30/16) URINE CULTURE/COLONY COUNT (12/30/16) US EXAM OF HEAD AND NECK (08/19/17) X-RAY EXAM ABDOMEN 2 VIEWS (09/01/17) X-RAY EXAM CHEST 1 VIEW (09/28/17) X-RAY EXAM CHEST 2 VIEWS (04/21/19) X-RAY EXAM KNEE 4 OR MORE (09/21/16) X-RAY EXAM L-S SPINE 2/3 VWS (03/18/18) X-RAY EXAM OF KNEE 1 OR 2 (10/29/15) X-RAY EXAM THORAC SPINE 2VWS (05/24/18) X-RAY XM SWLNG FUNCJ C+ (02/17/18) Problem List Initiated/Reviewed/Updated: No Plan: Patient has a GI bleed in the context of a blood thinner. Plan - hold blood thinner - Q8h H/H - Protonix - Plan for an EGD/Colonoscopy tomorrow afternoon around 4pm. Prep tomorrow am 5- 9. I discussed with the patient plan for EGD/Colonoscopy. We discussed risks, benefits and alternatives. Risks discussed include but unlimited to bleeding and perforation. Questions were answered and informed consent was signed.
--- NOTE | 2020-12-13 20:07 | PCM.CONS ---
H&P History of Present Illness - General Date of Service: 12/13/20 Admit Problem/Dx: Admission Diagnosis/Problem Admission Diagnosis/Problem GI bleed not requiring more than 4 units of blood in 24 hours, ICU, or surgery - Related Data Allergies/Adverse Reactions: Allergies Allergy/AdvReac Type Severity Reaction Status Date / Time perfume Allergy Severe Airway Verified 12/13/20 15:01 Tightness theophylline anhydrous AdvReac Intermediate altered Verified 12/13/20 15:01 [From Pan-Dur] heart rate Home Medications: Home Meds Sertraline HCl 25 mg PO DAILY 12/05/14 [History] Albuterol Sulfate [Proair Respiclick] 2 inh INH Q4H PRN 10/29/15 [History] Furosemide [Lasix] 40 mg PO DAILY 07/23/17 [History] Apixaban [Eliquis] 2.5 mg PO BID 09/18/17 [History] atorvaSTATin [Lipitor] 10 mg PO BEDTIME 09/18/17 [History] Pantoprazole [ProTONIX] 40 mg PO DAILY 03/20/18 [History] bisacodyL [Dulcolax] 10 mg RC BID PRN #2 supp 03/23/18 [Rx] polyethylene glycoL 3350 [Miralax] 17 gm PO BID PRN #4 powd.pack 03/23/18 [Rx] Lutein/Minerals/Vit A,C & E [Ocuvite] 1 tab PO DAILY 04/05/18 [History] traMADol [Ultram] 50 mg PO Q6HR PRN 04/21/19 [History] Calcium Carbonate [Calcium] 1 tab PO DAILY 12/13/20 [History] Past Medical History HEENT History: Reports: Cataract, Epistaxis, Hard of Hearing, Other (See Below) Other HEENT History: wears glasses; macular puckering Cardiovascular History: Reports: Afib, Blood Clots/VTE/DVT, High Cholesterol, Hypertension, [place], Other (See Below) Other Cardiovascular History: superficial blood clot Respiratory History: Reports: Asthma, Bronchitis, Recurrent, Other (See Below) Other Respiratory History: "sinus problems", Pneumonia once in the past Gastrointestinal History: Reports: GERD, GI Bleed Genitourinary History: Reports: UTI, Recurrent, Other (See Below) Other Genitourinary History: cyst on bladder, dribbles 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 Psychiatric History: Reports: Depression Endocrine/Metabolic History: Reports: Obesity/BMI 30+ Hematologic History: Reports: Anemia Other Hematologic History: "had bleeding ulcer 11/2014" Immunologic History: Reports: None Oncologic (Cancer) History: Reports: None Dermatologic History: Reports: None - Infectious Disease History Infectious Disease History: Reports: Measles - Past Surgical History Head Surgeries/Procedures: Reports: None HEENT Surgical History: Reports: Cataract Surgery, Other (See Below) Other HEENT Surgeries/Procedures: bilateral cataract surgery Cardiovascular Surgical History: Reports: Other (See Below) Other Cardiovascular Surgeries/Procedures: hx of vein stripping Respiratory Surgical History: Reports: None GI Surgical History: Reports: Cholecystectomy Female Surgical History: Reports: Hysterectomy, Other (See Below) Other Female Surgeries/Procedures: hernia mesh r/t prolapsed bladder Endocrine Surgical History: Reports: None Neurological Surgical History: Reports: None Musculoskeletal Surgical History: Reports: Knee Replacement Other Musculoskeletal Surgeries/Procedures:: bilateral Oncologic Surgical History: Reports: None Dermatological Surgical History: Reports: None Social & Family History - Family History Family Medical History: No Pertinent Family History HEENT: Reports: Hearing Impairment Cardiac: Reports: Heart Failure, Hypertension Respiratory: Reports: Asthma GI: Reports: Cholelithiasis Musculoskeletal: Reports: Osteoarthritis, Osteoporosis Neurological: Reports: Dementia Endocrine/Metabolic: Reports: Diabetes, Type I Dermatologic: Reports: Psoriasis Oncologic: Reports: Breast - Tobacco Use Tobacco Use Status *Q: Never Tobacco User - Caffeine Use Caffeine Use: Reports: Coffee Other Caffeine Use: daily, decaf or caf. Caffeine Use Comment: occasional coffee when visiting with friends - Recreational Drug Use Recreational Drug Use: No - Living Situation & Occupation Living situation: Reports: Occupation: Retired H&P Review of Systems - Review of Systems: Review Of Systems: See Below Exam - Exam Exam: See Below - Vital Signs Vital Signs: Last Vital Signs Temp 97.7 F 12/13/20 14:44 Pulse 78 12/13/20 14:44 Resp 24 H 12/13/20 16:00 BP 147/67 H 12/13/20 14:44 Pulse Ox 98 12/13/20 14:44 Weight: 81.284 kg - Patient Data Lab Results Last 24 hrs: Laboratory Results - last 24 hr 12/13/20 12/13/20 12/13/20 Range/Units 09:52 10:00 10:00 WBC 6.55 (3.98-10.04) K/mm3 RBC 3.84 L (3.98-5.22) M/mm3 Hgb 12.2 D (11.2-15.7) gm/dl Hct 38.6 (34.1-44.9) % MCV 100.5 H (79.4-94.8) fl MCH 31.8 (25.6-32.2) pg MCHC 31.6 L (32.2-35.5) g/dl RDW Std Deviation 53.9 H (36.4-46.3) fL Plt Count 202 (182-369) K/mm3 MPV 10.4 (9.4-12.3) fl Neut % (Auto) 75.9 H (34.0-71.1) % Lymph % (Auto) 12.5 L (19.3-51.7) % [place] % (Auto) 10.4 (4.7-12.5) % Eos % (Auto) 0.5 L (0.7-5.8) Baso % (Auto) 0.5 (0.1-1.2) % Neut # (Auto) 4.98 (1.56-6.13) K/mm3 Lymph # (Auto) 0.82 L (1.18-3.74) K/mm3 [place] # (Auto) 0.68 H (0.24-0.36) K/mm3 Eos # (Auto) 0.03 L (0.04-0.36) K/mm3 Baso # (Auto) 0.03 (0.01-0.08) K/mm3 Sodium 145 (136-145) mEq/L Potassium 4.3 (3.5-5.1) mEq/L Chloride 109 H (98-107) mEq/L Carbon Dioxide 30 (21-32) mEq/L Anion Gap 10.3 (5-15) BUN 51 H D (7-18) mg/dL Creatinine 0.8 (0.55-1.02) mg/dL Est Cr Clr Drug Dosing 1.93 mL/min Estimated GFR (MDRD) > 60 (>60) mL/min BUN/Creatinine Ratio 63.8 H (14-18) Glucose 109 H (70-99) mg/dL Calcium 7.9 L (8.5-10.1) mg/dL Magnesium 2.0 (1.8-2.4) mg/dL Total Bilirubin 0.9 (0.2-1.0) mg/dL AST 22 (15-37) U/L ALT 20 (14-59) U/L Alkaline Phosphatase 68 (46-116) U/L C-Reactive Protein <0.2 (<1.0) mg/dL Total Protein 5.9 L (6.4-8.2) g/dl Albumin 2.7 L (3.4-5.0) g/dl Globulin 3.2 gm/dL Albumin/Globulin Ratio 0.8 L (1-2) Lipase 125 (73-393) U/L Urine Color (Yellow) Urine Appearance (Clear) Urine pH (5.0-8.0) Ur Specific Burns (1.005-1.030) Urine Protein (Negative) Urine Glucose (UA) (Negative) Urine Ketones (Negative) Urine Occult Blood (Negative) Urine Nitrite (Negative) Urine Bilirubin (Negative) Urine Urobilinogen (0.2-1.0) Ur Leukocyte Esterase (Negative) Urine RBC (0-5) /hpf Urine WBC (0-5) /hpf Ur Squamous Epith Cells (0-5) /hpf Urine Bacteria (FEW) /hpf Urine Mucus (FEW) /hpf SARS-CoV-2 RNA (KARLI) (NEGATIVE) Blood Type Gel Antibody Screen 12/13/20 12/13/20 12/13/20 Range/Units 10:00 10:27 13:11 WBC (3.98-10.04) K/mm3 RBC (3.98-5.22) M/mm3 Hgb (11.2-15.7) gm/dl Hct (34.1-44.9) % MCV (79.4-94.8) fl MCH (25.6-32.2) pg MCHC (32.2-35.5) g/dl RDW Std Deviation (36.4-46.3) fL Plt Count (182-369) K/mm3 MPV (9.4-12.3) fl Neut % (Auto) (34.0-71.1) % Lymph % (Auto) (19.3-51.7) % [place] % (Auto) (4.7-12.5) % Eos % (Auto) (0.7-5.8) Baso % (Auto) (0.1-1.2) % Neut # (Auto) (1.56-6.13) K/mm3 Lymph # (Auto) (1.18-3.74) K/mm3 [place] # (Auto) (0.24-0.36) K/mm3 Eos # (Auto) (0.04-0.36) K/mm3 Baso # (Auto) (0.01-0.08) K/mm3 Sodium (136-145) mEq/L Potassium (3.5-5.1) mEq/L Chloride (98-107) mEq/L Carbon Dioxide (21-32) mEq/L Anion Gap (5-15) BUN (7-18) mg/dL Creatinine (0.55-1.02) mg/dL Est Cr Clr Drug Dosing mL/min Estimated GFR (MDRD) (>60) mL/min BUN/Creatinine Ratio (14-18) Glucose (70-99) mg/dL Calcium (8.5-10.1) mg/dL Magnesium (1.8-2.4) mg/dL Total Bilirubin (0.2-1.0) mg/dL AST (15-37) U/L ALT (14-59) U/L Alkaline Phosphatase (46-116) U/L C-Reactive Protein (<1.0) mg/dL Total Protein (6.4-8.2) g/dl Albumin (3.4-5.0) g/dl Globulin gm/dL Albumin/Globulin Ratio (1-2) Lipase (73-393) U/L Urine Color Yellow (Yellow) Urine Appearance Clear (Clear) Urine pH 6.0 (5.0-8.0) Ur Specific Burns 1.020 (1.005-1.030) Urine Protein Negative (Negative) Urine Glucose (UA) Negative (Negative) Urine Ketones 1+ H (Negative) Urine Occult Blood 1+ H (Negative) Urine Nitrite Negative (Negative) Urine Bilirubin Negative (Negative) Urine Urobilinogen 0.2 (0.2-1.0) Ur Leukocyte Esterase Negative (Negative) Urine RBC 0-5 (0-5) /hpf Urine WBC 0-5 (0-5) /hpf Ur Squamous Epith Cells 0-5 (0-5) /hpf Urine Bacteria Moderate H (FEW) /hpf Urine Mucus Few (FEW) /hpf SARS-CoV-2 RNA (KARLI) Negative (NEGATIVE) Blood Type B POSITIVE Gel Antibody Screen Negative 12/13/20 Range/Units 15:34 WBC (3.98-10.04) K/mm3 RBC (3.98-5.22) M/mm3 Hgb 11.2 (11.2-15.7) gm/dl Hct 35.7 (34.1-44.9) % MCV (79.4-94.8) fl MCH (25.6-32.2) pg MCHC (32.2-35.5) g/dl RDW Std Deviation (36.4-46.3) fL Plt Count (182-369) K/mm3 MPV (9.4-12.3) fl Neut % (Auto) (34.0-71.1) % Lymph % (Auto) (19.3-51.7) % [place] % (Auto) (4.7-12.5) % Eos % (Auto) (0.7-5.8) Baso % (Auto) (0.1-1.2) % Neut # (Auto) (1.56-6.13) K/mm3 Lymph # (Auto) (1.18-3.74) K/mm3 [place] # (Auto) (0.24-0.36) K/mm3 Eos # (Auto) (0.04-0.36) K/mm3 Baso # (Auto) (0.01-0.08) K/mm3 Sodium (136-145) mEq/L Potassium (3.5-5.1) mEq/L Chloride (98-107) mEq/L Carbon Dioxide (21-32) mEq/L Anion Gap (5-15) BUN (7-18) mg/dL Creatinine (0.55-1.02) mg/dL Est Cr Clr Drug Dosing mL/min Estimated GFR (MDRD) (>60) mL/min BUN/Creatinine Ratio (14-18) Glucose (70-99) mg/dL Calcium (8.5-10.1) mg/dL Magnesium (1.8-2.4) mg/dL Total Bilirubin (0.2-1.0) mg/dL AST (15-37) U/L ALT (14-59) U/L Alkaline Phosphatase (46-116) U/L C-Reactive Protein (<1.0) mg/dL Total Protein (6.4-8.2) g/dl Albumin (3.4-5.0) g/dl Globulin gm/dL Albumin/Globulin Ratio (1-2) Lipase (73-393) U/L Urine Color (Yellow) Urine Appearance (Clear) Urine pH (5.0-8.0) Ur Specific Burns (1.005-1.030) Urine Protein (Negative) Urine Glucose (UA) (Negative) Urine Ketones (Negative) Urine Occult Blood (Negative) Urine Nitrite (Negative) Urine Bilirubin (Negative) Urine Urobilinogen (0.2-1.0) Ur Leukocyte Esterase (Negative) Urine RBC (0-5) /hpf Urine WBC (0-5) /hpf Ur Squamous Epith Cells (0-5) /hpf Urine Bacteria (FEW) /hpf Urine Mucus (FEW) /hpf SARS-CoV-2 RNA (KARLI) (NEGATIVE) Blood Type Gel Antibody Screen Result Diagrams: 12/17/20 05:40 12/17/20 05:40 Sepsis Event Note - Focused Exam Vital Signs: Vital Signs Temp Temp Pulse Pulse Resp BP BP 12/13/20 16:00 24 H 12/13/20 15:49 19 12/13/20 14:44 97.7 F 78 20 147/67 H 12/13/20 09:44 96.2 F L 69 18 148/51 H Pulse Ox 12/13/20 16:00 12/13/20 15:49 12/13/20 14:44 98 12/13/20 09:44 95 *Q Meaningful Use (ADM) - VTE *Q VTE Pharmacological Contraindications *Q: Active Hemorrhage Consult PN Assessment/Plan Procedures: Procedures 3D RENDER W/INTRP POSTPROCES (11/27/14) AIRWAY INHALATION TREATMENT (04/21/19) ASSAY OF BLOOD/URIC ACID (11/27/14) ASSAY OF IRON (02/11/17) ASSAY OF LIPASE (11/30/14) ASSAY OF MAGNESIUM (03/20/18) ASSAY OF NATRIURETIC PEPTIDE (09/28/17) ASSAY OF SERUM POTASSIUM (12/30/16) ASSAY OF TROPONIN QUANT (08/23/19) ASSAY THYROID STIM HORMONE (04/21/17) BL SMEAR W/DIFF WBC COUNT (01/07/19) BLOOD TRANSFUSION SERVICE (12/05/14) BLOOD TYPING SEROLOGIC ABO (12/30/16) BLOOD TYPING SEROLOGIC RH(D) (12/30/16) BODY FLUID CELL COUNT (11/29/14) BREAST TOMOSYNTHESIS BI (01/21/18) C-REACTIVE PROTEIN (01/07/19) CARDIAC REHAB/MONITOR (11/09/17) CARDIOVASCULAR STRESS TEST (09/18/14) CHEST X-RAY 1 VIEW FRONTAL (09/25/16) CHEST X-RAY 2VW FRONTAL&LATL (02/11/17) COMP SCREEN MAMMOGRAM ADD-ON (08/22/15) COMPATIBILITY TEST ANTIGLOB (12/05/14) COMPLETE CBC AUTOMATED (01/07/19) COMPLETE CBC W/AUTO DIFF WBC (08/23/19) COMPREHEN METABOLIC PANEL (08/23/19) CONTROL OF NOSEBLEED (08/09/18) CONTROL OF NOSEBLEED (03/20/18) CONTROL OF NOSEBLEED (07/18/16) CRITICAL CARE FIRST HOUR (07/23/17) CT ABD & PELV W/CONTRAST (12/30/16) CT HEAD/BRAIN W/O DYE (08/23/19) CT THORAX DX C- (07/15/17) CT UPPER EXTREMITY W/O DYE (11/27/14) CULTR BACTERIA EXCEPT BLOOD (11/29/14) DRAIN/INJ JOINT/BURSA W/O US (09/18/20) EGD BIOPSY SINGLE/MULTIPLE (01/24/15) ELECTROCARDIOGRAM TRACING (08/23/19) EMERGENCY DEPT VISIT (08/23/19) EMERGENCY DEPT VISIT (04/21/19) EMERGENCY DEPT VISIT (01/07/19) EMERGENCY DEPT VISIT (08/09/18) EMERGENCY DEPT VISIT (03/20/18) EMERGENCY DEPT VISIT (02/10/18) EMERGENCY DEPT VISIT (09/28/17) EMERGENCY DEPT VISIT (09/27/16) EMERGENCY DEPT VISIT (09/25/16) EMERGENCY DEPT VISIT (09/21/16) EMERGENCY DEPT VISIT (07/18/16) EMERGENCY DEPT VISIT (11/30/14) EMERGENCY DEPT VISIT (11/27/14) EVALUATE PT USE OF INHALER (09/27/16) EXAM SYNOVIAL FLUID CRYSTALS (11/29/14) GAIT TRAINING THERAPY (03/20/18) GLUCOSE BLOOD TEST (08/23/19) HELICOBACTER PYLORI ANTIBODY (11/19/14) HEMATOCRIT (12/30/16) HEMOGLOBIN (12/30/16) HT MUSCLE IMAGE SPECT MULT (09/18/14) HYDRATE IV INFUSION ADD-ON (12/30/16) HYDRATION IV INFUSION INIT (09/28/17) IIV NO PRSV INCREASED AG IM (02/12/18) INFLUENZA ASSAY W/OPTIC (01/07/19) INSERT TEMP BLADDER CATH (07/23/17) LIPID PANEL (04/21/17) MEASURE BLOOD OXYGEN LEVEL (04/06/18) MEASURE BLOOD OXYGEN LEVEL (03/20/18) MEASURE BLOOD OXYGEN LEVEL (03/20/18) MEASURE BLOOD OXYGEN LEVEL (10/29/15) MEASURE BLOOD OXYGEN LEVEL (11/30/14) METABOLIC PANEL TOTAL CA (03/20/18) MICROBE SUSCEPTIBLE NORIS (12/30/16) MOTION FLUOROSCOPY/SWALLOW (02/17/18) MR-STAPH DNA AMP PROBE (04/01/18) MRI BRAIN STEM W/O DYE (08/23/19) MRI CHEST SPINE W/O DYE (03/20/18) MRI JNT OF LWR EXTRE W/O DYE (11/23/13) MRI LUMBAR SPINE W/O DYE (03/20/18) MYCOPLASMA ANTIBODY (01/07/19) NEUROMUSCULAR REEDUCATION (09/09/17) OFFICE O/P EST LOW 20-29 MIN (04/02/18) OFFICE O/P EST MOD 30-39 MIN (02/12/18) OT EVAL LOW COMPLEX 30 MIN (03/20/18) OT EVALUATION (10/29/15) PERQ VERTEBRAL AUGMENTATION (04/06/18) PERQ VERTEBRAL AUGMENTATION (04/06/18) POLYSOM 6/>YRS CPAP 4/> PARM (11/03/17) PROTHROMBIN TIME (08/23/19) PT EVAL MOD COMPLEX 30 MIN (03/20/18) PT EVALUATION (10/29/15) RBC ANTIBODY SCREEN (12/30/16) RBC SED RATE AUTOMATED (11/30/14) ROUTINE VENIPUNCTURE (08/23/19) SCR MAMMO BI INCL CAD (01/21/18) SELF CARE MNGMENT TRAINING (03/20/18) SMEAR GRAM STAIN (11/29/14) TDAP VACCINE 7 YRS/> IM (10/29/15) THER/DIAG CONCURRENT INF (12/30/16) THER/PROPH/DIAG INJ IV PUSH (03/20/18) THER/PROPH/DIAG INJ SC/IM (02/17/15) THER/PROPH/DIAG IV INF ADDON (12/30/16) THER/PROPH/DIAG IV INF INIT (07/07/17) THERAPEUTIC ACTIVITIES (03/20/18) THERAPEUTIC EXERCISES (09/09/17) THROMBOPLASTIN TIME PARTIAL (08/23/19) TISSUE EXAM BY PATHOLOGIST (04/06/18) TTE W/DOPPLER COMPLETE (02/13/17) TX/PRO/DX INJ NEW DRUG ADDON (07/07/17) TX/PRO/DX INJ SAME DRUG WAREHOUSE SELECTOR (12/30/16) URINALYSIS AUTO W/SCOPE (08/25/17) URINE BACTERIA CULTURE (12/30/16) URINE CULTURE/COLONY COUNT (12/30/16) US EXAM OF HEAD AND NECK (08/19/17) X-RAY EXAM ABDOMEN 2 VIEWS (09/01/17) X-RAY EXAM CHEST 1 VIEW (09/28/17) X-RAY EXAM CHEST 2 VIEWS (04/21/19) X-RAY EXAM KNEE 4 OR MORE (09/21/16) X-RAY EXAM L-S SPINE 2/3 VWS (03/18/18) X-RAY EXAM OF KNEE 1 OR 2 (10/29/15) X-RAY EXAM THORAC SPINE 2VWS (05/24/18) X-RAY XM SWLNG FUNCJ C+ (02/17/18) Problem List Initiated/Reviewed/Updated: No Plan: Please see another consult note. This is not valid
[2020-12-13] MEDS ORDERED: Pantoprazole 40 MG Vial IV SCH (21:00)
[2020-12-14] MEDS ORDERED: Polyethylene Glycol/Electrolytes 4,000 ML Bottle PO ONE (05:00)
--- NOTE | 2020-12-14 07:59 | PCM.PN ---
<Aniceto Covarrubias - Last Filed: 12/14/20 10:45> - General Info Date of Service: 12/14/20 Admission Dx/Problem (Free Text): Admission Diagnosis/Problem Admission Diagnosis/Problem GI bleed not requiring more than 4 units of blood in 24 hours, ICU, or surgery Functional Status: Reports: Pain Controlled, Ambulating, Urinating. Denies: Tolerating Diet (npo), New Symptoms - Review of Systems General: Reports: No Symptoms, Weakness, Fatigue. Denies: Fever, Malaise, Chills HEENT: Reports: No Symptoms. Denies: Headaches, Sore Throat Pulmonary: Reports: No Symptoms. Denies: Shortness of Breath, Cough, Sputum, Wheezing Cardiovascular: Reports: No Symptoms. Denies: Chest Pain, Palpitations, Dyspnea on Exertion, Edema Gastrointestinal: Reports: Diarrhea (Undergoing bowel prep), Melena. Denies: Abdominal Pain, Constipation, Decreased Appetite, Nausea, Vomiting Genitourinary: Reports: No Symptoms. Denies: Pain Musculoskeletal: Reports: No Symptoms Skin: Reports: No Symptoms. Denies: Cyanosis Neurological: Reports: Tremors (Right hand tremor noted today). Denies: Con fusion, Dizziness, Headache, Numbness, Pre-Existing Deficit, Syncope, Tingling, Trouble Speaking, Difficulty Walking, Gait Disturbance Psychiatric: Reports: No Symptoms - Patient Data Vitals - Most Recent: Last Vital Signs Temp 98.6 F 12/14/20 02:07 Pulse 76 12/14/20 02:07 Resp 20 12/14/20 02:07 BP 150/88 H 12/14/20 02:07 Pulse Ox 97 12/14/20 02:07 Weight - Most Recent: 80.966 kg I&O - Last 24 Hours: Intake & Output 12/13/20 12/14/20 12/14/20 22:59 06:59 14:59 Intake Total 350 Output Total 400 Balance -400 350 Lab Results Last 24 Hours: Laboratory Results - last 24 hr 12/13/20 12/13/20 12/13/20 Range/Units 09:52 10:00 10:00 WBC 6.55 (3.98-10.04) K/mm3 RBC 3.84 L (3.98-5.22) M/mm3 Hgb 12.2 D (11.2-15.7) gm/dl Hct 38.6 (34.1-44.9) % MCV 100.5 H (79.4-94.8) fl MCH 31.8 (25.6-32.2) pg MCHC 31.6 L (32.2-35.5) g/dl RDW Std Deviation 53.9 H (36.4-46.3) fL Plt Count 202 (182-369) K/mm3 MPV 10.4 (9.4-12.3) fl Neut % (Auto) 75.9 H (34.0-71.1) % Lymph % (Auto) 12.5 L (19.3-51.7) % Cross % (Auto) 10.4 (4.7-12.5) % Eos % (Auto) 0.5 L (0.7-5.8) Baso % (Auto) 0.5 (0.1-1.2) % Neut # (Auto) 4.98 (1.56-6.13) K/mm3 Lymph # (Auto) 0.82 L (1.18-3.74) K/mm3 Cross # (Auto) 0.68 H (0.24-0.36) K/mm3 Eos # (Auto) 0.03 L (0.04-0.36) K/mm3 Baso # (Auto) 0.03 (0.01-0.08) K/mm3 Sodium 145 (136-145) mEq/L Potassium 4.3 (3.5-5.1) mEq/L Chloride 109 H (98-107) mEq/L Carbon Dioxide 30 (21-32) mEq/L Anion Gap 10.3 (5-15) BUN 51 H D (7-18) mg/dL Creatinine 0.8 (0.55-1.02) mg/dL Est Cr Clr Drug Dosing 1.93 mL/min Estimated GFR (MDRD) > 60 (>60) mL/min BUN/Creatinine Ratio 63.8 H (14-18) Glucose 109 H (70-99) mg/dL Calcium 7.9 L (8.5-10.1) mg/dL Magnesium 2.0 (1.8-2.4) mg/dL Total Bilirubin 0.9 (0.2-1.0) mg/dL AST 22 (15-37) U/L ALT 20 (14-59) U/L Alkaline Phosphatase 68 (46-116) U/L C-Reactive Protein <0.2 (<1.0) mg/dL NT-Pro-B Natriuret Pep (0-450) pg/mL Total Protein 5.9 L (6.4-8.2) g/dl Albumin 2.7 L (3.4-5.0) g/dl Globulin 3.2 gm/dL Albumin/Globulin Ratio 0.8 L (1-2) Lipase 125 (73-393) U/L Urine Color (Yellow) Urine Appearance (Clear) Urine pH (5.0-8.0) Ur Specific [place] (1.005-1.030) Urine Protein (Negative) Urine Glucose (UA) (Negative) Urine Ketones (Negative) Urine Occult Blood (Negative) Urine Nitrite (Negative) Urine Bilirubin (Negative) Urine Urobilinogen (0.2-1.0) Ur Leukocyte Esterase (Negative) Urine RBC (0-5) /hpf Urine WBC (0-5) /hpf Ur Squamous Epith Cells (0-5) /hpf Urine Bacteria (FEW) /hpf Urine Mucus (FEW) /hpf SARS-CoV-2 RNA (KARLI) (NEGATIVE) Blood Type Gel Antibody Screen 12/13/20 12/13/20 12/13/20 Range/Units 10:00 10:27 13:11 WBC (3.98-10.04) K/mm3 RBC (3.98-5.22) M/mm3 Hgb (11.2-15.7) gm/dl Hct (34.1-44.9) % MCV (79.4-94.8) fl MCH (25.6-32.2) pg MCHC (32.2-35.5) g/dl RDW Std Deviation (36.4-46.3) fL Plt Count (182-369) K/mm3 MPV (9.4-12.3) fl Neut % (Auto) (34.0-71.1) % Lymph % (Auto) (19.3-51.7) % Cross % (Auto) (4.7-12.5) % Eos % (Auto) (0.7-5.8) Baso % (Auto) (0.1-1.2) % Neut # (Auto) (1.56-6.13) K/mm3 Lymph # (Auto) (1.18-3.74) K/mm3 Cross # (Auto) (0.24-0.36) K/mm3 Eos # (Auto) (0.04-0.36) K/mm3 Baso # (Auto) (0.01-0.08) K/mm3 Sodium (136-145) mEq/L Potassium (3.5-5.1) mEq/L Chloride (98-107) mEq/L Carbon Dioxide (21-32) mEq/L Anion Gap (5-15) BUN (7-18) mg/dL Creatinine (0.55-1.02) mg/dL Est Cr Clr Drug Dosing mL/min Estimated GFR (MDRD) (>60) mL/min BUN/Creatinine Ratio (14-18) Glucose (70-99) mg/dL Calcium (8.5-10.1) mg/dL Magnesium (1.8-2.4) mg/dL Total Bilirubin (0.2-1.0) mg/dL AST (15-37) U/L ALT (14-59) U/L Alkaline Phosphatase (46-116) U/L C-Reactive Protein (<1.0) mg/dL NT-Pro-B Natriuret Pep (0-450) pg/mL Total Protein (6.4-8.2) g/dl Albumin (3.4-5.0) g/dl Globulin gm/dL Albumin/Globulin Ratio (1-2) Lipase (73-393) U/L Urine Color Yellow (Yellow) Urine Appearance Clear (Clear) Urine pH 6.0 (5.0-8.0) Ur Specific [place] 1.020 (1.005-1.030) Urine Protein Negative (Negative) Urine Glucose (UA) Negative (Negative) Urine Ketones 1+ H (Negative) Urine Occult Blood 1+ H (Negative) Urine Nitrite Negative (Negative) Urine Bilirubin Negative (Negative) Urine Urobilinogen 0.2 (0.2-1.0) Ur Leukocyte Esterase Negative (Negative) Urine RBC 0-5 (0-5) /hpf Urine WBC 0-5 (0-5) /hpf Ur Squamous Epith Cells 0-5 (0-5) /hpf Urine Bacteria Moderate H (FEW) /hpf Urine Mucus Few (FEW) /hpf SARS-CoV-2 RNA (KARLI) Negative (NEGATIVE) Blood Type B POSITIVE Gel Antibody Screen Negative 12/13/20 12/13/20 12/13/20 Range/Units 15:34 20:06 20:06 WBC (3.98-10.04) K/mm3 RBC (3.98-5.22) M/mm3 Hgb 11.2 10.9 L (11.2-15.7) gm/dl Hct 35.7 34.5 (34.1-44.9) % MCV (79.4-94.8) fl MCH (25.6-32.2) pg MCHC (32.2-35.5) g/dl RDW Std Deviation (36.4-46.3) fL Plt Count (182-369) K/mm3 MPV (9.4-12.3) fl Neut % (Auto) (34.0-71.1) % Lymph % (Auto) (19.3-51.7) % Cross % (Auto) (4.7-12.5) % Eos % (Auto) (0.7-5.8) Baso % (Auto) (0.1-1.2) % Neut # (Auto) (1.56-6.13) K/mm3 Lymph # (Auto) (1.18-3.74) K/mm3 Cross # (Auto) (0.24-0.36) K/mm3 Eos # (Auto) (0.04-0.36) K/mm3 Baso # (Auto) (0.01-0.08) K/mm3 Sodium (136-145) mEq/L Potassium (3.5-5.1) mEq/L Chloride (98-107) mEq/L Carbon Dioxide (21-32) mEq/L Anion Gap (5-15) BUN (7-18) mg/dL Creatinine (0.55-1.02) mg/dL Est Cr Clr Drug Dosing mL/min Estimated GFR (MDRD) (>60) mL/min BUN/Creatinine Ratio (14-18) Glucose (70-99) mg/dL Calcium (8.5-10.1) mg/dL Magnesium (1.8-2.4) mg/dL Total Bilirubin (0.2-1.0) mg/dL AST (15-37) U/L ALT (14-59) U/L Alkaline Phosphatase (46-116) U/L C-Reactive Protein (<1.0) mg/dL NT-Pro-B Natriuret Pep 606 H (0-450) pg/mL Total Protein (6.4-8.2) g/dl Albumin (3.4-5.0) g/dl Globulin gm/dL Albumin/Globulin Ratio (1-2) Lipase (73-393) U/L Urine Color (Yellow) Urine Appearance (Clear) Urine pH (5.0-8.0) Ur Specific [place] (1.005-1.030) Urine Protein (Negative) Urine Glucose (UA) (Negative) Urine Ketones (Negative) Urine Occult Blood (Negative) Urine Nitrite (Negative) Urine Bilirubin (Negative) Urine Urobilinogen (0.2-1.0) Ur Leukocyte Esterase (Negative) Urine RBC (0-5) /hpf Urine WBC (0-5) /hpf Ur Squamous Epith Cells (0-5) /hpf Urine Bacteria (FEW) /hpf Urine Mucus (FEW) /hpf SARS-CoV-2 RNA (KARLI) (NEGATIVE) Blood Type Gel Antibody Screen 12/14/20 12/14/20 Range/Units 01:50 06:23 WBC 7.31 (3.98-10.04) K/mm3 RBC 3.74 L (3.98-5.22) M/mm3 Hgb 10.5 L 11.9 (11.2-15.7) gm/dl Hct 33.4 L 37.1 (34.1-44.9) % MCV 99.2 H (79.4-94.8) fl MCH 31.8 (25.6-32.2) pg MCHC 32.1 L (32.2-35.5) g/dl RDW Std Deviation 54.4 H (36.4-46.3) fL Plt Count 204 (182-369) K/mm3 MPV 11.1 (9.4-12.3) fl Neut % (Auto) 60.6 (34.0-71.1) % Lymph % (Auto) 25.7 (19.3-51.7) % Cross % (Auto) 11.6 (4.7-12.5) % Eos % (Auto) 1.5 (0.7-5.8) Baso % (Auto) 0.5 (0.1-1.2) % Neut # (Auto) 4.42 (1.56-6.13) K/mm3 Lymph # (Auto) 1.88 (1.18-3.74) K/mm3 Cross # (Auto) 0.85 H (0.24-0.36) K/mm3 Eos # (Auto) 0.11 (0.04-0.36) K/mm3 Baso # (Auto) 0.04 (0.01-0.08) K/mm3 Sodium (136-145) mEq/L Potassium (3.5-5.1) mEq/L Chloride (98-107) mEq/L Carbon Dioxide (21-32) mEq/L Anion Gap (5-15) BUN (7-18) mg/dL Creatinine (0.55-1.02) mg/dL Est Cr Clr Drug Dosing mL/min Estimated GFR (MDRD) (>60) mL/min BUN/Creatinine Ratio (14-18) Glucose (70-99) mg/dL Calcium (8.5-10.1) mg/dL Magnesium (1.8-2.4) mg/dL Total Bilirubin (0.2-1.0) mg/dL AST (15-37) U/L ALT (14-59) U/L Alkaline Phosphatase (46-116) U/L C-Reactive Protein (<1.0) mg/dL NT-Pro-B Natriuret Pep (0-450) pg/mL Total Protein (6.4-8.2) g/dl Albumin (3.4-5.0) g/dl Globulin gm/dL Albumin/Globulin Ratio (1-2) Lipase (73-393) U/L Urine Color (Yellow) Urine Appearance (Clear) Urine pH (5.0-8.0) Ur Specific [place] (1.005-1.030) Urine Protein (Negative) Urine Glucose (UA) (Negative) Urine Ketones (Negative) Urine Occult Blood (Negative) Urine Nitrite (Negative) Urine Bilirubin (Negative) Urine Urobilinogen (0.2-1.0) Ur Leukocyte Esterase (Negative) Urine RBC (0-5) /hpf Urine WBC (0-5) /hpf Ur Squamous Epith Cells (0-5) /hpf Urine Bacteria (FEW) /hpf Urine Mucus (FEW) /hpf SARS-CoV-2 RNA (KARLI) (NEGATIVE) Blood Type Gel Antibody Screen Med Orders - Current: Current Medications Acetaminophen (Acetaminophen 325 Mg Tab) 650 mg PO Q4H PRN PRN Reason: Pain (Mild 1-3)/fever Albuterol (Albuterol 6.7 Gm Inhaler) 0 gm INH Q4H PRN PRN Reason: Wheezing Albuterol/Ipratropium (Albuterol/Ipratropium 3.0-0.5 Mg/3 Ml Neb Soln) 3 ml NEB QIDRT PRN PRN Reason: Shortness Of Breath/wheezing Furosemide (Furosemide 40 Mg Tab) 40 mg PO DAILY ETHAN Ondansetron HCl (Ondansetron 4 Mg/2 Ml Sdv) 4 mg IV Q6H PRN PRN Reason: Nausea/Vomiting Pantoprazole Sodium (Pantoprazole 40 Mg Vial) 40 mg IV Q12HR ETHAN Sertraline HCl (Sertraline 25 Mg Tab) 25 mg PO DAILY ETHAN Tramadol HCl (Tramadol 50 Mg Tab) 50 mg PO Q6H PRN PRN Reason: Pain Discontinued Medications Sodium Chloride (Normal Saline) 1,000 mls @ 500 mls/hr IV ASDIRECTED [facility] Last Admin: 12/13/20 10:41 Dose: 500 mls/hr Documented by: Pantoprazole Sodium 80 mg/ (Sodium Chloride) 100 mls @ 10 mls/hr IV Q10H [facility] Stop: 12/13/20 21:00 Last Admin: 12/13/20 20:30 Dose: Not Given Documented by: Pantoprazole Sodium (Pantoprazole 40 Mg Vial) 40 mg IVPUSH ONETIME ONE Stop: 12/13/20 10:15 Last Admin: 12/13/20 10:41 Dose: 40 mg Documented by: Pantoprazole Sodium (Pantoprazole 40 Mg Vial) Confirm Administered Dose 80 mg .ROUTE .STK-MED ONE Stop: 12/13/20 10:36 Last Admin: 12/13/20 10:55 Dose: Not Given Documented by: Polyethylene Glycol/Electrolytes (Polyethylene Glycol/Electrolytes 4,000 Ml Bottle) 4,000 ml PO ONETIME ONE Stop: 12/14/20 05:01 Last Admin: 12/14/20 05:05 Dose: 4,000 ml Documented by: - Exam Quality Assessment: DVT Prophylaxis (SCDs). No: Supplemental Oxygen, Urine Catheter General: Alert, Oriented, Cooperative, No Acute Distress HEENT: Pupils Equal, Pupils Reactive, Mucous Membr. Moist/[place] Neck: Supple, Trachea Midline Lungs: Clear to Auscultation, Normal Respiratory Effort Cardiovascular: Regular Rate, Irregular Rhythm (Chronic A. fib) GI/Abdominal Exam: Soft, Non-Tender, No Distention, Abnormal Bowel Sounds (Hyperactive) (Female) Exam: Deferred Back Exam: Normal Inspection, Full Range of Motion Extremities: Normal Inspection, Normal Range of Motion, Non-Tender, No Pedal Edema, Normal Capillary Refill Peripheral Pulses: 2+: Radial (L), Radial (R), Dorsalis Pedis (L), Dorsalis Pedis (R) Skin: Warm, Dry, Intact Neurological: No New Focal Deficit Psy/Mental Status: Alert, Normal Affect, Normal Mood - Patient Data Lab Results Last 24 hrs: Laboratory Results - last 24 hr 12/13/20 12/13/20 12/13/20 Range/Units 09:52 10:00 10:00 WBC 6.55 (3.98-10.04) K/mm3 RBC 3.84 L (3.98-5.22) M/mm3 Hgb 12.2 D (11.2-15.7) gm/dl Hct 38.6 (34.1-44.9) % MCV 100.5 H (79.4-94.8) fl MCH 31.8 (25.6-32.2) pg MCHC 31.6 L (32.2-35.5) g/dl RDW Std Deviation 53.9 H (36.4-46.3) fL Plt Count 202 (182-369) K/mm3 MPV 10.4 (9.4-12.3) fl Neut % (Auto) 75.9 H (34.0-71.1) % Lymph % (Auto) 12.5 L (19.3-51.7) % Cross % (Auto) 10.4 (4.7-12.5) % Eos % (Auto) 0.5 L (0.7-5.8) Baso % (Auto) 0.5 (0.1-1.2) % Neut # (Auto) 4.98 (1.56-6.13) K/mm3 Lymph # (Auto) 0.82 L (1.18-3.74) K/mm3 Cross # (Auto) 0.68 H (0.24-0.36) K/mm3 Eos # (Auto) 0.03 L (0.04-0.36) K/mm3 Baso # (Auto) 0.03 (0.01-0.08) K/mm3 Sodium 145 (136-145) mEq/L Potassium 4.3 (3.5-5.1) mEq/L Chloride 109 H (98-107) mEq/L Carbon Dioxide 30 (21-32) mEq/L Anion Gap 10.3 (5-15) BUN 51 H D (7-18) mg/dL Creatinine 0.8 (0.55-1.02) mg/dL Est Cr Clr Drug Dosing 1.93 mL/min Estimated GFR (MDRD) > 60 (>60) mL/min BUN/Creatinine Ratio 63.8 H (14-18) Glucose 109 H (70-99) mg/dL Calcium 7.9 L (8.5-10.1) mg/dL Magnesium 2.0 (1.8-2.4) mg/dL Total Bilirubin 0.9 (0.2-1.0) mg/dL AST 22 (15-37) U/L ALT 20 (14-59) U/L Alkaline Phosphatase 68 (46-116) U/L C-Reactive Protein <0.2 (<1.0) mg/dL NT-Pro-B Natriuret Pep (0-450) pg/mL Total Protein 5.9 L (6.4-8.2) g/dl Albumin 2.7 L (3.4-5.0) g/dl Globulin 3.2 gm/dL Albumin/Globulin Ratio 0.8 L (1-2) Lipase 125 (73-393) U/L Urine Color (Yellow) Urine Appearance (Clear) Urine pH (5.0-8.0) Ur Specific [place] (1.005-1.030) Urine Protein (Negative) Urine Glucose (UA) (Negative) Urine Ketones (Negative) Urine Occult Blood (Negative) Urine Nitrite (Negative) Urine Bilirubin (Negative) Urine Urobilinogen (0.2-1.0) Ur Leukocyte Esterase (Negative) Urine RBC (0-5) /hpf Urine WBC (0-5) /hpf Ur Squamous Epith Cells (0-5) /hpf Urine Bacteria (FEW) /hpf Urine Mucus (FEW) /hpf SARS-CoV-2 RNA (KARLI) (NEGATIVE) Blood Type Gel Antibody Screen 12/13/20 12/13/20 12/13/20 Range/Units 10:00 10:27 13:11 WBC (3.98-10.04) K/mm3 RBC (3.98-5.22) M/mm3 Hgb (11.2-15.7) gm/dl Hct (34.1-44.9) % MCV (79.4-94.8) fl MCH (25.6-32.2) pg MCHC (32.2-35.5) g/dl RDW Std Deviation (36.4-46.3) fL Plt Count (182-369) K/mm3 MPV (9.4-12.3) fl Neut % (Auto) (34.0-71.1) % Lymph % (Auto) (19.3-51.7) % Cross % (Auto) (4.7-12.5) % Eos % (Auto) (0.7-5.8) Baso % (Auto) (0.1-1.2) % Neut # (Auto) (1.56-6.13) K/mm3 Lymph # (Auto) (1.18-3.74) K/mm3 Cross # (Auto) (0.24-0.36) K/mm3 Eos # (Auto) (0.04-0.36) K/mm3 Baso # (Auto) (0.01-0.08) K/mm3 Sodium (136-145) mEq/L Potassium (3.5-5.1) mEq/L Chloride (98-107) mEq/L Carbon Dioxide (21-32) mEq/L Anion Gap (5-15) BUN (7-18) mg/dL Creatinine (0.55-1.02) mg/dL Est Cr Clr Drug Dosing mL/min Estimated GFR (MDRD) (>60) mL/min BUN/Creatinine Ratio (14-18) Glucose (70-99) mg/dL Calcium (8.5-10.1) mg/dL Magnesium (1.8-2.4) mg/dL Total Bilirubin (0.2-1.0) mg/dL AST (15-37) U/L ALT (14-59) U/L Alkaline Phosphatase (46-116) U/L C-Reactive Protein (<1.0) mg/dL NT-Pro-B Natriuret Pep (0-450) pg/mL Total Protein (6.4-8.2) g/dl Albumin (3.4-5.0) g/dl Globulin gm/dL Albumin/Globulin Ratio (1-2) Lipase (73-393) U/L Urine Color Yellow (Yellow) Urine Appearance Clear (Clear) Urine pH 6.0 (5.0-8.0) Ur Specific [place] 1.020 (1.005-1.030) Urine Protein Negative (Negative) Urine Glucose (UA) Negative (Negative) Urine Ketones 1+ H (Negative) Urine Occult Blood 1+ H (Negative) Urine Nitrite Negative (Negative) Urine Bilirubin Negative (Negative) Urine Urobilinogen 0.2 (0.2-1.0) Ur Leukocyte Esterase Negative (Negative) Urine RBC 0-5 (0-5) /hpf Urine WBC 0-5 (0-5) /hpf Ur Squamous Epith Cells 0-5 (0-5) /hpf Urine Bacteria Moderate H (FEW) /hpf Urine Mucus Few (FEW) /hpf SARS-CoV-2 RNA (KARLI) Negative (NEGATIVE) Blood Type B POSITIVE Gel Antibody Screen Negative 12/13/20 12/13/20 12/13/20 Range/Units 15:34 20:06 20:06 WBC (3.98-10.04) K/mm3 RBC (3.98-5.22) M/mm3 Hgb 11.2 10.9 L (11.2-15.7) gm/dl Hct 35.7 34.5 (34.1-44.9) % MCV (79.4-94.8) fl MCH (25.6-32.2) pg MCHC (32.2-35.5) g/dl RDW Std Deviation (36.4-46.3) fL Plt Count (182-369) K/mm3 MPV (9.4-12.3) fl Neut % (Auto) (34.0-71.1) % Lymph % (Auto) (19.3-51.7) % Cross % (Auto) (4.7-12.5) % Eos % (Auto) (0.7-5.8) Baso % (Auto) (0.1-1.2) % Neut # (Auto) (1.56-6.13) K/mm3 Lymph # (Auto) (1.18-3.74) K/mm3 Cross # (Auto) (0.24-0.36) K/mm3 Eos # (Auto) (0.04-0.36) K/mm3 Baso # (Auto) (0.01-0.08) K/mm3 Sodium (136-145) mEq/L Potassium (3.5-5.1) mEq/L Chloride (98-107) mEq/L Carbon Dioxide (21-32) mEq/L Anion Gap (5-15) BUN (7-18) mg/dL Creatinine (0.55-1.02) mg/dL Est Cr Clr Drug Dosing mL/min Estimated GFR (MDRD) (>60) mL/min BUN/Creatinine Ratio (14-18) Glucose (70-99) mg/dL Calcium (8.5-10.1) mg/dL Magnesium (1.8-2.4) mg/dL Total Bilirubin (0.2-1.0) mg/dL AST (15-37) U/L ALT (14-59) U/L Alkaline Phosphatase (46-116) U/L C-Reactive Protein (<1.0) mg/dL NT-Pro-B Natriuret Pep 606 H (0-450) pg/mL Total Protein (6.4-8.2) g/dl Albumin (3.4-5.0) g/dl Globulin gm/dL Albumin/Globulin Ratio (1-2) Lipase (73-393) U/L Urine Color (Yellow) Urine Appearance (Clear) Urine pH (5.0-8.0) Ur Specific [place] (1.005-1.030) Urine Protein (Negative) Urine Glucose (UA) (Negative) Urine Ketones (Negative) Urine Occult Blood (Negative) Urine Nitrite (Negative) Urine Bilirubin (Negative) Urine Urobilinogen (0.2-1.0) Ur Leukocyte Esterase (Negative) Urine RBC (0-5) /hpf Urine WBC (0-5) /hpf Ur Squamous Epith Cells (0-5) /hpf Urine Bacteria (FEW) /hpf Urine Mucus (FEW) /hpf SARS-CoV-2 RNA (KARLI) (NEGATIVE) Blood Type Gel Antibody Screen 12/14/20 12/14/20 Range/Units 01:50 06:23 WBC 7.31 (3.98-10.04) K/mm3 RBC 3.74 L (3.98-5.22) M/mm3 Hgb 10.5 L 11.9 (11.2-15.7) gm/dl Hct 33.4 L 37.1 (34.1-44.9) % MCV 99.2 H (79.4-94.8) fl MCH 31.8 (25.6-32.2) pg MCHC 32.1 L (32.2-35.5) g/dl RDW Std Deviation 54.4 H (36.4-46.3) fL Plt Count 204 (182-369) K/mm3 MPV 11.1 (9.4-12.3) fl Neut % (Auto) 60.6 (34.0-71.1) % Lymph % (Auto) 25.7 (19.3-51.7) % Cross % (Auto) 11.6 (4.7-12.5) % Eos % (Auto) 1.5 (0.7-5.8) Baso % (Auto) 0.5 (0.1-1.2) % Neut # (Auto) 4.42 (1.56-6.13) K/mm3 Lymph # (Auto) 1.88 (1.18-3.74) K/mm3 Cross # (Auto) 0.85 H (0.24-0.36) K/mm3 Eos # (Auto) 0.11 (0.04-0.36) K/mm3 Baso # (Auto) 0.04 (0.01-0.08) K/mm3 Sodium (136-145) mEq/L Potassium (3.5-5.1) mEq/L Chloride (98-107) mEq/L Carbon Dioxide (21-32) mEq/L Anion Gap (5-15) BUN (7-18) mg/dL Creatinine (0.55-1.02) mg/dL Est Cr Clr Drug Dosing mL/min Estimated GFR (MDRD) (>60) mL/min BUN/Creatinine Ratio (14-18) Glucose (70-99) mg/dL Calcium (8.5-10.1) mg/dL Magnesium (1.8-2.4) mg/dL Total Bilirubin (0.2-1.0) mg/dL AST (15-37) U/L ALT (14-59) U/L Alkaline Phosphatase (46-116) U/L C-Reactive Protein (<1.0) mg/dL NT-Pro-B Natriuret Pep (0-450) pg/mL Total Protein (6.4-8.2) g/dl Albumin (3.4-5.0) g/dl Globulin gm/dL Albumin/Globulin Ratio (1-2) Lipase (73-393) U/L Urine Color (Yellow) Urine Appearance (Clear) Urine pH (5.0-8.0) Ur Specific [place] (1.005-1.030) Urine Protein (Negative) Urine Glucose (UA) (Negative) Urine Ketones (Negative) Urine Occult Blood (Negative) Urine Nitrite (Negative) Urine Bilirubin (Negative) Urine Urobilinogen (0.2-1.0) Ur Leukocyte Esterase (Negative) Urine RBC (0-5) /hpf Urine WBC (0-5) /hpf Ur Squamous Epith Cells (0-5) /hpf Urine Bacteria (FEW) /hpf Urine Mucus (FEW) /hpf SARS-CoV-2 RNA (KARLI) (NEGATIVE) Blood Type Gel Antibody Screen Result Diagrams: 12/14/20 06:23 12/14/20 06:23 Sepsis Event Note - Evaluation Sepsis Screening Result: No Definite Risk - Focused Exam Vital Signs: Vital Signs Temp Pulse Resp BP Pulse Ox 12/14/20 02:07 98.6 F 76 20 150/88 H 97 12/13/20 21:00 20 12/13/20 20:46 98.4 F 82 18 152/83 H 95 12/13/20 20:00 20 - Problem List & Annotations (1) Chronic anticoagulation SNOMED Code(s): 326955309 Code(s): Z79.01 - CUSTODIAL (CURRENT) USE OF ANTICOAGULANTS Status: Chronic Priority: High Current Visit: Yes (2) History of GI bleed SNOMED Code(s): 388893851 Code(s): Z87.19 - PERSONAL HISTORY OF OTHER DISEASES OF THE DIGESTIVE SYSTEM Status: Chronic Priority: High Current Visit: Yes (3) History of venous thromboembolism SNOMED Code(s): 335667620 Code(s): Z86.718 - PERSONAL HISTORY OF OTHER VENOUS THROMBOSIS AND EMBOLISM Status: Chronic Priority: High Current Visit: Yes (4) History of CVA (cerebrovascular accident) SNOMED Code(s): 154509977 Code(s): Z86.73 - PRSNL HX OF TIA (TIA), AND CEREB INFRC W/O RESID DEFICITS Status: Chronic Priority: Medium Current Visit: Yes (5) History of DC (myocardial infarction) SNOMED Code(s): 667553867 Code(s): I25.2 - OLD MYOCARDIAL INFARCTION Status: Chronic Priority: Medium Current Visit: Yes (6) HTN (hypertension) SNOMED Code(s): 18631145 Code(s): I10 - ESSENTIAL (PRIMARY) HYPERTENSION Status: Chronic Priority: Medium Current Visit: Yes Qualifiers: Hypertension type: unspecified Qualified Code(s): I10 - Essential (primary) hypertension (7) Asthma SNOMED Code(s): 529567083 Code(s): J45.909 - UNSPECIFIED ASTHMA, UNCOMPLICATED Status: Chronic Priority: Medium Current Visit: Yes Qualifiers: Asthma severity: unspecified severity Asthma persistence: unspecified Asthma complication type: uncomplicated Qualified Code(s): J45.909 - Unspeci fied asthma, uncomplicated (8) GERD (gastroesophageal reflux disease) SNOMED Code(s): 510652333 Code(s): K21.9 - GASTRO-ESOPHAGEAL REFLUX DISEASE WITHOUT ESOPHAGITIS Status: Chronic Priority: Medium Current Visit: No Qualifiers: Esophagitis presence: esophagitis presence not specified Qualified Code(s): K21.9 - Gastro-esophageal reflux disease without esophagitis (9) Recurrent UTI SNOMED Code(s): 940984337 Code(s): N39.0 - URINARY TRACT INFECTION, SITE NOT SPECIFIED Status: Chronic Priority: Low Current Visit: No (10) Arthritis SNOMED Code(s): 1908130 Code(s): M19.90 - UNSPECIFIED OSTEOARTHRITIS, UNSPECIFIED SITE Status: Chronic Priority: Low Current Visit: No (11) Depression SNOMED Code(s): 16989268 Code(s): F32.9 - MAJOR DEPRESSIVE DISORDER, SINGLE EPISODE, UNSPECIFIED Status: Chronic Priority: Low Current Visit: No Qualifiers: Depression Type: other depression Qualified Code(s): F32.89 - Other specified depressive episodes (12) Obesity SNOMED Code(s): 807215201, 707382994 Code(s): E66.9 - OBESITY, UNSPECIFIED Status: Chronic Priority: Low Current Visit: No Qualifiers: Obesity type: unspecified obesity type Obesity classification: unspecified obesity classification Serious obesity comorbidity presence: without serious c omorbidity Qualified Code(s): E66.9 - Obesity, unspecified (13) History of anemia SNOMED Code(s): 918441846 Code(s): Z86.2 - PRSNL HISTORY OF DIS OF THE BLD/BLD-FORM ORG/IMMUN MECHNSM Status: Chronic Priority: Medium Current Visit: Yes (14) History of bleeding peptic ulcer SNOMED Code(s): 039770151, 230265113 Code(s): Z87.11 - PERSONAL HISTORY OF PEPTIC ULCER DISEASE Status: Chronic Priority: High Current Visit: Yes (15) Chronic atrial fibrillation SNOMED Code(s): 835484926 Code(s): I48.2 - CHRONIC ATRIAL FIBRILLATION * DO NOT USE * Status: Chronic Priority: High Current Visit: Yes (16) Gastrointestinal bleeding SNOMED Code(s): 81545546 Code(s): K92.2 - GASTROINTESTINAL HEMORRHAGE, UNSPECIFIED Status: Acute Priority: High Current Visit: Yes Qualifiers: GI bleed type/associated pathology: melena Qualified Code(s): K92.1 - Melena (17) Chronic constipation SNOMED Code(s): 397120776 Code(s): K59.09 - OTHER CONSTIPATION Status: Chronic Priority: Medium Current Visit: No (18) Syncope and collapse SNOMED Code(s): 608829470 Code(s): R55 - SYNCOPE AND COLLAPSE Status: Resolved Priority: High Current Visit: Yes - Problem List Review Problem List Initiated/Reviewed/Updated: Yes - My Orders Last 24 Hours: My Active Orders 12/13/20 13:06 Admission Status [Patient Status] [ADT] Routine Cardiac Monitoring [RC] . DIRECTED 12/13/20 13:08 Height and Weight [RC] 06 Intake and Output [RC] 04,16 Oxygen Therapy [RC] ASDIRECTED Pulse Oximetry [RC] PRN Up With Assistance [RC] BID Vital Signs [RC] 03,,, Consult to Physician [CONS] Routine Consult to Spiritual Care [CONS] Routine Acetaminophen [TylenoL] 650 mg PO Q4H PRN Albuterol/Ipratropium [DuoNeb 3.0-0.5 MG/3 ML] 3 ml NEB QIDRT PRN Ondansetron [Zofran] 4 mg IV Q6H PRN VTE Pharmacological Contraindications [AST] Per Unit Routine Code Status [Resuscitation Status] Stat 12/13/20 13:09 Sequential Compression Device [OM.PC] Per Unit Routine 12/13/20 13:10 Antiembolic Devices [RC] BID 12/13/20 13:11 Notify Provider Consults [RC] ASDIRECTED RT Aerosol Therapy [RC] ASDIRECTED OT Evaluation and Treatment [CONS] Routine PT Evaluation and Treatment [CONS] Routine 12/13/20 13:14 H PYLORI STOOL ANTIGEN [MREF] Stat 12/13/20 13:58 Consult to Case Management/[employer] [CONS] Routine 12/13/20 14:01 traMADol [Ultram] 50 mg PO Q6H PRN 12/13/20 14:07 Albuterol [Proventil HFA] 0 gm INH Q4H PRN 12/14/20 06:23 COMPREHENSIVE METABOLIC PN,CMP [CHEM] AM 12/14/20 09:00 Furosemide [Lasix] 40 mg PO DAILY Pantoprazole [ProTONIX IV] 40 mg IV Q12HR Sertraline [Zoloft] 25 mg PO DAILY 12/15/20 05:11 CBC WITH AUTO DIFF [HEME] AM COMPREHENSIVE METABOLIC PN,CMP [CHEM] AM 12/16/20 05:11 CBC WITH AUTO DIFF [HEME] AM COMPREHENSIVE METABOLIC PN,CMP [CHEM] AM 12/17/20 05:11 CBC WITH AUTO DIFF [HEME] AM COMPREHENSIVE METABOLIC PN,CMP [CHEM] AM - Assessment Assessment:: Assessment - day of admission 12/13/2020 * 85-year-old female who presents to ED via [place] [facility] after a syncopal episode * History of A. fib, VTE, hypertension, DC, asthma, recurrent bronchitis, constipation, GERD, GI bleed, recurrent UTI, CVA, depression, obesity, anemia * Reportedly was complaining of nausea and went to utilize the bathroom * Sat on the toilet she was noted to have diaphoresis and a decreased level of consciousness * While getting up she had a syncopal episode and was lowered to the ground by her daughter * Unconscious for 4 to 5 minutes. Her daughter did raise her legs up and she regained consciousness slowly. * Stool was noted to be very melanic and tarry. * Patient reportedly had a prior GI bleed approximately 4 years ago * Has been on warfarin and Eliquis in the past. 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 * Restarted on low-dose Eliquis. Last dose of Eliquis was around 2100 yesterday evening. * Denies any nausea at this time. Denies any shortness of breath or chest pain. * Of note she was taking Pepto-Bismol and borscht soup (beets). * Per the daughter during syncopal episode blood pressure was checked and was as low as 63 systolic. * In the ED twelve-lead EKG is obtained showing A. fib with a rate of 60 to 98 bpm. There are new Q waves noted in V1 and V2 and small Q waves in inferior leads. T wave inversion is noted in leads III and aVF. There is borderline LVH pattern. Diffuse repolarization abnormalities also noted. * Labs are obtained: * WBC of 6.55. * Hemoglobin 12.2. * Hematocrit 38.6. * She is macrocytic. * Platelet 202,000. * Neutrophils are elevated 75.9%. * Sodium 145. * Potassium 4.3. * Chloride 109. * Carbon dioxide 30. * Anion gap 10.3. * BUN is 51. Creatinine 0.8. GFR greater than 60. * Glucose is 109. * Calcium 7.9. * Total bilirubin 0.9. * AST is 22, ALT 20, alkaline phosphatase 68. * Protein is 5.9. * Albumin 2.7. * Type and screen is performed and she is B+. * CRP, magnesium, and proBNP are all pending. * Chest x-ray is obtained showing cardiomegaly and other chronic findings but nothing acute. * She is given IV push Protonix and started on saline. * Blood transfusion was discussed and patient is in agreement if warranted. 12/14/2020 This is an 85-year-old female who was admitted to the floor for a upper GI bleed with melanic stools and a syncopal episode. She has been on telemetry and there have been no concerns. She remains in chronic A. fib. Hemoglobin on admission was 12.2 and hemoglobin trend since then has been 11.2-->10.9-->10.5 -->11.9. Hematocrit today was 37.1. She is macrocytic. Platelets are 204,000. Neutrophils are 60.6%. proBNP yesterday was 606. Sodium is 152. Potassium 4.0. Chloride 115. Carbon dioxide 19. Anion gap is 22.0. BUN is 33. Creatinine 0.9. GFR 60. Glucose 85. Calcium 8.5. Bilirubin 0.9. AST is 29. ALT 25. Alkaline phosphatase 68. Protein 6.4. Albumin 3.0. Dr. Mckeon, dental surgeon was consulted and plan is to take patient for an EGD and colonoscopy today around 1600. Patient has been tolerating her bowel prep well. She is n.p.o. Likely discharge tomorrow pending results of EGD/colonoscopy and successful resumption of diet. - Plan Plan:: Gastrointestinal bleeding Chronic anticoagulation History of anemia History of bleeding peptic ulcer Chronic atrial fibrillation History of GI bleed History of venous thromboembolism History of CVA (cerebrovascular accident) History of DC (myocardial infarction) GERD (gastroesophageal reflux disease) Chronic constipation Syncope and collapse * NPO for now until after EGD * Hold home lasix today * IV fluids as ordered * Monitor stools * Check H. Pylori * Daily labs * Consult general surgery - Dr. Mckeon * Plan for EGD/Colonoscopy at around 1600 today * Hold home eliquis * SCDs for VTE prophylaxis as pharmacological intervention is contraindicated due to bleeding * 40mg BID Protonix * Hold home stool softeners/laxatives * Telemetry HTN (hypertension) * No acute concerns * Monitor vital signs * Home medications as ordered Asthma * No acute concerns * Continue home respiratory meds * PRN duonebs Recurrent UTI * Patient reports incontinence, urgency and increased frequency * Check UA - negative Arthritis * No acute concerns * Pain medications as ordered * PT/OT Depression * Continue home sertraline * No acute concerns Obesity * No acute concerns Code status: DNR/DNI PCP: Rhonda Qureshi, JUANITA/Dr. Herndon DVT prophylaxis: SCDs (pharmacological intervention contraindicated due to bleeding) Social: Patient resides in her own home but has frequent visits from multiple family members. Disposition: Patient admitted to the medical floor on telemetry for management and further monitoring of her GI bleed. Discharge tomorrow pending results of EGD/colonoscopy <Davian Kennedy - Last Filed: 12/14/20 13:56> - Patient Data Vitals - Most Recent: Last Vital Signs Temp 36.5 C 12/14/20 11:16 Pulse 80 12/14/20 11:16 Resp 18 12/14/20 11:16 BP 137/84 12/14/20 11:16 Pulse Ox 98 12/14/20 11:16 I&O - Last 24 Hours: Intake & Output 12/13/20 12/14/20 12/14/20 22:59 06:59 14:59 Intake Total 350 Output Total 400 Balance -400 350 Lab Results Last 24 Hours: Laboratory Results - last 24 hr 12/13/20 12/13/20 12/13/20 Range/Units 10:00 13:11 15:34 WBC (3.98-10.04) K/mm3 RBC (3.98-5.22) M/mm3 Hgb 11.2 (11.2-15.7) gm/dl Hct 35.7 (34.1-44.9) % MCV (79.4-94.8) fl MCH (25.6-32.2) pg MCHC (32.2-35.5) g/dl RDW Std Deviation (36.4-46.3) fL Plt Count (182-369) K/mm3 MPV (9.4-12.3) fl Neut % (Auto) (34.0-71.1) % Lymph % (Auto) (19.3-51.7) % Cross % (Auto) (4.7-12.5) % Eos % (Auto) (0.7-5.8) Baso % (Auto) (0.1-1.2) % Neut # (Auto) (1.56-6.13) K/mm3 Lymph # (Auto) (1.18-3.74) K/mm3 Cross # (Auto) (0.24-0.36) K/mm3 Eos # (Auto) (0.04-0.36) K/mm3 Baso # (Auto) (0.01-0.08) K/mm3 Sodium (136-145) mEq/L Potassium (3.5-5.1) mEq/L Chloride (98-107) mEq/L Carbon Dioxide (21-32) mEq/L Anion Gap (5-15) BUN (7-18) mg/dL Creatinine (0.55-1.02) mg/dL Est Cr Clr Drug Dosing mL/min Estimated GFR (MDRD) (>60) mL/min BUN/Creatinine Ratio (14-18) Glucose (70-99) mg/dL POC Glucose (70-99) mg/dL Calcium (8.5-10.1) mg/dL Magnesium 2.0 (1.8-2.4) mg/dL Total Bilirubin (0.2-1.0) mg/dL AST (15-37) U/L ALT (14-59) U/L Alkaline Phosphatase (46-116) U/L C-Reactive Protein <0.2 (<1.0) mg/dL NT-Pro-B Natriuret Pep (0-450) pg/mL Total Protein (6.4-8.2) g/dl Albumin (3.4-5.0) g/dl Globulin gm/dL Albumin/Globulin Ratio (1-2) Lipase 125 (73-393) U/L Urine Color Yellow (Yellow) Urine Appearance Clear (Clear) Urine pH 6.0 (5.0-8.0) Ur Specific Alto 1.020 (1.005-1.030) Urine Protein Negative (Negative) Urine Glucose (UA) Negative (Negative) Urine Ketones 1+ H (Negative) Urine Occult Blood 1+ H (Negative) Urine Nitrite Negative (Negative) Urine Bilirubin Negative (Negative) Urine Urobilinogen 0.2 (0.2-1.0) Ur Leukocyte Esterase Negative (Negative) Urine RBC 0-5 (0-5) /hpf Urine WBC 0-5 (0-5) /hpf Ur Squamous Epith Cells 0-5 (0-5) /hpf Urine Bacteria Moderate H (FEW) /hpf Urine Mucus Few (FEW) /hpf 12/13/20 12/13/20 12/14/20 Range/Units 20:06 20:06 01:50 WBC (3.98-10.04) K/mm3 RBC (3.98-5.22) M/mm3 Hgb 10.9 L 10.5 L (11.2-15.7) gm/dl Hct 34.5 33.4 L (34.1-44.9) % MCV (79.4-94.8) fl MCH (25.6-32.2) pg MCHC (32.2-35.5) g/dl RDW Std Deviation (36.4-46.3) fL Plt Count (182-369) K/mm3 MPV (9.4-12.3) fl Neut % (Auto) (34.0-71.1) % Lymph % (Auto) (19.3-51.7) % Cross % (Auto) (4.7-12.5) % Eos % (Auto) (0.7-5.8) Baso % (Auto) (0.1-1.2) % Neut # (Auto) (1.56-6.13) K/mm3 Lymph # (Auto) (1.18-3.74) K/mm3 Cross # (Auto) (0.24-0.36) K/mm3 Eos # (Auto) (0.04-0.36) K/mm3 Baso # (Auto) (0.01-0.08) K/mm3 Sodium (136-145) mEq/L Potassium (3.5-5.1) mEq/L Chloride (98-107) mEq/L Carbon Dioxide (21-32) mEq/L Anion Gap (5-15) BUN (7-18) mg/dL Creatinine (0.55-1.02) mg/dL Est Cr Clr Drug Dosing mL/min Estimated GFR (MDRD) (>60) mL/min BUN/Creatinine Ratio (14-18) Glucose (70-99) mg/dL POC Glucose (70-99) mg/dL Calcium (8.5-10.1) mg/dL Magnesium (1.8-2.4) mg/dL Total Bilirubin (0.2-1.0) mg/dL AST (15-37) U/L ALT (14-59) U/L Alkaline Phosphatase (46-116) U/L C-Reactive Protein (<1.0) mg/dL NT-Pro-B Natriuret Pep 606 H (0-450) pg/mL Total Protein (6.4-8.2) g/dl Albumin (3.4-5.0) g/dl Globulin gm/dL Albumin/Globulin Ratio (1-2) Lipase (73-393) U/L Urine Color (Yellow) Urine Appearance (Clear) Urine pH (5.0-8.0) Ur Specific Alto (1.005-1.030) Urine Protein (Negative) Urine Glucose (UA) (Negative) Urine Ketones (Negative) Urine Occult Blood (Negative) Urine Nitrite (Negative) Urine Bilirubin (Negative) Urine Urobilinogen (0.2-1.0) Ur Leukocyte Esterase (Negative) Urine RBC (0-5) /hpf Urine WBC (0-5) /hpf Ur Squamous Epith Cells (0-5) /hpf Urine Bacteria (FEW) /hpf Urine Mucus (FEW) /hpf 12/14/20 12/14/20 12/14/20 Range/Units 06:23 06:23 12:56 WBC 7.31 (3.98-10.04) K/mm3 RBC 3.74 L (3.98-5.22) M/mm3 Hgb 11.9 (11.2-15.7) gm/dl Hct 37.1 (34.1-44.9) % MCV 99.2 H (79.4-94.8) fl MCH 31.8 (25.6-32.2) pg MCHC 32.1 L (32.2-35.5) g/dl RDW Std Deviation 54.4 H (36.4-46.3) fL Plt Count 204 (182-369) K/mm3 MPV 11.1 (9.4-12.3) fl Neut % (Auto) 60.6 (34.0-71.1) % Lymph % (Auto) 25.7 (19.3-51.7) % Cross % (Auto) 11.6 (4.7-12.5) % Eos % (Auto) 1.5 (0.7-5.8) Baso % (Auto) 0.5 (0.1-1.2) % Neut # (Auto) 4.42 (1.56-6.13) K/mm3 Lymph # (Auto) 1.88 (1.18-3.74) K/mm3 Cross # (Auto) 0.85 H (0.24-0.36) K/mm3 Eos # (Auto) 0.11 (0.04-0.36) K/mm3 Baso # (Auto) 0.04 (0.01-0.08) K/mm3 Sodium 152 H (136-145) mEq/L Potassium 4.0 (3.5-5.1) mEq/L Chloride 115 H (98-107) mEq/L Carbon Dioxide 19 L D (21-32) mEq/L Anion Gap 22.0 H (5-15) BUN 33 H (7-18) mg/dL Creatinine 0.9 (0.55-1.02) mg/dL Est Cr Clr Drug Dosing 39.46 mL/min Estimated GFR (MDRD) 60 (>60) mL/min BUN/Creatinine Ratio 36.7 H (14-18) Glucose 85 (70-99) mg/dL POC Glucose 76 (70-99) mg/dL Calcium 8.5 (8.5-10.1) mg/dL Magnesium (1.8-2.4) mg/dL Total Bilirubin 0.9 (0.2-1.0) mg/dL AST 29 (15-37) U/L ALT 25 (14-59) U/L Alkaline Phosphatase 68 (46-116) U/L C-Reactive Protein (<1.0) mg/dL NT-Pro-B Natriuret Pep (0-450) pg/mL Total Protein 6.4 (6.4-8.2) g/dl Albumin 3.0 L (3.4-5.0) g/dl Globulin 3.4 gm/dL Albumin/Globulin Ratio 0.9 L (1-2) Lipase (73-393) U/L Urine Color (Yellow) Urine Appearance (Clear) Urine pH (5.0-8.0) Ur Specific Alto (1.005-1.030) Urine Protein (Negative) Urine Glucose (UA) (Negative) Urine Ketones (Negative) Urine Occult Blood (Negative) Urine Nitrite (Negative) Urine Bilirubin (Negative) Urine Urobilinogen (0.2-1.0) Ur Leukocyte Esterase (Negative) Urine RBC (0-5) /hpf Urine WBC (0-5) /hpf Ur Squamous Epith Cells (0-5) /hpf Urine Bacteria (FEW) /hpf Urine Mucus (FEW) /hpf Med Orders - Current: Current Medications Acetaminophen (Acetaminophen 325 Mg Tab) 650 mg PO Q4H PRN PRN Reason: Pain (Mild 1-3)/fever Albuterol (Albuterol 6.7 Gm Inhaler) 0 gm INH Q4H PRN PRN Reason: Wheezing Albuterol/Ipratropium (Albuterol/Ipratropium 3.0-0.5 Mg/3 Ml Neb Soln) 3 ml NEB QIDRT PRN PRN Reason: Shortness Of Breath/wheezing Furosemide (Furosemide 40 Mg Tab) 40 mg PO DAILY [facility] Last Admin: 12/14/20 09:04 Dose: Not Given Documented by: Lactated Ringer's (Ringers, Lactated) 1,000 mls @ 75 mls/hr IV ASDIRECTED [facility] Stop: 12/14/20 23:49 Last Admin: 12/14/20 11:19 Dose: 75 mls/hr Documented by: Ondansetron HCl (Ondansetron 4 Mg/2 Ml Sdv) 4 mg IV Q6H PRN PRN Reason: Nausea/Vomiting Pantoprazole Sodium (Pantoprazole 40 Mg Vial) 40 mg IV Q12HR [facility] Last Admin: 12/14/20 09:05 Dose: 40 mg Documented by: Sertraline HCl (Sertraline 25 Mg Tab) 25 mg PO DAILY [facility] Last Admin: 12/14/20 09:04 Dose: 25 mg Documented by: Tramadol HCl (Tramadol 50 Mg Tab) 50 mg PO Q6H PRN PRN Reason: Pain Discontinued Medications Fentanyl (Fentanyl 100 Mcg/2 Ml Sdv) Confirm Administered Dose 100 mcg .ROUTE .STK-MED ONE Stop: 12/14/20 11:46 Sodium Chloride (Normal Saline) 1,000 mls @ 500 mls/hr IV ASDIRECTED [facility] Last Admin: 12/13/20 10:41 Dose: 500 mls/hr Documented by: Pantoprazole Sodium 80 mg/ (Sodium Chloride) 100 mls @ 10 mls/hr IV Q10H [facility] Stop: 12/13/20 21:00 Last Admin: 12/13/20 20:30 Dose: Not Given Documented by: Lidocaine HCl (Xylocaine-Mpf 1%) Confirm Administered Dose 4 mls @ as directed .ROUTE .STK-MED ONE Stop: 12/14/20 11:46 Lactated Ringer's (Ringers, Lactated) Confirm Administered Dose 1,000 mls @ as directed .ROUTE .STK-MED ONE Stop: 12/14/20 11:47 Pantoprazole Sodium (Pantoprazole 40 Mg Vial) 40 mg IVPUSH ONETIME ONE Stop: 12/13/20 10:15 Last Admin: 12/13/20 10:41 Dose: 40 mg Documented by: Pantoprazole Sodium (Pantoprazole 40 Mg Vial) Confirm Administered Dose 80 mg .ROUTE .ST-MED ONE Stop: 12/13/20 10:36 Last Admin: 12/13/20 10:55 Dose: Not Given Documented by: Polyethylene Glycol/Electrolytes (Polyethylene Glycol/Electrolytes 4,000 Ml Bottle) 4,000 ml PO ONETIME ONE Stop: 12/14/20 05:01 Last Admin: 12/14/20 05:05 Dose: 4,000 ml Documented by: Propofol (Propofol 200 Mg/20 Ml Sdv) Confirm Administered Dose 200 mg .ROUTE .[facility]-MED ONE Stop: 12/14/20 11:46 - Patient Data Lab Results Last 24 hrs: Laboratory Results - last 24 hr 12/13/20 12/13/20 12/13/20 Range/Units 10:00 13:11 15:34 WBC (3.98-10.04) K/mm3 RBC (3.98-5.22) M/mm3 Hgb 11.2 (11.2-15.7) gm/dl Hct 35.7 (34.1-44.9) % MCV (79.4-94.8) fl MCH (25.6-32.2) pg MCHC (32.2-35.5) g/dl RDW Std Deviation (36.4-46.3) fL Plt Count (182-369) K/mm3 MPV (9.4-12.3) fl Neut % (Auto) (34.0-71.1) % Lymph % (Auto) (19.3-51.7) % Cross % (Auto) (4.7-12.5) % Eos % (Auto) (0.7-5.8) Baso % (Auto) (0.1-1.2) % Neut # (Auto) (1.56-6.13) K/mm3 Lymph # (Auto) (1.18-3.74) K/mm3 Cross # (Auto) (0.24-0.36) K/mm3 Eos # (Auto) (0.04-0.36) K/mm3 Baso # (Auto) (0.01-0.08) K/mm3 Sodium (136-145) mEq/L Potassium (3.5-5.1) mEq/L Chloride (98-107) mEq/L Carbon Dioxide (21-32) mEq/L Anion Gap (5-15) BUN (7-18) mg/dL Creatinine (0.55-1.02) mg/dL Est Cr Clr Drug Dosing mL/min Estimated GFR (MDRD) (>60) mL/min BUN/Creatinine Ratio (14-18) Glucose (70-99) mg/dL POC Glucose (70-99) mg/dL Calcium (8.5-10.1) mg/dL Magnesium 2.0 (1.8-2.4) mg/dL Total Bilirubin (0.2-1.0) mg/dL AST (15-37) U/L ALT (14-59) U/L Alkaline Phosphatase (46-116) U/L C-Reactive Protein <0.2 (<1.0) mg/dL NT-Pro-B Natriuret Pep (0-450) pg/mL Total Protein (6.4-8.2) g/dl Albumin (3.4-5.0) g/dl Globulin gm/dL Albumin/Globulin Ratio (1-2) Lipase 125 (73-393) U/L Urine Color Yellow (Yellow) Urine Appearance Clear (Clear) Urine pH 6.0 (5.0-8.0) Ur Specific Alto 1.020 (1.005-1.030) Urine Protein Negative (Negative) Urine Glucose (UA) Negative (Negative) Urine Ketones 1+ H (Negative) Urine Occult Blood 1+ H (Negative) Urine Nitrite Negative (Negative) Urine Bilirubin Negative (Negative) Urine Urobilinogen 0.2 (0.2-1.0) Ur Leukocyte Esterase Negative (Negative) Urine RBC 0-5 (0-5) /hpf Urine WBC 0-5 (0-5) /hpf Ur Squamous Epith Cells 0-5 (0-5) /hpf Urine Bacteria Moderate H (FEW) /hpf Urine Mucus Few (FEW) /hpf 12/13/20 12/13/20 12/14/20 Range/Units 20:06 20:06 01:50 WBC (3.98-10.04) K/mm3 RBC (3.98-5.22) M/mm3 Hgb 10.9 L 10.5 L (11.2-15.7) gm/dl Hct 34.5 33.4 L (34.1-44.9) % MCV (79.4-94.8) fl MCH (25.6-32.2) pg MCHC (32.2-35.5) g/dl RDW Std Deviation (36.4-46.3) fL Plt Count (182-369) K/mm3 MPV (9.4-12.3) fl Neut % (Auto) (34.0-71.1) % Lymph % (Auto) (19.3-51.7) % Cross % (Auto) (4.7-12.5) % Eos % (Auto) (0.7-5.8) Baso % (Auto) (0.1-1.2) % Neut # (Auto) (1.56-6.13) K/mm3 Lymph # (Auto) (1.18-3.74) K/mm3 Cross # (Auto) (0.24-0.36) K/mm3 Eos # (Auto) (0.04-0.36) K/mm3 Baso # (Auto) (0.01-0.08) K/mm3 Sodium (136-145) mEq/L Potassium (3.5-5.1) mEq/L Chloride (98-107) mEq/L Carbon Dioxide (21-32) mEq/L Anion Gap (5-15) BUN (7-18) mg/dL Creatinine (0.55-1.02) mg/dL Est Cr Clr Drug Dosing mL/min Estimated GFR (MDRD) (>60) mL/min BUN/Creatinine Ratio (14-18) Glucose (70-99) mg/dL POC Glucose (70-99) mg/dL Calcium (8.5-10.1) mg/dL Magnesium (1.8-2.4) mg/dL Total Bilirubin (0.2-1.0) mg/dL AST (15-37) U/L ALT (14-59) U/L Alkaline Phosphatase (46-116) U/L C-Reactive Protein (<1.0) mg/dL NT-Pro-B Natriuret Pep 606 H (0-450) pg/mL Total Protein (6.4-8.2) g/dl Albumin (3.4-5.0) g/dl Globulin gm/dL Albumin/Globulin Ratio (1-2) Lipase (73-393) U/L Urine Color (Yellow) Urine Appearance (Clear) Urine pH (5.0-8.0) Ur Specific [place] (1.005-1.030) Urine Protein (Negative) Urine Glucose (UA) (Negative) Urine Ketones (Negative) Urine Occult Blood (Negative) Urine Nitrite (Negative) Urine Bilirubin (Negative) Urine Urobilinogen (0.2-1.0) Ur Leukocyte Esterase (Negative) Urine RBC (0-5) /hpf Urine WBC (0-5) /hpf Ur Squamous Epith Cells (0-5) /hpf Urine Bacteria (FEW) /hpf Urine Mucus (FEW) /hpf 12/14/20 12/14/20 12/14/20 Range/Units 06:23 06:23 12:56 WBC 7.31 (3.98-10.04) K/mm3 RBC 3.74 L (3.98-5.22) M/mm3 Hgb 11.9 (11.2-15.7) gm/dl Hct 37.1 (34.1-44.9) % MCV 99.2 H (79.4-94.8) fl MCH 31.8 (25.6-32.2) pg MCHC 32.1 L (32.2-35.5) g/dl RDW Std Deviation 54.4 H (36.4-46.3) fL Plt Count 204 (182-369) K/mm3 MPV 11.1 (9.4-12.3) fl Neut % (Auto) 60.6 (34.0-71.1) % Lymph % (Auto) 25.7 (19.3-51.7) % Cross % (Auto) 11.6 (4.7-12.5) % Eos % (Auto) 1.5 (0.7-5.8) Baso % (Auto) 0.5 (0.1-1.2) % Neut # (Auto) 4.42 (1.56-6.13) K/mm3 Lymph # (Auto) 1.88 (1.18-3.74) K/mm3 Cross # (Auto) 0.85 H (0.24-0.36) K/mm3 Eos # (Auto) 0.11 (0.04-0.36) K/mm3 Baso # (Auto) 0.04 (0.01-0.08) K/mm3 Sodium 152 H (136-145) mEq/L Potassium 4.0 (3.5-5.1) mEq/L Chloride 115 H (98-107) mEq/L Carbon Dioxide 19 L D (21-32) mEq/L Anion Gap 22.0 H (5-15) BUN 33 H (7-18) mg/dL Creatinine 0.9 (0.55-1.02) mg/dL Est Cr Clr Drug Dosing 39.46 mL/min Estimated GFR (MDRD) 60 (>60) mL/min BUN/Creatinine Ratio 36.7 H (14-18) Glucose 85 (70-99) mg/dL POC Glucose 76 (70-99) mg/dL Calcium 8.5 (8.5-10.1) mg/dL Magnesium (1.8-2.4) mg/dL Total Bilirubin 0.9 (0.2-1.0) mg/dL AST 29 (15-37) U/L ALT 25 (14-59) U/L Alkaline Phosphatase 68 (46-116) U/L C-Reactive Protein (<1.0) mg/dL NT-Pro-B Natriuret Pep (0-450) pg/mL Total Protein 6.4 (6.4-8.2) g/dl Albumin 3.0 L (3.4-5.0) g/dl Globulin 3.4 gm/dL Albumin/Globulin Ratio 0.9 L (1-2) Lipase (73-393) U/L Urine Color (Yellow) Urine Appearance (Clear) Urine pH (5.0-8.0) Ur Specific [place] (1.005-1.030) Urine Protein (Negative) Urine Glucose (UA) (Negative) Urine Ketones (Negative) Urine Occult Blood (Negative) Urine Nitrite (Negative) Urine Bilirubin (Negative) Urine Urobilinogen (0.2-1.0) Ur Leukocyte Esterase (Negative) Urine RBC (0-5) /hpf Urine WBC (0-5) /hpf Ur Squamous Epith Cells (0-5) /hpf Urine Bacteria (FEW) /hpf Urine Mucus (FEW) /hpf Result Diagrams: 12/14/20 06:23 12/14/20 06:23 Sepsis Event Note - Focused Exam Vital Signs: Vital Signs Temp Pulse Resp BP Pulse Ox 12/14/20 11:16 36.5 C 80 18 137/84 98 12/14/20 07:41 36.3 C 71 20 134/79 97 12/14/20 02:07 37.0 C 76 20 150/88 H 97 - Free Text/Narrative Note: I have seen and examined the patient independently of Aniceto Covarrubias PA-C and have discussed the case with him. I have reviewed and agree with the orders and plan of care outlined by him. Please see orders.
[2020-12-14] MEDS: Furosemide 40 MG Tab PO SCH (09:04)
[2020-12-14] MEDS: Sertraline 25 MG Tab PO SCH (09:04)
[2020-12-14] MEDS: Pantoprazole 40 MG Vial IV SCH ×2 (09:05→20:31)
[2020-12-14] MEDS ORDERED: Lactated Ringers 1,000 ML IV SCH (10:30)
--- NOTE | 2020-12-14 10:38 | PCM.PREANE ---
Preanesthetic Assessment - Procedure Proposed Procedure: egd colonoscopy - Anesthesia/Transfusion/Family Hx Anesthesia History: Prior Anesthesia Without Reaction Family History of Anesthesia Reaction: No Transfusion History: Prior Transfusion Without Reaction Intubation History: Unknown - Review of Systems General: Weakness (passed out yesterday) Pulmonary: No Symptoms Cardiovascular: Palpitations (felt palpitations yesterday), Dyspnea on Exertion, Lightheadedness (passed out yesterday) Gastrointestinal: Abdominal Pain (pain started on and off for a day or two) Neurological: Syncope, Other (cva recovered) Other: Reports: Depression - Physical Assessment NPO Status Date: 12/14/20 NPO Status Time: 10:00 (prep) Vital Signs: Last Vital Signs Temp 97.3 F 12/14/20 07:41 Pulse 71 12/14/20 07:41 Resp 20 12/14/20 07:41 BP 134/79 12/14/20 07:41 Pulse Ox 97 12/14/20 07:41 Height: 5 ft 4 in Weight: 80.966 kg ASA Class: 3 Mental Status: Alert & Oriented x3 Airway Class: Mallampati = 1 Dentition: Reports: Missing Tooth/Teeth, Caries Thyro-Mental Finger Breadths: 3 Mouth Opening Finger Breadths: 3 ROM/Head Extension: Full Lungs: Clear to Auscultation, Normal Respiratory Effort (takes her inhalers) - Lab Values: Laboratory Last Values WBC 7.31 K/mm3 (3.98-10.04) 12/14/20 06:23 RBC 3.74 M/mm3 (3.98-5.22) L 12/14/20 06:23 Hgb 11.9 gm/dl (11.2-15.7) 12/14/20 06:23 Hct 37.1 % (34.1-44.9) 12/14/20 06:23 MCV 99.2 fl (79.4-94.8) H 12/14/20 06:23 MCH 31.8 pg (25.6-32.2) 12/14/20 06:23 MCHC 32.1 g/dl (32.2-35.5) L 12/14/20 06:23 RDW Std Deviation 54.4 fL (36.4-46.3) H 12/14/20 06:23 Plt Count 204 K/mm3 (182-369) 12/14/20 06:23 MPV 11.1 fl (9.4-12.3) 12/14/20 06:23 Neut % (Auto) 60.6 % (34.0-71.1) 12/14/20 06:23 Lymph % (Auto) 25.7 % (19.3-51.7) 12/14/20 06:23 [place] % (Auto) 11.6 % (4.7-12.5) 12/14/20 06:23 Eos % (Auto) 1.5 (0.7-5.8) 12/14/20 06:23 Baso % (Auto) 0.5 % (0.1-1.2) 12/14/20 06:23 Neut # (Auto) 4.42 K/mm3 (1.56-6.13) 12/14/20 06:23 Lymph # (Auto) 1.88 K/mm3 (1.18-3.74) 12/14/20 06:23 [place] # (Auto) 0.85 K/mm3 (0.24-0.36) H 12/14/20 06:23 Eos # (Auto) 0.11 K/mm3 (0.04-0.36) 12/14/20 06:23 Baso # (Auto) 0.04 K/mm3 (0.01-0.08) 12/14/20 06:23 Sodium 152 mEq/L (136-145) H 12/14/20 06:23 Potassium 4.0 mEq/L (3.5-5.1) 12/14/20 06:23 Chloride 115 mEq/L (98-107) H 12/14/20 06:23 Carbon Dioxide 19 mEq/L (21-32) L D 12/14/20 06:23 Anion Gap 22.0 (5-15) H 12/14/20 06:23 BUN 33 mg/dL (7-18) H 12/14/20 06:23 Creatinine 0.9 mg/dL (0.55-1.02) 12/14/20 06:23 Est Cr Clr Drug Dosing 39.46 mL/min 12/14/20 06:23 Estimated GFR (MDRD) 60 mL/min (>60) 12/14/20 06:23 BUN/Creatinine Ratio 36.7 (14-18) H 12/14/20 06:23 Glucose 85 mg/dL (70-99) 12/14/20 06:23 Calcium 8.5 mg/dL (8.5-10.1) 12/14/20 06:23 Magnesium 2.0 mg/dL (1.8-2.4) 12/13/20 10:00 Total Bilirubin 0.9 mg/dL (0.2-1.0) 12/14/20 06:23 AST 29 U/L (15-37) 12/14/20 06:23 ALT 25 U/L (14-59) 12/14/20 06:23 Alkaline Phosphatase 68 U/L (46-116) 12/14/20 06:23 C-Reactive Protein <0.2 mg/dL (<1.0) 12/13/20 10:00 NT-Pro-B Natriuret Pep 606 pg/mL (0-450) H 12/13/20 20:06 Total Protein 6.4 g/dl (6.4-8.2) 12/14/20 06:23 Albumin 3.0 g/dl (3.4-5.0) L 12/14/20 06:23 Globulin 3.4 gm/dL 12/14/20 06:23 Albumin/Globulin Ratio 0.9 (1-2) L 12/14/20 06:23 Lipase 125 U/L (73-393) 12/13/20 10:00 Urine Color Yellow (Yellow) 12/13/20 13:11 Urine Appearance Clear (Clear) 12/13/20 13:11 Urine pH 6.0 (5.0-8.0) 12/13/20 13:11 Ur Specific Caroline 1.020 (1.005-1.030) 12/13/20 13:11 Urine Protein Negative (Negative) 12/13/20 13:11 Urine Glucose (UA) Negative (Negative) 12/13/20 13:11 Urine Ketones 1+ (Negative) H 12/13/20 13:11 Urine Occult Blood 1+ (Negative) H 12/13/20 13:11 Urine Nitrite Negative (Negative) 12/13/20 13:11 Urine Bilirubin Negative (Negative) 12/13/20 13:11 Urine Urobilinogen 0.2 (0.2-1.0) 12/13/20 13:11 Ur Leukocyte Esterase Negative (Negative) 12/13/20 13:11 Urine RBC 0-5 /hpf (0-5) 12/13/20 13:11 Urine WBC 0-5 /hpf (0-5) 12/13/20 13:11 Ur Squamous Epith Cells 0-5 /hpf (0-5) 12/13/20 13:11 Urine Bacteria Moderate /hpf (FEW) H 12/13/20 13:11 Urine Mucus Few /hpf (FEW) 12/13/20 13:11 SARS-CoV-2 RNA (KARLI) Negative (NEGATIVE) 12/13/20 10:27 Blood Type B POSITIVE 12/13/20 10:00 Gel Antibody Screen Negative 12/13/20 10:00 - Allergies Allergies/Adverse Reactions: Allergies Allergy/AdvReac Type Severity Reaction Status Date / Time perfume Allergy Severe Airway Verified 12/13/20 15:01 Tightness theophylline anhydrous AdvReac Intermediate altered Verified 12/13/20 15:01 [From Pan-Dur] heart rate - Blood Blood Available: No - Acknowledgements Anesthesia Type Planned: MAC Pt an Appropriate Candidate for the Planned Anesthesia: Yes Alternatives and Risks of Anesthesia Discussed w Pt/Guardian: Yes Pt/Guardian Understands and Agrees with Anesthesia Plan: Yes PreAnesthesia Questionnaire HEENT History: Reports: Cataract, Epistaxis, Hard of Hearing, Other (See Below) Other HEENT History: wears glasses; macular puckering Cardiovascular History: Reports: Afib, Blood Clots/VTE/DVT, High Cholesterol, Hypertension, HI, Other (See Below) Other Cardiovascular History: superficial blood clot Respiratory History: Reports: Asthma, Bronchitis, Recurrent, Other (See Below) Other Respiratory History: "sinus problems", Pneumonia once in the past Gastrointestinal History: Reports: GERD, GI Bleed Genitourinary History: Reports: UTI, Recurrent, Other (See Below) Other Genitourinary History: cyst on bladder, dribbles 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 Psychiatric History: Reports: Depression Endocrine/Metabolic History: Reports: Obesity/BMI 30+ Hematologic History: Reports: Anemia Other Hematologic History: "had bleeding ulcer 11/2014" Immunologic History: Reports: None Oncologic (Cancer) History: Reports: None Dermatologic History: Reports: None - Infectious Disease History Infectious Disease History: Reports: Measles - Past Surgical History Head Surgeries/Procedures: Reports: None HEENT Surgical History: Reports: Cataract Surgery, Other (See Below) Other HEENT Surgeries/Procedures: bilateral cataract surgery Cardiovascular Surgical History: Reports: Other (See Below) Other Cardiovascular Surgeries/Procedures: hx of vein stripping Respiratory Surgical History: Reports: None GI Surgical History: Reports: Cholecystectomy, Colonoscopy, EGD Female Surgical History: Reports: Hysterectomy, Other (See Below) Other Female Surgeries/Procedures: hernia mesh r/t prolapsed bladder Endocrine Surgical History: Reports: None Neurological Surgical History: Reports: None Musculoskeletal Surgical History: Reports: Knee Replacement Other Musculoskeletal Surgeries/Procedures:: bilateral Oncologic Surgical History: Reports: None Dermatological Surgical History: Reports: None - SUBSTANCE USE Tobacco Use Status *Q: Never Tobacco User Tobacco Use Within Last Twelve Months: No Second Hand Smoke Exposure: No Days Per Week of Alcohol Use: 0 Recreational Drug Use History: No - HOME MEDS Home Medications: Home Meds Sertraline HCl 25 mg PO DAILY 12/05/14 [History] Albuterol Sulfate [Proair Respiclick] 2 inh INH Q4H PRN 10/29/15 [History] Furosemide [Lasix] 40 mg PO DAILY 07/23/17 [History] Apixaban [Eliquis] 2.5 mg PO BID 09/18/17 [History] atorvaSTATin [Lipitor] 10 mg PO BEDTIME 09/18/17 [History] Pantoprazole [ProTONIX] 40 mg PO DAILY 03/20/18 [History] bisacodyL [Dulcolax] 10 mg RC BID PRN #2 supp 03/23/18 [Rx] polyethylene glycoL 3350 [Miralax] 17 gm PO BID PRN #4 powd.pack 03/23/18 [Rx] Lutein/Minerals/Vit A,C & E [Ocuvite] 1 tab PO DAILY 04/05/18 [History] traMADol [Ultram] 50 mg PO Q6HR PRN 04/21/19 [History] Calcium Carbonate [Calcium] 1 tab PO DAILY 12/13/20 [History] - CURRENT (IN HOUSE) MEDS Current Meds: Current Medications Acetaminophen (Acetaminophen 325 Mg Tab) 650 mg PO Q4H PRN PRN Reason: Pain (Mild 1-3)/fever Albuterol (Albuterol 6.7 Gm Inhaler) 0 gm INH Q4H PRN PRN Reason: Wheezing Albuterol/Ipratropium (Albuterol/Ipratropium 3.0-0.5 Mg/3 Ml Neb Soln) 3 ml NEB QIDRT PRN PRN Reason: Shortness Of Breath/wheezing Furosemide (Furosemide 40 Mg Tab) 40 mg PO DAILY [facility] Last Admin: 12/14/20 09:04 Dose: Not Given Documented by: Lactated Ringer's (Ringers, Lactated) 1,000 mls @ 75 mls/hr IV ASDIRECTED [facility] Stop: 12/14/20 23:49 Ondansetron HCl (Ondansetron 4 Mg/2 Ml Sdv) 4 mg IV Q6H PRN PRN Reason: Nausea/Vomiting Pantoprazole Sodium (Pantoprazole 40 Mg Vial) 40 mg IV Q12HR [facility] Last Admin: 12/14/20 09:05 Dose: 40 mg Documented by: Sertraline HCl (Sertraline 25 Mg Tab) 25 mg PO DAILY [facility] Last Admin: 12/14/20 09:04 Dose: 25 mg Documented by: Tramadol HCl (Tramadol 50 Mg Tab) 50 mg PO Q6H PRN PRN Reason: Pain Discontinued Medications Sodium Chloride (Normal Saline) 1,000 mls @ 500 mls/hr IV ASDIRECTED [facility] Last Admin: 12/13/20 10:41 Dose: 500 mls/hr Documented by: Pantoprazole Sodium 80 mg/ (Sodium Chloride) 100 mls @ 10 mls/hr IV Q10H [facility] Stop: 12/13/20 21:00 Last Admin: 12/13/20 20:30 Dose: Not Given Documented by: Pantoprazole Sodium (Pantoprazole 40 Mg Vial) 40 mg IVPUSH ONETIME ONE Stop: 12/13/20 10:15 Last Admin: 12/13/20 10:41 Dose: 40 mg Documented by: Pantoprazole Sodium (Pantoprazole 40 Mg Vial) Confirm Administered Dose 80 mg .ROUTE .STK-MED ONE Stop: 12/13/20 10:36 Last Admin: 12/13/20 10:55 Dose: Not Given Documented by: Polyethylene Glycol/Electrolytes (Polyethylene Glycol/Electrolytes 4,000 Ml Bottle) 4,000 ml PO ONETIME ONE Stop: 12/14/20 05:01 Last Admin: 12/14/20 05:05 Dose: 4,000 ml Documented by:
[2020-12-14] MEDS ORDERED: Lidocaine 1% 4 ML ONE (11:45)
[2020-12-14] MEDS ORDERED: fentaNYL 100 MCG/2 ML SDV ONE (11:45)
[2020-12-14] MEDS ORDERED: Propofol 200 MG/20 ML SDV ONE ×2 (11:45→15:35)
[2020-12-14] MEDS ORDERED: Lactated Ringers 1,000 ML ONE (11:46)
--- NOTE | 2020-12-14 16:02 | PCM.SN.2 ---
- Free Text/Narrative Note: EGD and Colonoscopy performed. EGD - antritis marked by non-bleeding superficial erosions in the antrum, Small hiatal hernia, Fundic polyps. Colonoscopy: hematin and clots around some diverticula. no active bleeding. This finding raises suspicion for recent diverticula bleeding. No other findings. Impression - Patient likely had self-limited diverticular bleeding. No treatment was necessary. - I recommend PPIs treatment for 8 weeks, H.pilory stool study. - If Hgb remains stable x 3, can resume anticoagulation. - Follow up with PCP
--- NOTE | 2020-12-14 16:15 | PCM48HPAN ---
Post Anesthesia Note - EVALUATION WITHIN 48HRS OF ANESTHETIC Vital Signs in Normal Range: Yes Patient Participated in Evaluation: Yes Respiratory Function Stable: Yes Airway Patent: Yes Cardiovascular Function Stable: Yes Hydration Status Stable: Yes Pain Control Satisfactory: Yes Nausea and Vomiting Control Satisfactory: Yes Mental Status Recovered: Yes (states really slept good) Vital Signs: Last Vital Signs Temp 97.7 F 12/14/20 11:16 Pulse 80 12/14/20 11:16 Resp 18 12/14/20 11:16 BP 137/84 12/14/20 11:16 Pulse Ox 98 12/14/20 13:08 1605 110/55 94% 73 16
--- NOTE | 2020-12-14 16:56 | PROC ---
DATE OF OPERATION: 12/14/2020 SURGEON: Garrett Mckeon MD PREOPERATIVE DIAGNOSIS: Gastrointestinal bleeding. POSTOPERATIVE DIAGNOSES: 1. Enteritis. 2. Fundic polyps. 3. Small hiatal hernia. 4. Diverticulosis with old blood clots around a few diverticula. OPERATION PERFORMED: 1. Esophagogastroduodenoscopy. 2. Colonoscopy. ESTIMATED BLOOD LOSS: None. ANESTHESIA: Monitored anesthesia care. COMPLICATIONS: None. INDICATION AND CONSENT: Ms. Souza is an 85-year-old female, on Eliquis for Afib, who presented with several episodes of bloody bowel movements. Hemoglobin was 11, trended down to 10, but remained stable since. I saw the patient and recommended to proceed with EGD and colonoscopy as the patient requests to be anticoagulated for atrial fibrillation. We discussed risks, benefits, and alternatives. Informed consent was obtained. DESCRIPTION OF PROCEDURE: The patient was taken to the procedure room, placed in the left lateral decubitus position. Monitored anesthesia care was induced. Time-out was performed. We began with EGD. Bite block was placed in the mouth. EGD scope was placed into the mouth and taken all the way to the second portion of duodenum. This was normal. First portion of duodenum was normal. Antrum had superficial ulcers that were nonbleeding. Fundus had several 1 to 3 mm fundic polyps. On retroflexion, there was a small sliding hiatal hernia. No stigmata of bleeding in the stomach. Then, we went to the esophagus. The Z- line was at 39 cm, it was regular. There was no signs of esophagitis. The entire esophagus was otherwise normal. Air was suctioned from the stomach and procedure was concluded. Then, we started doing colonoscopy. Perianal exam was normal. Digital rectal exam was normal. We placed the scope and took it all the way to the cecum. The appendiceal orifice and ileocecal valve were photographed. There was no hematin or stigmata of bleeding in the cecum or ascending colon. The transverse colon was also normal. Descending colon was normal. In the sigmoid colon, there were numerous large diverticula and there was some hematin in the sigmoid colon. Towards the distal sigmoid colon, there were at least 3 diverticula area that had adherent clots. Some of this were able to be flushed out with irrigation. Others were too adherent to the diverticulum to be flushed. Because of this, I suspect that the patient had self- limited diverticular bleeding. However, there was no active bleeding anywhere in the colon. On retroflexion, there was no other abnormalities. Air was suctioned out from the rectum and the procedure was concluded. Therefore, from this procedure, I suspect the patient bled from diverticula, which has now completely stopped. The patient to be allowed to return to the floor for further recovery. MMODAL /[id number] JEN
[2020-12-14] MEDS ORDERED: Apixaban 2.5 MG Tab PO SCH (21:00)
--- NOTE | 2020-12-15 07:37 | PCM.PN ---
- General Info Date of Service: 12/15/20 Admission Dx/Problem (Free Text): Admission Diagnosis/Problem Admission Diagnosis/Problem GI bleed not requiring more than 4 units of blood in 24 hours, ICU, or surgery Subjective Update: The patient is an 85-year-old lady who had been admitted to acute hospitalization for low volume GI bleed that has not required transfusion. The patient yesterday completed colonoscopy and EGD and was found to have superficial duodenal ulcers. The patient today says that she feels very weak. She is seriously considering rehabilitation to help her to transition to home safely. She has denied any bloody bowel movements. The patient has been tolerating her diet. The patient has denied any new pain. Functional Status: Reports: Pain Controlled, Tolerating Diet - Review of Systems General: Reports: Weakness, Fatigue HEENT: Reports: No Symptoms Pulmonary: Reports: No Symptoms Cardiovascular: Reports: No Symptoms Gastrointestinal: Reports: Abdominal Pain Genitourinary: Reports: No Symptoms Musculoskeletal: Reports: No Symptoms Skin: Reports: No Symptoms Neurological: Reports: Pre-Existing Deficit, Tremors Psychiatric: Reports: No Symptoms - Patient Data Vitals - Most Recent: Last Vital Signs Temp 36.7 C 12/15/20 04:26 Pulse 65 12/15/20 04:26 Resp 18 12/15/20 04:26 BP 113/53 L 12/15/20 04:45 Pulse Ox 95 12/15/20 04:26 Weight - Most Recent: 79.787 kg I&O - Last 24 Hours: Intake & Output 12/14/20 12/15/20 12/15/20 22:59 06:59 14:59 Intake Total 313 910 Output Total 700 Balance -387 910 Lab Results Last 24 Hours: Laboratory Results - last 24 hr 12/14/20 12/14/20 12/14/20 Range/Units 06:23 12:56 17:11 WBC (3.98-10.04) K/mm3 RBC (3.98-5.22) M/mm3 Hgb (11.2-15.7) gm/dl Hct (34.1-44.9) % MCV (79.4-94.8) fl MCH (25.6-32.2) pg MCHC (32.2-35.5) g/dl RDW Std Deviation (36.4-46.3) fL Plt Count (182-369) K/mm3 MPV (9.4-12.3) fl Neut % (Auto) (34.0-71.1) % Lymph % (Auto) (19.3-51.7) % Elbert % (Auto) (4.7-12.5) % Eos % (Auto) (0.7-5.8) Baso % (Auto) (0.1-1.2) % Neut # (Auto) (1.56-6.13) K/mm3 Lymph # (Auto) (1.18-3.74) K/mm3 Elbert # (Auto) (0.24-0.36) K/mm3 Eos # (Auto) (0.04-0.36) K/mm3 Baso # (Auto) (0.01-0.08) K/mm3 Sodium 152 H (136-145) mEq/L Potassium 4.0 (3.5-5.1) mEq/L Chloride 115 H (98-107) mEq/L Carbon Dioxide 19 L D (21-32) mEq/L Anion Gap 22.0 H (5-15) BUN 33 H (7-18) mg/dL Creatinine 0.9 (0.55-1.02) mg/dL Est Cr Clr Drug Dosing 39.46 mL/min Estimated GFR (MDRD) 60 (>60) mL/min BUN/Creatinine Ratio 36.7 H (14-18) Glucose 85 (70-99) mg/dL POC Glucose 76 88 (70-99) mg/dL Calcium 8.5 (8.5-10.1) mg/dL Total Bilirubin 0.9 (0.2-1.0) mg/dL AST 29 (15-37) U/L ALT 25 (14-59) U/L Alkaline Phosphatase 68 (46-116) U/L Total Protein 6.4 (6.4-8.2) g/dl Albumin 3.0 L (3.4-5.0) g/dl Globulin 3.4 gm/dL Albumin/Globulin Ratio 0.9 L (1-2) 12/15/20 12/15/20 12/15/20 Range/Units 05:15 05:15 06:21 WBC 6.44 (3.98-10.04) K/mm3 RBC 2.92 L (3.98-5.22) M/mm3 Hgb 9.2 L D (11.2-15.7) gm/dl Hct 29.5 L (34.1-44.9) % MCV 101.0 H (79.4-94.8) fl MCH 31.5 (25.6-32.2) pg MCHC 31.2 L (32.2-35.5) g/dl RDW Std Deviation 54.1 H (36.4-46.3) fL Plt Count 171 L (182-369) K/mm3 MPV 11.0 (9.4-12.3) fl Neut % (Auto) 57.6 (34.0-71.1) % Lymph % (Auto) 29.2 (19.3-51.7) % Elbert % (Auto) 9.9 (4.7-12.5) % Eos % (Auto) 2.5 (0.7-5.8) Baso % (Auto) 0.6 (0.1-1.2) % Neut # (Auto) 3.71 (1.56-6.13) K/mm3 Lymph # (Auto) 1.88 (1.18-3.74) K/mm3 Elbert # (Auto) 0.64 H (0.24-0.36) K/mm3 Eos # (Auto) 0.16 (0.04-0.36) K/mm3 Baso # (Auto) 0.04 (0.01-0.08) K/mm3 Sodium 146 H (136-145) mEq/L Potassium 3.7 (3.5-5.1) mEq/L Chloride 113 H (98-107) mEq/L Carbon Dioxide 27 (21-32) mEq/L Anion Gap 9.7 (5-15) BUN 17 (7-18) mg/dL Creatinine 0.8 (0.55-1.02) mg/dL Est Cr Clr Drug Dosing 44.40 mL/min Estimated GFR (MDRD) > 60 (>60) mL/min BUN/Creatinine Ratio 21.3 H (14-18) Glucose 86 (70-99) mg/dL POC Glucose 78 (70-99) mg/dL Calcium 8.0 L (8.5-10.1) mg/dL Total Bilirubin 0.8 (0.2-1.0) mg/dL AST 24 (15-37) U/L ALT 23 (14-59) U/L Alkaline Phosphatase 54 (46-116) U/L Total Protein 5.4 L (6.4-8.2) g/dl Albumin 2.6 L (3.4-5.0) g/dl Globulin 2.8 gm/dL Albumin/Globulin Ratio 0.9 L (1-2) Med Orders - Current: Current Medications Acetaminophen (Acetaminophen 325 Mg Tab) 650 mg PO Q4H PRN PRN Reason: Pain (Mild 1-3)/fever Albuterol (Albuterol 6.7 Gm Inhaler) 0 gm INH Q4H PRN PRN Reason: Wheezing Albuterol/Ipratropium (Albuterol/Ipratropium 3.0-0.5 Mg/3 Ml Neb Soln) 3 ml NEB QIDRT PRN PRN Reason: Shortness Of Breath/wheezing Furosemide (Furosemide 40 Mg Tab) 40 mg PO DAILY [facility] Last Admin: 12/14/20 09:04 Dose: Not Given Documented by: Ondansetron HCl (Ondansetron 4 Mg/2 Ml Sdv) 4 mg IV Q6H PRN PRN Reason: Nausea/Vomiting Pantoprazole Sodium (Pantoprazole 40 Mg Vial) 40 mg IV Q12HR [facility] Last Admin: 12/14/20 20:31 Dose: 40 mg Documented by: Sertraline HCl (Sertraline 25 Mg Tab) 25 mg PO DAILY [facility] Last Admin: 12/14/20 09:04 Dose: 25 mg Documented by: Tramadol HCl (Tramadol 50 Mg Tab) 50 mg PO Q6H PRN PRN Reason: Pain Discontinued Medications Apixaban (Apixaban 2.5 Mg Tab) 2.5 mg PO BID [facility] Last Admin: 12/14/20 20:30 Dose: 2.5 mg Documented by: Fentanyl (Fentanyl 100 Mcg/2 Ml Sdv) Confirm Administered Dose 100 mcg .ROUTE .STK-MED ONE Stop: 12/14/20 11:46 Sodium Chloride (Normal Saline) 1,000 mls @ 500 mls/hr IV ASDIRECTED [facility] Last Admin: 12/13/20 10:41 Dose: 500 mls/hr Documented by: Pantoprazole Sodium 80 mg/ (Sodium Chloride) 100 mls @ 10 mls/hr IV Q10H [facility] Stop: 12/13/20 21:00 Last Admin: 12/13/20 20:30 Dose: Not Given Documented by: Lactated Ringer's (Ringers, Lactated) 1,000 mls @ 75 mls/hr IV ASDIRECTED [facility] Stop: 12/14/20 23:49 Last Admin: 12/14/20 11:19 Dose: 75 mls/hr Documented by: Lidocaine HCl (Xylocaine-Mpf 1%) Confirm Administered Dose 4 mls @ as directed .ROUTE .STK-MED ONE Stop: 12/14/20 11:46 Lactated Ringer's (Ringers, Lactated) Confirm Administered Dose 1,000 mls @ as directed .ROUTE .STK-MED ONE Stop: 12/14/20 11:47 Pantoprazole Sodium (Pantoprazole 40 Mg Vial) 40 mg IVPUSH ONETIME ONE Stop: 12/13/20 10:15 Last Admin: 12/13/20 10:41 Dose: 40 mg Documented by: Pantoprazole Sodium (Pantoprazole 40 Mg Vial) Confirm Administered Dose 80 mg .ROUTE .STK-MED ONE Stop: 12/13/20 10:36 Last Admin: 12/13/20 10:55 Dose: Not Given Documented by: Polyethylene Glycol/Electrolytes (Polyethylene Glycol/Electrolytes 4,000 Ml Bottle) 4,000 ml PO ONETIME ONE Stop: 12/14/20 05:01 Last Admin: 12/14/20 05:05 Dose: 4,000 ml Documented by: Propofol (Propofol 200 Mg/20 Ml Sdv) Confirm Administered Dose 200 mg .ROUTE .STK-MED ONE Stop: 12/14/20 11:46 Propofol (Propofol 200 Mg/20 Ml Sdv) Confirm Administered Dose 200 mg .ROUTE .STK-MED ONE Stop: 12/14/20 15:36 - Exam Quality Assessment: No: Supplemental Oxygen, DVT Prophylaxis (Eliquis was held due to drop in her hemoglobin) General: Alert, Oriented, Cooperative HEENT: Pupils Equal, Pupils Reactive, EOMI Neck: Supple, Trachea Midline Lungs: Clear to Auscultation, Normal Respiratory Effort Cardiovascular: Regular Rate, Regular Rhythm GI/Abdominal Exam: Normal Bowel Sounds, Soft, Non-Tender, No Distention (Female) Exam: Deferred Back Exam: Full Range of Motion. No: Normal Inspection (Appropriate for age) Extremities: Normal Inspection, No Pedal Edema Skin: Warm, Dry, Intact Neurological: No New Focal Deficit Psy/Mental Status: Alert, Normal Affect, Normal Mood - Patient Data Lab Results Last 24 hrs: Laboratory Results - last 24 hr 12/14/20 12/14/20 12/14/20 Range/Units 06:23 12:56 17:11 WBC (3.98-10.04) K/mm3 RBC (3.98-5.22) M/mm3 Hgb (11.2-15.7) gm/dl Hct (34.1-44.9) % MCV (79.4-94.8) fl MCH (25.6-32.2) pg MCHC (32.2-35.5) g/dl RDW Std Deviation (36.4-46.3) fL Plt Count (182-369) K/mm3 MPV (9.4-12.3) fl Neut % (Auto) (34.0-71.1) % Lymph % (Auto) (19.3-51.7) % Elbert % (Auto) (4.7-12.5) % Eos % (Auto) (0.7-5.8) Baso % (Auto) (0.1-1.2) % Neut # (Auto) (1.56-6.13) K/mm3 Lymph # (Auto) (1.18-3.74) K/mm3 Elbert # (Auto) (0.24-0.36) K/mm3 Eos # (Auto) (0.04-0.36) K/mm3 Baso # (Auto) (0.01-0.08) K/mm3 Sodium 152 H (136-145) mEq/L Potassium 4.0 (3.5-5.1) mEq/L Chloride 115 H (98-107) mEq/L Carbon Dioxide 19 L D (21-32) mEq/L Anion Gap 22.0 H (5-15) BUN 33 H (7-18) mg/dL Creatinine 0.9 (0.55-1.02) mg/dL Est Cr Clr Drug Dosing 39.46 mL/min Estimated GFR (MDRD) 60 (>60) mL/min BUN/Creatinine Ratio 36.7 H (14-18) Glucose 85 (70-99) mg/dL POC Glucose 76 88 (70-99) mg/dL Calcium 8.5 (8.5-10.1) mg/dL Total Bilirubin 0.9 (0.2-1.0) mg/dL AST 29 (15-37) U/L ALT 25 (14-59) U/L Alkaline Phosphatase 68 (46-116) U/L Total Protein 6.4 (6.4-8.2) g/dl Albumin 3.0 L (3.4-5.0) g/dl Globulin 3.4 gm/dL Albumin/Globulin Ratio 0.9 L (1-2) 12/15/20 12/15/20 12/15/20 Range/Units 05:15 05:15 06:21 WBC 6.44 (3.98-10.04) K/mm3 RBC 2.92 L (3.98-5.22) M/mm3 Hgb 9.2 L D (11.2-15.7) gm/dl Hct 29.5 L (34.1-44.9) % MCV 101.0 H (79.4-94.8) fl MCH 31.5 (25.6-32.2) pg MCHC 31.2 L (32.2-35.5) g/dl RDW Std Deviation 54.1 H (36.4-46.3) fL Plt Count 171 L (182-369) K/mm3 MPV 11.0 (9.4-12.3) fl Neut % (Auto) 57.6 (34.0-71.1) % Lymph % (Auto) 29.2 (19.3-51.7) % Elbert % (Auto) 9.9 (4.7-12.5) % Eos % (Auto) 2.5 (0.7-5.8) Baso % (Auto) 0.6 (0.1-1.2) % Neut # (Auto) 3.71 (1.56-6.13) K/mm3 Lymph # (Auto) 1.88 (1.18-3.74) K/mm3 Elbert # (Auto) 0.64 H (0.24-0.36) K/mm3 Eos # (Auto) 0.16 (0.04-0.36) K/mm3 Baso # (Auto) 0.04 (0.01-0.08) K/mm3 Sodium 146 H (136-145) mEq/L Potassium 3.7 (3.5-5.1) mEq/L Chloride 113 H (98-107) mEq/L Carbon Dioxide 27 (21-32) mEq/L Anion Gap 9.7 (5-15) BUN 17 (7-18) mg/dL Creatinine 0.8 (0.55-1.02) mg/dL Est Cr Clr Drug Dosing 44.40 mL/min Estimated GFR (MDRD) > 60 (>60) mL/min BUN/Creatinine Ratio 21.3 H (14-18) Glucose 86 (70-99) mg/dL POC Glucose 78 (70-99) mg/dL Calcium 8.0 L (8.5-10.1) mg/dL Total Bilirubin 0.8 (0.2-1.0) mg/dL AST 24 (15-37) U/L ALT 23 (14-59) U/L Alkaline Phosphatase 54 (46-116) U/L Total Protein 5.4 L (6.4-8.2) g/dl Albumin 2.6 L (3.4-5.0) g/dl Globulin 2.8 gm/dL Albumin/Globulin Ratio 0.9 L (1-2) Result Diagrams: 12/15/20 05:15 12/15/20 05:15 Sepsis Event Note - Evaluation Sepsis Screening Result: No Definite Risk - Focused Exam Vital Signs: Vital Signs Temp Pulse Resp BP Pulse Ox 12/15/20 04:45 113/53 L 12/15/20 04:26 36.7 C 65 18 139/118 H 95 12/14/20 23:04 36.8 C 72 18 131/92 H 98 12/14/20 20:29 36.8 C 65 144/113 H 95 12/14/20 20:28 79 144/113 H 95 - Problem List & Annotations (1) Upper gastrointestinal bleed SNOMED Code(s): 14676990 Code(s): K92.2 - GASTROINTESTINAL HEMORRHAGE, UNSPECIFIED Status: Resolved Priority: High Current Visit: Yes Annotation/Comment:: Duodenal ulcers (2) Chronic atrial fibrillation SNOMED Code(s): 578231372 Code(s): I48.20 - CHRONIC ATRIAL FIBRILLATION, UNSPECIFIED Status: Chronic Priority: High Current Visit: Yes (3) Chronic anticoagulation SNOMED Code(s): 401618804 Code(s): Z79.01 - ACCOUNTS RECEIVABLE CLERK (CURRENT) USE OF ANTICOAGULANTS Status: Chronic Priority: High Current Visit: Yes (4) History of CVA (cerebrovascular accident) SNOMED Code(s): 825369001 Code(s): Z86.73 - PRSNL HX OF TIA (TIA), AND CEREB INFRC W/O RESID DEFICITS Status: Chronic Priority: Medium Current Visit: Yes (5) Anemia SNOMED Code(s): 612947591 Code(s): D64.9 - ANEMIA, UNSPECIFIED Status: Acute Priority: High Current Visit: Yes Qualifiers: Anemia type: other cause Other causes of anemia: acute posthemorrhagic Qualified Code(s): D62 - Acute posthemorrhagic anemia (6) Physical deconditioning SNOMED Code(s): 94271503378372 Code(s): R53.81 - OTHER MALAISE Status: Chronic Priority: High Current Visit: Yes - Problem List Review Problem List Initiated/Reviewed/Updated: Yes - My Orders Last 24 Hours: My Active Orders 12/14/20 17:37 Blood Glucose Check, Bedside [] [facility] - Assessment Assessment:: Assessment - day of admission 12/13/2020 * 85-year-old female who presents to ED via [facility] after a syncopal episode * History of A. fib, VTE, hypertension, CA, asthma, recurrent bronchitis, constipation, GERD, GI bleed, recurrent UTI, CVA, depression, obesity, anemia * Reportedly was complaining of nausea and went to utilize the bathroom * Sat on the toilet she was noted to have diaphoresis and a decreased level of consciousness * While getting up she had a syncopal episode and was lowered to the ground by her daughter * Unconscious for 4 to 5 minutes. Her daughter did raise her legs up and she regained consciousness slowly. * Stool was noted to be very melanic and tarry. * Patient reportedly had a prior GI bleed approximately 4 years ago * Has been on warfarin and Eliquis in the past. * After a GI bleed anticoagulants were stopped and she reportedly developed a b rainstem CVA, for which she has since recovered. * Restarted on low-dose Eliquis. Last dose of Eliquis was around 2100 yesterday evening. * Denies any nausea at this time. Denies any shortness of breath or chest pain. * Of note she was taking Pepto-Bismol and borscht soup (beets). * Per the daughter during syncopal episode blood pressure was checked and was as low as 63 systolic. * In the ED twelve-lead EKG is obtained showing A. fib with a rate of 60 to 98 bpm. There are new Q waves noted in V1 and V2 and small Q waves in inferior leads. T wave inversion is noted in leads III and aVF. There is borderline LVH pattern. Diffuse repolarization abnormalities also noted. * Labs are obtained: * WBC of 6.55. * Hemoglobin 12.2. * Hematocrit 38.6. * She is macrocytic. * Platelet 202,000. * Neutrophils are elevated 75.9%. * Sodium 145. * Potassium 4.3. * Chloride 109. * Carbon dioxide 30. * Anion gap 10.3. * BUN is 51. Creatinine 0.8. GFR greater than 60. * Glucose is 109. * Calcium 7.9. * Total bilirubin 0.9. * AST is 22, ALT 20, alkaline phosphatase 68. * Protein is 5.9. * Albumin 2.7. * Type and screen is performed and she is B+. * CRP, magnesium, and proBNP are all pending. * Chest x-ray is obtained showing cardiomegaly and other chronic findings but nothing acute. * She is given IV push Protonix and started on saline. * Blood transfusion was discussed and patient is in agreement if warranted. 12/14/2020 This is an 85-year-old female who was admitted to the floor for a upper GI bleed with melanic stools and a syncopal episode. She has been on telemetry and there have been no concerns. She remains in chronic A. fib. Hemoglobin on admission was 12.2 and hemoglobin trend since then has been 11.2-->10 .9-->10.5-->11.9. Hematocrit today was 37.1. She is macrocytic. Platelets are 204,000. Neutrophils are 60.6%. proBNP yesterday was 606. Sodium is 152. Potassium 4.0. Chloride 115. Carbon dioxide 19. Anion gap is 22.0. BUN is 33. Creatinine 0.9. GFR 60. Glucose 85. Calcium 8.5. Bilirubin 0.9. AST is 29. ALT 25. Alkaline phosphatase 68. Protein 6.4. Albumin 3.0. Dr. Mckeon, dental surgeon was consulted and plan is to take patient for an EGD and colonoscopy today around 1600. Patient has been tolerating her bowel prep well. She is n.p.o. Likely discharge tomorrow pending results of EGD/colonoscopy and successful resumption of diet. 12/15/2020 Patient is an 85-year-old lady who had been admitted secondary to GI bleed. She had melanotic stools. She was found to have healed duodenal ulcer. The patient initially was started back on her Eliquis however she had a significant drop in her hemoglobin and this was discontinued. The patient also has been physically deconditioned and she does not feel like she can safely go home. As a result of this the patient will be kept in hospitalization at least until placement is available. Repeat laboratory studies have been ordered. If her hemoglobin drops below 7.0 g/dL or she becomes symptomatic we will consider transfusion. The diet will continue as tolerated. She also is unable to tolerate SCDs. Also she has edema in her lower extremities and will not be able to tolerate MYKE hoses. The goal is to put the patient on Eliquis as soon as possible as she is at a high risk for stroke. The patient has been encouraged to ambulate with assistance. - Plan Plan:: Gastrointestinal bleeding Chronic anticoagulation History of anemia History of bleeding peptic ulcer Chronic atrial fibrillation History of GI bleed History of venous thromboembolism History of CVA (cerebrovascular accident) History of CA (myocardial infarction) GERD (gastroesophageal reflux disease) Chronic constipation Syncope and collapse * NPO for now until after EGD * Hold home lasix today * IV fluids as ordered * Monitor stools * Check H. Pylori * Daily labs * Consult general surgery - Dr. Mckeon * Plan for EGD/Colonoscopy at around 1600 today * Hold home eliquis * SCDs for VTE prophylaxis as pharmacological intervention is contraindicated due to bleeding * 40mg BID Protonix * Hold home stool softeners/laxatives * Telemetry HTN (hypertension) * No acute concerns * Monitor vital signs * Home medications as ordered Asthma * No acute concerns * Continue home respiratory meds * PRN duonebs Recurrent UTI * Patient reports incontinence, urgency and increased frequency * Check UA - negative Arthritis * No acute concerns * Pain medications as ordered * PT/OT Depression * Continue home sertraline * No acute concerns Obesity * No acute concerns Code status: DNR/DNI PCP: Rhonda Qureshi NP/Dr. Herndon DVT prophylaxis: SCDs (pharmacological intervention contraindicated due to bleeding) Social: Patient resides in her own home but has frequent visits from multiple family members. Disposition: Patient admitted to the medical floor on telemetry for management and further monitoring of her GI bleed. Discharge tomorrow pending results of EGD/colonoscopy
[2020-12-15] MEDS: Sertraline 25 MG Tab PO SCH (08:28)
[2020-12-15] MEDS: Pantoprazole 40 MG Vial IV SCH ×2 (08:28→21:05)
[2020-12-15] MEDS: Furosemide 40 MG Tab PO SCH (08:35)
--- NOTE | 2020-12-16 06:58 | PCM.PN ---
- General Info Date of Service: 12/16/20 Admission Dx/Problem (Free Text): Admission Diagnosis/Problem Admission Diagnosis/Problem GI bleed not requiring more than 4 units of blood in 24 hours, ICU, or surgery Subjective Update: The patient is an 85-year-old lady that was admitted to hospitalization on December 13, 2020 due to GI bleed. 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 The patient today is doing well. She has not noticed any blood in her stools. The patient says that she still feels extremely weak and wobbly and unable to ambulate. She does not have family members available during the weekday. She has been able to tolerate her diet. Patient has denied any pain. Functional Status: Reports: Pain Controlled, Tolerating Diet - Review of Systems General: Reports: No Symptoms HEENT: Reports: No Symptoms Pulmonary: Reports: No Symptoms Cardiovascular: Reports: No Symptoms Gastrointestinal: Denies: Hematochezia, Melena Genitourinary: Reports: No Symptoms Musculoskeletal: Reports: No Symptoms Skin: Reports: No Symptoms Neurological: Reports: No Symptoms Psychiatric: Reports: No Symptoms - Patient Data Vitals - Most Recent: Last Vital Signs Temp 36.3 C 12/16/20 05:50 Pulse 73 12/16/20 05:50 Resp 18 12/16/20 05:50 BP 138/88 12/16/20 05:50 Pulse Ox 94 L 12/16/20 05:50 Weight - Most Recent: 79.878 kg I&O - Last 24 Hours: Intake & Output 12/15/20 12/15/20 12/16/20 14:59 22:59 06:59 Intake Total 520 600 Output Total 1175 650 Balance 586 -336 -827 Lab Results Last 24 Hours: Laboratory Results - last 24 hr 12/15/20 12/16/20 12/16/20 Range/Units 11:37 05:10 05:10 WBC 4.92 (3.98-10.04) K/mm3 RBC 2.77 L (3.98-5.22) M/mm3 Hgb 8.8 L (11.2-15.7) gm/dl Hct 28.0 L (34.1-44.9) % MCV 101.1 H (79.4-94.8) fl MCH 31.8 (25.6-32.2) pg MCHC 31.4 L (32.2-35.5) g/dl RDW Std Deviation 53.6 H (36.4-46.3) fL Plt Count 164 L (182-369) K/mm3 MPV 11.1 (9.4-12.3) fl Neut % (Auto) 52.4 (34.0-71.1) % Lymph % (Auto) 30.7 (19.3-51.7) % [place] % (Auto) 12.4 (4.7-12.5) % Eos % (Auto) 3.9 (0.7-5.8) Baso % (Auto) 0.6 (0.1-1.2) % Neut # (Auto) 2.58 (1.56-6.13) K/mm3 Lymph # (Auto) 1.51 (1.18-3.74) K/mm3 [place] # (Auto) 0.61 H (0.24-0.36) K/mm3 Eos # (Auto) 0.19 (0.04-0.36) K/mm3 Baso # (Auto) 0.03 (0.01-0.08) K/mm3 Sodium 146 H (136-145) mEq/L Potassium 3.6 (3.5-5.1) mEq/L Chloride 111 H (98-107) mEq/L Carbon Dioxide 29 (21-32) mEq/L Anion Gap 9.6 (5-15) BUN 13 (7-18) mg/dL Creatinine 0.9 (0.55-1.02) mg/dL Est Cr Clr Drug Dosing 39.46 mL/min Estimated GFR (MDRD) 60 (>60) mL/min BUN/Creatinine Ratio 14.4 (14-18) Glucose 82 (70-99) mg/dL POC Glucose 128 H (70-99) mg/dL Calcium 8.0 L (8.5-10.1) mg/dL Total Bilirubin 0.6 (0.2-1.0) mg/dL AST 25 (15-37) U/L ALT 24 (14-59) U/L Alkaline Phosphatase 55 (46-116) U/L Total Protein 5.2 L (6.4-8.2) g/dl Albumin 2.6 L (3.4-5.0) g/dl Globulin 2.6 gm/dL Albumin/Globulin Ratio 1.0 (1-2) Gm Results Last 24 Hours: Microbiology 12/14/20 15:41 Helicobacter pylori Antigen - Final Stool / Feces Med Orders - Current: Current Medications Acetaminophen (Acetaminophen 325 Mg Tab) 650 mg PO Q4H PRN PRN Reason: Pain (Mild 1-3)/fever Albuterol (Albuterol 6.7 Gm Inhaler) 0 gm INH Q4H PRN PRN Reason: Wheezing Albuterol/Ipratropium (Albuterol/Ipratropium 3.0-0.5 Mg/3 Ml Neb Soln) 3 ml NEB QIDRT PRN PRN Reason: Shortness Of Breath/wheezing Furosemide (Furosemide 40 Mg Tab) 40 mg PO DAILY [facility] Last Admin: 12/15/20 08:35 Dose: 40 mg Documented by: Ondansetron HCl (Ondansetron 4 Mg/2 Ml Sdv) 4 mg IV Q6H PRN PRN Reason: Nausea/Vomiting Pantoprazole Sodium (Pantoprazole 40 Mg Vial) 40 mg IV Q12HR [facility] Last Admin: 12/15/20 21:05 Dose: 40 mg Documented by: Sertraline HCl (Sertraline 25 Mg Tab) 25 mg PO DAILY [facility] Last Admin: 12/15/20 08:28 Dose: 25 mg Documented by: Tramadol HCl (Tramadol 50 Mg Tab) 50 mg PO Q6H PRN PRN Reason: Pain Discontinued Medications Apixaban (Apixaban 2.5 Mg Tab) 2.5 mg PO BID [facility] Last Admin: 12/14/20 20:30 Dose: 2.5 mg Documented by: Fentanyl (Fentanyl 100 Mcg/2 Ml Sdv) Confirm Administered Dose 100 mcg .ROUTE .STK-MED ONE Stop: 12/14/20 11:46 Sodium Chloride (Normal Saline) 1,000 mls @ 500 mls/hr IV ASDIRECTED [facility] Last Admin: 12/13/20 10:41 Dose: 500 mls/hr Documented by: Pantoprazole Sodium 80 mg/ (Sodium Chloride) 100 mls @ 10 mls/hr IV Q10H [facility] Stop: 12/13/20 21:00 Last Admin: 12/13/20 20:30 Dose: Not Given Documented by: Lactated Ringer's (Ringers, Lactated) 1,000 mls @ 75 mls/hr IV ASDIRECTED [facility] Stop: 12/14/20 23:49 Last Admin: 12/14/20 11:19 Dose: 75 mls/hr Documented by: Lidocaine HCl (Xylocaine-Mpf 1%) Confirm Administered Dose 4 mls @ as directed .ROUTE .STK-MED ONE Stop: 12/14/20 11:46 Lactated Ringer's (Ringers, Lactated) Confirm Administered Dose 1,000 mls @ as directed .ROUTE .STK-MED ONE Stop: 12/14/20 11:47 Pantoprazole Sodium (Pantoprazole 40 Mg Vial) 40 mg IVPUSH ONETIME ONE Stop: 12/13/20 10:15 Last Admin: 12/13/20 10:41 Dose: 40 mg Documented by: Pantoprazole Sodium (Pantoprazole 40 Mg Vial) Confirm Administered Dose 80 mg .ROUTE .STK-MED ONE Stop: 12/13/20 10:36 Last Admin: 12/13/20 10:55 Dose: Not Given Documented by: Polyethylene Glycol/Electrolytes (Polyethylene Glycol/Electrolytes 4,000 Ml Bottle) 4,000 ml PO ONETIME ONE Stop: 12/14/20 05:01 Last Admin: 12/14/20 05:05 Dose: 4,000 ml Documented by: Propofol (Propofol 200 Mg/20 Ml Sdv) Confirm Administered Dose 200 mg .ROUTE .STK-MED ONE Stop: 12/14/20 11:46 Propofol (Propofol 200 Mg/20 Ml Sdv) Confirm Administered Dose 200 mg .ROUTE .STK-MED ONE Stop: 12/14/20 15:36 - Exam Quality Assessment: DVT Prophylaxis (Due to the patient's high risk of stroke she has been restarted on Eliquis.). No: Supplemental Oxygen General: Alert, Oriented, Cooperative, No Acute Distress HEENT: Pupils Equal, Pupils Reactive, EOMI, Mucous Membr. Moist/[place] Neck: Supple, Trachea Midline Lungs: Clear to Auscultation, Normal Respiratory Effort Cardiovascular: Regular Rate, Regular Rhythm GI/Abdominal Exam: Normal Bowel Sounds, Soft, Non-Tender, No Distention (Female) Exam: Deferred Back Exam: Normal Inspection, Full Range of Motion Extremities: Normal Inspection, Normal Range of Motion, Pedal Edema Skin: Warm, Dry, Intact Neurological: No New Focal Deficit, Normal Speech, Normal Tone Psy/Mental Status: Alert, Normal Affect, Normal Mood - Patient Data Lab Results Last 24 hrs: Laboratory Results - last 24 hr 12/15/20 12/16/20 12/16/20 Range/Units 11:37 05:10 05:10 WBC 4.92 (3.98-10.04) K/mm3 RBC 2.77 L (3.98-5.22) M/mm3 Hgb 8.8 L (11.2-15.7) gm/dl Hct 28.0 L (34.1-44.9) % MCV 101.1 H (79.4-94.8) fl MCH 31.8 (25.6-32.2) pg MCHC 31.4 L (32.2-35.5) g/dl RDW Std Deviation 53.6 H (36.4-46.3) fL Plt Count 164 L (182-369) K/mm3 MPV 11.1 (9.4-12.3) fl Neut % (Auto) 52.4 (34.0-71.1) % Lymph % (Auto) 30.7 (19.3-51.7) % [place] % (Auto) 12.4 (4.7-12.5) % Eos % (Auto) 3.9 (0.7-5.8) Baso % (Auto) 0.6 (0.1-1.2) % Neut # (Auto) 2.58 (1.56-6.13) K/mm3 Lymph # (Auto) 1.51 (1.18-3.74) K/mm3 [place] # (Auto) 0.61 H (0.24-0.36) K/mm3 Eos # (Auto) 0.19 (0.04-0.36) K/mm3 Baso # (Auto) 0.03 (0.01-0.08) K/mm3 Sodium 146 H (136-145) mEq/L Potassium 3.6 (3.5-5.1) mEq/L Chloride 111 H (98-107) mEq/L Carbon Dioxide 29 (21-32) mEq/L Anion Gap 9.6 (5-15) BUN 13 (7-18) mg/dL Creatinine 0.9 (0.55-1.02) mg/dL Est Cr Clr Drug Dosing 39.46 mL/min Estimated GFR (MDRD) 60 (>60) mL/min BUN/Creatinine Ratio 14.4 (14-18) Glucose 82 (70-99) mg/dL POC Glucose 128 H (70-99) mg/dL Calcium 8.0 L (8.5-10.1) mg/dL Total Bilirubin 0.6 (0.2-1.0) mg/dL AST 25 (15-37) U/L ALT 24 (14-59) U/L Alkaline Phosphatase 55 (46-116) U/L Total Protein 5.2 L (6.4-8.2) g/dl Albumin 2.6 L (3.4-5.0) g/dl Globulin 2.6 gm/dL Albumin/Globulin Ratio 1.0 (1-2) Result Diagrams: 12/16/20 05:10 12/16/20 05:10 Gm Results Last 24 hrs: Microbiology 12/14/20 15:41 Helicobacter pylori Antigen - Final Stool / Feces Sepsis Event Note - Evaluation Sepsis Screening Result: No Definite Risk - Focused Exam Vital Signs: Vital Signs Temp Pulse Resp BP Pulse Ox 12/16/20 05:50 36.3 C 73 18 138/88 94 L 12/15/20 21:04 36.7 C 69 18 119/48 L 96 - Problem List & Annotations (1) Upper gastrointestinal bleed SNOMED Code(s): 28007161 Code(s): K92.2 - GASTROINTESTINAL HEMORRHAGE, UNSPECIFIED Status: Resolved Priority: High Current Visit: Yes Annotation/Comment:: Duodenal ulcers (2) Chronic atrial fibrillation SNOMED Code(s): 392708474 Code(s): I48.20 - CHRONIC ATRIAL FIBRILLATION, UNSPECIFIED Status: Chronic Priority: High Current Visit: Yes (3) Chronic anticoagulation SNOMED Code(s): 639531577 Code(s): Z79.01 - MOUNTER CLARINETS (CURRENT) USE OF ANTICOAGULANTS Status: Chronic Priority: High Current Visit: Yes (4) History of CVA (cerebrovascular accident) SNOMED Code(s): 065230418 Code(s): Z86.73 - PRSNL HX OF TIA (TIA), AND CEREB INFRC W/O RESID DEFICITS Status: Chronic Priority: Medium Current Visit: Yes (5) Anemia SNOMED Code(s): 731568328 Code(s): D64.9 - ANEMIA, UNSPECIFIED Status: Acute Priority: High Current Visit: Yes Qualifiers: Anemia type: other cause Other causes of anemia: acute posthemorrhagic Qualified Code(s): D62 - Acute posthemorrhagic anemia (6) Physical deconditioning SNOMED Code(s): 40854024915529 Code(s): R53.81 - OTHER MALAISE Status: Chronic Priority: High Current Visit: Yes - Problem List Review Problem List Initiated/Reviewed/Updated: Yes - Assessment Assessment:: Assessment - day of admission 12/13/2020 * 85-year-old female who presents to ED via [facility] after a syncopal episode * History of A. fib, VTE, hypertension, DE, asthma, recurrent bronchitis, constipation, GERD, GI bleed, recurrent UTI, CVA, depression, obesity, anemia * Reportedly was complaining of nausea and went to utilize the bathroom * Sat on the toilet she was noted to have diaphoresis and a decreased level of consciousness * While getting up she had a syncopal episode and was lowered to the ground by her daughter * Unconscious for 4 to 5 minutes. Her daughter did raise her legs up and she regained consciousness slowly. * Stool was noted to be very melanic and tarry. * Patient reportedly had a prior GI bleed approximately 4 years ago * Has been on warfarin and Eliquis in the past. 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 * Restarted on low-dose Eliquis. Last dose of Eliquis was around 2100 yesterday evening. * Denies any nausea at this time. Denies any shortness of breath or chest pain. * Of note she was taking Pepto-Bismol and borscht soup (beets). * Per the daughter during syncopal episode blood pressure was checked and was as low as 63 systolic. * In the ED twelve-lead EKG is obtained showing A. fib with a rate of 60 to 98 bpm. There are new Q waves noted in V1 and V2 and small Q waves in inferior leads. T wave inversion is noted in leads III and aVF. There is borderline LVH pattern. Diffuse repolarization abnormalities also noted. * Labs are obtained: * WBC of 6.55. * Hemoglobin 12.2. * Hematocrit 38.6. * She is macrocytic. * Platelet 202,000. * Neutrophils are elevated 75.9%. * Sodium 145. * Potassium 4.3. * Chloride 109. * Carbon dioxide 30. * Anion gap 10.3. * BUN is 51. Creatinine 0.8. GFR greater than 60. * Glucose is 109. * Calcium 7.9. * Total bilirubin 0.9. * AST is 22, ALT 20, alkaline phosphatase 68. * Protein is 5.9. * Albumin 2.7. * Type and screen is performed and she is B+. * CRP, magnesium, and proBNP are all pending. * Chest x-ray is obtained showing cardiomegaly and other chronic findings but nothing acute. * She is given IV push Protonix and started on saline. * Blood transfusion was discussed and patient is in agreement if warranted. 12/14/2020 This is an 85-year-old female who was admitted to the floor for a upper GI bleed with melanic stools and a syncopal episode. She has been on telemetry and there have been no concerns. She remains in chronic A. fib. Hemoglobin on admission was 12.2 and hemoglobin trend since then has been 11.2-->10.9-->10.5-->11.9. Hematocrit today was 37.1. She is macrocytic. Platelets are 204,000. N eutrophils are 60.6%. proBNP yesterday was 606. Sodium is 152. Potassium 4.0. Chloride 115. Carbon dioxide 19. Anion gap is 22.0. BUN is 33. Creatinine 0.9. GFR 60. Glucose 85. Calcium 8.5. Bilirubin 0.9. AST is 29. ALT 25. Alkaline phosphatase 68. Protein 6.4. Albumin 3.0. Dr. Mckeon, dental surgeon was consulted and plan is to take patient for an EGD and colonoscopy today around 1600. Patient has been tolerating her bowel prep well. She is n.p.o. Likely discharge tomorrow pending results of EGD/colonoscopy and successful resumption of diet. 12/15/2020 Patient is an 85-year-old lady who had been admitted secondary to GI bleed. She had melanotic stools. She was found to have healed duodenal ulcer. The patient initially was started back on her Eliquis however she had a significant drop in her hemoglobin and this was discontinued. The patient also has been physically deconditioned and she does not feel like she can safely go home. As a result of this the patient will be kept in hospitalization at least until placement is available. Repeat laboratory studies have been ordered. If her hemoglobin drops below 7.0 g/dL or she becomes symptomatic we will consider transfusion. The diet will continue as tolerated. She also is unable to tolerate SCDs. Also she has edema in her lower extremities and will not be able to tolerate MYKE hoses. The goal is to put the patient on Eliquis as soon as possible as she is at a high risk for stroke. The patient has been encouraged to ambulate with assistance. 12/16/2020 The patient is an 85-year-old lady who has had a drop in her hemoglobin. There was no report of hematemesis or melena. The patient for now will be continued on her Eliquis and monitor closely. Physical therapy should evaluate the patient for possible placement. The patient has been deconditioned since her hospitalization and I feel that she would benefit from temporary rehabilitation. The patient's blood counts will be monitored and if her hemoglobin drops below 7.0 g/dL will consider transfusion. For now the patient has not require blood transfusion. Diet as tolerated. Monitor patient's vital signs. A discussion with the patient was held regarding her rehabilitation and she agrees at this time. - Plan Plan:: Gastrointestinal bleeding Chronic anticoagulation History of anemia History of bleeding peptic ulcer Chronic atrial fibrillation History of GI bleed History of venous thromboembolism History of CVA (cerebrovascular accident) History of DE (myocardial infarction) GERD (gastroesophageal reflux disease) Chronic constipation Syncope and collapse * NPO for now until after EGD * Hold home lasix today * IV fluids as ordered * Monitor stools * Check H. Pylori * Daily labs * Consult general surgery - Dr. Mckeon * Plan for EGD/Colonoscopy at around 1600 today * Hold home eliquis * SCDs for VTE prophylaxis as pharmacological intervention is contraindicated due to bleeding * 40mg BID Protonix * Hold home stool softeners/laxatives * Telemetry HTN (hypertension) * No acute concerns * Monitor vital signs * Home medications as ordered Asthma * No acute concerns * Continue home respiratory meds * PRN duonebs Recurrent UTI * Patient reports incontinence, urgency and increased frequency * Check UA - negative Arthritis * No acute concerns * Pain medications as ordered * PT/OT Depression * Continue home sertraline * No acute concerns Obesity * No acute concerns Code status: DNR/DNI PCP: Rhonda Qureshi NP/Dr. Herndon DVT prophylaxis: SCDs (pharmacological intervention contraindicated due to bleeding) Social: Patient resides in her own home but has frequent visits from multiple family members. Disposition: Patient admitted to the medical floor on telemetry for management and further monitoring of her GI bleed. Discharge tomorrow pending results of EGD/colonoscopy
[2020-12-16] MEDS: Furosemide 40 MG Tab PO SCH (08:38)
[2020-12-16] MEDS: Sertraline 25 MG Tab PO SCH (08:38)
[2020-12-16] MEDS: Pantoprazole 40 MG Vial IV SCH ×2 (08:38→20:32)
[2020-12-16] MEDS: Apixaban 2.5 MG Tab PO SCH (20:33)
[2020-12-17 08:30] VITALS: PULSE 67
[2020-12-17] MEDS: Sertraline 25 MG Tab PO SCH (09:38)
[2020-12-17] MEDS: Furosemide 40 MG Tab PO SCH (09:38)
[2020-12-17] MEDS: Apixaban 2.5 MG Tab PO SCH (09:38)
[2020-12-17] MEDS: Pantoprazole 40 MG Vial IV SCH ×2 (09:38→10:24)
--- NOTE | 2020-12-17 10:06 | PCM.DCSUM1 ---
<Aniceto Covarrubias - Last Filed: 12/17/20 13:00> Discharge Summary - Hospital Course HPI Initial Comments: This is an 85-year-old female who presents to ED on 12/13/2020 via [facility] after a syncopal episode. Her daughter is with who is an RN. Patient reportedly was complaining of nausea and went to utilize the bathroom. When she sat on the toilet she was noted to have diaphoresis and a decreased level of consciousness. While getting up she had a syncopal episode and was lowered to the ground by her daughter. She reportedly was unconscious for 4 to 5 minutes. Her daughter did raise her legs up and she regained consciousness slowly. Stool was noted to be very melanic and tarry. Patient reportedly had a prior GI bleed approximately 4 years ago. She has been on warfarin and Eliquis in the past. 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 She was restarted on low-dose Eliquis. Last dose of Eliquis was around 2100 yesterday evening. She does have chronic A. fib. She denies any nausea at this time. Denies any shortness of breath or chest pain. Of note she was taking Pepto-Bismol and ate some borscht soup (beets) recently as well. Per the daughter during syncopal episode blood pressure was checked and was as low as 63 systolic. In the ED twelve-lead EKG is obtained showing A. fib with a rate of 60 to 98 bpm. There are new Q waves noted in V1 and V2 and small Q waves in inferior leads. T wave inversion is noted in leads III and aVF. There is borderline LVH pattern. Diffuse repolarization abnormalities also noted. Temp is 35.6 Celsius. Pulse 69. Respirations 18. Blood pressure 148/51. Labs are obtained with a WBC of 6.55. Hemoglobin 12.2. Hematocrit 38.6. She is macrocytic. Platelet 202,000. Neutrophils are elevated 75.9%. Sodium 145. Potassium 4.3. Chloride 109. Carbon dioxide 30. Anion gap 10.3. BUN is 51. Creatinine 0.8. GFR greater than 60. Glucose is 109. Calcium 7.9. Total bilirubin 0.9. AST is 22, ALT 20, alkaline phosphatase 68. Protein is 5.9. Albumin 2.7. Type and screen is performed and she is B+. CRP, magnesium, and proBNP are all pending. Chest x-ray is obtained showing cardiomegaly and other chronic findings but n othing acute. She is given IV push Protonix and started on saline. Blood transfusion was discussed and patient is in agreement if warranted. She carries a history of A. fib, VTE, hypertension, DE, asthma, recurrent bronchitis, constipation, GERD, GI bleed, recurrent UTI, CVA, depression, obesity, anemia. She is not a smoker. She is subsequently admitted to the medical floor for management and monitoring of her GI bleed. Her PCP is Rhonda Qureshi NP and she also sees Dr. Herndon. She is DNR/DNI. Diagnosis: Stroke: No - Discharge Data Discharge Date: 12/17/20 (Admit date: 12/13/2020) Discharge Disposition: DC/Tfer to Other Condition: Good - Referral to Home Health Primary Care Physician: Magen Herndon MD - Discharge Diagnosis/Problem(s) (1) Chronic anticoagulation SNOMED Code(s): 493396488 ICD Code: Z79.01 - PENITENTIARY (CURRENT) USE OF ANTICOAGULANTS Status: Chronic Priority: High (2) History of GI bleed SNOMED Code(s): 136350068 ICD Code: Z87.19 - PERSONAL HISTORY OF OTHER DISEASES OF THE DIGESTIVE SYSTEM Status: Chronic Priority: High (3) History of venous thromboembolism SNOMED Code(s): 540678484 ICD Code: Z86.718 - PERSONAL HISTORY OF OTHER VENOUS THROMBOSIS AND EMBOLISM Status: Chronic Priority: High (4) History of CVA (cerebrovascular accident) SNOMED Code(s): 753767682 ICD Code: Z86.73 - PRSNL HX OF TIA (TIA), AND CEREB INFRC W/O RESID DEFICITS Status: Chronic Priority: Medium (5) History of DE (myocardial infarction) SNOMED Code(s): 206072064 ICD Code: I25.2 - OLD MYOCARDIAL INFARCTION Status: Chronic Priority: Medium (6) HTN (hypertension) SNOMED Code(s): 35621679 ICD Code: I10 - ESSENTIAL (PRIMARY) HYPERTENSION Status: Chronic Priority: Medium Qualifiers: Hypertension type: unspecified Qualified Code(s): I10 - Essential (primary) hypertension (7) Asthma SNOMED Code(s): 890362242 ICD Code: J45.909 - UNSPECIFIED ASTHMA, UNCOMPLICATED Status: Chronic Priority: Medium Qualifiers: Asthma severity: unspecified severity Asthma persistence: unspecified Asthma complication type: uncomplicated Qualified Code(s): J45.909 - Unspecified asthma, uncomplicated (8) GERD (gastroesophageal reflux disease) SNOMED Code(s): 702452056 ICD Code: K21.9 - GASTRO-ESOPHAGEAL REFLUX DISEASE WITHOUT ESOPHAGITIS Status: Chronic Priority: Medium Qualifiers: Esophagitis presence: esophagitis presence not specified Qualified Code(s): K21.9 - Gastro-esophageal reflux disease without esophagitis (9) Recurrent UTI SNOMED Code(s): 337806339 ICD Code: N39.0 - URINARY TRACT INFECTION, SITE NOT SPECIFIED Status: Chronic Priority: Low (10) Arthritis SNOMED Code(s): 8058369 ICD Code: M19.90 - UNSPECIFIED OSTEOARTHRITIS, UNSPECIFIED SITE Status: Chronic Priority: Low (11) Depression SNOMED Code(s): 31995798 ICD Code: F32.9 - MAJOR DEPRESSIVE DISORDER, SINGLE EPISODE, UNSPECIFIED Status: Chronic Priority: Low Qualifiers: Depression Type: other depression Qualified Code(s): F32.89 - Other specified depressive episodes (12) Obesity SNOMED Code(s): 229895960, 969739763 ICD Code: E66.9 - OBESITY, UNSPECIFIED Status: Chronic Priority: Low Qualifiers: Obesity type: unspecified obesity type Obesity classification: unspecified obesity classification Serious obesity comorbidity presence: without serious comorbidity Qualified Code(s): E66.9 - Obesity, unspecified (13) History of anemia SNOMED Code(s): 881426913 ICD Code: Z86.2 - PRSNL HISTORY OF DIS OF THE BLD/BLD-FORM ORG/IMMUN MECHNSM Status: Chronic Priority: Medium (14) History of bleeding peptic ulcer SNOMED Code(s): 987391547, 421185692 ICD Code: Z87.11 - PERSONAL HISTORY OF PEPTIC ULCER DISEASE Status: Chronic Priority: High (15) Chronic atrial fibrillation SNOMED Code(s): 077615199 ICD Code: I48.2 - CHRONIC ATRIAL FIBRILLATION * DO NOT USE * Status: Chronic Priority: High (16) Gastrointestinal bleeding SNOMED Code(s): 88599506 ICD Code: K92.2 - GASTROINTESTINAL HEMORRHAGE, UNSPECIFIED Status: Acute Priority: High Qualifiers: GI bleed type/associated pathology: melena Qualified Code(s): K92.1 - Melena (17) Chronic constipation SNOMED Code(s): 511171477 ICD Code: K59.09 - OTHER CONSTIPATION Status: Chronic Priority: Medium (18) Syncope and collapse SNOMED Code(s): 972476029 ICD Code: R55 - SYNCOPE AND COLLAPSE Status: Resolved Priority: High - Patient Summary/Data Consults: Consultations 12/13/20 13:08 Consult to Physician [CONS] Routine Consult to Spiritual Care [CONS] Routine 12/13/20 13:11 OT Evaluation and Treatment [CONS] Routine PT Evaluation and Treatment [CONS] Routine 12/13/20 13:58 Consult to Case Management/Silk Screen Frame Assembler [CONS] Routine Labs Pending at D/C: None Recommended Follow-up Testing/Procedures: Follow-up with primary care provider within 5-7 days of discharge, sooner if needed * Recommend repeat CBC, CMP, and magnesium in follow-up. * Patient discharged on all home medications including Eliquis. * Patient found to have diverticula with clots in sigmoid colon and this is likely the cause of her bleed. * Dr. Mckeon recommends patient continue PPI for 8 weeks. (She was on PPI on admission) * Follow-up with outpatient surgery as needed. Hospital Course: This is an 85-year-old female who presents to ED on 12/13/2020 via [facility] after syncopal episode. She was reportedly complaining of some nausea and went to utilize the restroom. When she sat on the toilet she was noted to become diaphoretic and have a decreased level consciousness. She attempted to get up and then had a unresponsive episode in which her daughter caught her and lowered her to the floor. She was noted be unconscious for 4 to 5 minutes. Her stool was noted to be very melanic and tarry. She does have a history of prior GI bleed and she had stopped her Eliquis in the past for this. Unfortunately shortly thereafter she suffered a brainstem CVA in which she recovered. She does live at home alone however she has family that assists in taking care of her. On the floor her hemoglobin did remain stable. Dr. Mckeon, general surgeon was consulted and did perform an EGD and colonoscopy on the patient. She was noted to have a healed duodenal ulcer and also several areas of bleeding diverticula which had stopped bleeding and clotting was noted. Eliquis was resumed and the patient tolerated this well. Unfortunately she was also noted to be quite deconditioned and PT/OT were recommending assisted living placement. Patient and family are in agreement of this. UA was obtained and was negative. She was receiving 40 mg twice daily Protonix, however she was on 40 mg daily Protonix prior to admission. Dr. Mckeon recommends she continue this for at least 8 weeks. There were no new medications. All home medications were continued. She was advised that she may notice continued melanotic stools even though her bleeding has stopped. She was instructed to contact her primary care provider or return the emergency room if symptoms return or worsen. Recommend follow-up with primary care provider within 5 to 7 days of discharge, sooner if needed. Recommend repeat CBC, CMP, and magnesium in follow-up. I met personally with Laila prior to discharge to discuss her homebound status. She is clinically quite weak and deconditioned. She worked with our physical therapy and Occupational Therapy team who are recommending assisted living and home health PT/OT. Our team is also recommending penitentiary. She is quite deconditioned due to her GI bleed and anemia. She is homebound due to her difficulty ambulating anything more than short distances and her continued weakness. She also has difficulty with transportation as she does not drive. We are recommending PT for strengthening and gait training, OT for strengthening and ADL training, and penitentiary for overall disease monitoring. The services can be monitored by the patient's primary care provider, Rhonda Qureshi NP and Dr. Herndon, who she also sees for medical care and adjusted as they see fit. - Patient Instructions Diet: Usual Diet as Tolerated Activity: As Tolerated Showering/Bathing: May Shower Notify Provider of: Fever, Increased Pain, Nausea and/or Vomiting Other/Special Instructions: Up with primary care provider within 5 to 7 days of discharge, sooner if needed. Follow-up with outpatient surgery as needed. Resume home medications as directed. No new medications. Home health PT/OT as ordered. Take your blood pressure twice a day and record it in a journal. Bring the journal with to all medical appointments. Should symptoms return or worsen contact primary care provider or return to the emergency room. - Discharge Plan *PRESCRIPTION DRUG MONITORING PROGRAM REVIEWED*: No *COPY OF PRESCRIPTION DRUG MONITORING REPORT IN PATIENT SERGEY: No Home Medications: Home Meds Sertraline HCl 25 mg PO DAILY 12/05/14 [History] Albuterol Sulfate [Proair Respiclick] 2 inh INH Q4H PRN 10/29/15 [History] Furosemide [Lasix] 40 mg PO DAILY 07/23/17 [History] Apixaban [Eliquis] 2.5 mg PO BID 09/18/17 [History] atorvaSTATin [Lipitor] 10 mg PO BEDTIME 09/18/17 [History] Pantoprazole [ProTONIX] 40 mg PO DAILY 03/20/18 [History] bisacodyL [Dulcolax] 10 mg RC BID PRN #2 supp 03/23/18 [Rx] polyethylene glycoL 3350 [Miralax] 17 gm PO BID PRN #4 powd.pack 03/23/18 [Rx] Lutein/Minerals/Vit A,C & E [Ocuvite] 1 tab PO DAILY 04/05/18 [History] traMADol [Ultram] 50 mg PO Q6HR PRN 04/21/19 [History] Calcium Carbonate [Calcium] 1 tab PO DAILY 12/13/20 [History] Oxygen Therapy Mode: Room Air Patient Handouts: Diverticulitis, [id number], Gastrointestinal Bleeding, [id number] Forms: ED Department Discharge Referrals: Magen Herndon MD [Primary Care Provider] - 12/27/20 11:30 am - Discharge Summary/Plan Comment DC Time >30 min.: Yes Total # of Minutes for Discharge Time: 45 - General Info Date of Service: 12/17/20 Admission Dx/Problem (Free Text: Admission Diagnosis/Problem Admission Diagnosis/Problem GI bleed not requiring more than 4 units of blood in 24 hours, ICU, or surgery Functional Status: Reports: Pain Controlled, Tolerating Diet, Ambulating, Urinating. Denies: New Symptoms - Review of Systems General: Reports: No Symptoms, Weakness. Denies: Fever, Fatigue, Malaise, Chills HEENT: Reports: No Symptoms. Denies: Headaches, Sore Throat Pulmonary: Reports: No Symptoms. Denies: Shortness of Breath, Cough, Sputum, Wheezing Cardiovascular: Reports: No Symptoms. Denies: Chest Pain, Palpitations, Dyspnea on Exertion, Edema, Lightheadedness Gastrointestinal: Reports: Abdominal Pain. Denies: Constipation, Diarrhea, Na usea, Vomiting Genitourinary: Reports: No Symptoms. Denies: Pain Musculoskeletal: Reports: No Symptoms Skin: Reports: No Symptoms. Denies: Cyanosis Neurological: Reports: No Symptoms, Difficulty Walking, Weakness, Gait Disturbance. Denies: Confusion, Dizziness, Headache, Numbness, Paresthesia, Se izure, Syncope, Tingling, Tremors, Change in Speech Psychiatric: Reports: No Symptoms - Patient Data Vitals - Most Recent: Last Vital Signs Temp 97.9 F 12/17/20 08:01 Pulse 67 12/17/20 08:01 Resp 18 12/17/20 08:01 BP 130/64 12/17/20 08:01 Pulse Ox 95 12/17/20 08:01 Weight - Most Recent: 81.193 kg I&O - Last 24 hours: Intake & Output 12/16/20 12/17/20 12/17/20 22:59 06:59 14:59 Intake Total 840 600 Output Total 600 100 Balance 240 500 Lab Results - Last 24 hrs: Laboratory Results - last 24 hr 12/17/20 12/17/20 Range/Units 05:40 05:40 WBC 5.37 (3.98-10.04) K/mm3 RBC 2.86 L (3.98-5.22) M/mm3 Hgb 9.0 L (11.2-15.7) gm/dl Hct 28.8 L (34.1-44.9) % MCV 100.7 H (79.4-94.8) fl MCH 31.5 (25.6-32.2) pg MCHC 31.3 L (32.2-35.5) g/dl RDW Std Deviation 52.3 H (36.4-46.3) fL Plt Count 184 (182-369) K/mm3 MPV 10.6 (9.4-12.3) fl Neut % (Auto) 50.5 (34.0-71.1) % Lymph % (Auto) 33.7 (19.3-51.7) % [place] % (Auto) 11.5 (4.7-12.5) % Eos % (Auto) 3.4 (0.7-5.8) Baso % (Auto) 0.7 (0.1-1.2) % Neut # (Auto) 2.71 (1.56-6.13) K/mm3 Lymph # (Auto) 1.81 (1.18-3.74) K/mm3 [place] # (Auto) 0.62 H (0.24-0.36) K/mm3 Eos # (Auto) 0.18 (0.04-0.36) K/mm3 Baso # (Auto) 0.04 (0.01-0.08) K/mm3 Sodium 146 H (136-145) mEq/L Potassium 3.5 (3.5-5.1) mEq/L Chloride 109 H (98-107) mEq/L Carbon Dioxide 30 (21-32) mEq/L Anion Gap 10.5 (5-15) BUN 14 (7-18) mg/dL Creatinine 0.9 (0.55-1.02) mg/dL Est Cr Clr Drug Dosing 39.46 mL/min Estimated GFR (MDRD) 60 (>60) mL/min BUN/Creatinine Ratio 15.6 (14-18) Glucose 88 (70-99) mg/dL Calcium 8.1 L (8.5-10.1) mg/dL Total Bilirubin 0.5 (0.2-1.0) mg/dL AST 25 (15-37) U/L ALT 22 (14-59) U/L Alkaline Phosphatase 57 (46-116) U/L Total Protein 5.5 L (6.4-8.2) g/dl Albumin 2.6 L (3.4-5.0) g/dl Globulin 2.9 gm/dL Albumin/Globulin Ratio 0.9 L (1-2) Med Orders - Current: Current Medications Acetaminophen (Acetaminophen 325 Mg Tab) 650 mg PO Q4H PRN PRN Reason: Pain (Mild 1-3)/fever Albuterol (Albuterol 6.7 Gm Inhaler) 0 gm INH Q4H PRN PRN Reason: Wheezing Albuterol/Ipratropium (Albuterol/Ipratropium 3.0-0.5 Mg/3 Ml Neb Soln) 3 ml NEB QIDRT PRN PRN Reason: Shortness Of Breath/wheezing Apixaban (Apixaban 2.5 Mg Tab) 2.5 mg PO BID [facility] Last Admin: 12/17/20 09:38 Dose: 2.5 mg Documented by: Furosemide (Furosemide 40 Mg Tab) 40 mg PO DAILY [facility] Last Admin: 12/17/20 09:38 Dose: 40 mg Documented by: Ondansetron HCl (Ondansetron 4 Mg/2 Ml Sdv) 4 mg IV Q6H PRN PRN Reason: Nausea/Vomiting Pantoprazole Sodium (Pantoprazole 40 Mg Tab.Cr) 40 mg PO BID [facility] Sertraline HCl (Sertraline 25 Mg Tab) 25 mg PO DAILY [facility] Last Admin: 12/17/20 09:38 Dose: 25 mg Documented by: Tramadol HCl (Tramadol 50 Mg Tab) 50 mg PO Q6H PRN PRN Reason: Pain Discontinued Medications Apixaban (Apixaban 2.5 Mg Tab) 2.5 mg PO BID [facility] Last Admin: 12/14/20 20:30 Dose: 2.5 mg Documented by: Fentanyl (Fentanyl 100 Mcg/2 Ml Sdv) Confirm Administered Dose 100 mcg .ROUTE .STK-MED ONE Stop: 12/14/20 11:46 Sodium Chloride (Normal Saline) 1,000 mls @ 500 mls/hr IV ASDIRECTED [facility] Last Admin: 12/13/20 10:41 Dose: 500 mls/hr Documented by: Pantoprazole Sodium 80 mg/ (Sodium Chloride) 100 mls @ 10 mls/hr IV Q10H [facility] Stop: 12/13/20 21:00 Last Admin: 12/13/20 20:30 Dose: Not Given Documented by: Lactated Ringer's (Ringers, Lactated) 1,000 mls @ 75 mls/hr IV ASDIRECTED [facility] Stop: 12/14/20 23:49 Last Admin: 12/14/20 11:19 Dose: 75 mls/hr Documented by: Lidocaine HCl (Xylocaine-Mpf 1%) Confirm Administered Dose 4 mls @ as directed .ROUTE .STK-MED ONE Stop: 12/14/20 11:46 Lactated Ringer's (Ringers, Lactated) Confirm Administered Dose 1,000 mls @ as directed .ROUTE .STK-MED [facility] Stop: 12/14/20 11:47 Pantoprazole Sodium (Pantoprazole 40 Mg Vial) 40 mg IVPUSH ONETIME ONE Stop: 12/13/20 10:15 Last Admin: 12/13/20 10:41 Dose: 40 mg Documented by: Pantoprazole Sodium (Pantoprazole 40 Mg Vial) Confirm Administered Dose 80 mg .ROUTE .STK-MED ONE Stop: 12/13/20 10:36 Last Admin: 12/13/20 10:55 Dose: Not Given Documented by: Pantoprazole Sodium (Pantoprazole 40 Mg Vial) 40 mg IV Q12HR [facility] Last Admin: 12/17/20 09:38 Dose: 40 mg Documented by: Polyethylene Glycol/Electrolytes (Polyethylene Glycol/Electrolytes 4,000 Ml Bottle) 4,000 ml PO ONETIME ONE Stop: 12/14/20 05:01 Last Admin: 12/14/20 05:05 Dose: 4,000 ml Documented by: Propofol (Propofol 200 Mg/20 Ml Sdv) Confirm Administered Dose 200 mg .ROUTE .STK-MED ONE Stop: 12/14/20 11:46 Propofol (Propofol 200 Mg/20 Ml Sdv) Confirm Administered Dose 200 mg .ROUTE .STK-MED ONE Stop: 12/14/20 15:36 - Exam Quality Assessment: Reports: DVT Prophylaxis. Denies: Supplemental Oxygen, Urine Catheter General: Reports: Alert, Oriented, Cooperative, No Acute Distress HEENT: Reports: Pupils Equal, Pupils Reactive, Mucous Membr. Moist/[place] Neck: Reports: Supple, Trachea Midline Lungs: Reports: Clear to Auscultation, Normal Respiratory Effort Cardiovascular: Reports: Regular Rate, Irregular Rhythm GI/Abdominal Exam: Normal Bowel Sounds, Soft, No Distention, Tender (Mild epigastric tenderness on palpation ) (Female) Exam: Deferred Rectal (Female) Exam: Deferred Back Exam: Reports: Normal Inspection, Full Range of Motion Extremities: Normal Inspection, Normal Range of Motion, Non-Tender, No Pedal Edema, Normal Capillary Refill Skin: Reports: Warm, Dry, Intact Neurological: Reports: No New Focal Deficit Psy/Mental Status: Reports: Alert, Normal Affect, Normal Mood *Q Meaningful Use (DIS) - VTE *Q VTE Pharmacological Contraindications *Q: Active Hemorrhage <Davian Kennedy - Last Filed: 12/17/20 18:16> Discharge Summary - Referral to Home Health Primary Care Physician: Magen Herndon MD - Discharge Diagnosis/Problem(s) (1) Upper gastrointestinal bleed SNOMED Code(s): 34655361 ICD Code: K92.2 - GASTROINTESTINAL HEMORRHAGE, UNSPECIFIED Status: Resolved Priority: High Problem Details: Duodenal ulcers (2) Chronic atrial fibrillation SNOMED Code(s): 933434908 ICD Code: I48.20 - CHRONIC ATRIAL FIBRILLATION, UNSPECIFIED Status: Chronic Priority: High (3) Chronic anticoagulation SNOMED Code(s): 340722849 ICD Code: Z79.01 - SENIOR DATA QUALITY ANALYST (CURRENT) USE OF ANTICOAGULANTS Status: Chronic Priority: High (4) History of CVA (cerebrovascular accident) SNOMED Code(s): 318532315 ICD Code: Z86.73 - PRSNL HX OF TIA (TIA), AND CEREB INFRC W/O RESID DEFICITS Status: Chronic Priority: Medium (5) Anemia SNOMED Code(s): 661113790 ICD Code: D64.9 - ANEMIA, UNSPECIFIED Status: Acute Priority: High Qualifiers: Anemia type: other cause Other causes of anemia: acute posthemorrhagic Qualified Code(s): D62 - Acute posthemorrhagic anemia (6) Physical deconditioning SNOMED Code(s): 30213311196705 ICD Code: R53.81 - OTHER MALAISE Status: Chronic Priority: High - Patient Summary/Data Consults: Consultations 12/13/20 13:08 Consult to Physician [CONS] Routine Consult to Spiritual Care [CONS] Routine 12/13/20 13:11 OT Evaluation and Treatment [CONS] Routine PT Evaluation and Treatment [CONS] Routine 12/13/20 13:58 Consult to Case Management/Silk Screen Frame Assembler [CONS] Routine - Patient Data Vitals - Most Recent: Last Vital Signs Temp 36.6 C 12/17/20 08:01 Pulse 67 12/17/20 08:01 Resp 18 12/17/20 08:01 BP 130/54 L 12/17/20 10:07 Pulse Ox 95 12/17/20 08:01 I&O - Last 24 hours: Intake & Output 12/17/20 12/17/20 12/17/20 06:59 14:59 22:59 Intake Total 600 Output Total 100 750 Balance 500 -750 Lab Results - Last 24 hrs: Laboratory Results - last 24 hr 12/17/20 12/17/2021 Range/Units 05:40 05:40 09:45 WBC 5.37 (3.98-10.04) K/mm3 RBC 2.86 L (3.98-5.22) M/mm3 Hgb 9.0 L (11.2-15.7) gm/dl Hct 28.8 L (34.1-44.9) % MCV 100.7 H (79.4-94.8) fl MCH 31.5 (25.6-32.2) pg MCHC 31.3 L (32.2-35.5) g/dl RDW Std Deviation 52.3 H (36.4-46.3) fL Plt Count 184 (182-369) K/mm3 MPV 10.6 (9.4-12.3) fl Neut % (Auto) 50.5 (34.0-71.1) % Lymph % (Auto) 33.7 (19.3-51.7) % [place] % (Auto) 11.5 (4.7-12.5) % Eos % (Auto) 3.4 (0.7-5.8) Baso % (Auto) 0.7 (0.1-1.2) % Neut # (Auto) 2.71 (1.56-6.13) K/mm3 Lymph # (Auto) 1.81 (1.18-3.74) K/mm3 [place] # (Auto) 0.62 H (0.24-0.36) K/mm3 Eos # (Auto) 0.18 (0.04-0.36) K/mm3 Baso # (Auto) 0.04 (0.01-0.08) K/mm3 Sodium 146 H (136-145) mEq/L Potassium 3.5 (3.5-5.1) mEq/L Chloride 109 H (98-107) mEq/L Carbon Dioxide 30 (21-32) mEq/L Anion Gap 10.5 (5-15) BUN 14 (7-18) mg/dL Creatinine 0.9 (0.55-1.02) mg/dL Est Cr Clr Drug Dosing 39.46 mL/min Estimated GFR (MDRD) 60 (>60) mL/min BUN/Creatinine Ratio 15.6 (14-18) Glucose 88 (70-99) mg/dL Calcium 8.1 L (8.5-10.1) mg/dL Total Bilirubin 0.5 (0.2-1.0) mg/dL AST 25 (15-37) U/L ALT 22 (14-59) U/L Alkaline Phosphatase 57 (46-116) U/L Total Protein 5.5 L (6.4-8.2) g/dl Albumin 2.6 L (3.4-5.0) g/dl Globulin 2.9 gm/dL Albumin/Globulin Ratio 0.9 L (1-2) SARS-CoV-2 RNA (KARLI) Negative (NEGATIVE) Med Orders - Current: Current Medications Discontinued Medications Acetaminophen (Acetaminophen 325 Mg Tab) 650 mg PO Q4H PRN PRN Reason: Pain (Mild 1-3)/fever Last Admin: 12/17/20 10:11 Dose: 650 mg Documented by: Albuterol (Albuterol 6.7 Gm Inhaler) 0 gm INH Q4H PRN PRN Reason: Wheezing Albuterol/Ipratropium (Albuterol/Ipratropium 3.0-0.5 Mg/3 Ml Neb Soln) 3 ml NEB QIDRT PRN PRN Reason: Shortness Of Breath/wheezing Apixaban (Apixaban 2.5 Mg Tab) 2.5 mg PO BID [facility] Last Admin: 12/14/20 20:30 Dose: 2.5 mg Documented by: Apixaban (Apixaban 2.5 Mg Tab) 2.5 mg PO BID [facility] Last Admin: 12/17/20 09:38 Dose: 2.5 mg Documented by: Fentanyl (Fentanyl 100 Mcg/2 Ml Sdv) Confirm Administered Dose 100 mcg .ROUTE .STK-MED ONE Stop: 12/14/20 11:46 Furosemide (Furosemide 40 Mg Tab) 40 mg PO DAILY [facility] Last Admin: 12/17/20 09:38 Dose: 40 mg Documented by: Sodium Chloride (Normal Saline) 1,000 mls @ 500 mls/hr IV ASDIRECTED [facility] Last Admin: 12/13/20 10:41 Dose: 500 mls/hr Documented by: Pantoprazole Sodium 80 mg/ (Sodium Chloride) 100 mls @ 10 mls/hr IV Q10H [facility] Stop: 12/13/20 21:00 Last Admin: 12/13/20 20:30 Dose: Not Given Documented by: Lactated Ringer's (Ringers, Lactated) 1,000 mls @ 75 mls/hr IV ASDIRECTED [facility] Stop: 12/14/20 23:49 Last Admin: 12/14/20 11:19 Dose: 75 mls/hr Documented by: Lidocaine HCl (Xylocaine-Mpf 1%) Confirm Administered Dose 4 mls @ as directed .ROUTE .STK-MED ONE Stop: 12/14/20 11:46 Lactated Ringer's (Ringers, Lactated) Confirm Administered Dose 1,000 mls @ as directed .ROUTE .STK-MED ONE Stop: 12/14/20 11:47 Ondansetron HCl (Ondansetron 4 Mg/2 Ml Sdv) 4 mg IV Q6H PRN PRN Reason: Nausea/Vomiting Pantoprazole Sodium (Pantoprazole 40 Mg Vial) 40 mg IVPUSH ONETIME ONE Stop: 12/13/20 10:15 Last Admin: 12/13/20 10:41 Dose: 40 mg Documented by: Pantoprazole Sodium (Pantoprazole 40 Mg Vial) Confirm Administered Dose 80 mg .ROUTE .STK-MED ONE Stop: 12/13/20 10:36 Last Admin: 12/13/20 10:55 Dose: Not Given Documented by: Pantoprazole Sodium (Pantoprazole 40 Mg Vial) 40 mg IV Q12HR [facility] Last Admin: 12/17/20 10:24 Dose: Not Given Documented by: Pantoprazole Sodium (Pantoprazole 40 Mg Tab.Cr) 40 mg PO BID [facility] Pantoprazole Sodium (Pantoprazole 40 Mg Tab.Cr) 40 mg PO ONETIME ONE Stop: 12/17/20 10:31 Last Admin: 12/17/20 10:51 Dose: 40 mg Documented by: Polyethylene Glycol/Electrolytes (Polyethylene Glycol/Electrolytes 4,000 Ml Bottle) 4,000 ml PO ONETIME ONE Stop: 12/14/20 05:01 Last Admin: 12/14/20 05:05 Dose: 4,000 ml Documented by: Propofol (Propofol 200 Mg/20 Ml Sdv) Confirm Administered Dose 200 mg .ROUTE .STK-MED ONE Stop: 12/14/20 11:46 Propofol (Propofol 200 Mg/20 Ml Sdv) Confirm Administered Dose 200 mg .ROUTE .STK-MED ONE Stop: 12/14/20 15:36 Sertraline HCl (Sertraline 25 Mg Tab) 25 mg PO DAILY [facility]AN Last Admin: 12/17/20 09:38 Dose: 25 mg Documented by: Tramadol HCl (Tramadol 50 Mg Tab) 50 mg PO Q6H PRN PRN Reason: Pain - Free Text/Narrative Note: I have seen and examined the patient independently of Aniceto Covarrubias PA-C and have discussed the case with him. I have reviewed and agree with the orders and plan of care outlined by him. Please see orders.
[2020-12-17 10:26] VITALS: BP 130/54
[2020-12-17] MEDS ORDERED: Pantoprazole 40 MG Tab.CR PO ONE (10:30)
[2020-12-17] MEDS ORDERED: Pantoprazole 40 MG Tab.CR PO SCH (21:00)
== END 2020-12-17 13:20 | disposition other institution (70) | DRG 378 ==
LOC: JD.ED 09:42 → JD.MS 13:06 → UNDOADMIN 13:13
PROVIDERS: ADMIT Internal Medicine; ATTEND Internal Medicine
PROC: 0DJ08ZZ Inspection of Upper Intestinal Tract, Via Natural or Artificial Opening Endoscopic (ICD-10-PCS; principal; 2020-12-14)
PROC: 0DJD8ZZ Inspection of Lower Intestinal Tract, Via Natural or Artificial Opening Endoscopic (ICD-10-PCS; 2020-12-14)
DX: K57.31 Diverticulosis of large intestine without perforation or abscess with bleeding (principal); I48.20 Chronic atrial fibrillation, unspecified; N39.0 Urinary tract infection, site not specified; H54.7 Unspecified visual loss; Z66 Do not resuscitate; I10 Essential (primary) hypertension; I25.2 Old myocardial infarction; J45.909 Unspecified asthma, uncomplicated; K21.9 Gastro-esophageal reflux disease without esophagitis; F32.9 Major depressive disorder, single episode, unspecified; Z88.8 Allergy status to other drugs, medicaments and biological substances; Z91.048 Other nonmedicinal substance allergy status; E66.9 Obesity, unspecified; Z79.899 Other long term (current) drug therapy; D64.9 Anemia, unspecified; Z87.440 Personal history of urinary (tract) infections; Z86.73 Personal history of transient ischemic attack (TIA), and cerebral infarction without residual deficits; Z79.01 Long term (current) use of anticoagulants; Z87.19 Personal history of other diseases of the digestive system; Z86.718 Personal history of other venous thrombosis and embolism; M19.90 Unspecified osteoarthritis, unspecified site; Z86.2 Personal history of diseases of the blood and blood-forming organs and certain disorders involving the immune mechanism; Z86.11 Personal history of tuberculosis; K59.09 Other constipation; Z20.822 Contact with and (suspected) exposure to COVID-19
CPT/HCPCS: 36415; 71045; 80053; 81001; 83690; 83735; 85025; 86140; 86850; 86900; 86901; 93005 ×2; 96365; 96366; 99285; C9113 ×2; J7030; U0002; 00813; 82947; 83880; 85014; 85018; 87338; 93010; 97162-GP; 97530-GP; 99100; 99223; 99233; 99239; A9270-GY; J2704; J3010; J7120

== ENCOUNTER 2020-12-20 08:40 | Inpatient (IN) | payer MEDICARE, OTHER ==
--- NOTE | 2020-12-20 08:48 | EDM.PDOC ---
ED HPI GENERAL MEDICAL PROBLEM - General Chief Complaint: Cardiovascular Problem Stated Complaint: TUNG AMB Time Seen by Provider: 12/20/20 08:46 Source of Information: Reports: Patient, EMS, Family (daughter) History Limitations: Reports: No Limitations - History of Present Illness INITIAL COMMENTS - FREE TEXT/NARRATIVE: 85-year-old female presents to the ED feeling lightheaded dizzy and suffering a near syncopal event this morning. Patient was admitted to the hospital after presentation on December 13 with bright red rectal bleeding felt to be due to an upper GI bleed. Patient is on Eliquis 2.5 mg twice daily and has had previous GI bleeding on blood thinners. 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 She recovered most of her function after this. She was placed back on Eliquis for atrial fibrillation 6 months after her stroke. On last admission she was admitted until 17 December when she was discharged home with a hemoglobin of 9.0 and hematocrit of 28.8. She did not receive any blood transfusions while admitted to the hospital last week. She noticed some blood in her stool yesterday and feeling much more lightheaded and weak this morning with shortness of breath and central chest discomfort. She has not yet had a bowel movement today. She was discharged to [facility] on December 17. Onset: Today Onset Date: 12/20/20 Onset Time: 07:30 Duration: Minutes:, Intermittent, Other (When trying to get dressed this morning.) Location: Reports: Generalized (When bending over to get close out of her [place] should get dressed.) Quality: Reports: Other (Lightheadedness and dizziness with near syncope.) Severity: Moderate Improves with: Reports: Rest Worsens with: Reports: Other (Bending over and walking.) Context: Reports: Other (Recent upper GI bleed with blood per rectum. Appreciated once again yesterday. Initial admission was December 13 with a GI bleed felt to be upper.). Denies: Activity, Exercise, Lifting, Sick Contact, Trauma Associated Symptoms: Reports: Chest Pain, Loss of Appetite, Malaise, Other (She did have supper last night.). Denies: Confusion, Cough (Upper central chest discomfort rating through to her back.), cough w sputum, Diaphoresis, Fever/Chills, Headaches, Nausea/Vomiting (Mild) Treatments OFFICE ADMINISTRATOR: Reports: Other (see below) (Prescribed medications.) - Related Data Allergies Allergy/AdvReac Type Severity Reaction Status Date / Time perfume Allergy Severe Airway Verified 12/20/20 08:55 Tightness theophylline anhydrous AdvReac Severe altered Verified 12/20/20 08:55 [From Pan-Dur] heart rate Home Meds: Home Meds Sertraline HCl 25 mg PO DAILY 12/05/14 [History] Albuterol Sulfate [Proair Respiclick] 2 inh INH Q4H PRN 10/29/15 [History] Furosemide [Lasix] 40 mg PO DAILY 07/23/17 [History] Apixaban [Eliquis] 2.5 mg PO BID 09/18/17 [History] atorvaSTATin [Lipitor] 10 mg PO BEDTIME 09/18/17 [History] Pantoprazole [ProTONIX] 40 mg PO DAILY 03/20/18 [History] Lutein/Minerals/Vit A,C & E [Ocuvite] 1 tab PO DAILY 04/05/18 [History] traMADol [Ultram] 50 mg PO Q6HR PRN 04/21/19 [History] Calcium Carbonate [Calcium] 1 tab PO DAILY 12/13/20 [History] Past Medical History HEENT History: Reports: Cataract, Epistaxis, Hard of Hearing, Other (See Below) Other HEENT History: wears glasses; macular puckering Cardiovascular History: Reports: Afib, Blood Clots/VTE/DVT, High Cholesterol, Hypertension, GA, Other (See Below) Other Cardiovascular History: superficial blood clot Respiratory History: Reports: Asthma, Bronchitis, Recurrent, Other (See Below) Other Respiratory History: "sinus problems", Pneumonia once in the past Gastrointestinal History: Reports: GERD, GI Bleed Genitourinary History: Reports: UTI, Recurrent, Other (See Below) Other Genitourinary History: cyst on bladder, dribbles FABRICATION ENGINEER History: Reports: Other FABRICATION ENGINEER History: hx of cystocele with mesh repair Musculoskeletal History: Reports: Arthritis, Fracture, Other (See Below) Other Musculoskeletal History: chronic left & right shoulder pain. 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 Psychiatric History: Reports: Depression Endocrine/Metabolic History: Reports: Obesity/BMI 30+ Hematologic History: Reports: Anemia Other Hematologic History: "had bleeding ulcer 11/2014" Immunologic History: Reports: None Oncologic (Cancer) History: Reports: None Dermatologic History: Reports: None - Infectious Disease History Infectious Disease History: Reports: Measles - Past Surgical History Head Surgeries/Procedures: Reports: None HEENT Surgical History: Reports: Cataract Surgery, Other (See Below) Other HEENT Surgeries/Procedures: bilateral cataract surgery Cardiovascular Surgical History: Reports: Other (See Below) Other Cardiovascular Surgeries/Procedures: hx of vein stripping Respiratory Surgical History: Reports: None GI Surgical History: Reports: Cholecystectomy, Colonoscopy, EGD Female Surgical History: Reports: Hysterectomy, Other (See Below) Other Female Surgeries/Procedures: hernia mesh r/t prolapsed bladder Endocrine Surgical History: Reports: None Neurological Surgical History: Reports: None Musculoskeletal Surgical History: Reports: Knee Replacement Other Musculoskeletal Surgeries/Procedures:: bilateral Oncologic Surgical History: Reports: None Dermatological Surgical History: Reports: None Social & Family History - Family History Family Medical History: No Pertinent Family History HEENT: Reports: Hearing Impairment Cardiac: Reports: Heart Failure, Hypertension Respiratory: Reports: Asthma GI: Reports: Cholelithiasis Musculoskeletal: Reports: Osteoarthritis, Osteoporosis Neurological: Reports: Dementia Endocrine/Metabolic: Reports: Diabetes, Type I Dermatologic: Reports: Psoriasis Oncologic: Reports: Breast - Caffeine Use Caffeine Use: Reports: Coffee Other Caffeine Use: daily, decaf or caf. Caffeine Use Comment: occasional coffee when visiting with friends - Living Situation & Occupation Living situation: Reports: , Assisted Living (Recent admission to [facility] from her home. She was discharged to [facility] December 17.) Occupation: Retired ED ROS GENERAL - Review of Systems Review Of Systems: See Below Constitutional: Reports: Malaise, Weakness, Fatigue. Denies: Fever, Chills, Decreased Appetite HEENT: Reports: Glasses, Other Respiratory: Reports: Shortness of Breath (I believe she also has mild macular degeneration.). Denies: Wheezing, Pleuritic Chest Pain, Cough, Sputum, Hemoptysis Cardiovascular: Reports: Chest Pain (Chest discomfort), Blood Pressure Problem ( this morning. He runs high. Blood pressure this morning is 100/30 if this is accurate.), Dyspnea on Exertion, Lightheadedness, Palpitations. Denies: Claudication, Edema, Orthopnea Endocrine: Reports: Fatigue GI/Abdominal: Reports: Bloody Stool (In his stool once again yesterday). Denies: Abdominal Pain : Reports: Frequency ( nothing so far today.), Incontinence (Urge incontinence), Urgency Musculoskeletal: Reports: Neck Pain, Shoulder Pain, Back Pain, Joint Pain Skin: Reports: Bruising (Knees and hips at times bruises easily due to being on aspirin and Eliquis.) Neurological: Reports: No Symptoms, Dizziness, Difficulty Walking (Due to dyspnea and generalized weakness.), Weakness, Gait Disturbance. Denies: Confusion, Headache, Numbness, Pre-Existing Deficit, Seizure, Syncope, Tingling, Tremors, Trouble Speaking Psychiatric: Reports: No Symptoms (Usually walks with the aid of a walker.) Hematologic/Lymphatic: Reports: Anemia, Easy Bruising Immunologic: Reports: No Symptoms ED EXAM, GI/ABD - Physical Exam Exam: See Below Exam Limited By: No Limitations General Appearance: Alert, WD/WN, No Apparent Distress, Other (Patient does appear pallid. Temperature is 36.1 degrees. Heart rate 78 sinus respiratory 16 with O2 sats 100% room air. Initial blood pressure is recorded at 100/30. Repeat blood pressure is 90/45.) Eyes: Bilateral: Normal Appearance (Dr. Marinpharal pallor appreciated bilaterally.), Pale Conjunctiva Throat/Mouth: Normal Inspection, Normal Oropharynx, Other Head: Atraumatic, Normocephalic (Tongue is mildly dry and coated.), Other (No outward signs of any head or facial trauma.) Neck: Normal Inspection, Limited Range of Motion (Crepitus on the lateral). No: Full Range of Motion, Lymphadenopathy (L), Lymphadenopathy (R) ( rotation.) Respiratory/Chest: No Respiratory Distress, Lungs Clear, Normal Breath Sounds, No Accessory Muscle Use Cardiovascular: No Edema, No Gallop, No Murmur, No Rub, Irregularly Irregular (Atrial fibrillation on the monitor at 80/min). No: Normal Peripheral Pulses, Regular Rate, Rhythm GI/Abdominal Exam: Soft, Non-Tender (Bowel sounds are hyperactive in all 4 quadrants.), No Organomegaly, No Distention, No Mass, Pelvis Stable (Erica obese.), Abnormal Bowel Sounds, Other Back Exam: Normal Inspection, Decreased Range of Motion, Other (Marked increase in lordotic curvature lumbar spine). No: CVA Tenderness (L), CVA Tenderness (R), Vertebral Tenderness Extremities: Non-Tender (Osteoarthritic changes both knees), No Pedal Edema, Other. No: Normal Capillary Refill Neurological: Alert, Oriented, CN II-XII Intact, Normal Cognition Psychiatric: Normal Affect, Normal Mood Skin Exam: Warm, Dry, Intact, Pallor #1 Interpretation EKG Date: 12/20/20 Time: 09:38 Rhythm: A-Fib (Rate is 55 to 100 bpm) Rate (Beats/Min): 79 [place]: Normal P-Wave: Absent QRS: Other (Mildly decreased voltage limb leads. There is early R wave tr ansition consider right ventricular perjury versus septal hypertrophy pattern.) ST-T: Other (T wave inversion in leads II, III and aVF consider inferior wall ischemia.) QT: Prolonged (mildly prolonged) EKG Interpretation Comments: Abnormal ECG Course - Vital Signs Last Recorded V/S: Last Vital Signs Temp 36.5 C 12/20/20 11:40 Pulse 70 12/20/20 11:40 Resp 14 12/20/20 11:40 BP 123/60 12/20/20 11:40 Pulse Ox 94 L 12/20/20 11:35 Orthostatic Blood Pressure [ 92/77 Sitting] Orthostatic Blood Pressure [ 99/54 Supine] - Orders/Labs/Meds Orders: Active Orders 24 hr Category Date Time Status Orthostatic Vital Signs [RC] ASDIRECTED Care 12/20/20 08:59 Active FRESH FROZEN PLASMA [BBK] Stat Lab 12/20/20 09:05 Results PACKED CELLS [RED BLOOD CELLS LP] [BBK] Stat Lab 12/20/20 09:05 Results TYPE AND SCREEN [BBK] Stat Lab 12/20/20 09:05 Results Pantoprazole [ProTONIX IV] 80 mg Med 12/20/20 12:30 Ordered Sodium Chloride 0.9% [Normal Saline] 100 ml IV Q10H Sodium Chloride 0.9% [Normal Saline] 1,000 ml Med 12/20/20 09:00 Active IV ASDIRECTED Sodium Chloride 0.9% [Normal Saline] 1,000 ml Med 12/20/20 10:15 Active IV ASDIRECTED Medication Orders Sodium Chloride (Normal Saline) 1,000 mls @ 500 mls/hr IV ASDIRECTED [facility] Last Admin: 12/20/20 09:31 Dose: 500 mls/hr Documented by: EBERELI Sodium Chloride (Normal Saline) 1,000 mls @ 1 mls/hr IV ASDIRECTED [facility] Last Admin: 12/20/20 11:30 Dose: 1 mls/hr Documented by: EBERELI Pantoprazole Sodium 80 mg/ (Sodium Chloride) 100 mls @ 10 mls/hr IV Q10H [facility] Labs: Laboratory Tests 12/20/20 12/20/20 12/20/20 Range/Units 09:05 09:05 09:05 WBC 6.79 (3.98-10.04) K/mm3 RBC 2.50 L (3.98-5.22) M/mm3 Hgb 7.8 L (11.2-15.7) gm/dl Hct 25.5 L (34.1-44.9) % MCV 102.0 H (79.4-94.8) fl MCH 31.2 (25.6-32.2) pg MCHC 30.6 L (32.2-35.5) g/dl RDW Std Deviation 54.5 H (36.4-46.3) fL Plt Count 239 (182-369) K/mm3 MPV 10.6 (9.4-12.3) fl Neut % (Auto) 66.6 (34.0-71.1) % Lymph % (Auto) 21.8 (19.3-51.7) % [place] % (Auto) 9.3 (4.7-12.5) % Eos % (Auto) 1.6 (0.7-5.8) Baso % (Auto) 0.4 (0.1-1.2) % Neut # (Auto) 4.52 (1.56-6.13) K/mm3 Lymph # (Auto) 1.48 (1.18-3.74) K/mm3 [place] # (Auto) 0.63 H (0.24-0.36) K/mm3 Eos # (Auto) 0.11 (0.04-0.36) K/mm3 Baso # (Auto) 0.03 (0.01-0.08) K/mm3 PT 11.4 (9.7-12.0) SECONDS INR 1.07 APTT 20.6 L (21.7-31.4) SECONDS Sodium 144 (136-145) mEq/L Potassium 3.4 L (3.5-5.1) mEq/L Chloride 107 (98-107) mEq/L Carbon Dioxide 28 (21-32) mEq/L Anion Gap 12.4 (5-15) BUN 38 H (7-18) mg/dL Creatinine 0.9 (0.55-1.02) mg/dL Est Cr Clr Drug Dosing 39.46 mL/min Estimated GFR (MDRD) 60 (>60) mL/min BUN/Creatinine Ratio 42.2 H (14-18) Glucose 146 H (70-99) mg/dL Calcium 7.9 L (8.5-10.1) mg/dL Magnesium 2.1 (1.8-2.4) mg/dL Total Bilirubin 0.4 (0.2-1.0) mg/dL AST 22 (15-37) U/L ALT 22 (14-59) U/L Alkaline Phosphatase 62 (46-116) U/L CK-MB (CK-2) 1.9 (0-3.6) ng/ml Troponin I 0.042 (0.00-0.056) ng/mL C-Reactive Protein 0.4 (<1.0) mg/dL NT-Pro-B Natriuret Pep (0-450) pg/mL Total Protein 5.9 L (6.4-8.2) g/dl Albumin 2.7 L (3.4-5.0) g/dl Globulin 3.2 gm/dL Albumin/Globulin Ratio 0.8 L (1-2) SARS-CoV-2 RNA (KARLI) (NEGATIVE) Blood Type Gel Antibody Screen Crossmatch 12/20/20 12/20/20 12/20/20 Range/Units 09:05 09:05 09:50 WBC (3.98-10.04) K/mm3 RBC (3.98-5.22) M/mm3 Hgb (11.2-15.7) gm/dl Hct (34.1-44.9) % MCV (79.4-94.8) fl MCH (25.6-32.2) pg MCHC (32.2-35.5) g/dl RDW Std Deviation (36.4-46.3) fL Plt Count (182-369) K/mm3 MPV (9.4-12.3) fl Neut % (Auto) (34.0-71.1) % Lymph % (Auto) (19.3-51.7) % Ripley % (Auto) (4.7-12.5) % Eos % (Auto) (0.7-5.8) Baso % (Auto) (0.1-1.2) % Neut # (Auto) (1.56-6.13) K/mm3 Lymph # (Auto) (1.18-3.74) K/mm3 [place] # (Auto) (0.24-0.36) K/mm3 Eos # (Auto) (0.04-0.36) K/mm3 Baso # (Auto) (0.01-0.08) K/mm3 PT (9.7-12.0) SECONDS INR APTT (21.7-31.4) SECONDS Sodium (136-145) mEq/L Potassium (3.5-5.1) mEq/L Chloride (98-107) mEq/L Carbon Dioxide (21-32) mEq/L Anion Gap (5-15) BUN (7-18) mg/dL Creatinine (0.55-1.02) mg/dL Est Cr Clr Drug Dosing mL/min Estimated GFR (MDRD) (>60) mL/min BUN/Creatinine Ratio (14-18) Glucose (70-99) mg/dL Calcium (8.5-10.1) mg/dL Magnesium (1.8-2.4) mg/dL Total Bilirubin (0.2-1.0) mg/dL AST (15-37) U/L ALT (14-59) U/L Alkaline Phosphatase (46-116) U/L CK-MB (CK-2) (0-3.6) ng/ml Troponin I (0.00-0.056) ng/mL C-Reactive Protein (<1.0) mg/dL NT-Pro-B Natriuret Pep 513 H (0-450) pg/mL Total Protein (6.4-8.2) g/dl Albumin (3.4-5.0) g/dl Globulin gm/dL Albumin/Globulin Ratio (1-2) SARS-CoV-2 RNA (KARLI) Negative (NEGATIVE) Blood Type B POSITIVE Gel Antibody Screen Negative Crossmatch See Detail Meds: Medications Generic Name Dose Route Start Last Admin Trade Name Freq PRN Reason Stop Dose Admin Sodium Chloride 1,000 mls @ 500 mls/hr 12/20/20 09:00 12/20/20 09:31 Normal Saline IV 500 mls/hr ASDIRECTED ETHAN Administration Sodium Chloride 1,000 mls @ 1 mls/hr 12/20/20 10:15 12/20/20 11:30 Normal Saline IV 1 mls/hr ASDIRECTED ETHAN Administration Pantoprazole Sodium 80 mg/ 100 mls @ 10 mls/hr 12/20/20 12:30 Sodium Chloride IV Q10H ETHAN Discontinued Medications Generic Name Dose Route Start Last Admin Trade Name Freq PRN Reason Stop Dose Admin Lactated Ringer's 1,000 mls @ 500 mls/hr 12/20/20 10:30 12/20/20 10:30 Ringers, Lactated IV 12/20/20 12:29 500 mls/hr ONETIME ONE Administration Pantoprazole Sodium 40 mg 12/20/20 09:03 12/20/20 09:31 Pantoprazole 40 Mg Vial IVPUSH 12/20/20 09:04 40 mg ONETIME ONE Administration - Radiology Interpretation Free Text/Narrative:: 85-year-old female presents to the ED with lightheadedness and dizziness and central chest discomfort. She suffered a near syncopal event this morning while trying to get dressed. She was admitted to the hospital on December 13 after suffering an upper GI bleed with black stools for at least 2 days prior to coming to the ED. Her hemoglobin globin in the hospital went down as low as 8.8 and stabilized at 9.0 prior to discharge home December 17. She was discharged back to [facility] which is new for her. She is on Eliquis 2.5 mg twice daily due to chronic atrial fibrillation. When she was off Eliquis she had a CVA involving her brain stem. Therefore the Eliquis is felt to be essential. She has been on Protonix 40 mg daily for a lengthy period of time. Plan routine labs to be performed. Orthostatic BPs. Blood pressure is low this morning at 90/45. She will be given a 500 mils fluid bolus as she has congestive heart failure. - Re-Assessments/Exams Free Text/Narrative Re-Assessment/Exam: 12/20/20 10:00: Pressure is fallen to 69/44 in spite of IV normal saline running at open. Second large-bore IV started and will be LR at 500 mils an hour. Heart rate is 80 and irregular regular compared with atrial fibrillation. O2 sats are 94%. I will have her crossmatched for 2 units of packed cells and 1 unit of FFP and plan to infuse as soon as possible. 12/20/20 10:44 chest x-ray done portably reveals moderate cardiomegaly. Upper mediastinum is normal. Lungs are clear with no acute parenchymal changes. Bony structures are osteopenic. 2 levels of vertebroplasty are seen within the thoracic spine. 12/20/20 10:49 patient's blood pressure is now 121/79 with heart rate 68 atrial fibrillation. She has received 1500 mils of crystalloid. 12/20/20 11:28 White blood cell count is 6.79. Hemoglobin is down to 7.8 hematocrit of 25.5. MCV is 102.0. Platelet counts 239,000. PT is 11.4 with an INR of 1.07 PTT is 20.6. Sodium 144 with a potassium of 3.4. Chloride 107 with a bicarb of 28. Anion gap is 12.4. BUN is 38 with a creatinine of 0.9 and a GFR of 60. Glucose 146. Calcium 7.9 compatible with recent blood loss. Magnesium is 2.1. Liver function is normal. CK-MB fraction is 1.9 troponin I is 0.042 C-reactive protein is 0.4 BNP is elevated at 513. Total protein 5.9 with an albumin fraction of 2.7 COVID-19 screen is negative. 12/20/20 11:55 and is receiving fresh frozen plasma at this time. IV rate was turned down to 100 mils an hour of normal saline. BP is stabilized at 120/43. Heart rate 75 irregular regular combined with atrial fibrillation. Plan will be to admit her to the intensive care unit until she can receive a couple units of packed red blood cells. I will discuss the case with on-call hospitalist Dr. Palacios. 12/20/20 12:26 I have spoken with Dr. Palacios and she is excepted care of this patient. The plan will be to admit her to the intensive care unit. Family aware of this. Departure - Departure Time of Disposition: 12:39 Disposition: Admitted As Inpatient 66 Condition: Serious Clinical Impression: Upper gastrointestinal hemorrhage, Mild congestive heart failure, Orthostatic hypotension Anemia Qualifiers: Anemia type: other cause Other causes of anemia: acute posthemorrhagic Qualified Code(s): D62 - Acute posthemorrhagic anemia - Discharge Information Sepsis Event Note (ED) - Focused Exam Vital Signs: Vital Signs Temp Temp Pulse Resp BP Pulse Ox 12/20/20 11:40 36.5 C 70 14 123/60 12/20/20 11:35 36.4 C 68 14 123/60 94 L 12/20/20 11:30 36.0 C L 70 14 122/51 L 12/20/20 10:30 72 14 123/47 L 12/20/20 10:15 80 67/48 L 90 L 12/20/20 10:00 63/30 L 12/20/20 08:52 36.1 C 78 16 100/30 L 100 - My Orders Last 24 Hours: My Active Orders 12/20/20 08:59 Orthostatic Vital Signs [RC] ASDIRECTED 12/20/20 09:00 Sodium Chloride 0.9% [Normal Saline] 1,000 ml IV ASDIRECTED 12/20/20 09:05 FRESH FROZEN PLASMA [BBK] Stat PACKED CELLS [RED BLOOD CELLS LP] [BBK] Stat TYPE AND SCREEN [BBK] Stat 12/20/20 10:15 Sodium Chloride 0.9% [Normal Saline] 1,000 ml IV ASDIRECTED 12/20/20 12:30 Pantoprazole [ProTONIX IV] 80 mg Sodium Chloride 0.9% [Normal Saline] 100 ml IV Q10H - Assessment/Plan Last 24 Hours: My Active Orders 12/20/20 08:59 Orthostatic Vital Signs [RC] ASDIRECTED 12/20/20 09:00 Sodium Chloride 0.9% [Normal Saline] 1,000 ml IV ASDIRECTED 12/20/20 09:05 FRESH FROZEN PLASMA [BBK] Stat PACKED CELLS [RED BLOOD CELLS LP] [BBK] Stat TYPE AND SCREEN [BBK] Stat 12/20/20 10:15 Sodium Chloride 0.9% [Normal Saline] 1,000 ml IV ASDIRECTED 12/20/20 12:30 Pantoprazole [ProTONIX IV] 80 mg Sodium Chloride 0.9% [Normal Saline] 100 ml IV Q10H
[2020-12-20] MEDS ORDERED: Sodium Chloride 0.9% 1,000 ML IV SCH ×2 (09:00→10:15)
[2020-12-20] MEDS ORDERED: Pantoprazole 40 MG Vial IVPUSH ONE (09:03)
--- NOTE | 2020-12-20 09:40 | CR ---
Chest: Portable view of the chest was obtained. Comparison: Prior chest x-ray 12/13/20. Heart is enlarged. Upper mediastinum is normal. Lungs are clear with no acute parenchymal change. Bony structures are osteopenic. Two levels of vertebroplasty are seen within the thoracic spine. Impression: 1. Mild cardiomegaly. 2. Nothing acute is seen on portable chest x-ray. No change is seen from previous chest x-ray. Diagnostic code #2
[2020-12-20] MEDS ORDERED: Lactated Ringers 1,000 ML IV ONE (10:30)
[2020-12-20] MEDS ORDERED: Docusate Sodium 100 MG Cap PO PRN (12:23)
[2020-12-20] MEDS ORDERED: Ondansetron 4 MG/2 ML SDV IV PRN (12:23)
--- NOTE | 2020-12-20 12:50 | PCM.HP.2 ---
H&P History of Present Illness - General Date of Service: 12/20/20 Admit Problem/Dx: Admission Diagnosis/Problem Admission Diagnosis/Problem GI bleed not requiring more than 4 units of blood in 24 hours, ICU, or surgery Source of Information: Patient, Family History Limitations: Reports: No Limitations - History of Present Illness Initial Comments - Free Text/Narative: 85-year-old female with past mental health history of a recurrent GI and atrial fibrillation on Eliquis. Bleed who was recently discharged after a 4-day stay on 17 December with similar presentation presents again with a decrease in hemoglobin to 7.8, dizziness, lightheadedness, fatigue, malaise. Patient has been given 1 unit of blood in the ER. We have Protonix drip that has been started. The Eliquis that she takes for atrial fibrillation has been held. 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 Patient denies any nausea vomiting melena constipation diarrhea sick contacts recent travel chest pain but does state positive for lightheadedness, dizziness, malaise.She stated she felt weak but stable at dc on but was restarted on eliquis at that time. Onset of Symptoms: Reports: Today Duration of Symptoms: Reports: Hour(s): Location: Reports: Generalized Improves with: Reports: Immobilization Worsens with: Reports: Movement Associated Symptoms: Reports: Malaise - Related Data Allergies/Adverse Reactions: Allergies Allergy/AdvReac Type Severity Reaction Status Date / Time perfume Allergy Severe Airway Verified 12/20/20 08:55 Tightness theophylline anhydrous AdvReac Severe altered Verified 12/20/20 08:55 [From Pan-Dur] heart rate Home Medications: Home Meds Sertraline HCl 25 mg PO DAILY 12/05/14 [History] Albuterol Sulfate [Proair Respiclick] 2 inh INH Q4H PRN 10/29/15 [History] Furosemide [Lasix] 40 mg PO DAILY 07/23/17 [History] Apixaban [Eliquis] 2.5 mg PO BID 09/18/17 [History] atorvaSTATin [Lipitor] 10 mg PO BEDTIME 09/18/17 [History] Pantoprazole [ProTONIX] 40 mg PO DAILY 03/20/18 [History] Lutein/Minerals/Vit A,C & E [Ocuvite] 1 tab PO DAILY 04/05/18 [History] traMADol [Ultram] 50 mg PO Q6HR PRN 04/21/19 [History] Calcium Carbonate [Calcium] 1 tab PO DAILY 12/13/20 [History] Past Medical History HEENT History: Reports: Cataract, Epistaxis, Hard of Hearing, Other (See Below) Other HEENT History: wears glasses; macular puckering Cardiovascular History: Reports: Afib, Blood Clots/VTE/DVT, High Cholesterol, Hypertension, [place], Other (See Below) Other Cardiovascular History: superficial blood clot Respiratory History: Reports: Asthma, Bronchitis, Recurrent, Other (See Below) Other Respiratory History: "sinus problems", Pneumonia once in the past Gastrointestinal History: Reports: GERD, GI Bleed Genitourinary History: Reports: UTI, Recurrent, Other (See Below) Other Genitourinary History: cyst on bladder, dribbles 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 Psychiatric History: Reports: Depression Endocrine/Metabolic History: Reports: Obesity/BMI 30+ Hematologic History: Reports: Anemia, Anticoagulation Therapy Other Hematologic History: "had bleeding ulcer 11/2014" Immunologic History: Reports: None Oncologic (Cancer) History: Reports: None Dermatologic History: Reports: None - Infectious Disease History Infectious Disease History: Reports: Measles - Past Surgical History HEENT Surgical History: Reports: Cataract Surgery, Other (See Below) Other HEENT Surgeries/Procedures: bilateral cataract surgery Cardiovascular Surgical History: Reports: Other (See Below) Other Cardiovascular Surgeries/Procedures: hx of vein stripping Respiratory Surgical History: Reports: None GI Surgical History: Reports: Cholecystectomy, Colonoscopy, EGD Female Surgical History: Reports: Hysterectomy, Other (See Below) Other Female Surgeries/Procedures: hernia mesh r/t prolapsed bladder Musculoskeletal Surgical History: Reports: Knee Replacement Other Musculoskeletal Surgeries/Procedures:: bilateral Social & Family History - Family History Family Medical History: No Pertinent Family History HEENT: Reports: Hearing Impairment Cardiac: Reports: Heart Failure, Hypertension Respiratory: Reports: Asthma GI: Reports: Cholelithiasis Musculoskeletal: Reports: Osteoarthritis, Osteoporosis Neurological: Reports: Dementia Endocrine/Metabolic: Reports: Diabetes, Type I Dermatologic: Reports: Psoriasis Oncologic: Reports: Breast - Tobacco Use Tobacco Use Status *Q: Never Tobacco User - Caffeine Use Caffeine Use: Reports: None Other Caffeine Use: daily, decaf or caf. Caffeine Use Comment: occasional coffee when visiting with friends - Recreational Drug Use Recreational Drug Use: No - Living Situation & Occupation Living situation: Reports: , Assisted Living (Recent admission to [facility] from her home. She was discharged to [facility] December 17.) Occupation: Retired H&P Review of Systems - Review of Systems: Review Of Systems: See Below (.) General: Reports: Malaise, Weakness, Fatigue HEENT: Reports: No Symptoms Pulmonary: Reports: Shortness of Breath Cardiovascular: Reports: Palpitations Gastrointestinal: Reports: Bloody Stool Genitourinary: Reports: No Symptoms Musculoskeletal: Reports: Other (chronic arthritis) Skin: Reports: No Symptoms Psychiatric: Reports: Other (Brain injury) Hematologic/Lymphatic: Reports: Anemia, Easy Bleeding Exam - Exam Exam: See Below - Vital Signs Vital Signs: Last Vital Signs Temp 97.7 F 12/20/20 11:40 Pulse 70 12/20/20 11:40 Resp 14 12/20/20 11:40 BP 123/60 12/20/20 11:40 Pulse Ox 94 L 12/20/20 11:35 Orthostatic Blood Pressure [ 92/77 Sitting] Orthostatic Blood Pressure [ 99/54 Supine] Weight: 178 lb - Exam General: Alert, Cooperative HEENT: Conjunctiva Clear, EOMI Neck: Supple, Trachea Midline Lungs: Clear to Auscultation, Normal Respiratory Effort Cardiovascular: Normal S1, Normal S2, Irregular Rhythm GI/Abdominal Exam: Normal Bowel Sounds, Soft, Non-Tender, No Distention Rectal (Female) Exam: Bloody Stool Extremities: Normal Inspection Skin: Other (pallor) Neuro Extensive - Mental Status: Alert, Normal Mood/Affect Neuro Extensive - Motor, Sensory, Reflexes: CN II-XII Intact Psychiatric: Alert, Normal Mood - Patient Data Lab Results Last 24 hrs: Laboratory Results - last 24 hr 12/20/20 12/20/2012/20/21 Range/Units 09:05 09:05 09:05 WBC 6.79 (3.98-10.04) K/mm3 RBC 2.50 L (3.98-5.22) M/mm3 Hgb 7.8 L (11.2-15.7) gm/dl Hct 25.5 L (34.1-44.9) % MCV 102.0 H (79.4-94.8) fl MCH 31.2 (25.6-32.2) pg MCHC 30.6 L (32.2-35.5) g/dl RDW Std Deviation 54.5 H (36.4-46.3) fL Plt Count 239 (182-369) K/mm3 MPV 10.6 (9.4-12.3) fl Neut % (Auto) 66.6 (34.0-71.1) % Lymph % (Auto) 21.8 (19.3-51.7) % Winston % (Auto) 9.3 (4.7-12.5) % Eos % (Auto) 1.6 (0.7-5.8) Baso % (Auto) 0.4 (0.1-1.2) % Neut # (Auto) 4.52 (1.56-6.13) K/mm3 Lymph # (Auto) 1.48 (1.18-3.74) K/mm3 Winston # (Auto) 0.63 H (0.24-0.36) K/mm3 Eos # (Auto) 0.11 (0.04-0.36) K/mm3 Baso # (Auto) 0.03 (0.01-0.08) K/mm3 PT 11.4 (9.7-12.0) SECONDS INR 1.07 APTT 20.6 L (21.7-31.4) SECONDS Sodium 144 (136-145) mEq/L Potassium 3.4 L (3.5-5.1) mEq/L Chloride 107 (98-107) mEq/L Carbon Dioxide 28 (21-32) mEq/L Anion Gap 12.4 (5-15) BUN 38 H (7-18) mg/dL Creatinine 0.9 (0.55-1.02) mg/dL Est Cr Clr Drug Dosing 39.46 mL/min Estimated GFR (MDRD) 60 (>60) mL/min BUN/Creatinine Ratio 42.2 H (14-18) Glucose 146 H (70-99) mg/dL Calcium 7.9 L (8.5-10.1) mg/dL Magnesium 2.1 (1.8-2.4) mg/dL Total Bilirubin 0.4 (0.2-1.0) mg/dL AST 22 (15-37) U/L ALT 22 (14-59) U/L Alkaline Phosphatase 62 (46-116) U/L CK-MB (CK-2) 1.9 (0-3.6) ng/ml Troponin I 0.042 (0.00-0.056) ng/mL C-Reactive Protein 0.4 (<1.0) mg/dL NT-Pro-B Natriuret Pep (0-450) pg/mL Total Protein 5.9 L (6.4-8.2) g/dl Albumin 2.7 L (3.4-5.0) g/dl Globulin 3.2 gm/dL Albumin/Globulin Ratio 0.8 L (1-2) SARS-CoV-2 RNA (KARLI) (NEGATIVE) Blood Type Gel Antibody Screen Crossmatch 12/20/20 12/20/20 12/20/20 Range/Units 09:05 09:05 09:50 WBC (3.98-10.04) K/mm3 RBC (3.98-5.22) M/mm3 Hgb (11.2-15.7) gm/dl Hct (34.1-44.9) % MCV (79.4-94.8) fl MCH (25.6-32.2) pg MCHC (32.2-35.5) g/dl RDW Std Deviation (36.4-46.3) fL Plt Count (182-369) K/mm3 MPV (9.4-12.3) fl Neut % (Auto) (34.0-71.1) % Lymph % (Auto) (19.3-51.7) % Winston % (Auto) (4.7-12.5) % Eos % (Auto) (0.7-5.8) Baso % (Auto) (0.1-1.2) % Neut # (Auto) (1.56-6.13) K/mm3 Lymph # (Auto) (1.18-3.74) K/mm3 Winston # (Auto) (0.24-0.36) K/mm3 Eos # (Auto) (0.04-0.36) K/mm3 Baso # (Auto) (0.01-0.08) K/mm3 PT (9.7-12.0) SECONDS INR APTT (21.7-31.4) SECONDS Sodium (136-145) mEq/L Potassium (3.5-5.1) mEq/L Chloride (98-107) mEq/L Carbon Dioxide (21-32) mEq/L Anion Gap (5-15) BUN (7-18) mg/dL Creatinine (0.55-1.02) mg/dL Est Cr Clr Drug Dosing mL/min Estimated GFR (MDRD) (>60) mL/min BUN/Creatinine Ratio (14-18) Glucose (70-99) mg/dL Calcium (8.5-10.1) mg/dL Magnesium (1.8-2.4) mg/dL Total Bilirubin (0.2-1.0) mg/dL AST (15-37) U/L ALT (14-59) U/L Alkaline Phosphatase (46-116) U/L CK-MB (CK-2) (0-3.6) ng/ml Troponin I (0.00-0.056) ng/mL C-Reactive Protein (<1.0) mg/dL NT-Pro-B Natriuret Pep 513 H (0-450) pg/mL Total Protein (6.4-8.2) g/dl Albumin (3.4-5.0) g/dl Globulin gm/dL Albumin/Globulin Ratio (1-2) SARS-CoV-2 RNA (KARLI) Negative (NEGATIVE) Blood Type B POSITIVE Gel Antibody Screen Negative Crossmatch See Detail Result Diagrams: 12/20/20 09:05 12/20/20 09:05 Sepsis Event Note - Evaluation Sepsis Screening Result: No Definite Risk - Focused Exam Vital Signs: Vital Signs Temp Temp Pulse Resp BP Pulse Ox 12/20/20 11:40 97.7 F 70 14 123/60 12/20/20 11:35 97.5 F 68 14 123/60 94 L 12/20/20 11:30 96.8 F L 70 14 122/51 L 12/20/20 10:30 72 14 123/47 L 12/20/20 10:15 80 67/48 L 90 L 12/20/20 10:00 63/30 L 12/20/20 08:52 97 F 78 16 100/30 L 100 *Q Meaningful Use (ADM) - VTE *Q VTE Pharmacological Contraindications *Q: Active Hemorrhage Problem List Initiated/Reviewed/Updated: Yes Orders Last 24hrs: Active Orders 24 hr Category Date Time Status Patient Status [ADT] Routine ADT 12/20/20 12:23 Active Antiembolic Devices [RC] PER UNIT ROUTINE Care 12/20/20 12:32 Active Bedrest Bathroom Privileges [RC] ASDIRECTED Care 12/20/20 12:23 Active Intake and Output Strict [RC] ASDIRECTED Care 12/20/20 12:23 Active Notify Provider Consults [RC] ASDIRECTED Care 12/20/20 12:32 Active Orthostatic Vital Signs [RC] ASDIRECTED Care 12/20/20 08:59 Active Oxygen Therapy [RC] ASDIRECTED Care 12/20/20 12:23 Active Vital Signs [RC] Q6H Care 12/20/20 12:23 Active Consult to Physician [CONS] Routine Cons 12/20/20 12:23 Active OT Evaluation and Treatment [CONS] Routine Cons 12/20/20 12:33 Active PT Evaluation and Treatment [CONS] Routine Cons 12/20/20 12:33 Active Nothing per Oral Now Diet [DIET] Diet 12/20/20 Lunch Active BASIC METABOLIC PANEL,BMP [CHEM] AM Lab 12/21/20 05:11 Ordered BASIC METABOLIC PANEL,BMP [CHEM] AM Lab 12/22/20 05:11 Ordered BASIC METABOLIC PANEL,BMP [CHEM] AM Lab 12/23/20 05:11 Ordered BASIC METABOLIC PANEL,BMP [CHEM] AM Lab 12/24/20 05:11 Ordered CBC WITH AUTO DIFF [HEME] AM Lab 12/21/20 05:11 Ordered CBC WITH AUTO DIFF [HEME] AM Lab 12/22/20 05:11 Ordered CBC WITH AUTO DIFF [HEME] AM Lab 12/23/20 05:11 Ordered CBC WITH AUTO DIFF [HEME] AM Lab 12/24/20 05:11 Ordered FRESH FROZEN PLASMA [BBK] Stat Lab 12/20/20 09:05 Results PACKED CELLS [RED BLOOD CELLS LP] [BBK] Stat Lab 12/20/20 09:05 Results TYPE AND SCREEN [BBK] Stat Lab 12/20/20 09:05 Results Acetaminophen [TylenoL] Med 12/20/20 12:23 Active 650 mg PO Q4H PRN Docusate Sodium [Colace] Med 12/20/20 12:23 Active 100 mg PO Q12H PRN Ondansetron [Zofran] Med 12/20/20 12:23 Active 4 mg IV Q4H PRN Pantoprazole [ProTONIX IV] 80 mg Med 12/20/20 12:30 Active Sodium Chloride 0.9% [Normal Saline] 100 ml IV Q10H Sodium Chloride 0.9% [Normal Saline] 1,000 ml Med 12/20/20 09:00 Active IV ASDIRECTED Sodium Chloride 0.9% [Normal Saline] 1,000 ml Med 12/20/20 10:15 Active IV ASDIRECTED Temazepam [Restoril] Med 12/20/20 12:23 Active 7.5 mg PO BEDTIME PRN Precautions [COMM] Routine Oth 12/20/20 12:33 Ordered Sequential Compression Device [OM.PC] Stat Ot 12/20/20 12:23 Ordered Transfuse PRBC [Transfuse Red Blood Cells] [COMM] Oth 12/20/20 12:39 Ordered Urgent VTE Pharmacological Contraindications [AST] Stat Ot 12/20/20 12:23 Ordered Resuscitation Status Routine Resus Stat 12/20/20 12:23 Ordered Medication Orders Acetaminophen (Acetaminophen 325 Mg Tab) 650 mg PO Q4H PRN PRN Reason: Pain (Mild 1-3)/fever Docusate Sodium (Docusate Sodium 100 Mg Cap) 100 mg PO Q12H PRN PRN Reason: Constipation Sodium Chloride (Normal Saline) 1,000 mls @ 500 mls/hr IV ASDIRECTED [facility] Last Admin: 12/20/20 09:31 Dose: 500 mls/hr Documented by: ANALIAERELI Sodium Chloride (Normal Saline) 1,000 mls @ 1 mls/hr IV ASDIRECTED [facility] Last Admin: 12/20/20 11:30 Dose: 1 mls/hr Documented by: ANALIAEREBARBARA Pantoprazole Sodium 80 mg/ (Sodium Chloride) 100 mls @ 10 mls/hr IV Q10H [facility] Ondansetron HCl (Ondansetron 4 Mg/2 Ml Sdv) 4 mg IV Q4H PRN PRN Reason: Nausea/Vomiting Temazepam (Temazepam 7.5 Mg Cap) 7.5 mg PO BEDTIME PRN PRN Reason: Sleep Assessment/Plan Comment:: 1. Acute lower GI bleed-blood found in the stool. This is recurrent. I have called and left a message with Dr. Roberts gastroenterology. We will see if the patient can be scoped. The patient has been made NPO. The Eliquis has been held. She has been started on a Protonix drip. She has also been started on a 1 unit transfusion packed red blood cells in the ER. Hemoglobin every 6 hours, and placed in the ICU There was a discussion between patient myself 1 daughter and her again reviewing what happens if we stop the Eliquis with her history of having a stro ke and DVT when they were stopped previously. They fully understand risks that are involved. Also understand that I have called gastroenterology for possible scope. The last meal that she had was at 7 AM this morning which she is describing as only 3-4 bites of egg and toast and not feeling well enough to eat. Patient does have a history of significant peptic ulcer disease and lower bleed. The patient is mostly remarking a bright red blood per rectum is also dark stool. She was recently told that she will need an upper and lower scope soon. Leave this was being set up outpatient and it did not happen since she is being admitted so quickly since her discharge on the . 2. Atrial fibrillation-chronically on Eliquis. She was recently here on the and discharged after 4 days. Similar presentation of lower GI bleed and blood in the stools. 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 The patient has remained since that time stable on Eliquis until approximately 1 month ago. We are stopping the Eliquis and anticoagulation, SCDs will be used. Patient does have history of also blood clots in the past. 3. Lipidemia-continue home medication Lipitor 4. Hypertension-continue home medications with hold orders for systolic below 100 5. CAD/acute [place]/history of DVT-we will hold patient's daily aspirin. Hold Eliquis. Review EKG from ER. Reviewed troponin and negative 6. History of asthma/bronchitis-stable continue home medications as needed 7. History of GERD-patient takes Protonix at home. 8. history Of CVA/brain injury-as stated above 9. hypokalemia-mild at 3.4 and will follow daily labs. 10. history of depression-continue sertraline ppx scd time 80min - Mortality Measure Prognosis:: Poor
[2020-12-20] MEDS: Pantoprazole 80 MG in Sodium Chloride 0.9% 100 ML IV SCH ×2 (13:35→22:05)
[2020-12-20] MEDS ORDERED: Sertraline 50 MG Tab PO SCH (15:15)
[2020-12-20] MEDS: metroNIDAZOLE 500 MG Tab PO SCH ×2 (16:17→23:00)
--- NOTE | 2020-12-20 18:09 | PCM.CONS ---
H&P History of Present Illness - General Date of Service: 12/20/20 Admit Problem/Dx: Admission Diagnosis/Problem Admission Diagnosis/Problem GI bleed not requiring more than 4 units of blood in 24 hours, ICU, or surgery Source of Information: Patient, Family, Provider History Limitations: Reports: No Limitations - History of Present Illness Initial Comments - Free Text/Narative: The patient is an 85-year-old lady who presented to the emergency department for findings of recurrent GI bleed. She was evaluated by the emergency department and admitted to the hospitalist. She was found to have low hemoglobin with orthostatic hypotension as well as report of melena and hematochezia. Per the hospitalist, pt was passing clots in the ED. On evaluation, she denies any pain currently unless her abdomen is being palpated. She is unclear how much blood she passed but per family, it started 2 days ago. She was discharged from the hospital 3 days ago after hospitalization for the same thing. She underwent endoscopy at that time with findings of gastritis and diverticulosis that had stigmata of bleeding, per the report of the family. Abdomen Pain Score (Numeric/FACES): 2 - Related Data Allergies/Adverse Reactions: Allergies Allergy/AdvReac Type Severity Reaction Status Date / Time perfume Allergy Severe Airway Verified 12/20/20 13:55 Tightness theophylline anhydrous AdvReac Severe altered Verified 12/20/20 13:55 [From Pan-Dur] heart rate Home Medications: Home Meds Sertraline HCl 25 mg PO ASDIRECTED 12/05/14 [History] Albuterol Sulfate [Proair Respiclick] 2 inh INH Q4H PRN 10/29/15 [History] Furosemide [Lasix] 40 mg PO DAILY 07/23/17 [History] Apixaban [Eliquis] 2.5 mg PO BID 09/18/17 [History] atorvaSTATin [Lipitor] 10 mg PO BEDTIME 09/18/17 [History] Pantoprazole [ProTONIX] 40 mg PO DAILY 03/20/18 [History] Lutein/Minerals/Vit A,C & E [Ocuvite] 1 tab PO DAILY 04/05/18 [History] traMADol [Ultram] 50 mg PO Q6HR PRN 04/21/19 [History] Calcium Carbonate [Calcium] 1 tab PO DAILY 12/13/20 [History] Past Medical History HEENT History: Reports: Cataract, Epistaxis, Hard of Hearing, Other (See Below) Other HEENT History: wears glasses; macular puckering Cardiovascular History: Reports: Afib, Blood Clots/VTE/DVT, High Cholesterol, Hypertension, [place], Other (See Below) Other Cardiovascular History: superficial blood clot Respiratory History: Reports: Asthma, Bronchitis, Recurrent, Other (See Below) Other Respiratory History: "sinus problems", Pneumonia once in the past Gastrointestinal History: Reports: GERD, GI Bleed Genitourinary History: Reports: UTI, Recurrent, Other (See Below) Other Genitourinary History: cyst on bladder, dribbles [employer]CHOOL BABYSIT[employer] History: Reports: Other OB/BYN History: hx of cystocele with mesh repair Musculoskeletal History: Reports: Arthritis, Fracture, Other (See Below) Other Musculoskeletal History: chronic left & right shoulder pain. 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, TIAs x2 in 2020 Psychiatric History: Reports: Depression Endocrine/Metabolic History: Reports: Obesity/BMI 30+ Hematologic History: Reports: Anemia, Anticoagulation Therapy Other Hematologic History: "had bleeding ulcer 11/2014" Immunologic History: Reports: None Oncologic (Cancer) History: Reports: None Dermatologic History: Reports: None - Infectious Disease History Infectious Disease History: Reports: Measles - Past Surgical History Head Surgeries/Procedures: Reports: None HEENT Surgical History: Reports: Cataract Surgery, Other (See Below) Other HEENT Surgeries/Procedures: bilateral cataract surgery Cardiovascular Surgical History: Reports: Other (See Below) Other Cardiovascular Surgeries/Procedures: hx of vein stripping Respiratory Surgical History: Reports: None GI Surgical History: Reports: Cholecystectomy, Colonoscopy, EGD Female Surgical History: Reports: Hysterectomy, Other (See Below) Other Female Surgeries/Procedures: hernia mesh r/t prolapsed bladder Endocrine Surgical History: Reports: None Neurological Surgical History: Reports: None Musculoskeletal Surgical History: Reports: Knee Replacement Other Musculoskeletal Surgeries/Procedures:: bilateral Oncologic Surgical History: Reports: None Dermatological Surgical History: Reports: None Social & Family History - Family History HEENT: Reports: Hearing Impairment Cardiac: Reports: Heart Failure, Hypertension Respiratory: Reports: Asthma GI: Reports: Cholelithiasis Musculoskeletal: Reports: Osteoarthritis, Osteoporosis Neurological: Reports: Dementia Endocrine/Metabolic: Reports: Diabetes, Type I Dermatologic: Reports: Psoriasis Oncologic: Reports: Breast - Tobacco Use Tobacco Use Status *Q: Never Tobacco User - Caffeine Use Caffeine Use: Reports: Coffee Other Caffeine Use: daily, decaf or caf. Caffeine Use Comment: occasional coffee when visiting with friends - Recreational Drug Use Recreational Drug Use: No - Living Situation & Occupation Living situation: Reports: , Assisted Living (Recent admission to [facility] from her home. She was discharged to [facility] December 17.) Occupation: Retired H&P Review of Systems - Review of Systems: Review Of Systems: See Below General: Reports: Malaise, Weakness, Fatigue HEENT: Reports: No Symptoms Pulmonary: Reports: Shortness of Breath Cardiovascular: Reports: Palpitations Gastrointestinal: Reports: Bloody Stool, Melena Genitourinary: Reports: No Symptoms Musculoskeletal: Reports: Joint Pain Skin: Reports: No Symptoms Hematologic/Lymphatic: Reports: Anemia, Easy Bleeding Exam - Exam Exam: See Below - Vital Signs Vital Signs: Last Vital Signs Temp 35.9 C L 12/20/20 16:00 Pulse 78 12/20/20 16:46 Resp 16 12/20/20 16:46 BP 150/62 H 12/20/20 16:46 Pulse Ox 97 12/20/20 16:46 Orthostatic Blood Pressure [ 92/77 Sitting] Orthostatic Blood Pressure [ 99/54 Supine] Weight: 90.038 kg - Exam Quality Assessment: Supplemental Oxygen General: Alert, Oriented HEENT: Conjunctiva Clear, EOMI Neck: Supple Lungs: Normal Respiratory Effort Cardiovascular: Irregular Rhythm GI/Abdominal Exam: Soft, No Distention, Tender (in the epigastrium) Skin: Warm, Dry, Intact Neurological: Cranial Nerves Intact Neuro Extensive - Mental Status: Normal Mood/Affect - Patient Data Lab Results Last 24 hrs: Laboratory Results - last 24 hr 12/20/20 12/20/20 12/20/20 Range/Units 09:05 09:05 09:05 WBC 6.79 (3.98-10.04) K/mm3 RBC 2.50 L (3.98-5.22) M/mm3 Hgb 7.8 L (11.2-15.7) gm/dl Hct 25.5 L (34.1-44.9) % MCV 102.0 H (79.4-94.8) fl MCH 31.2 (25.6-32.2) pg MCHC 30.6 L (32.2-35.5) g/dl RDW Std Deviation 54.5 H (36.4-46.3) fL Plt Count 239 (182-369) K/mm3 MPV 10.6 (9.4-12.3) fl Neut % (Auto) 66.6 (34.0-71.1) % Lymph % (Auto) 21.8 (19.3-51.7) % [place] % (Auto) 9.3 (4.7-12.5) % Eos % (Auto) 1.6 (0.7-5.8) Baso % (Auto) 0.4 (0.1-1.2) % Neut # (Auto) 4.52 (1.56-6.13) K/mm3 Lymph # (Auto) 1.48 (1.18-3.74) K/mm3 [place] # (Auto) 0.63 H (0.24-0.36) K/mm3 Eos # (Auto) 0.11 (0.04-0.36) K/mm3 Baso # (Auto) 0.03 (0.01-0.08) K/mm3 PT 11.4 (9.7-12.0) SECONDS INR 1.07 APTT 20.6 L (21.7-31.4) SECONDS Sodium 144 (136-145) mEq/L Potassium 3.4 L (3.5-5.1) mEq/L Chloride 107 (98-107) mEq/L Carbon Dioxide 28 (21-32) mEq/L Anion Gap 12.4 (5-15) BUN 38 H (7-18) mg/dL Creatinine 0.9 (0.55-1.02) mg/dL Est Cr Clr Drug Dosing 39.46 mL/min Estimated GFR (MDRD) 60 (>60) mL/min BUN/Creatinine Ratio 42.2 H (14-18) Glucose 146 H (70-99) mg/dL Calcium 7.9 L (8.5-10.1) mg/dL Magnesium 2.1 (1.8-2.4) mg/dL Total Bilirubin 0.4 (0.2-1.0) mg/dL AST 22 (15-37) U/L ALT 22 (14-59) U/L Alkaline Phosphatase 62 (46-116) U/L CK-MB (CK-2) 1.9 (0-3.6) ng/ml Troponin I 0.042 (0.00-0.056) ng/mL C-Reactive Protein 0.4 (<1.0) mg/dL NT-Pro-B Natriuret Pep (0-450) pg/mL Total Protein 5.9 L (6.4-8.2) g/dl Albumin 2.7 L (3.4-5.0) g/dl Globulin 3.2 gm/dL Albumin/Globulin Ratio 0.8 L (1-2) SARS-CoV-2 RNA (KARLI) (NEGATIVE) Blood Type Gel Antibody Screen Crossmatch 12/20/20 12/20/20 12/20/20 Range/Units 09:05 09:05 09:50 WBC (3.98-10.04) K/mm3 RBC (3.98-5.22) M/mm3 Hgb (11.2-15.7) gm/dl Hct (34.1-44.9) % MCV (79.4-94.8) fl MCH (25.6-32.2) pg MCHC (32.2-35.5) g/dl RDW Std Deviation (36.4-46.3) fL Plt Count (182-369) K/mm3 MPV (9.4-12.3) fl Neut % (Auto) (34.0-71.1) % Lymph % (Auto) (19.3-51.7) % [place] % (Auto) (4.7-12.5) % Eos % (Auto) (0.7-5.8) Baso % (Auto) (0.1-1.2) % Neut # (Auto) (1.56-6.13) K/mm3 Lymph # (Auto) (1.18-3.74) K/mm3 [place] # (Auto) (0.24-0.36) K/mm3 Eos # (Auto) (0.04-0.36) K/mm3 Baso # (Auto) (0.01-0.08) K/mm3 PT (9.7-12.0) SECONDS INR APTT (21.7-31.4) SECONDS Sodium (136-145) mEq/L Potassium (3.5-5.1) mEq/L Chloride (98-107) mEq/L Carbon Dioxide (21-32) mEq/L Anion Gap (5-15) BUN (7-18) mg/dL Creatinine (0.55-1.02) mg/dL Est Cr Clr Drug Dosing mL/min Estimated GFR (MDRD) (>60) mL/min BUN/Creatinine Ratio (14-18) Glucose (70-99) mg/dL Calcium (8.5-10.1) mg/dL Magnesium (1.8-2.4) mg/dL Total Bilirubin (0.2-1.0) mg/dL AST (15-37) U/L ALT (14-59) U/L Alkaline Phosphatase (46-116) U/L CK-MB (CK-2) (0-3.6) ng/ml Troponin I (0.00-0.056) ng/mL C-Reactive Protein (<1.0) mg/dL NT-Pro-B Natriuret Pep 513 H (0-450) pg/mL Total Protein (6.4-8.2) g/dl Albumin (3.4-5.0) g/dl Globulin gm/dL Albumin/Globulin Ratio (1-2) SARS-CoV-2 RNA (KARLI) Negative (NEGATIVE) Blood Type B POSITIVE Gel Antibody Screen Negative Crossmatch See Detail 12/20/20 Range/Units 17:40 WBC (3.98-10.04) K/mm3 RBC (3.98-5.22) M/mm3 Hgb 8.7 L (11.2-15.7) gm/dl Hct 27.7 L (34.1-44.9) % MCV (79.4-94.8) fl MCH (25.6-32.2) pg MCHC (32.2-35.5) g/dl RDW Std Deviation (36.4-46.3) fL Plt Count (182-369) K/mm3 MPV (9.4-12.3) fl Neut % (Auto) (34.0-71.1) % Lymph % (Auto) (19.3-51.7) % [place] % (Auto) (4.7-12.5) % Eos % (Auto) (0.7-5.8) Baso % (Auto) (0.1-1.2) % Neut # (Auto) (1.56-6.13) K/mm3 Lymph # (Auto) (1.18-3.74) K/mm3 [place] # (Auto) (0.24-0.36) K/mm3 Eos # (Auto) (0.04-0.36) K/mm3 Baso # (Auto) (0.01-0.08) K/mm3 PT (9.7-12.0) SECONDS INR APTT (21.7-31.4) SECONDS Sodium (136-145) mEq/L Potassium (3.5-5.1) mEq/L Chloride (98-107) mEq/L Carbon Dioxide (21-32) mEq/L Anion Gap (5-15) BUN (7-18) mg/dL Creatinine (0.55-1.02) mg/dL Est Cr Clr Drug Dosing mL/min Estimated GFR (MDRD) (>60) mL/min BUN/Creatinine Ratio (14-18) Glucose (70-99) mg/dL Calcium (8.5-10.1) mg/dL Magnesium (1.8-2.4) mg/dL Total Bilirubin (0.2-1.0) mg/dL AST (15-37) U/L ALT (14-59) U/L Alkaline Phosphatase (46-116) U/L CK-MB (CK-2) (0-3.6) ng/ml Troponin I (0.00-0.056) ng/mL C-Reactive Protein (<1.0) mg/dL NT-Pro-B Natriuret Pep (0-450) pg/mL Total Protein (6.4-8.2) g/dl Albumin (3.4-5.0) g/dl Globulin gm/dL Albumin/Globulin Ratio (1-2) SARS-CoV-2 RNA (KARLI) (NEGATIVE) Blood Type Gel Antibody Screen Crossmatch Result Diagrams: 12/20/20 17:40 12/20/20 09:05 Sepsis Event Note - Evaluation Sepsis Screening Result: No Definite Risk - Focused Exam Vital Signs: Vital Signs Temp Temp Pulse Pulse Resp BP BP 12/20/20 16:46 78 16 150/62 H 12/20/20 16:45 16 12/20/20 16:36 65 16 147/53 H 12/20/20 16:35 15 12/20/20 16:31 74 16 142/57 H 12/20/20 16:30 72 15 12/20/20 16:16 74 19 144/70 H 12/20/20 16:15 76 18 12/20/20 16:01 15 146/66 H 12/20/20 16:00 35.9 C L 75 14 12/20/20 15:46 73 15 138/57 L 12/20/20 15:45 78 17 12/20/20 15:31 14 143/63 H 12/20/20 15:30 82 22 H 12/20/20 15:23 35.9 C L 70 14 147/53 H 12/20/20 15:16 78 16 135/70 12/20/20 15:15 89 19 12/20/20 15:10 79 13 117/61 12/20/20 15:09 82 14 12/20/20 15:08 36.5 C 73 14 117/61 12/20/20 15:01 83 15 112/62 12/20/20 15:00 80 17 12/20/20 14:49 72 14 124/53 L 12/20/20 14:48 79 14 12/20/20 14:47 36.4 C 71 12 124/56 L 12/20/20 14:46 79 17 124/56 L 12/20/20 14:45 74 16 12/20/20 14:34 36.1 C 69 78 16 132/61 132/61 12/20/20 14:33 69 22 H 12/20/20 14:20 14 12/20/20 13:45 36.1 C 75 20 126/78 12/20/20 13:00 35.9 C L 72 14 126/46 L 12/20/20 12:55 35.8 C L 72 18 124/51 L 12/20/20 12:50 36.6 C 76 16 119/60 12/20/20 12:45 36.0 C L 75 16 129/60 12/20/20 11:40 36.5 C 70 14 123/60 12/20/20 11:35 36.4 C 68 14 123/60 12/20/20 11:30 36.0 C L 70 14 122/51 L 12/20/20 10:30 72 14 123/47 L 12/20/20 10:15 80 67/48 L 12/20/20 10:00 63/30 L 12/20/20 08:52 36.1 C 78 16 100/30 L Pulse Ox 12/20/20 16:46 97 12/20/20 16:45 12/20/20 16:36 97 12/20/20 16:35 12/20/20 16:31 97 12/20/20 16:30 97 12/20/20 16:16 99 12/20/20 16:15 100 12/20/20 16:01 12/20/20 16:00 100 12/20/20 15:46 100 12/20/20 15:45 95 12/20/20 15:31 12/20/20 15:30 100 12/20/20 15:23 97 12/20/20 15:16 96 12/20/20 15:15 96 12/20/20 15:10 99 12/20/20 15:09 97 12/20/20 15:08 98 12/20/20 15:01 97 12/20/20 15:00 96 12/20/20 14:49 97 12/20/20 14:48 98 12/20/20 14:47 12/20/20 14:46 100 12/20/20 14:45 97 12/20/20 14:34 100 12/20/20 14:33 96 12/20/20 14:20 12/20/20 13:45 100 12/20/20 13:00 94 L 12/20/20 12:55 95 12/20/20 12:50 95 12/20/20 12:45 99 12/20/20 11:40 12/20/20 11:35 94 L 12/20/20 11:30 12/20/20 10:30 12/20/20 10:15 90 L 12/20/20 10:00 12/20/20 08:52 100 *Q Meaningful Use (ADM) - VTE *Q VTE Pharmacological Contraindications *Q: Active Hemorrhage Consult PN Assessment/Plan Procedures: Procedures 3D RENDER W/INTRP POSTPROCES (11/27/14) AIRWAY INHALATION TREATMENT (04/21/19) ASSAY GLUCOSE BLOOD QUANT (12/13/20) ASSAY OF BLOOD/URIC ACID (11/27/14) ASSAY OF IRON (02/11/17) ASSAY OF LIPASE (12/13/20) ASSAY OF MAGNESIUM (12/13/20) ASSAY OF NATRIURETIC PEPTIDE (12/13/20) ASSAY OF SERUM POTASSIUM (12/30/16) ASSAY OF TROPONIN QUANT (08/23/19) ASSAY THYROID STIM HORMONE (04/21/17) BL SMEAR W/DIFF WBC COUNT (01/07/19) BLOOD TRANSFUSION SERVICE (12/05/14) BLOOD TYPING SEROLOGIC ABO (12/13/20) BLOOD TYPING SEROLOGIC RH(D) (12/13/20) BODY FLUID CELL COUNT (11/29/14) BREAST TOMOSYNTHESIS BI (01/21/18) C-REACTIVE PROTEIN (12/13/20) CARDIAC REHAB/MONITOR (11/09/17) CARDIOVASCULAR STRESS TEST (09/18/14) CHEST X-RAY 1 VIEW FRONTAL (09/25/16) CHEST X-RAY 2VW FRONTAL&LATL (02/11/17) COMP SCREEN MAMMOGRAM ADD-ON (08/22/15) COMPATIBILITY TEST ANTIGLOB (12/05/14) COMPLETE CBC AUTOMATED (01/07/19) COMPLETE CBC W/AUTO DIFF WBC (12/13/20) COMPREHEN METABOLIC PANEL (12/13/20) CONTROL OF NOSEBLEED (08/09/18) CONTROL OF NOSEBLEED (03/20/18) CONTROL OF NOSEBLEED (07/18/16) CRITICAL CARE FIRST HOUR (07/23/17) CT ABD & PELV W/CONTRAST (12/30/16) CT HEAD/BRAIN W/O DYE (08/23/19) CT THORAX DX C- (07/15/17) CT UPPER EXTREMITY W/O DYE (11/27/14) CULTR BACTERIA EXCEPT BLOOD (11/29/14) DRAIN/INJ JOINT/BURSA W/O US (09/18/20) EGD BIOPSY SINGLE/MULTIPLE (01/24/15) ELECTROCARDIOGRAM TRACING (12/13/20) EMERGENCY DEPT VISIT (12/13/20) EMERGENCY DEPT VISIT (08/23/19) EMERGENCY DEPT VISIT (04/21/19) EMERGENCY DEPT VISIT (01/07/19) EMERGENCY DEPT VISIT (08/09/18) EMERGENCY DEPT VISIT (03/20/18) EMERGENCY DEPT VISIT (02/10/18) EMERGENCY DEPT VISIT (09/28/17) EMERGENCY DEPT VISIT (09/27/16) EMERGENCY DEPT VISIT (09/25/16) EMERGENCY DEPT VISIT (09/21/16) EMERGENCY DEPT VISIT (07/18/16) EMERGENCY DEPT VISIT (11/30/14) EMERGENCY DEPT VISIT (11/27/14) EVALUATE PT USE OF INHALER (09/27/16) EXAM SYNOVIAL FLUID CRYSTALS (11/29/14) GAIT TRAINING THERAPY (03/20/18) GLUCOSE BLOOD TEST (08/23/19) HELICOBACTER PYLORI ANTIBODY (11/19/14) HEMATOCRIT (12/13/20) HEMOGLOBIN (12/13/20) HPYLORI STOOL AG IA (12/13/20) HT MUSCLE IMAGE SPECT MULT (09/18/14) HYDRATE IV INFUSION ADD-ON (12/30/16) HYDRATION IV INFUSION INIT (09/28/17) IIV NO PRSV INCREASED AG IM (02/12/18) INFLUENZA ASSAY W/OPTIC (01/07/19) INSERT TEMP BLADDER CATH (07/23/17) LIPID PANEL (04/21/17) MEASURE BLOOD OXYGEN LEVEL (04/06/18) MEASURE BLOOD OXYGEN LEVEL (03/20/18) MEASURE BLOOD OXYGEN LEVEL (03/20/18) MEASURE BLOOD OXYGEN LEVEL (10/29/15) MEASURE BLOOD OXYGEN LEVEL (11/30/14) METABOLIC PANEL TOTAL CA (03/20/18) MICROBE SUSCEPTIBLE NORIS (12/30/16) MOTION FLUOROSCOPY/SWALLOW (02/17/18) MR-STAPH DNA AMP PROBE (04/01/18) MRI BRAIN STEM W/O DYE (08/23/19) MRI CHEST SPINE W/O DYE (03/20/18) MRI JNT OF LWR EXTRE W/O DYE (11/23/13) MRI LUMBAR SPINE W/O DYE (03/20/18) MYCOPLASMA ANTIBODY (01/07/19) NEUROMUSCULAR REEDUCATION (09/09/17) OFFICE O/P EST LOW 20-29 MIN (04/02/18) OFFICE O/P EST MOD 30-39 MIN (02/12/18) OT EVAL LOW COMPLEX 30 MIN (03/20/18) OT EVALUATION (10/29/15) PERQ VERTEBRAL AUGMENTATION (04/06/18) PERQ VERTEBRAL AUGMENTATION (04/06/18) POLYSOM 6/>YRS CPAP 4/> PARM (11/03/17) PROTHROMBIN TIME (08/23/19) PT EVAL MOD COMPLEX 30 MIN (12/13/20) PT EVALUATION (10/29/15) RBC ANTIBODY SCREEN (12/13/20) RBC SED RATE AUTOMATED (11/30/14) ROUTINE VENIPUNCTURE (12/13/20) SCR MAMMO BI INCL CAD (01/21/18) SELF CARE MNGMENT TRAINING (03/20/18) SMEAR GRAM STAIN (11/29/14) TDAP VACCINE 7 YRS/> IM (10/29/15) THER/DIAG CONCURRENT INF (12/30/16) THER/PROPH/DIAG INJ IV PUSH (03/20/18) THER/PROPH/DIAG INJ SC/IM (02/17/15) THER/PROPH/DIAG IV INF ADDON (12/13/20) THER/PROPH/DIAG IV INF INIT (12/13/20) THERAPEUTIC ACTIVITIES (12/13/20) THERAPEUTIC EXERCISES (09/09/17) THROMBOPLASTIN TIME PARTIAL (08/23/19) TISSUE EXAM BY PATHOLOGIST (04/06/18) TTE W/DOPPLER COMPLETE (02/13/17) TX/PRO/DX INJ NEW DRUG ADDON (07/07/17) TX/PRO/DX INJ SAME DRUG MEDICAL ECONOMICS CONSULTANT (12/30/16) URINALYSIS AUTO W/SCOPE (12/13/20) URINE BACTERIA CULTURE (12/30/16) URINE CULTURE/COLONY COUNT (12/30/16) US EXAM OF HEAD AND NECK (08/19/17) X-RAY EXAM ABDOMEN 2 VIEWS (09/01/17) X-RAY EXAM CHEST 1 VIEW (12/13/20) X-RAY EXAM CHEST 2 VIEWS (04/21/19) X-RAY EXAM KNEE 4 OR MORE (09/21/16) X-RAY EXAM L-S SPINE 2/3 VWS (03/18/18) X-RAY EXAM OF KNEE 1 OR 2 (10/29/15) X-RAY EXAM THORAC SPINE 2VWS (05/24/18) X-RAY XM SWLNG FUNCJ C+ (02/17/18) (1) Anemia SNOMED Code(s): 217648460 Code(s): D64.9 - ANEMIA, UNSPECIFIED Priority: High Current Visit: Yes Qualifiers: Anemia type: other cause Other causes of anemia: acute posthemorrhagic Qualified Code(s): D62 - Acute posthemorrhagic anemia (2) Orthostatic hypotension SNOMED Code(s): 56697429 Code(s): I95.1 - ORTHOSTATIC HYPOTENSION Current Visit: Yes (3) Gastrointestinal bleeding SNOMED Code(s): 36085376 Code(s): K92.2 - GASTROINTESTINAL HEMORRHAGE, UNSPECIFIED Priority: High Current Visit: No Qualifiers: GI bleed type/associated pathology: melena Qualified Code(s): K92.1 - Melena Problem List Initiated/Reviewed/Updated: Yes Plan: 85 y/o lady on epixaban with recurrent GI bleed and anemia - discussed with patient who deferred the majority of decision making to family. Family is concerned about repeat anesthesia so soon after EGD and colonoscopy done last week. They would like to wait and see how the patient responds to blood transfusions and bowel rest. No endoscopy planned at this time - transfuse as needed per primary team - continue IV PPI. Consider treatment for h. pylori preemptively since the pathology is not yet back from the recent EGD and pt is at high risk for infection - The patient and family will have to discuss with PCP and care team about further anticoagulation or changing to a different agent due to the recurrent bleeds. Please call with any surgical change in condition or additional surgical needs. Thank you for this consultation. Jessica Forrester MD General surgery
[2020-12-20] MEDS: Amoxicillin 500 MG Cap PO SCH (20:37)
[2020-12-20] MEDS: Temazepam 7.5 MG Cap PO PRN (20:38)
[2020-12-21] MEDS: metroNIDAZOLE 500 MG Tab PO SCH ×4 (03:28→22:51)
[2020-12-21] MEDS: Amoxicillin 500 MG Cap PO SCH ×3 (08:31→21:35)
[2020-12-21] MEDS: Furosemide 40 MG Tab PO SCH (08:31)
[2020-12-21] MEDS: Pantoprazole 80 MG in Sodium Chloride 0.9% 100 ML IV SCH ×2 (08:44→18:39)
--- NOTE | 2020-12-21 09:58 | PCM.PN ---
- General Info Date of Service: 12/21/20 Admission Dx/Problem (Free Text): Admission Diagnosis/Problem Admission Diagnosis/Problem GI bleed not requiring more than 4 units of blood in 24 hours, ICU, or surgery Subjective Update: Patient is eating better. She is feeling better yet reported significant dizziness, shortness of breath, and lightheadedness with standing or any ambulation. Functional Status: Reports: Ambulating - Review of Systems General: Reports: Weakness HEENT: Reports: No Symptoms Pulmonary: Reports: Shortness of Breath (with ambulation) Cardiovascular: Reports: Dyspnea on Exertion Gastrointestinal: Reports: No Symptoms Genitourinary: Reports: No Symptoms Musculoskeletal: Reports: No Symptoms Skin: Reports: No Symptoms Neurological: Reports: No Symptoms Psychiatric: Reports: No Symptoms - Patient Data Vitals - Most Recent: Last Vital Signs Temp 96.8 F L 12/21/20 08:29 Pulse 74 12/21/20 08:29 Resp 15 12/21/20 08:29 BP 133/66 12/21/20 08:29 Pulse Ox 97 12/21/20 08:29 Orthostatic Blood Pressure [ 92/77 Sitting] Orthostatic Blood Pressure [ 99/54 Supine] Weight - Most Recent: 197 lb 11.2 oz I&O - Last 24 Hours: Intake & Output 12/20/20 12/21/20 12/21/20 22:59 06:59 14:59 Intake Total 1120 110 Balance 1120 110 Lab Results Last 24 Hours: Laboratory Results - last 24 hr 12/20/20 12/20/20 12/20/20 Range/Units 09:05 09:05 09:05 WBC (3.98-10.04) K/mm3 RBC (3.98-5.22) M/mm3 Hgb (11.2-15.7) gm/dl Hct (34.1-44.9) % MCV (79.4-94.8) fl MCH (25.6-32.2) pg MCHC (32.2-35.5) g/dl RDW Std Deviation (36.4-46.3) fL Plt Count (182-369) K/mm3 MPV (9.4-12.3) fl Neut % (Auto) (34.0-71.1) % Lymph % (Auto) (19.3-51.7) % Preston % (Auto) (4.7-12.5) % Eos % (Auto) (0.7-5.8) Baso % (Auto) (0.1-1.2) % Neut # (Auto) (1.56-6.13) K/mm3 Lymph # (Auto) (1.18-3.74) K/mm3 Preston # (Auto) (0.24-0.36) K/mm3 Eos # (Auto) (0.04-0.36) K/mm3 Baso # (Auto) (0.01-0.08) K/mm3 Sodium 144 (136-145) mEq/L Potassium 3.4 L (3.5-5.1) mEq/L Chloride 107 (98-107) mEq/L Carbon Dioxide 28 (21-32) mEq/L Anion Gap 12.4 (5-15) BUN 38 H (7-18) mg/dL Creatinine 0.9 (0.55-1.02) mg/dL Est Cr Clr Drug Dosing 39.46 mL/min Estimated GFR (MDRD) 60 (>60) mL/min BUN/Creatinine Ratio 42.2 H (14-18) Glucose 146 H (70-99) mg/dL Calcium 7.9 L (8.5-10.1) mg/dL Magnesium 2.1 (1.8-2.4) mg/dL Total Bilirubin 0.4 (0.2-1.0) mg/dL AST 22 (15-37) U/L ALT 22 (14-59) U/L Alkaline Phosphatase 62 (46-116) U/L CK-MB (CK-2) 1.9 (0-3.6) ng/ml Troponin I 0.042 (0.00-0.056) ng/mL C-Reactive Protein 0.4 (<1.0) mg/dL NT-Pro-B Natriuret Pep 513 H (0-450) pg/mL Total Protein 5.9 L (6.4-8.2) g/dl Albumin 2.7 L (3.4-5.0) g/dl Globulin 3.2 gm/dL Albumin/Globulin Ratio 0.8 L (1-2) SARS-CoV-2 RNA (KARLI) (NEGATIVE) Blood Type B POSITIVE Gel Antibody Screen Negative Crossmatch See Detail 12/20/20 12/20/20 12/21/20 Range/Units 09:50 17:40 06:07 WBC 6.83 (3.98-10.04) K/mm3 RBC 2.64 L (3.98-5.22) M/mm3 Hgb 8.7 L 8.2 L (11.2-15.7) gm/dl Hct 27.7 L 25.8 L (34.1-44.9) % MCV 97.7 H D (79.4-94.8) fl MCH 31.1 (25.6-32.2) pg MCHC 31.8 L (32.2-35.5) g/dl RDW Std Deviation 59.9 H (36.4-46.3) fL Plt Count 186 (182-369) K/mm3 MPV 10.9 (9.4-12.3) fl Neut % (Auto) 64.9 (34.0-71.1) % Lymph % (Auto) 19.8 (19.3-51.7) % Preston % (Auto) 11.6 (4.7-12.5) % Eos % (Auto) 3.2 (0.7-5.8) Baso % (Auto) 0.4 (0.1-1.2) % Neut # (Auto) 4.43 (1.56-6.13) K/mm3 Lymph # (Auto) 1.35 (1.18-3.74) K/mm3 Preston # (Auto) 0.79 H (0.24-0.36) K/mm3 Eos # (Auto) 0.22 (0.04-0.36) K/mm3 Baso # (Auto) 0.03 (0.01-0.08) K/mm3 Sodium (136-145) mEq/L Potassium (3.5-5.1) mEq/L Chloride (98-107) mEq/L Carbon Dioxide (21-32) mEq/L Anion Gap (5-15) BUN (7-18) mg/dL Creatinine (0.55-1.02) mg/dL Est Cr Clr Drug Dosing mL/min Estimated GFR (MDRD) (>60) mL/min BUN/Creatinine Ratio (14-18) Glucose (70-99) mg/dL Calcium (8.5-10.1) mg/dL Magnesium (1.8-2.4) mg/dL Total Bilirubin (0.2-1.0) mg/dL AST (15-37) U/L ALT (14-59) U/L Alkaline Phosphatase (46-116) U/L CK-MB (CK-2) (0-3.6) ng/ml Troponin I (0.00-0.056) ng/mL C-Reactive Protein (<1.0) mg/dL NT-Pro-B Natriuret Pep (0-450) pg/mL Total Protein (6.4-8.2) g/dl Albumin (3.4-5.0) g/dl Globulin gm/dL Albumin/Globulin Ratio (1-2) SARS-CoV-2 RNA (KARLI) Negative (NEGATIVE) Blood Type Gel Antibody Screen Crossmatch 12/21/20 Range/Units 06:07 WBC (3.98-10.04) K/mm3 RBC (3.98-5.22) M/mm3 Hgb (11.2-15.7) gm/dl Hct (34.1-44.9) % MCV (79.4-94.8) fl MCH (25.6-32.2) pg MCHC (32.2-35.5) g/dl RDW Std Deviation (36.4-46.3) fL Plt Count (182-369) K/mm3 MPV (9.4-12.3) fl Neut % (Auto) (34.0-71.1) % Lymph % (Auto) (19.3-51.7) % Preston % (Auto) (4.7-12.5) % Eos % (Auto) (0.7-5.8) Baso % (Auto) (0.1-1.2) % Neut # (Auto) (1.56-6.13) K/mm3 Lymph # (Auto) (1.18-3.74) K/mm3 Preston # (Auto) (0.24-0.36) K/mm3 Eos # (Auto) (0.04-0.36) K/mm3 Baso # (Auto) (0.01-0.08) K/mm3 Sodium 148 H (136-145) mEq/L Potassium 3.5 (3.5-5.1) mEq/L Chloride 112 H (98-107) mEq/L Carbon Dioxide 28 (21-32) mEq/L Anion Gap 11.5 (5-15) BUN 21 H (7-18) mg/dL Creatinine 0.9 (0.55-1.02) mg/dL Est Cr Clr Drug Dosing 39.46 mL/min Estimated GFR (MDRD) 60 (>60) mL/min BUN/Creatinine Ratio 23.3 H (14-18) Glucose 92 (70-99) mg/dL Calcium 7.7 L (8.5-10.1) mg/dL Magnesium (1.8-2.4) mg/dL Total Bilirubin (0.2-1.0) mg/dL AST (15-37) U/L ALT (14-59) U/L Alkaline Phosphatase (46-116) U/L CK-MB (CK-2) (0-3.6) ng/ml Troponin I (0.00-0.056) ng/mL C-Reactive Protein (<1.0) mg/dL NT-Pro-B Natriuret Pep (0-450) pg/mL Total Protein (6.4-8.2) g/dl Albumin (3.4-5.0) g/dl Globulin gm/dL Albumin/Globulin Ratio (1-2) SARS-CoV-2 RNA (KARLI) (NEGATIVE) Blood Type Gel Antibody Screen Crossmatch Med Orders - Current: Current Medications Acetaminophen (Acetaminophen 325 Mg Tab) 650 mg PO Q4H PRN PRN Reason: Pain (Mild 1-3)/fever Amoxicillin (Amoxicillin 500 Mg Cap) 500 mg PO Q12HR [facility] Last Admin: 12/21/20 08:31 Dose: 500 mg Documented by: Clarithromycin (Clarithromycin 500 Mg Tab) 500 mg PO BID [facility] Last Admin: 12/21/20 08:31 Dose: 500 mg Documented by: Docusate Sodium (Docusate Sodium 100 Mg Cap) 100 mg PO Q12H PRN PRN Reason: Constipation Furosemide (Furosemide 40 Mg Tab) 40 mg PO DAILY [facility] Last Admin: 12/21/20 08:31 Dose: 40 mg Documented by: Pantoprazole Sodium 80 mg/ (Sodium Chloride) 100 mls @ 10 mls/hr IV Q10H [facility] Last Admin: 12/21/20 08:44 Dose: 10 mls/hr Documented by: Metronidazole (Metronidazole 500 Mg Tab) 500 mg PO Q8H [facility] Last Admin: 12/21/20 08:31 Dose: 500 mg Documented by: Ondansetron HCl (Ondansetron 4 Mg/2 Ml Sdv) 4 mg IV Q4H PRN PRN Reason: Nausea/Vomiting Temazepam (Temazepam 7.5 Mg Cap) 7.5 mg PO BEDTIME PRN PRN Reason: Sleep Last Admin: 12/20/20 20:38 Dose: 7.5 mg Documented by: Discontinued Medications Sodium Chloride (Normal Saline) 1,000 mls @ 500 mls/hr IV ASDIRECTED [facility] Last Admin: 12/20/20 09:31 Dose: 500 mls/hr Documented by: Sodium Chloride (Normal Saline) 1,000 mls @ 1 mls/hr IV ASDIRECTED [facility] Last Admin: 12/20/20 11:30 Dose: 1 mls/hr Documented by: Lactated Ringer's (Ringers, Lactated) 1,000 mls @ 500 mls/hr IV ONETIME ONE Stop: 12/20/20 12:29 Last Admin: 12/20/20 10:30 Dose: 500 mls/hr Documented by: Pantoprazole Sodium (Pantoprazole 40 Mg Vial) 40 mg IVPUSH ONETIME ONE Stop: 12/20/20 09:04 Last Admin: 12/20/20 09:31 Dose: 40 mg Documented by: Sertraline HCl (Sertraline 50 Mg Tab) 25 mg PO ASDIRECTED [facility] - Exam General: Alert, Oriented, Cooperative HEENT: Pupils Equal, Pupils Reactive Neck: Supple Lungs: Clear to Auscultation, Normal Respiratory Effort Cardiovascular: Regular Rate, Regular Rhythm GI/Abdominal Exam: Normal Bowel Sounds, Soft Extremities: No Pedal Edema Skin: Warm Wound/Incisions: Healing Well Neurological: No New Focal Deficit Psy/Mental Status: Alert, Normal Affect - Patient Data Lab Results Last 24 hrs: Laboratory Results - last 24 hr 12/20/20 12/20/20 12/20/20 Range/Units 09:05 09:05 09:05 WBC (3.98-10.04) K/mm3 RBC (3.98-5.22) M/mm3 Hgb (11.2-15.7) gm/dl Hct (34.1-44.9) % MCV (79.4-94.8) fl MCH (25.6-32.2) pg MCHC (32.2-35.5) g/dl RDW Std Deviation (36.4-46.3) fL Plt Count (182-369) K/mm3 MPV (9.4-12.3) fl Neut % (Auto) (34.0-71.1) % Lymph % (Auto) (19.3-51.7) % Preston % (Auto) (4.7-12.5) % Eos % (Auto) (0.7-5.8) Baso % (Auto) (0.1-1.2) % Neut # (Auto) (1.56-6.13) K/mm3 Lymph # (Auto) (1.18-3.74) K/mm3 Preston # (Auto) (0.24-0.36) K/mm3 Eos # (Auto) (0.04-0.36) K/mm3 Baso # (Auto) (0.01-0.08) K/mm3 Sodium 144 (136-145) mEq/L Potassium 3.4 L (3.5-5.1) mEq/L Chloride 107 (98-107) mEq/L Carbon Dioxide 28 (21-32) mEq/L Anion Gap 12.4 (5-15) BUN 38 H (7-18) mg/dL Creatinine 0.9 (0.55-1.02) mg/dL Est Cr Clr Drug Dosing 39.46 mL/min Estimated GFR (MDRD) 60 (>60) mL/min BUN/Creatinine Ratio 42.2 H (14-18) Glucose 146 H (70-99) mg/dL Calcium 7.9 L (8.5-10.1) mg/dL Magnesium 2.1 (1.8-2.4) mg/dL Total Bilirubin 0.4 (0.2-1.0) mg/dL AST 22 (15-37) U/L ALT 22 (14-59) U/L Alkaline Phosphatase 62 (46-116) U/L CK-MB (CK-2) 1.9 (0-3.6) ng/ml Troponin I 0.042 (0.00-0.056) ng/mL C-Reactive Protein 0.4 (<1.0) mg/dL NT-Pro-B Natriuret Pep 513 H (0-450) pg/mL Total Protein 5.9 L (6.4-8.2) g/dl Albumin 2.7 L (3.4-5.0) g/dl Globulin 3.2 gm/dL Albumin/Globulin Ratio 0.8 L (1-2) SARS-CoV-2 RNA (KARLI) (NEGATIVE) Blood Type B POSITIVE Gel Antibody Screen Negative Crossmatch See Detail 12/20/20 12/20/20 12/21/20 Range/Units 09:50 17:40 06:07 WBC 6.83 (3.98-10.04) K/mm3 RBC 2.64 L (3.98-5.22) M/mm3 Hgb 8.7 L 8.2 L (11.2-15.7) gm/dl Hct 27.7 L 25.8 L (34.1-44.9) % MCV 97.7 H D (79.4-94.8) fl MCH 31.1 (25.6-32.2) pg MCHC 31.8 L (32.2-35.5) g/dl RDW Std Deviation 59.9 H (36.4-46.3) fL Plt Count 186 (182-369) K/mm3 MPV 10.9 (9.4-12.3) fl Neut % (Auto) 64.9 (34.0-71.1) % Lymph % (Auto) 19.8 (19.3-51.7) % Preston % (Auto) 11.6 (4.7-12.5) % Eos % (Auto) 3.2 (0.7-5.8) Baso % (Auto) 0.4 (0.1-1.2) % Neut # (Auto) 4.43 (1.56-6.13) K/mm3 Lymph # (Auto) 1.35 (1.18-3.74) K/mm3 Preston # (Auto) 0.79 H (0.24-0.36) K/mm3 Eos # (Auto) 0.22 (0.04-0.36) K/mm3 Baso # (Auto) 0.03 (0.01-0.08) K/mm3 Sodium (136-145) mEq/L Potassium (3.5-5.1) mEq/L Chloride (98-107) mEq/L Carbon Dioxide (21-32) mEq/L Anion Gap (5-15) BUN (7-18) mg/dL Creatinine (0.55-1.02) mg/dL Est Cr Clr Drug Dosing mL/min Estimated GFR (MDRD) (>60) mL/min BUN/Creatinine Ratio (14-18) Glucose (70-99) mg/dL Calcium (8.5-10.1) mg/dL Magnesium (1.8-2.4) mg/dL Total Bilirubin (0.2-1.0) mg/dL AST (15-37) U/L ALT (14-59) U/L Alkaline Phosphatase (46-116) U/L CK-MB (CK-2) (0-3.6) ng/ml Troponin I (0.00-0.056) ng/mL C-Reactive Protein (<1.0) mg/dL NT-Pro-B Natriuret Pep (0-450) pg/mL Total Protein (6.4-8.2) g/dl Albumin (3.4-5.0) g/dl Globulin gm/dL Albumin/Globulin Ratio (1-2) SARS-CoV-2 RNA (KARLI) Negative (NEGATIVE) Blood Type Gel Antibody Screen Crossmatch 12/21/20 Range/Units 06:07 WBC (3.98-10.04) K/mm3 RBC (3.98-5.22) M/mm3 Hgb (11.2-15.7) gm/dl Hct (34.1-44.9) % MCV (79.4-94.8) fl MCH (25.6-32.2) pg MCHC (32.2-35.5) g/dl RDW Std Deviation (36.4-46.3) fL Plt Count (182-369) K/mm3 MPV (9.4-12.3) fl Neut % (Auto) (34.0-71.1) % Lymph % (Auto) (19.3-51.7) % Preston % (Auto) (4.7-12.5) % Eos % (Auto) (0.7-5.8) Baso % (Auto) (0.1-1.2) % Neut # (Auto) (1.56-6.13) K/mm3 Lymph # (Auto) (1.18-3.74) K/mm3 Preston # (Auto) (0.24-0.36) K/mm3 Eos # (Auto) (0.04-0.36) K/mm3 Baso # (Auto) (0.01-0.08) K/mm3 Sodium 148 H (136-145) mEq/L Potassium 3.5 (3.5-5.1) mEq/L Chloride 112 H (98-107) mEq/L Carbon Dioxide 28 (21-32) mEq/L Anion Gap 11.5 (5-15) BUN 21 H (7-18) mg/dL Creatinine 0.9 (0.55-1.02) mg/dL Est Cr Clr Drug Dosing 39.46 mL/min Estimated GFR (MDRD) 60 (>60) mL/min BUN/Creatinine Ratio 23.3 H (14-18) Glucose 92 (70-99) mg/dL Calcium 7.7 L (8.5-10.1) mg/dL Magnesium (1.8-2.4) mg/dL Total Bilirubin (0.2-1.0) mg/dL AST (15-37) U/L ALT (14-59) U/L Alkaline Phosphatase (46-116) U/L CK-MB (CK-2) (0-3.6) ng/ml Troponin I (0.00-0.056) ng/mL C-Reactive Protein (<1.0) mg/dL NT-Pro-B Natriuret Pep (0-450) pg/mL Total Protein (6.4-8.2) g/dl Albumin (3.4-5.0) g/dl Globulin gm/dL Albumin/Globulin Ratio (1-2) SARS-CoV-2 RNA (KARLI) (NEGATIVE) Blood Type Gel Antibody Screen Crossmatch Result Diagrams: 12/21/20 06:07 12/21/20 06:07 Sepsis Event Note - Evaluation Sepsis Screening Result: No Definite Risk - Focused Exam Vital Signs: Vital Signs Temp Pulse Resp BP Pulse Ox 12/21/20 08:29 96.8 F L 74 15 133/66 97 12/21/20 04:00 59 L 16 136/88 97 12/21/20 00:00 97.2 F 79 18 128/72 98 - Problem List Review Problem List Initiated/Reviewed/Updated: Yes - My Orders Last 24 Hours: My Active Orders 12/20/20 12:23 Patient Status [ADT] Routine Bedrest Bathroom Privileges [RC] ASDIRECTED Intake and Output Strict [RC] 04,16 Oxygen Therapy [RC] ASDIRECTED Vital Signs [RC] Q4HR Consult to Physician [CONS] Routine Acetaminophen [TylenoL] 650 mg PO Q4H PRN Docusate Sodium [Colace] 100 mg PO Q12H PRN Ondansetron [Zofran] 4 mg IV Q4H PRN Temazepam [Restoril] 7.5 mg PO BEDTIME PRN Sequential Compression Device [OM.PC] Stat VTE Pharmacological Contraindications [AST] Stat 12/20/20 12:32 Antiembolic Devices [RC] BID Notify Provider Consults [RC] ASDIRECTED 12/20/20 12:33 OT Evaluation and Treatment [CONS] Routine PT Evaluation and Treatment [CONS] Routine Precautions [COMM] Routine 12/20/20 13:09 Code Status [Resuscitation Status] Routine 12/20/20 15:00 Clarithromycin [Biaxin] 500 mg PO BID 12/20/20 15:15 metroNIDAZOLE [Flagyl] 500 mg PO Q8H 12/20/20 21:00 Amoxicillin [Amoxil] 500 mg PO Q12HR 12/21/20 Breakfast Heart Healthy Diet [DIET] 12/21/20 09:00 Furosemide [Lasix] 40 mg PO DAILY 12/22/20 05:11 BASIC METABOLIC PANEL,BMP [CHEM] AM CBC WITH AUTO DIFF [HEME] AM 12/23/20 05:11 BASIC METABOLIC PANEL,BMP [CHEM] AM CBC WITH AUTO DIFF [HEME] AM 12/24/20 05:11 BASIC METABOLIC PANEL,BMP [CHEM] AM CBC WITH AUTO DIFF [HEME] AM - Assessment Assessment:: 1. Acute lower GI bleed-blood found in the stool. This is recurrent. I have called and left a message with Dr. Roberts gastroenterology. We will see if the patient can be scoped. The patient has been made NPO. The Eliquis has been held. She has been started on a Protonix drip. She has also been started on a 1 unit transfusion packed red blood cells in the ER. Hemoglobin every 6 hours, and placed in the ICU There was a discussion between patient myself 1 daughter and her again reviewing what happens if we stop the Eliquis with her history of having a stroke and DVT when they were stopped previously. They fully understand risks that are involved. Also understand that I have called gastroenterology for possible scope. The last meal that she had was at 7 AM this morning which she is describing as only 3-4 bites of egg and toast and not feeling well enough to eat. Patient does have a history of significant peptic ulcer disease and lower bleed. The patient is mostly remarking a bright red blood per rectum is also dark stool. She was recently told that she will need an upper and lower scope soon. Leave this was being set up outpatient and it did not happen since she is being admitted so quickly since her discharge on the . 12/21/20 significant dizziness and lightheadedness and short of breath with any standing or ambulation, patients hgb did mildly decrease and normally we would not transfuse but due to the symptomatic anemia being significnat i will transfuse another unit now. Daughter is asking for plasma which is not warranted at this time 2. Symptomatic anemia- 12/21/20 does not have chf history but does have a fib hx and patient does respond well to having hgb near 10 in the past. The patient will get an additional 1 unit now and re eval. Significant dizziness, lightheadedness, and short of breath 3. Atrial fibrillation-chronically on Eliquis. She was recently here on the and discharged after 4 days. Similar presentation of lower GI bleed and blood in the stools. 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 The patient has remained since that time stable on Eliq uis until approximately 1 month ago. We are stopping the Eliquis and anticoagulation, SCDs will be used. Patient does have history of also blood clots in the past. 12/21/20 will cont on Protonix drip to complete 48 hours and then convert to oral likley tomorrow am. we will also recommend to not restart the eliqid at discharge allowing time for this to heal. yhe patient and family do understand the risk of doing this but we are in a catch 22 situation. Under most situations we would hold the eliquis 30 days before restarting. 4. Lipidemia-continue home medication Lipitor 5. Hypertension-continue home medications with hold orders for systolic below 100 6. CAD/acute MS/history of DVT-we will hold patient's daily aspirin. Hold Eliquis. Review EKG from ER. Reviewed troponin and negative 7. History of asthma/bronchitis-stable continue home medications as needed 8. History of GERD-patient takes Protonix at home. 9. history Of CVA/brain injury-as stated above 10. hypokalemia-mild at 3.4 and will follow daily labs. 11. history of depression-continue sertraline ppx scd Time 36 min - Plan Plan:: 1. Acute lower GI bleed-blood found in the stool. This is recurrent. I have called and left a message with Dr. Roberts gastroenterology. We will see if the patient can be scoped. The patient has been made NPO. The Eliquis has been held. She has been started on a Protonix drip. She has also been started on a 1 unit transfusion packed red blood cells in the ER. Hemoglobin every 6 hours, and placed in the ICU There was a discussion between patient myself 1 daughter and her again reviewing what happens if we stop the Eliquis with her history of having a stroke and DVT when they were stopped previously. They fully understand risks that are involved. Also understand that I have called gastroenterology for possible scope. The last meal that she had was at 7 AM this morning which she is describing as only 3-4 bites of egg and toast and not feeling well enough to eat. Patient does have a history of significant peptic ulcer disease and lower bleed. The patient is mostly remarking a bright red blood per rectum is also dark stool. She was recently told that she will need an upper and lower scope soon. Leave this was being set up outpatient and it did not happen since she is being admitted so quickly since her discharge on the . 2. Atrial fibrillation-chronically on Eliquis. She was recently here on the and discharged after 4 days. Similar presentation of lower GI bleed and blood in the stools. 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 The patient has remained since that time stable on Eliquis until approximately 1 month ago. We are stopping the Eliquis and anticoagulation, SCDs will be used. Patient does have history of also blood clots in the past. 3. Lipidemia-continue home medication Lipitor 4. Hypertension-continue home medications with hold orders for systolic below 100 5. CAD/acute MS/history of DVT-we will hold patient's daily aspirin. Hold Eliquis. Review EKG from ER. Reviewed troponin and negative 6. History of asthma/bronchitis-stable continue home medications as needed 7. History of GERD-patient takes Protonix at home. 8. history Of CVA/brain injury-as stated above 9. hypokalemia-mild at 3.4 and will follow daily labs. 10. history of depression-continue sertraline ppx scd time 80min
[2020-12-21] MEDS ORDERED: Sodium Chloride 0.9% 250 ML IV SCH (10:15)
[2020-12-21] MEDS: Temazepam 7.5 MG Cap PO PRN (19:25)
[2020-12-21] MEDS: Acetaminophen 325 MG Tab PO PRN (22:51)
[2020-12-22] MEDS: Temazepam 7.5 MG Cap PO PRN (00:55)
[2020-12-22 01:27] VITALS: PULSE 70
[2020-12-22] MEDS: Acetaminophen 325 MG Tab PO PRN (02:03)
[2020-12-22] MEDS: Pantoprazole 80 MG in Sodium Chloride 0.9% 100 ML IV SCH (04:42)
[2020-12-22] MEDS: metroNIDAZOLE 500 MG Tab PO SCH (06:38)
--- NOTE | 2020-12-22 06:50 | PCM.DCSUM1 ---
Discharge Summary - Hospital Course Free Text/Narrative:: 1. Acute lower GI bleed-blood found in the stool. This is recurrent. I have called and left a message with Dr. Roberts gastroenterology. We will see if the patient can be scoped. The patient has been made NPO. The Eliquis has been held. She has been started on a Protonix drip. She has also been started on a 1 unit transfusion packed red blood cells in the ER. Hemoglobin every 6 hours, and placed in the ICU There was a discussion between patient myself 1 daughter and her again reviewing what happens if we stop the Eliquis with her history of having a stroke and DVT when they were stopped previously. They fully understand risks that are involved. Also understand that I have called gastroenterology for possible scope. The last meal that she had was at 7 AM this morning which she is describing as only 3-4 bites of egg and toast and not feeling well enough to eat. Patient does have a history of significant peptic ulcer disease and lower bleed. The patient is mostly remarking a bright red blood per rectum is also dark stool. She was recently told that she will need an upper and lower scope soon. Leave this was being set up outpatient and it did not happen since she is being admitted so quickly since her discharge on the . 12/21/20 significant dizziness and lightheadedness and short of breath with any standing or ambulation, patients hgb did mildly decrease and normally we would not transfuse but due to the symptomatic anemia being significnat i will transfuse another unit now. Daughter is asking for plasma which is not warranted at this time 12/22 asymptomatic- daughter and i have spoke. she understands the plan is 2 weeks without a/c. We all understand the risk and agree that we need things to heal. she will remain on hpylori regime. she will follow up with gi. She will walk daily with the daughter. Patient requested wheelchair but she walk and i told her i wont prescribe it when i need her to walk these next two weeks and she verbally agrees. Patient also agrees that if she does not have time to heal she knows she will be returning to the er and getting transfusions on a regular basis. Kim and Michael spoke and eel this is a chance we should take to a possible good outcome for the patient. Josefa and patient all agree on risks and benefits on plan 2. Symptomatic anemia- 12/21/20 does not have chf history but does have a fib hx and patient does respond well to having hgb near 10 in the past. The patient will get an additional 1 unit now and re eval. Significant dizziness, lightheadedness, and short of breath 12/22 resolved post transfusion yesterday 3. Atrial fibrillation-chronically on Eliquis. She was recently here on the and discharged after 4 days. Similar presentation of lower GI bleed and blood in the stools. 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 The patient has remained since that time stable on Eliquis until approximately 1 month ago. We are stopping the Eliquis and anticoagulation, SCDs will be used. Patient does have history of also blood clots in the past. 12/21/20 will cont on Protonix drip to complete 48 hours and then convert to oral likley tomorrow am. we will also recommend to not restart the eliqid at discharge allowing time for this to heal. yhe patient and family do understand the risk of doing this but we are in a catch 22 situation. Under most situations we would hold the eliquis 30 days before restarting. 12/22 stable 4. Lipidemia-continue home medication Lipitor 5. Hypertension-continue home medications with hold orders for systolic below 100 6. CAD/acute [place]/history of DVT-we will hold patient's daily aspirin. Hold Eliquis. Review EKG from ER. Reviewed troponin and negative 7. History of asthma/bronchitis-stable continue home medications as needed 8. History of GERD-patient takes Protonix at home. 9. history Of CVA/brain injury-as stated above 10. hypokalemia-mild at 3.4 and will follow daily labs. 11. history of depression-continue sertraline ppx scd Time 36 min Brief History: 85-year-old female with past mental health history of a recurrent GI and atrial fibrillation on Eliquis. Bleed who was recently discharged after a 4-day stay on 17 December with similar presentation presents again with a decrease in hemoglobin to 7.8, dizziness, lightheadedness, fatigue, malaise. Patient has been given 1 unit of blood in the ER. We have Protonix drip that has been started. The Eliquis that she takes for atrial fibrillation has been held. 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 Patient denies any nausea vomiting melena constipation diarrhea sick contacts recent travel chest pain but does state positive for lightheadedness, dizziness, malaise.She stated she felt weak but stable at dc on but was restarted on eliquis at that time.Now return with repeat bleed Diagnosis: Stroke: No Modified Alphonso Scale: No Symptoms at All Modified Alphonso Scale Score: 0 - Discharge Data Discharge Date: 12/22/20 Discharge Disposition: Home, Self-Care 01 Condition: Good - Referral to Home Health Date of Face to Face Encounter: 12/22/20 Primary Care Physician: Magen Herndon MD - Patient Summary/Data Consults: Consultations 12/20/20 12:23 Consult to Physician [CONS] Routine 12/20/20 12:33 OT Evaluation and Treatment [CONS] Routine PT Evaluation and Treatment [CONS] Routine - Patient Instructions Diet: Heart Healthy Diet Activity: As Tolerated Driving: Do Not Drive Showering/Bathing: May Shower Other/Special Instructions: follow up with pcp in one week, follow up with GI also in 1-2 weeks - Discharge Plan *PRESCRIPTION DRUG MONITORING PROGRAM REVIEWED*: Not Applicable *COPY OF PRESCRIPTION DRUG MONITORING REPORT IN PATIENT SERGEY: Not Applicable Prescriptions/Med Rec: Amoxicillin/Clavulanate K [Augmentin 500-125 MG] 1 tab PO BID #26 tablet Clarithromycin [Biaxin] 500 mg PO BID 13 Days #26 tablet Docusate Sodium [Colace] 100 mg PO Q12H PRN #60 cap PRN Reason: Constipation metroNIDAZOLE [Flagyl] 500 mg PO Q8H 13 Days #39 tablet Pantoprazole [ProTONIX] 40 mg PO BIDAC #60 tab.cr Home Medications: Home Meds Albuterol Sulfate [Proair Respiclick] 2 inh INH Q4H PRN 10/29/15 [History] Furosemide [Lasix] 40 mg PO DAILY 07/23/17 [History] atorvaSTATin [Lipitor] 10 mg PO BEDTIME 09/18/17 [History] Lutein/Minerals/Vit A,C & E [Ocuvite] 1 tab PO DAILY 04/05/18 [History] Calcium Carbonate [Calcium] 1 tab PO DAILY 12/13/20 [History] Amoxicillin/Clavulanate K [Augmentin 500-125 MG] 1 tab PO BID #26 tablet 12/22/20 [Rx] Clarithromycin [Biaxin] 500 mg PO BID 13 Days #26 tablet 12/22/20 [Rx] Docusate Sodium [Colace] 100 mg PO Q12H PRN #60 cap 12/22/20 [Rx] Pantoprazole [ProTONIX] 40 mg PO BIDAC #60 tab.cr 12/22/20 [Rx] metroNIDAZOLE [Flagyl] 500 mg PO Q8H 13 Days #39 tablet 12/22/20 [Rx] Patient Handouts: Heart Failure, Self Care, [id number], Gastrointestinal B leeding, [id number] Forms: ED Department Discharge Referrals: Magen Herndon MD [Primary Care Provider] - 12/27/20 11:30 am (Please arrive 15 minutes prior to thr appointment time to register. This was your previously scheduled appointment time.) - Discharge Summary/Plan Comment DC Time >30 min.: Yes Total # of Minutes for Discharge Time: 36 - Patient Data Vitals - Most Recent: Last Vital Signs Temp 97.2 F 12/22/20 06:38 Pulse 70 12/22/20 06:38 Resp 16 12/22/20 06:38 BP 148/66 H 12/22/20 06:36 Pulse Ox 97 12/22/20 06:38 Orthostatic Blood Pressure [ 92/77 Sitting] Orthostatic Blood Pressure [ 99/54 Supine] Weight - Most Recent: 185 lb 11.2 oz I&O - Last 24 hours: Intake & Output 12/21/20 12/21/20 12/22/20 14:59 22:59 06:59 Intake Total 390 790 620 Balance 390 790 620 Lab Results - Last 24 hrs: Laboratory Results - last 24 hr 12/20/20 12/21/20 12/21/20 Range/Units 09:05 06:07 06:07 WBC 6.83 (3.98-10.04) K/mm3 RBC 2.64 L (3.98-5.22) M/mm3 Hgb 8.2 L (11.2-15.7) gm/dl Hct 25.8 L (34.1-44.9) % MCV 97.7 H D (79.4-94.8) fl MCH 31.1 (25.6-32.2) pg MCHC 31.8 L (32.2-35.5) g/dl RDW Std Deviation 59.9 H (36.4-46.3) fL Plt Count 186 (182-369) K/mm3 MPV 10.9 (9.4-12.3) fl Neut % (Auto) 64.9 (34.0-71.1) % Lymph % (Auto) 19.8 (19.3-51.7) % [place] % (Auto) 11.6 (4.7-12.5) % Eos % (Auto) 3.2 (0.7-5.8) Baso % (Auto) 0.4 (0.1-1.2) % Neut # (Auto) 4.43 (1.56-6.13) K/mm3 Lymph # (Auto) 1.35 (1.18-3.74) K/mm3 [place] # (Auto) 0.79 H (0.24-0.36) K/mm3 Eos # (Auto) 0.22 (0.04-0.36) K/mm3 Baso # (Auto) 0.03 (0.01-0.08) K/mm3 Sodium 148 H (136-145) mEq/L Potassium 3.5 (3.5-5.1) mEq/L Chloride 112 H (98-107) mEq/L Carbon Dioxide 28 (21-32) mEq/L Anion Gap 11.5 (5-15) BUN 21 H (7-18) mg/dL Creatinine 0.9 (0.55-1.02) mg/dL Est Cr Clr Drug Dosing 39.46 mL/min Estimated GFR (MDRD) 60 (>60) mL/min BUN/Creatinine Ratio 23.3 H (14-18) Glucose 92 (70-99) mg/dL Calcium 7.7 L (8.5-10.1) mg/dL Blood Type B POSITIVE Gel Antibody Screen Negative Crossmatch See Detail 12/21/20 Range/Units 14:38 WBC (3.98-10.04) K/mm3 RBC (3.98-5.22) M/mm3 Hgb 10.0 L D (11.2-15.7) gm/dl Hct 31.0 L (34.1-44.9) % MCV (79.4-94.8) fl MCH (25.6-32.2) pg MCHC (32.2-35.5) g/dl RDW Std Deviation (36.4-46.3) fL Plt Count (182-369) K/mm3 MPV (9.4-12.3) fl Neut % (Auto) (34.0-71.1) % Lymph % (Auto) (19.3-51.7) % [place] % (Auto) (4.7-12.5) % Eos % (Auto) (0.7-5.8) Baso % (Auto) (0.1-1.2) % Neut # (Auto) (1.56-6.13) K/mm3 Lymph # (Auto) (1.18-3.74) K/mm3 [place] # (Auto) (0.24-0.36) K/mm3 Eos # (Auto) (0.04-0.36) K/mm3 Baso # (Auto) (0.01-0.08) K/mm3 Sodium (136-145) mEq/L Potassium (3.5-5.1) mEq/L Chloride (98-107) mEq/L Carbon Dioxide (21-32) mEq/L Anion Gap (5-15) BUN (7-18) mg/dL Creatinine (0.55-1.02) mg/dL Est Cr Clr Drug Dosing mL/min Estimated GFR (MDRD) (>60) mL/min BUN/Creatinine Ratio (14-18) Glucose (70-99) mg/dL Calcium (8.5-10.1) mg/dL Blood Type Gel Antibody Screen Crossmatch Med Orders - Current: Current Medications Acetaminophen (Acetaminophen 325 Mg Tab) 650 mg PO Q4H PRN PRN Reason: Pain (Mild 1-3)/fever Last Admin: 12/22/20 02:03 Dose: 650 mg Documented by: Amoxicillin (Amoxicillin 500 Mg Cap) 500 mg PO Q12HR ETHAN Last Admin: 12/21/20 21:35 Dose: Not Given Documented by: Clarithromycin (Clarithromycin 500 Mg Tab) 500 mg PO BID [facility] Last Admin: 12/21/20 21:36 Dose: Not Given Documented by: Docusate Sodium (Docusate Sodium 100 Mg Cap) 100 mg PO Q12H PRN PRN Reason: Constipation Furosemide (Furosemide 40 Mg Tab) 40 mg PO DAILY [facility] Last Admin: 12/21/20 08:31 Dose: 40 mg Documented by: Metronidazole (Metronidazole 500 Mg Tab) 500 mg PO Q8H [facility] Last Admin: 12/22/20 06:38 Dose: 500 mg Documented by: Ondansetron HCl (Ondansetron 4 Mg/2 Ml Sdv) 4 mg IV Q4H PRN PRN Reason: Nausea/Vomiting Pantoprazole Sodium (Pantoprazole 40 Mg Tab.Cr) 40 mg PO BIDAC [facility] Temazepam (Temazepam 7.5 Mg Cap) 7.5 mg PO BEDTIME PRN PRN Reason: Sleep Last Admin: 12/22/20 00:55 Dose: 7.5 mg Documented by: Discontinued Medications Sodium Chloride (Normal Saline) 1,000 mls @ 500 mls/hr IV ASDIRECTED [facility] Last Admin: 12/20/20 09:31 Dose: 500 mls/hr Documented by: Sodium Chloride (Normal Saline) 1,000 mls @ 1 mls/hr IV ASDIRECTED [facility] Last Admin: 12/20/20 11:30 Dose: 1 mls/hr Documented by: Lactated Ringer's (Ringers, Lactated) 1,000 mls @ 500 mls/hr IV ONETIME ONE Stop: 12/20/20 12:29 Last Admin: 12/20/20 10:30 Dose: 500 mls/hr Documented by: Pantoprazole Sodium 80 mg/ (Sodium Chloride) 100 mls @ 10 mls/hr IV Q10H [facility] Last Admin: 12/22/20 04:42 Dose: 10 mls/hr Documented by: Sodium Chloride (Normal Saline) 250 mls @ 100 mls/hr IV ASDIRECTED [facility] Last Admin: 12/21/20 11:18 Dose: 100 mls/hr Documented by: Pantoprazole Sodium (Pantoprazole 40 Mg Vial) 40 mg IVPUSH ONETIME ONE Stop: 12/20/20 09:04 Last Admin: 12/20/20 09:31 Dose: 40 mg Documented by: Sertraline HCl (Sertraline 50 Mg Tab) 25 mg PO ASDIRECTED ETHAN *Q Meaningful Use (DIS) - VTE *Q VTE Pharmacological Contraindications *Q: Active Hemorrhage
[2020-12-22] MEDS: Amoxicillin 500 MG Cap PO SCH (09:31)
[2020-12-22] MEDS: Furosemide 40 MG Tab PO SCH (09:31)
[2020-12-22 09:37] VITALS: BP 152/78
[2020-12-22] MEDS ORDERED: Pantoprazole 40 MG Tab.CR PO SCH (16:00)
== END 2020-12-22 13:27 | disposition home or self-care (01) | DRG 378 ==
LOC: JD.ED 08:40 → JD.ICU 12:23
PROVIDERS: ADMIT Internal Medicine; ATTEND Internal Medicine
PROC: 30233P1 Transfusion of Nonautologous Frozen Red Cells into Peripheral Vein, Percutaneous Approach (ICD-10-PCS; principal; 2020-12-20)
PROC: 30233K1 Transfusion of Nonautologous Frozen Plasma into Peripheral Vein, Percutaneous Approach (ICD-10-PCS; 2020-12-20)
DX: K92.2 Gastrointestinal hemorrhage, unspecified (principal); K92.1 Melena; D62 Acute posthemorrhagic anemia; I48.91 Unspecified atrial fibrillation; E78.5 Hyperlipidemia, unspecified; I25.10 Atherosclerotic heart disease of native coronary artery without angina pectoris; K21.9 Gastro-esophageal reflux disease without esophagitis; E87.6 Hypokalemia; F32.9 Major depressive disorder, single episode, unspecified; Z20.822 Contact with and (suspected) exposure to COVID-19; H91.90 Unspecified hearing loss, unspecified ear; E66.9 Obesity, unspecified; I11.0 Hypertensive heart disease with heart failure; I50.9 Heart failure, unspecified; I95.1 Orthostatic hypotension; H54.7 Unspecified visual loss; J45.909 Unspecified asthma, uncomplicated; M19.90 Unspecified osteoarthritis, unspecified site; I25.2 Old myocardial infarction; Z86.718 Personal history of other venous thrombosis and embolism; Z79.01 Long term (current) use of anticoagulants; Z88.8 Allergy status to other drugs, medicaments and biological substances; Z91.09 Other allergy status, other than to drugs and biological substances; Z79.899 Other long term (current) drug therapy; Z87.01 Personal history of pneumonia (recurrent); Z87.440 Personal history of urinary (tract) infections; Z86.73 Personal history of transient ischemic attack (TIA), and cerebral infarction without residual deficits; Z98.41 Cataract extraction status, right eye; Z98.42 Cataract extraction status, left eye; Z90.49 Acquired absence of other specified parts of digestive tract; Z91.048 Other nonmedicinal substance allergy status
CPT/HCPCS: 36415; 36430; 71045; 80053; 82553; 83735; 83880; 84484; 85025; 85610; 85730; 86140; 86850; 86900; 86901; 86922 ×2; 93005; 96374; 99285; C9113; J7030 ×2; J7120; P9017; U0002; 80048; 85014; 85018; 93010; 96376; 97110-GP; 97162-GP; 97530-GP; A9270-GY; J7050; P9016

== ENCOUNTER 2021-02-03 11:54 | Emergency (ER) | payer MEDICARE, OTHER ==
[2021-02-03 12:27] VITALS: BP 190/97; PULSE 87
--- NOTE | 2021-02-03 13:13 | EDM.PDOC ---
ED HPI GENERAL MEDICAL PROBLEM - General Chief Complaint: ENT Problem Stated Complaint: NOSE BLEED Time Seen by Provider: 02/03/21 12:34 Source of Information: Reports: Patient, RN Notes Reviewed History Limitations: Reports: No Limitations - History of Present Illness INITIAL COMMENTS - FREE TEXT/NARRATIVE: Patient is an 85-year-old female presenting to the emergency department with complaint of epistaxis. Patient reports approximately half hour prior to coming to ER, she developed bleeding from her left nare. It progressively worsened and prior to coming to the ER was coming out of both of her nares. She denies any trauma to her nose. Reports that she feels blood running down the back of her throat. She is on Eliquis for atrial fibrillation. She has had nosebleeds in the past. She denies any dizziness at this time. - Related Data Allergies Allergy/AdvReac Type Severity Reaction Status Date / Time perfume Allergy Severe Airway Verified 12/20/20 13:55 Tightness theophylline anhydrous AdvReac Intermediate altered Verified 12/25/20 13:00 [From Pan-Dur] heart rate Home Meds: Home Meds Albuterol Sulfate [Proair Respiclick] 2 inh INH Q4H PRN 10/29/15 [History] Furosemide [Lasix] 40 mg PO DAILY 07/23/17 [History] atorvaSTATin [Lipitor] 10 mg PO BEDTIME 09/18/17 [History] Lutein/Minerals/Vit A,C & E [Ocuvite] 1 tab PO DAILY 04/05/18 [History] Calcium Carbonate [Calcium] 1 tab PO DAILY 12/13/20 [History] Docusate Sodium [Colace] 100 mg PO Q12H PRN #60 cap 12/22/20 [Rx] Pantoprazole [ProTONIX] 40 mg PO BIDAC #60 tab.cr 12/22/20 [Rx] Apixaban [Eliquis] 02/03/21 [History] Sertraline [Zoloft] 02/03/21 [History] atorvaSTATin [Lipitor] 02/03/21 [History] traMADol [Ultram] 02/03/21 [History] Past Medical History HEENT History: Reports: Cataract, Epistaxis, Hard of Hearing, Other (See Below) Other HEENT History: wears glasses; macular puckering Cardiovascular History: Reports: Afib, Blood Clots/VTE/DVT, High Cholesterol, Hypertension, [place], Other (See Below) Other Cardiovascular History: superficial blood clot Respiratory History: Reports: Asthma, Bronchitis, Recurrent, Other (See Below) Other Respiratory History: "sinus problems", Pneumonia once in the past Gastrointestinal History: Reports: GERD, GI Bleed Genitourinary History: Reports: UTI, Recurrent, Other (See Below) Other Genitourinary History: cyst on bladder, dribbles [employer]MENT[employer] 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, TIAs x2 in 2020 Psychiatric History: Reports: Depression Endocrine/Metabolic History: Reports: Obesity/BMI 30+ Hematologic History: Reports: Anemia, Anticoagulation Therapy Other Hematologic History: "had bleeding ulcer 11/2014" Immunologic History: Reports: None Oncologic (Cancer) History: Reports: None Dermatologic History: Reports: None - Infectious Disease History Infectious Disease History: Reports: Measles - Past Surgical History HEENT Surgical History: Reports: Cataract Surgery, Other (See Below) Other HEENT Surgeries/Procedures: bilateral cataract surgery Cardiovascular Surgical History: Reports: Other (See Below) Other Cardiovascular Surgeries/Procedures: hx of vein stripping Respiratory Surgical History: Reports: None GI Surgical History: Reports: Cholecystectomy, Colonoscopy, EGD Female Surgical History: Reports: Hysterectomy, Other (See Below) Other Female Surgeries/Procedures: hernia mesh r/t prolapsed bladder Endocrine Surgical History: Reports: None Neurological Surgical History: Reports: None Musculoskeletal Surgical History: Reports: Knee Replacement Other Musculoskeletal Surgeries/Procedures:: bilateral Oncologic Surgical History: Reports: None Dermatological Surgical History: Reports: None Social & Family History - Family History Family Medical History: No Pertinent Family History HEENT: Reports: Hearing Impairment Cardiac: Reports: Heart Failure, Hypertension Respiratory: Reports: Asthma GI: Reports: Cholelithiasis Musculoskeletal: Reports: Osteoarthritis, Osteoporosis Neurological: Reports: Dementia Endocrine/Metabolic: Reports: Diabetes, Type I Dermatologic: Reports: Psoriasis Oncologic: Reports: Breast - Tobacco Use Tobacco Use Status *Q: Never Tobacco User - Caffeine Use Caffeine Use: Reports: Coffee Other Caffeine Use: daily, decaf or caf. Caffeine Use Comment: occasional coffee when visiting with friends - Recreational Drug Use Recreational Drug Use: No - Living Situation & Occupation Living situation: Reports: , Assisted Living (Recent admission to [facility] from her home. She was discharged to [facility] December 17.) Occupation: Retired ED ROS ENT - Review of Systems Review Of Systems: Comprehensive ROS is negative, except as noted in HPI. ED EXAM, ENT - Physical Exam Exam: See Below Exam Limited By: No Limitations General Appearance: Alert, WD/WN, No Apparent Distress Nose: Active Bleeding (Heavy from the left nare.) Mouth/Throat: Other (Blood clot visualized in the oropharynx. Patient spitting out moderate amounts of blood.) Respiratory/Chest: No Respiratory Distress, Lungs Clear, Normal Breath Sounds, No Accessory Muscle Use, Chest Non-Tender Cardiovascular: Normal Peripheral Pulses, Regular Rate, Rhythm, No Edema, No Gallop, No JVD, No Murmur, No Rub Neurological: Alert, Oriented, CN II-XII Intact, Normal Cognition, Normal Gait, Normal Reflexes, No Motor/Sensory Deficits Psychiatric: Normal Affect, Normal Mood Skin: Warm, Dry, Intact, Normal Color, No Rash Course - Vital Signs Last Recorded V/S: Last Vital Signs Temp 97.3 F 02/03/21 12:24 Pulse 87 02/03/21 12:24 Resp 18 02/03/21 12:24 BP 190/97 H 02/03/21 12:24 Pulse Ox 97 02/03/21 12:24 - Orders/Labs/Meds Labs: Laboratory Tests 02/03/21 Range/Units 13:04 WBC 5.57 (3.98-10.04) K/mm3 RBC 4.11 (3.98-5.22) M/mm3 Hgb 12.3 (11.2-15.7) gm/dl Hct 40.0 (34.1-44.9) % MCV 97.3 H (79.4-94.8) fl MCH 29.9 (25.6-32.2) pg MCHC 30.8 L (32.2-35.5) g/dl RDW Std Deviation 49.3 H (36.4-46.3) fL Plt Count 248 (182-369) K/mm3 MPV 10.6 (9.4-12.3) fl Neut % (Auto) 67.2 (34.0-71.1) % Lymph % (Auto) 19.0 L (19.3-51.7) % [place] % (Auto) 11.1 (4.7-12.5) % Eos % (Auto) 1.8 (0.7-5.8) Baso % (Auto) 0.7 (0.1-1.2) % Neut # (Auto) 3.74 (1.56-6.13) K/mm3 Lymph # (Auto) 1.06 L (1.18-3.74) K/mm3 [place] # (Auto) 0.62 H (0.24-0.36) K/mm3 Eos # (Auto) 0.10 (0.04-0.36) K/mm3 Baso # (Auto) 0.04 (0.01-0.08) K/mm3 - Re-Assessments/Exams Free Text/Narrative Re-Assessment/Exam: Patient is an 85-year-old female presenting to the emergency department with complaint of left-sided nosebleed. Symptoms began about 1/2-hour prior to coming to ER and have been worsening. On exam, she has diffuse bleeding from her left nare which is also visible in her oropharynx. She is spitting out a moderate amount of blood. Due to the extent of the bleeding and the fact that she has on Eliquis, I did insert a anterior posterior Rhino Rocket which has stopped the bleeding. We will monitor to ensure it does not bleed around the Rhino Rocket. I have also ordered CBC to assess for hemoglobin. 02/03/21 13:55 Hemoglobin is 12.3. Patient has had no further bleeding after Rhino Rocket insertion. We will discharge her home with recommendation to follow-up with her primary care provider on Thursday to have the Rhino Rocket removed. Discussed return precautions. Discharge instructions as documented. Departure - Departure Time of Disposition: 13:55 Disposition: Home, Self-Care 01 Condition: Good Clinical Impression: Epistaxis - Discharge Information *PRESCRIPTION DRUG MONITORING PROGRAM REVIEWED*: No *COPY OF PRESCRIPTION DRUG MONITORING REPORT IN PATIENT SERGEY: No Instructions: Nosebleed, Adult, [id number] Referrals: Rhonda Qureshi, BOTTLING SUPERVISOR [Primary Care Provider] - Forms: ED Department Discharge Additional Instructions: You were seen in the emergency department today for bleeding to your left nare. Rhino Rocket packing has been applied. This should stay in for at least 2 days. I would recommend scheduling an appointment with your primary care provider for Thursday to have the packing removed. If you should notice a small amount of bleeding around the packing, you can instill 1-2 mils of air into the balloon. If you have any problems, please not hesitate to return to the emergency department. Sepsis Event Note (ED) - Evaluation Sepsis Screening Result: No Definite Risk - Focused Exam Vital Signs: Vital Signs Temp Pulse Resp BP Pulse Ox 02/03/21 12:24 97.3 F 87 18 190/97 H 97
== END 2021-02-03 14:25 | disposition home or self-care (01) ==
LOC: JD.ED 11:54
DX: R04.0 Epistaxis (principal); I48.91 Unspecified atrial fibrillation; I10 Essential (primary) hypertension; I25.2 Old myocardial infarction; E66.9 Obesity, unspecified; Z68.30 Body mass index [BMI] 30.0-30.9, adult; Z86.73 Personal history of transient ischemic attack (TIA), and cerebral infarction without residual deficits; Z91.048 Other nonmedicinal substance allergy status; Z91.09 Other allergy status, other than to drugs and biological substances
CPT/HCPCS: 30903; 36415; 85025; 99283-25

== ENCOUNTER 2022-04-14 16:39 | Emergency (ER) | payer MEDICARE, OTHER ==
[2022-04-14] MEDS ORDERED: Sodium Chloride 0.9% 10 ML Syringe FLUSH PRN (20:43)
[2022-04-14] MEDS ORDERED: HYDROmorphone 0.5 MG/0.5 ML Syringe IVPUSH ONE ×2 (20:44→23:35)
[2022-04-14] MEDS ORDERED: Sodium Chloride 0.9% 1,000 ML IV SCH (20:45)
[2022-04-15 00:17] VITALS: BP 157/73; PULSE 80
== END 2022-04-15 00:05 | disposition home or self-care (01) ==
LOC: JD.ED 16:39
DX: M48.56XA Collapsed vertebra, not elsewhere classified, lumbar region, initial encounter for fracture (principal); I48.91 Unspecified atrial fibrillation; I10 Essential (primary) hypertension; E78.00 Pure hypercholesterolemia, unspecified; I25.2 Old myocardial infarction; J45.909 Unspecified asthma, uncomplicated; K21.9 Gastro-esophageal reflux disease without esophagitis; M19.90 Unspecified osteoarthritis, unspecified site; D64.9 Anemia, unspecified; E66.9 Obesity, unspecified; Z68.30 Body mass index [BMI] 30.0-30.9, adult; Z79.01 Long term (current) use of anticoagulants; Z88.8 Allergy status to other drugs, medicaments and biological substances; Z91.048 Other nonmedicinal substance allergy status; Z79.899 Other long term (current) drug therapy
CPT/HCPCS: 36415; 72131; 72131-26; 80053; 85025; 96374; 96376; 99284-25; J1170; J7030

== ENCOUNTER 2022-05-05 10:12 | Inpatient (IN) | payer MEDICARE, OTHER ==
[2022-05-05] MEDS ORDERED: Sodium Chloride 0.9% 10 ML Syringe FLUSH PRN (10:33)
[2022-05-05] MEDS ORDERED: Albuterol/Ipratropium 3.0-0.5 MG/3 ML Neb Soln NEB ONE (10:35)
[2022-05-05 11:04] LABS: ESTIMATED GFR 44 mL/min (>60)
[2022-05-05 11:29] LABS: CORONAVIRUS COVID-19 NAA NEGATIVE (NEGATIVE)
[2022-05-05] MEDS ORDERED: cefTRIAXone 2 GM in Sodium Chloride 0.9% 100 ML IV ONE (12:00)
[2022-05-05] MEDS ORDERED: Docusate Sodium 100 MG Cap PO PRN (15:27)
[2022-05-05] MEDS ORDERED: Albuterol/Ipratropium 3.0-0.5 MG/3 ML Neb Soln NEB PRN (15:27)
[2022-05-05] MEDS ORDERED: oxyCODONE 5 MG Tab PO PRN (15:27)
[2022-05-05] MEDS ORDERED: Ondansetron 4 MG/2 ML SDV IV PRN (15:27)
[2022-05-05] MEDS ORDERED: Benzonatate 100 MG Cap PO PRN (16:42)
[2022-05-05] MEDS ORDERED: Potassium Bicarbonate/Cit Ac 20 MEQ Effervescent Tab PO ONE (16:55)
[2022-05-05] MEDS ORDERED: traMADol 50 MG Tab PO PRN (17:19)
[2022-05-05] MEDS ORDERED: Acetaminophen/HYDROcodone 325-5 MG Tab PO PRN (17:21)
[2022-05-05] MEDS: Acetaminophen 325 MG Tab PO PRN (17:46)
[2022-05-05] MEDS: Apixaban 2.5 MG Tab PO SCH (21:03)
[2022-05-05] MEDS: guaiFENesin/Dextromethorphan 100-10 MG/5 ML Soln 5 ML Cup PO SCH (21:03)
[2022-05-05] MEDS: Albuterol/Ipratropium 3.0-0.5 MG/3 ML Neb Soln NEB SCH (21:05)
[2022-05-06] MEDS: Albuterol 0.083% 2.5 MG/3 ML Neb Soln NEB PRN ×2 (03:52→13:33)
[2022-05-06] MEDS: Albuterol/Ipratropium 3.0-0.5 MG/3 ML Neb Soln NEB SCH ×4 (05:52→20:52)
[2022-05-06] MEDS: Pantoprazole 40 MG Tab.CR PO SCH ×2 (06:35→15:18)
[2022-05-06] MEDS: guaiFENesin/Dextromethorphan 100-10 MG/5 ML Soln 5 ML Cup PO SCH ×3 (07:48→20:15)
[2022-05-06] MEDS: Furosemide 40 MG Tab PO SCH (07:59)
[2022-05-06] MEDS: Docusate Sodium 100 MG Cap PO SCH (07:59)
[2022-05-06] MEDS: Apixaban 2.5 MG Tab PO SCH ×2 (08:00→20:15)
[2022-05-06] MEDS: Acetaminophen 325 MG Tab PO PRN ×2 (08:00→18:01)
[2022-05-06] MEDS: Potassium Bicarbonate/Cit Ac 20 MEQ Effervescent Tab PO SCH ×2 (08:01→20:14)
[2022-05-06] MEDS: cefTRIAXone 2 GM in Sodium Chloride 0.9% 100 ML IV SCH (11:50)
[2022-05-06] MEDS: Mupirocin Oint 22 GM Tube TOP SCH (20:14)
[2022-05-07] MEDS: Albuterol 0.083% 2.5 MG/3 ML Neb Soln NEB PRN ×2 (02:38→04:43)
[2022-05-07] MEDS: Albuterol/Ipratropium 3.0-0.5 MG/3 ML Neb Soln NEB SCH ×4 (05:00→21:24)
[2022-05-07] MEDS: Pantoprazole 40 MG Tab.CR PO SCH ×2 (05:24→16:49)
[2022-05-07] MEDS: guaiFENesin/Dextromethorphan 100-10 MG/5 ML Soln 5 ML Cup PO SCH ×3 (07:45→20:19)
[2022-05-07] MEDS ORDERED: Albuterol 6.7 GM Inhaler INH PRN (09:29)
[2022-05-07] MEDS: Potassium Bicarbonate/Cit Ac 20 MEQ Effervescent Tab PO SCH ×3 (10:14→20:18)
[2022-05-07] MEDS: Docusate Sodium 100 MG Cap PO SCH (10:15)
[2022-05-07] MEDS: Apixaban 2.5 MG Tab PO SCH ×2 (10:15→20:18)
[2022-05-07] MEDS: Furosemide 40 MG Tab PO SCH (10:15)
[2022-05-07] MEDS: Mupirocin Oint 22 GM Tube TOP SCH ×2 (10:15→20:18)
[2022-05-07] MEDS ORDERED: Magnesium Sulfate/Water 2 GM in Premix Bag 1 BAG IV ONE (12:30)
[2022-05-07] MEDS: cefTRIAXone 2 GM in Sodium Chloride 0.9% 100 ML IV SCH (13:57)
[2022-05-08] MEDS: Pantoprazole 40 MG Tab.CR PO SCH (05:06)
[2022-05-08] MEDS: Albuterol/Ipratropium 3.0-0.5 MG/3 ML Neb Soln NEB SCH (05:40)
[2022-05-08] MEDS: guaiFENesin/Dextromethorphan 100-10 MG/5 ML Soln 5 ML Cup PO SCH (08:37)
[2022-05-08] MEDS: Docusate Sodium 100 MG Cap PO SCH (08:38)
[2022-05-08] MEDS: Furosemide 40 MG Tab PO SCH (08:38)
[2022-05-08] MEDS: Potassium Bicarbonate/Cit Ac 20 MEQ Effervescent Tab PO SCH (08:38)
[2022-05-08] MEDS: Apixaban 2.5 MG Tab PO SCH (08:38)
[2022-05-08] MEDS: Mupirocin Oint 22 GM Tube TOP SCH (08:38)
[2022-05-08] MEDS ORDERED: Albuterol/Ipratropium 3.0-0.5 MG/3 ML Neb Soln NEB PRN (09:35)
[2022-05-08] MEDS: cefTRIAXone 2 GM in Sodium Chloride 0.9% 100 ML IV SCH (12:00)
[2022-05-08 12:16] VITALS: BP 150/91; PULSE 73
== END 2022-05-08 13:36 | DRG 194 ==
LOC: JD.ED 10:12 → JD.MS 14:35
PROVIDERS: ADMIT Pediatrics; ATTEND Pediatrics
DX: J10.1 Influenza due to other identified influenza virus with other respiratory manifestations (principal); N30.01 Acute cystitis with hematuria; Z66 Do not resuscitate; K21.9 Gastro-esophageal reflux disease without esophagitis; E66.9 Obesity, unspecified; J45.909 Unspecified asthma, uncomplicated; E78.5 Hyperlipidemia, unspecified; Z20.822 Contact with and (suspected) exposure to COVID-19; M54.9 Dorsalgia, unspecified; F32.89 Other specified depressive episodes; D64.9 Anemia, unspecified; G89.29 Other chronic pain; I11.0 Hypertensive heart disease with heart failure; Z96.653 Presence of artificial knee joint, bilateral; R77.8 Other specified abnormalities of plasma proteins; E87.6 Hypokalemia; I50.9 Heart failure, unspecified; Z68.31 Body mass index [BMI] 31.0-31.9, adult; Z86.73 Personal history of transient ischemic attack (TIA), and cerebral infarction without residual deficits; Z79.01 Long term (current) use of anticoagulants; I25.2 Old myocardial infarction; Z87.11 Personal history of peptic ulcer disease; Z87.19 Personal history of other diseases of the digestive system; Z79.52 Long term (current) use of systemic steroids; Z79.899 Other long term (current) drug therapy; Z88.8 Allergy status to other drugs, medicaments and biological substances; Z98.42 Cataract extraction status, left eye; Z98.41 Cataract extraction status, right eye; Z97.3 Presence of spectacles and contact lenses; Z86.718 Personal history of other venous thrombosis and embolism; Z90.49 Acquired absence of other specified parts of digestive tract; Z90.89 Acquired absence of other organs; Z98.890 Other specified postprocedural states; Z90.710 Acquired absence of both cervix and uterus
CPT/HCPCS: 0241U; 36415; 71045; 71045-26; 80048; 80053; 81001; 83605; 83735; 83880; 84484; 85025; 85610; 85730; 86140; 87040; 87086; 87088; 87186; 87641; 93005; 94640; 94761; 97116-GP; 97162-GP; 97166-GO; 97530-GO; 97530-GP; A9270-GY; J0696; J3475; J3490; J7620; J7620-GY; U0002

== ENCOUNTER 2022-08-13 09:48 | Inpatient (IN) | payer MEDICARE, OTHER ==
[2022-08-13 11:31] LABS: HEMATOCRIT 40.2 % (34.1-44.9); HEMOGLOBIN 12.8 gm/dl (11.2-15.7); MEAN CORPUSCULAR HEMOGLOBIN 31.4 pg (25.6-32.2); MEAN CORPUSCULAR HGB CONC 31.8 g/dl (32.2-35.5); MEAN CORPUSCULAR VOLUME 98.8 fl (79.4-94.8); MEAN PLATELET VOLUME 10.3 fl (9.4-12.3); PLATELET COUNT,PLT 289 K/mm3 (182-369); RED BLOOD CELL COUNT 4.07 M/mm3 (3.98-5.22)
[2022-08-13] MEDS ORDERED: LORazepam 2 MG/ML SDV IVPUSH ONE (11:38)
[2022-08-13 11:55] LABS: LACTIC ACID 4.2 mmol/L (0.4-2.0)
[2022-08-13] MEDS ORDERED: Lactated Ringers 1,000 ML IV ONE (11:57)
[2022-08-13 12:01] LABS: A/G RATIO 0.7 (1-2); ALANINE AMINOTRANSFERASE,ALT 25 U/L (14-59); ALBUMIN 3.5 g/dl (3.4-5.0); ALKALINE PHOSPHATASE 120 U/L (46-116); ANION GAP 17.2 (5-15); ASPARTATE AMNIOTRANSFERASE,AST 27 U/L (15-37); BILIRUBIN TOTAL 0.9 mg/dL (0.2-1.0); BLOOD UREA NITROGEN,BUN 20 mg/dL (7-18); BUN/CREATININE RATIO 13.3 (14-18); CALCIUM 9.9 mg/dL (8.5-10.1); CARBON DIOXIDE,CO2 27 mEq/L (21-32); CHLORIDE,CL 101 mEq/L (98-107); CREATININE 1.5 mg/dL (0.55-1.02); ESTIMATED GFR 34 mL/min (>60); GLUCOSE RANDOM 115 mg/dL (70-99); POTASSIUM,K 3.2 mEq/L (3.5-5.1); PROTEIN TOTAL,TP 8.3 g/dl (6.4-8.2); SODIUM,NA 142 mEq/L (136-145)
[2022-08-13 12:27] LABS: BAND PERCENT MAN 0 % (0-10); BASOPHILS PERCENT MAN 1 (0.1-1.2); EOSINOPHILS PERCENT MAN 1 % (0.7-5.8); LYMPHOCYTES % ATYPICAL MANUAL 0 %; LYMPHOCYTES PERCENT MAN 24 % (20-40); MONOCYTES PERCENT MAN 7 % (2-10)
[2022-08-13 12:30] LABS: ANISOCYTOSIS 1+ SLIGHT; HYPOCHROMASIA 1+ SLIGHT; PLATELET COUNT ESTIMATE ADEQUATE
[2022-08-13 13:20] LABS: APPEARANCE,URINE SLT CLOUDY (Clear); BILIRUBIN,URINE NEGATIVE (Negative); COLOR,URINE LIGHT YELLOW (Yellow); GLUCOSE,URINE NEGATIVE (Negative); KETONES,URINE NEGATIVE (Negative); LEUKOCYTE ESTERASE,URINE 2+ (Negative); NITRITE,URINE NEGATIVE (Negative); OCCULT BLOOD,URINE NEGATIVE (Negative); PROTEIN,URINE NEGATIVE (Negative); UROBILINOGEN,URINE 0.2 (0.2-1.0)
[2022-08-13 13:47] LABS: BACTERIA,URINE MANY /hpf (FEW); MUCUS,URINE NOT SEEN /hpf (FEW); RBC,URINE 0-5 /hpf (0-5); SQUAMOUS EPITHELIAL CELLS,UR 0-5 /hpf (0-5); WBC CLUMPS,URINE FEW /hpf (NOT SEEN); WBC,URINE 20-30 /hpf (0-5)
[2022-08-13] MEDS ORDERED: cefTRIAXone 2 GM in Sodium Chloride 0.9% 100 ML IV ONE (14:58)
[2022-08-13] MEDS ORDERED: Lactated Ringers 1,000 ML IV SCH (16:00)
[2022-08-13] MEDS ORDERED: Ondansetron 4 MG/2 ML SDV IVPUSH PRN (17:29)
[2022-08-13] MEDS ORDERED: hydrALAZINE 20 MG/ML SDV IVPUSH PRN (17:29)
[2022-08-13] MEDS ORDERED: Mupirocin Oint 22 GM Tube TOP SCH (17:30)
[2022-08-13] MEDS ORDERED: Benzonatate 100 MG Cap PO PRN (17:53)
[2022-08-13] MEDS ORDERED: Albuterol 6.7 GM Inhaler INH PRN (17:53)
[2022-08-13] MEDS: Acetaminophen/oxyCODONE 325-5 MG Tab PO PRN (18:12)
[2022-08-13] MEDS: Acetaminophen 325 MG Tab PO PRN (22:44)
[2022-08-13] MEDS: atorvaSTATin 20 MG Tab PO SCH (22:45)
[2022-08-13] MEDS: Apixaban 2.5 MG Tab PO SCH (22:46)
[2022-08-14] MEDS: Acetaminophen/oxyCODONE 325-5 MG Tab PO PRN ×2 (03:42→11:16)
[2022-08-14] MEDS: Pantoprazole 40 MG Tab.CR PO SCH ×2 (06:10→16:18)
[2022-08-14 06:26] LABS: EST CRCL DRUG DOSING (CG) 37.1 mL/min; POTASSIUM,K 3.6 mEq/L (3.5-5.1)
[2022-08-14 06:27] LABS: BASOPHILS ABSOLUTE AUTO 0.03 K/mm3 (0.01-0.08); BASOPHILS PERCENT AUTO 0.6 % (0.1-1.2); EOSINOPHILS ABSOLUTE AUTO 0.23 K/mm3 (0.04-0.36); EOSINOPHILS PERCENT AUTO 4.8 (0.7-5.8); HEMATOCRIT 36.2 % (34.1-44.9); HEMOGLOBIN 11.5 gm/dl (11.2-15.7); LYMPHOCYTES ABSOLUTE AUTO 1.09 K/mm3 (1.18-3.74); LYMPHOCYTES PERCENT AUTO 22.9 % (19.3-51.7); MEAN CORPUSCULAR HEMOGLOBIN 31.7 pg (25.6-32.2); MEAN CORPUSCULAR HGB CONC 31.8 g/dl (32.2-35.5); MEAN CORPUSCULAR VOLUME 99.7 fl (79.4-94.8); MEAN PLATELET VOLUME 10.6 fl (9.4-12.3); MONOCYTES ABSOLUTE AUTO 0.74 K/mm3 (0.24-0.36); MONOCYTES PERCENT AUTO 15.5 % (4.7-12.5); NEUTROPHILS ABSOLUTE AUTO 2.68 K/mm3 (1.56-6.13); NEUTROPHILS PERCENT AUTO 56.2 % (34.0-71.1); PLATELET COUNT,PLT 247 K/mm3 (182-369); RED BLOOD CELL COUNT 3.63 M/mm3 (3.98-5.22); WHITE BLOOD CELL COUNT,WBC 4.77 K/mm3 (3.98-10.04)
[2022-08-14 07:09] LABS: ANION GAP 10.6 (5-15)
[2022-08-14] MEDS ORDERED: Lisinopril 10 MG Tab PO SCH (09:00)
[2022-08-14] MEDS: Apixaban 2.5 MG Tab PO SCH ×2 (09:03→22:06)
[2022-08-14] MEDS: Furosemide 40 MG Tab PO SCH (09:03)
[2022-08-14] MEDS: Multivitamins with Minerals/Folic Acid/Lutein/Zeaxanth Tab PO SCH (09:03)
[2022-08-14] MEDS: Multivitamin Tab PO SCH (09:04)
[2022-08-14] MEDS: Acetaminophen 325 MG Tab PO PRN (09:04)
[2022-08-14] MEDS: Cholecalciferol (Vitamin D3) 25 MCG Tab PO SCH (09:04)
[2022-08-14] MEDS: cefTRIAXone 1 GM in Sodium Chloride 0.9% 100 ML IV SCH (09:06)
[2022-08-14] MEDS ORDERED: Lidocaine 4% 1 each Patch TOP SCH (13:30)
[2022-08-14] MEDS: Acetaminophen/oxyCODONE 325-5 MG Tab PO SCH ×2 (16:18→22:06)
[2022-08-14] MEDS: Lidocaine 4% 1 each Patch TOP SCH (16:48)
[2022-08-14] MEDS: atorvaSTATin 20 MG Tab PO SCH (22:06)
[2022-08-15] MEDS: Acetaminophen/oxyCODONE 325-5 MG Tab PO SCH ×3 (04:08→20:47)
[2022-08-15] MEDS: Pantoprazole 40 MG Tab.CR PO SCH ×2 (05:49→16:05)
[2022-08-15 06:01] LABS: BASOPHILS ABSOLUTE AUTO 0.05 K/mm3 (0.01-0.08); EOSINOPHILS ABSOLUTE AUTO 0.33 K/mm3 (0.04-0.36); EOSINOPHILS PERCENT AUTO 6.3 (0.7-5.8); HEMATOCRIT 37.6 % (34.1-44.9); HEMOGLOBIN 11.8 gm/dl (11.2-15.7); LYMPHOCYTES ABSOLUTE AUTO 1.36 K/mm3 (1.18-3.74); LYMPHOCYTES PERCENT AUTO 26.1 % (19.3-51.7); MEAN CORPUSCULAR HEMOGLOBIN 31.4 pg (25.6-32.2); MEAN CORPUSCULAR HGB CONC 31.4 g/dl (32.2-35.5); MEAN PLATELET VOLUME 10.6 fl (9.4-12.3); MONOCYTES ABSOLUTE AUTO 0.85 K/mm3 (0.24-0.36); MONOCYTES PERCENT AUTO 16.3 % (4.7-12.5); NEUTROPHILS ABSOLUTE AUTO 2.63 K/mm3 (1.56-6.13); NEUTROPHILS PERCENT AUTO 50.3 % (34.0-71.1); PLATELET COUNT,PLT 241 K/mm3 (182-369); RED BLOOD CELL COUNT 3.76 M/mm3 (3.98-5.22); WHITE BLOOD CELL COUNT,WBC 5.22 K/mm3 (3.98-10.04)
[2022-08-15 06:12] LABS: ANION GAP 10.7 (5-15); BUN/CREATININE RATIO 16.7 (14-18); CALCIUM 9.2 mg/dL (8.5-10.1); CREATININE 1.2 mg/dL (0.55-1.02); EST CRCL DRUG DOSING (CG) 30.92 mL/min; POTASSIUM,K 3.7 mEq/L (3.5-5.1)
[2022-08-15] MEDS: cefTRIAXone 1 GM in Sodium Chloride 0.9% 100 ML IV SCH (09:08)
[2022-08-15] MEDS: Lidocaine 4% 1 each Patch TOP SCH (09:08)
[2022-08-15] MEDS: Multivitamins with Minerals/Folic Acid/Lutein/Zeaxanth Tab PO SCH (09:08)
[2022-08-15] MEDS: Cholecalciferol (Vitamin D3) 25 MCG Tab PO SCH (09:09)
[2022-08-15] MEDS: Apixaban 2.5 MG Tab PO SCH ×2 (09:09→20:47)
[2022-08-15] MEDS: Furosemide 40 MG Tab PO SCH (09:09)
[2022-08-15] MEDS: Multivitamin Tab PO SCH (09:10)
[2022-08-15] MEDS ORDERED: Acetaminophen/oxyCODONE 325-5 MG Tab PO SCH (10:00)
[2022-08-15] MEDS: HYDROmorphone 0.5 MG/0.5 ML Syringe IVPUSH PRN ×2 (11:29→17:59)
[2022-08-15] MEDS: Psyllium Husk Powder Sugar Free 5.85 GM Packet PO PRN (18:16)
[2022-08-15] MEDS: Docusate Sodium 100 MG Cap PO PRN (18:16)
[2022-08-15] MEDS: atorvaSTATin 20 MG Tab PO SCH (20:46)
[2022-08-16] MEDS: Acetaminophen/oxyCODONE 325-5 MG Tab PO SCH ×4 (04:40→20:33)
[2022-08-16] MEDS: Pantoprazole 40 MG Tab.CR PO SCH ×3 (04:41→15:29)
[2022-08-16 05:26] LABS: BASOPHILS ABSOLUTE AUTO 0.03 K/mm3 (0.01-0.08); BASOPHILS PERCENT AUTO 0.6 % (0.1-1.2); EOSINOPHILS ABSOLUTE AUTO 0.25 K/mm3 (0.04-0.36); EOSINOPHILS PERCENT AUTO 4.7 (0.7-5.8); HEMATOCRIT 37.6 % (34.1-44.9); HEMOGLOBIN 12.1 gm/dl (11.2-15.7); IMMATURE GRAN ABSOLUTE AUTO 0.01 K/mm3 (0.00-0.10); IMMATURE GRAN PERCENT AUTO 0.2 % (<=1.0); LYMPHOCYTES ABSOLUTE AUTO 1.54 K/mm3 (1.18-3.74); LYMPHOCYTES PERCENT AUTO 29.2 % (19.3-51.7); MEAN CORPUSCULAR HEMOGLOBIN 31.8 pg (25.6-32.2); MEAN CORPUSCULAR HGB CONC 32.2 g/dl (32.2-35.5); MEAN CORPUSCULAR VOLUME 98.9 fl (79.4-94.8); MEAN PLATELET VOLUME 10.3 fl (9.4-12.3); MONOCYTES ABSOLUTE AUTO 0.81 K/mm3 (0.24-0.36); MONOCYTES PERCENT AUTO 15.4 % (4.7-12.5); NEUTROPHILS ABSOLUTE AUTO 2.63 K/mm3 (1.56-6.13); NEUTROPHILS PERCENT AUTO 49.9 % (34.0-71.1); PLATELET COUNT,PLT 255 K/mm3 (182-369); WHITE BLOOD CELL COUNT,WBC 5.27 K/mm3 (3.98-10.04)
[2022-08-16 05:51] LABS: ANION GAP 9.4 (5-15); BUN/CREATININE RATIO 17.3 (14-18); CREATININE 1.1 mg/dL (0.55-1.02); EST CRCL DRUG DOSING (CG) 33.73 mL/min; POTASSIUM,K 3.4 mEq/L (3.5-5.1)
[2022-08-16] MEDS: cefTRIAXone 1 GM in Sodium Chloride 0.9% 100 ML IV SCH (09:29)
[2022-08-16] MEDS: Cholecalciferol (Vitamin D3) 25 MCG Tab PO SCH (09:32)
[2022-08-16] MEDS: Multivitamins with Minerals/Folic Acid/Lutein/Zeaxanth Tab PO SCH (09:32)
[2022-08-16] MEDS: Apixaban 2.5 MG Tab PO SCH ×2 (09:33→20:36)
[2022-08-16] MEDS: Docusate Sodium 100 MG Cap PO PRN (09:34)
[2022-08-16] MEDS: Lidocaine 4% 1 each Patch TOP SCH (09:34)
[2022-08-16] MEDS: Multivitamin Tab PO SCH (09:34)
[2022-08-16] MEDS: Potassium Chloride 20 MEQ Tab.ER PO SCH (11:00)
[2022-08-16] MEDS: Acetaminophen 325 MG Tab PO PRN (13:20)
[2022-08-16] MEDS: Psyllium Husk Powder Sugar Free 5.85 GM Packet PO PRN (15:29)
[2022-08-16] MEDS: atorvaSTATin 20 MG Tab PO SCH (20:35)
[2022-08-17] MEDS: Acetaminophen/oxyCODONE 325-5 MG Tab PO SCH ×4 (04:03→20:42)
[2022-08-17] MEDS: Pantoprazole 40 MG Tab.CR PO SCH ×2 (05:05→15:00)
[2022-08-17 05:51] LABS: BUN/CREATININE RATIO 17.5 (14-18); CALCIUM 9.1 mg/dL (8.5-10.1); CREATININE 1.2 mg/dL (0.55-1.02); EST CRCL DRUG DOSING (CG) 30.92 mL/min
[2022-08-17 05:54] LABS: BASOPHILS ABSOLUTE AUTO 0.04 K/mm3 (0.01-0.08); BASOPHILS PERCENT AUTO 0.8 % (0.1-1.2); EOSINOPHILS ABSOLUTE AUTO 0.29 K/mm3 (0.04-0.36); HEMATOCRIT 38.7 % (34.1-44.9); HEMOGLOBIN 12.4 gm/dl (11.2-15.7); LYMPHOCYTES ABSOLUTE AUTO 1.45 K/mm3 (1.18-3.74); LYMPHOCYTES PERCENT AUTO 30.2 % (19.3-51.7); MEAN CORPUSCULAR HEMOGLOBIN 31.7 pg (25.6-32.2); MEAN PLATELET VOLUME 10.5 fl (9.4-12.3); MONOCYTES ABSOLUTE AUTO 0.65 K/mm3 (0.24-0.36); MONOCYTES PERCENT AUTO 13.5 % (4.7-12.5); NEUTROPHILS ABSOLUTE AUTO 2.37 K/mm3 (1.56-6.13); NEUTROPHILS PERCENT AUTO 49.5 % (34.0-71.1); PLATELET COUNT,PLT 269 K/mm3 (182-369); RED BLOOD CELL COUNT 3.91 M/mm3 (3.98-5.22)
[2022-08-17] MEDS: cefTRIAXone 1 GM in Sodium Chloride 0.9% 100 ML IV SCH (08:08)
[2022-08-17] MEDS: Psyllium Husk Powder Sugar Free 5.85 GM Packet PO PRN (08:12)
[2022-08-17] MEDS: Lidocaine 4% 1 each Patch TOP SCH (08:13)
[2022-08-17] MEDS: Docusate Sodium 100 MG Cap PO PRN (08:15)
[2022-08-17] MEDS: Multivitamins with Minerals/Folic Acid/Lutein/Zeaxanth Tab PO SCH (08:15)
[2022-08-17] MEDS: Apixaban 2.5 MG Tab PO SCH ×2 (08:15→20:41)
[2022-08-17] MEDS: Cholecalciferol (Vitamin D3) 25 MCG Tab PO SCH (08:15)
[2022-08-17] MEDS: Potassium Chloride 20 MEQ Tab.ER PO SCH (08:16)
[2022-08-17] MEDS: Multivitamin Tab PO SCH (08:16)
[2022-08-17] MEDS: Acetaminophen 325 MG Tab PO PRN (09:00)
[2022-08-17] MEDS: atorvaSTATin 20 MG Tab PO SCH (20:41)
[2022-08-18] MEDS: Acetaminophen/oxyCODONE 325-5 MG Tab PO SCH ×2 (04:02→08:32)
[2022-08-18 05:53] LABS: ANION GAP 9.9 (5-15); CALCIUM 9.2 mg/dL (8.5-10.1); EST CRCL DRUG DOSING (CG) 37.1 mL/min; POTASSIUM,K 3.9 mEq/L (3.5-5.1)
[2022-08-18 05:58] LABS: BASOPHILS ABSOLUTE AUTO 0.03 K/mm3 (0.01-0.08); BASOPHILS PERCENT AUTO 0.4 % (0.1-1.2); EOSINOPHILS ABSOLUTE AUTO 0.23 K/mm3 (0.04-0.36); EOSINOPHILS PERCENT AUTO 3.3 (0.7-5.8); HEMATOCRIT 37.8 % (34.1-44.9); HEMOGLOBIN 11.9 gm/dl (11.2-15.7); LYMPHOCYTES ABSOLUTE AUTO 1.23 K/mm3 (1.18-3.74); LYMPHOCYTES PERCENT AUTO 17.9 % (19.3-51.7); MEAN CORPUSCULAR HEMOGLOBIN 31.3 pg (25.6-32.2); MEAN CORPUSCULAR HGB CONC 31.5 g/dl (32.2-35.5); MEAN CORPUSCULAR VOLUME 99.5 fl (79.4-94.8); MEAN PLATELET VOLUME 10.4 fl (9.4-12.3); MONOCYTES ABSOLUTE AUTO 0.93 K/mm3 (0.24-0.36); MONOCYTES PERCENT AUTO 13.5 % (4.7-12.5); NEUTROPHILS ABSOLUTE AUTO 4.45 K/mm3 (1.56-6.13); NEUTROPHILS PERCENT AUTO 64.9 % (34.0-71.1); PLATELET COUNT,PLT 274 K/mm3 (182-369); WHITE BLOOD CELL COUNT,WBC 6.87 K/mm3 (3.98-10.04)
[2022-08-18] MEDS: Pantoprazole 40 MG Tab.CR PO SCH (06:42)
[2022-08-18] MEDS: Multivitamins with Minerals/Folic Acid/Lutein/Zeaxanth Tab PO SCH (08:31)
[2022-08-18] MEDS: Multivitamin Tab PO SCH (08:31)
[2022-08-18] MEDS: Apixaban 2.5 MG Tab PO SCH (08:31)
[2022-08-18] MEDS: Cholecalciferol (Vitamin D3) 25 MCG Tab PO SCH (08:31)
[2022-08-18] MEDS: Potassium Chloride 20 MEQ Tab.ER PO SCH (08:31)
[2022-08-18] MEDS: cefTRIAXone 1 GM in Sodium Chloride 0.9% 100 ML IV SCH (08:32)
[2022-08-18] MEDS: Lidocaine 4% 1 each Patch TOP SCH (08:32)
[2022-08-18 13:35] VITALS: BP 127/72; PULSE 60
== END 2022-08-18 13:30 | DRG 871 ==
LOC: JD.ED 09:48 → JD.MS 17:07
PROVIDERS: ADMIT Internal Medicine; ATTEND Internal Medicine
DX: A41.51 Sepsis due to Escherichia coli [E. coli] (principal); G93.41 Metabolic encephalopathy; N39.0 Urinary tract infection, site not specified; N17.9 Acute kidney failure, unspecified; I48.20 Chronic atrial fibrillation, unspecified; E87.20 Acidosis, unspecified; E86.0 Dehydration; F03.90 Unspecified dementia, unspecified severity, without behavioral disturbance, psychotic disturbance, mood disturbance, and anxiety; Z66 Do not resuscitate; E78.5 Hyperlipidemia, unspecified; J45.20 Mild intermittent asthma, uncomplicated; M19.90 Unspecified osteoarthritis, unspecified site; G89.29 Other chronic pain; M54.50 Low back pain, unspecified; E66.9 Obesity, unspecified; K21.9 Gastro-esophageal reflux disease without esophagitis; M81.0 Age-related osteoporosis without current pathological fracture; E78.00 Pure hypercholesterolemia, unspecified; B96.20 Unspecified Escherichia coli [E. coli] as the cause of diseases classified elsewhere; H91.90 Unspecified hearing loss, unspecified ear; I11.0 Hypertensive heart disease with heart failure; Z96.653 Presence of artificial knee joint, bilateral; I25.2 Old myocardial infarction; Z98.41 Cataract extraction status, right eye; Z98.42 Cataract extraction status, left eye; Z79.01 Long term (current) use of anticoagulants; Z79.51 Long term (current) use of inhaled steroids; Z86.73 Personal history of transient ischemic attack (TIA), and cerebral infarction without residual deficits; Z79.899 Other long term (current) drug therapy; Z98.890 Other specified postprocedural states; Z90.49 Acquired absence of other specified parts of digestive tract; Z90.710 Acquired absence of both cervix and uterus; Z82.49 Family history of ischemic heart disease and other diseases of the circulatory system; Z68.27 Body mass index [BMI] 27.0-27.9, adult; Z87.11 Personal history of peptic ulcer disease; Z88.8 Allergy status to other drugs, medicaments and biological substances; Z86.718 Personal history of other venous thrombosis and embolism
CPT/HCPCS: 36415; 70450; 70450-26; 71045; 71045-26; 80048; 80053; 81001; 83605; 83880; 85007; 85025; 85027; 87040; 87086; 87088; 87186; 96361; 96365; 96375; 97162-GP; 97166-GO; 97530-GO; 97530-GP; 99222; 99232; 99239; 99285; 99285-25; A9270-GY; C1758; J0696; J1170; J2060; J3490; J7120; U0002

== ENCOUNTER 2023-10-08 01:00 | Emergency (ER) | payer MEDICARE, OTHER ==
[2023-10-08 01:09] VITALS: BP 180/53; PULSE 70
[2023-10-08] MEDS: Cefdinir 300 MG Cap PO ONE (03:01)
== END 2023-10-08 03:53 | disposition home or self-care (01) ==
LOC: JD.ED 01:00
DX: R04.0 Epistaxis (principal); I48.20 Chronic atrial fibrillation, unspecified; I11.0 Hypertensive heart disease with heart failure; I50.9 Heart failure, unspecified; I25.2 Old myocardial infarction; E78.00 Pure hypercholesterolemia, unspecified; Z86.73 Personal history of transient ischemic attack (TIA), and cerebral infarction without residual deficits; Z91.048 Other nonmedicinal substance allergy status; Z88.6 Allergy status to analgesic agent; Z88.8 Allergy status to other drugs, medicaments and biological substances; Z79.51 Long term (current) use of inhaled steroids; Z79.899 Other long term (current) drug therapy; Z79.01 Long term (current) use of anticoagulants; Z90.710 Acquired absence of both cervix and uterus
CPT/HCPCS: 30903; 99283; A9270; 99282